=== PATIENT | male | born 1965 | race African-American/Black ===

== ENCOUNTER 2020-03-16 16:32 | Inpatient (IN) | payer MEDICARE, OTHER ==
[~2020-03-16] VITALS: Ht 180.3 cm; Wt 110.7 kg
[2020-03-16] MEDS ORDERED: PIPERACILLIN/TAZO 4.5 GM 100 ML IV STA (16:49)
--- NOTE | 2020-03-16 16:55 | Emergency Department Note ---
History of Present Illnes History of Present Illness Chief Complaint: General Medicine Complaints History of Present Illness This is a 54 year old male Chief Complaint Comment yesterday patient went to [facility] for his gangreen toe, sent back to rehab facility ([facility]) and was to have direct admission to [facility] for amputation of toe. a nurse practioner from [facility] called earlier and stated she was making sure we knew to admit this patient today. pt with right fifth toe black. 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: See EMS Report Additional [facility] Required: No Onset (how long ago): day(s) (1) Location: R 5th toe Quality: Radiation: Reports non-radiation Severity: moderate Onset quality: sudden Duration (how long): day(s) (1) Timing of current episode: constant Progression: worsening Chronicity: new Context: Denies recent illness, Denies recent surgery Relieving factors: none Exacerbating factors: none Treatments prior to arrival: none Past Medical/Family History Physician Review I have reviewed the patient's past medical and family history. Any updates have been documented here. Past Medical History Recent Fever: No Clinical Suspicion of Infectio: Yes New/Unexplained Change in Ment: No Past Medical History: Hypertension, Diabetes, CVA, UTI's, Depression, Chronic Kidney Disease Other Medical History: insomnia aphasia mild sepsis (ecoli) sleep apnea bph gangreen left hemiparesis Review of Systems Review of Systems Constitutional: Reports no symptoms EENTM: Reports no symptoms Cardiovascular: Reports no symptoms Respiratory: Reports no symptoms Gastrointestinal: Reports no symptoms Genitourinary: Reports no symptoms Musculoskeletal: Reports as per HPI Integumentary: Reports no symptoms Neurological: Reports no symptoms Psychological: Reports no symptoms Endocrine: Reports no symptoms Hematological/Lymphatic: Reports no symptoms Physical Exam Related Data Allergies: Coded Allergies: No Known Allergies (Unverified , 03/16/20) Triage Vital Signs Vital Signs Date Time Temp Pulse Resp B/P (MAP) Pulse Ox O2 Delivery O2 Flow Rate FiO2 03/16/20 16:37 Vital signs reviewed: Yes Physical Exam CONSTITUTIONAL Constitutional: Present well-developed, Present well-nourished HENT HENT: Present normocephalic, Present atraumatic, Present oropharynx clear/moist, Present nose normal HENT L/R: Present left ext ear normal, Present right ext ear normal EYES Eyes: Reports PERRL, Reports conjunctivae normal NECK Neck: Present ROM normal PULMONARY Pulmonary: Present effort normal, Present breath sounds normal CARDIOVASCULAR Cardiovascular: Present regular rhythm, Present heart sounds normal, Present capillary refill normal, Present normal rate GASTROINTESTINAL Abdominal: Present soft, Present nontender, Present bowel sounds normal GENITOURINARY Genitourinary: Present exam deferred SKIN Skin: Present warm, Present dry MUSCULOSKELETAL Musculoskeletal: Present ROM normal, Present other (R 5th toe black, no cap refill) NEUROLOGICAL Neurological: Present alert, Present oriented x 3, Present weakness (L arm and leg); Absent no gross motor or sensory deficits PSYCHOLOGICAL Psychological: Present mood/affect normal, Present judgement normal Assessment & Plan Medical Decision Making MDM 54 y.o M presents for gangrene to R small toe. Admit to [facility] and Consult Dr. Moser. Do not suspect sepsis at this time. Vanc/Zosyn started Assessment & Plan Final Impression: (1) Dry gangrene Depart Disposition: ADMITTED Last Vital Signs Date Time Temp Pulse Resp B/P (MAP) Pulse Ox O2 Delivery O2 Flow Rate FiO2 03/16/20 16:37 ANDREA STERLING MD Mar 16, 2020 16:55
[2020-03-16] MEDS ORDERED: ONDANSETRON HCL INJ 2MG/ML 2ML 2 MG/ML VIAL IV PRN (17:00)
[2020-03-16] MEDS ORDERED: MORPHINE SULFATE INJ 4 MG/ML INJ 1ML IV PRN (17:00)
--- OUTSIDE RECORDS SUMMARY | 2020-03-16 17:27 | XMS REPORT | Continuity of Care Document ---
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 Name Role Phone ShieldEffect Information Exchange Unavailable Un available Problems Problem Status Onset Date Classification Date Reported Comments Source Hypoglycemia, unspecified 11/03/2019 11/06/2019 [facility] Chest pain, unspecified 11/03/2019 11/06/2019 [facility] Hypokalemia 11/03/2019 11/06/2019 [facility] CP Active [facility] CHOLECYSTITIS Active 07/25/2019 [facility] Cerebrovascular accident (disorder) Active Problem 09/2019 [facility] Congestive heart failure (disorder) Active Problem 09/2019 [facility] Coronary arteriosclerosis (disorder) Active Problem 09/2019 [facility] GALLSTONE ILEUS Active [facility] CHEST PAIN, UNSPECIFIED Active [facility] HYPOKALEMIA Active [facility] HYPOGLYCEMIA, UNSPECIFIED Acti ve [facility] Medications Medication Details Route Status Patient Instructions Ordering Provider Order Date Source atorvastatin Notes: (Same as: Lipitor) Inactive 11/05/2019 [facility] Baclofen Notes: (Same As: Rocky esal) Inactive 11/05/2019 [facility] Flomax Notes: (Same As: Flomax ) "Do Not Crush" Inactive 11/05/2019 [facility] pantoprazole 40 mg oral enteric coated tablet 40 mg = 1 tab, PO, Before Breakfast, # 30 tab, 0 Refill(s), Pharmacy: [facility], 177.8, cm, 11/03/19 22:36:00 CDT, Height, 127.27, kg, 11/03/19 22:36:00 CDT, Weight Active 11/04/2019 [facility] Amiodarone Notes: (Same as: Co rdarone) Inactive 11/04/2019 [facility] Aspirin 325 MG Oral Tablet Not es: Take with food. Inactive 11/04/2019 [facility] carvedilol Notes: Give with fo od. (Same As: Coreg) Inactive 11/04/2019 [facility] Plavix Notes: (Same As: Plavix) Inactive 11/04/2019 [facility] Docusate Sodium 100 MG Oral Capsule Notes: (Same as: Colace) (Do Not Crush) Inactiv e 11/04/2019 [facility] Cymbalta Notes: (Same as: Cymb tami) (Do Not Crush) Inactive 11/04/2019 [facility] Famotidine Notes: (Same as: Pe pcid) Inactive 11/04/2019 [facility] Lisinopril Notes: (Same as: Pr inivil, Zestril) Inactive 11/04/2019 [facility] Protonix Notes: Tablet should not be chewed or crushed. (Same as: Protonix) Inactive 11/04/2019 [facility] Enoxaparin Notes: (Same as: Lo venox) Inactive 11/04/2019 [facility] Lovenox Notes: (Same as: Loven ox) No Longer Active 11/04/2019 [facility] Tylenol Notes: Do not exceed 4 gm/day. (Same as: Tylenol) No Longer Active 11/04/2019 [facility] Bisacodyl Notes: (Same As: Dul colax, Bisco-Lax) No Longer Active 11/04/2019 [facility] Dextrose 50% Syringe (D50W) 12 .5 gm, 25 mL, Route: IVP, Drug Form: INJ, Dosing Weight 127.273, kg, PRN, PRN Blood Glucose Results, Start date: 11/03/19 21:03:00 CDT, Duration: 30 day, Stop date: 12/03/19 21:02:00 CDT, 0 No Longer Active 11/04/2019 [facility] Glucagon 1 mg, Route: IM, Drug form: PDR/INJ, PRN, Dosing Weight 127.273, kg, PRN Blood Glucose Results, Start date: 11/03/19 21:03:00 CDT, Duration: 30 day, Stop date: 12/03/19 21:02:00 CDT, 0 No Longer Active 11/04/2019 [facility] Morphine Notes: (Same as:MORPh ine Sulfate) Inactive 11/04/2019 [facility] Aspirin Notes: Take with food. Inactive 11/04/2019 [facility] Omnipaque 300 injectable solution 45 mL/min, STAT, Start date: 11/03/19 16:16:00 CDT, Duration: 1 doses or times Inactive 11/03/2019 [facility] potassium chloride 20 mEq oral tablet, e xtended release (KCL) Notes: (Same as: K-Dur 20) "Do Not Crush " Give with food and full glass of water For patients unable to swallow tablet, dissolve in one half glass of water. Allow about 2 minutes for the tablets to disintegrate. Stir before giving to prepare slurry and administer. Please exclude Patients with feeding tube less than 14 Danish (Dobhoff, J-tube etc) and pediatric and patients. Inactive 11/03/2019 [facility] Saline Flush 0.9% Notes: (Same as: BD Posiflush) No Longer Active 11/03/2019 [facility] Allergies, Adverse Reactions, Alerts Substance Category Reaction Severity Reaction type Status Date Reported Comments Source penicillins Assertion Drug allergy Active [facility] Immunizations No Data Provided for This Section Results Order Name Results Value Reference Range Date Interpretation Comments Source CARDIAC ENZYMES Troponin-I <0.02 0.00 - 0.40 11/04/2019 [facility] CHEM PANEL Glucose Lvl 87 70 - 99 11/04/2019 [facility] CHEM PANEL BUN 10 7 - 22 11/04/2019 [facility] CHEM [facility] Creatinine Lvl 0.60 0.50 - 1.40 11/04/2019 [facility] CHEM PANEL Sodium Lvl 141 135 - 145 11/04/2019 [facility] CHEM PANEL Potassium Lvl 3.5 3.5 - 5.1 11/04/2019 [facility] CHEM PANEL Chloride Lvl 107 95 - 109 11/04/2019 [facility] CHEM PANEL CO2 27 24 - 32 11/04/2019 [facility] CHEM PANEL AGAP 10.5 10.0 - 20.0 11/04/2019 [facility] CHEM PANEL Calcium Lvl 8.8 8.5 - 10.5 11/04/2019 [facility] CHEM [facility] eGFR 130 11/04/2019 Result Comment: The eGFR is calculated using the CKD-EPI formula. In most young, healthy individuals the eGFR will be >90 mL/min/1.73m2. The eGFR declines with age. An eGFR of 60-89 may be normal in some populations, particularly the elderly, for whom the CKD-EPI formula has not been extensively validated. Use of the eGFR is not recommended in the following populations:

Individuals with unstable creatinine concentrations, including patients and those with serious co-morbid conditions.

Patients with extremes in muscle mass or diet.

The data above are obtained from the National Kidney Disease Education Program (NKDEP) which additionally recommends that when the eGFR is used in patients with extremes of body mass index for purposes of drug dosing, the eGFR should be multiplied by the estimated BMI. [facility] CHEM PANEL Magnesium Lvl 1.9 1.8 - 2.4 11/04/2019 [facility] CHEM PANEL Phosphorus 2.7 2.5 - 4.5 11/04/2019 [facility] HEMATOLOGY WBC 7.9 3.7 - 10.4 11/04/2019 [facility] RBC 4.38 4.70 - 6.10 11/04/2019 [facility] Hgb 12.2 14.0 - 18.0 11/04/2019 [facility] Hct 37.2 42.0 - 54.0 11/04/2019 [facility] MCV 84.8 80.0 - 94.0 11/04/2019 [facility] MCH 27.9 27.0 - 31.0 11/04/2019 [facility] MCHC 32.8 32.0 - 36.0 11/04/2019 [facility] RDW 15.5 11.5 - 14.5 11/04/2019 [facility] Platelet 347 133 - 450 11/04/2019 [facility] MPV 8.0 7.4 - 10.4 11/04/2019 [facility] Segs 56.2 45.0 - 75.0 11/04/2019 [facility] Lymphocytes 31.2 20.0 - 40.0 11/04/2019 [facility] Monocytes 8.0 2.0 - 12.0 11/04/2019 [facility] HEMATOLOGY Eosinophils 3.4 0.0 - 4.0 11/04/2019 [facility] Basophils 1.2 0.0 - 1.0 11/04/2019 [facility] HEMATOLOGY Neutrophils # 4.4 1.5 - 8.1 11/04/2019 [facility] Lymphocytes # 2.5 1.0 - 5.5 11/04/2019 [facility] Monocytes # 0.6 0.0 - 0.8 11/04/2019 [facility] HEMATOLOGY Eosinophils # 0.3 0.0 - 0.5 11/04/2019 [facility] HEMATOLOGY Basophils # 0.1 0.0 - 0.2 11/04/2019 [facility] PARATHYROID PROFILE Ca Ion WB 1.17 1.05 - 1.25 11/04/2019 [facility] PARATHYROID PROFILE Ca Norm WB 1.17 1.05 - 1.25 11/04/2019 [facility] IMMUNOLOGY Coronavirus (COVID-19) NA A Not Detected (11/03/19 11:04 PM) Not Detected 11/04/2019 [facility] CARDIAC ENZYMES Troponin-I <0.02 0.00 - 0.40 11/03/2019 [facility] WBC 10.8 3.7 - 10.4 11/03/2019 [facility] HEMATOLOGY RBC 4.45 4.70 - 6.10 11/03/2019 [facility] Hgb 12.3 14.0 - 18.0 11/03/2019 [facility] Hct 38.1 42.0 - 54.0 11/03/2019 [facility] MCV 85.5 80.0 - 94.0 11/03/2019 [facility] MCH 27.7 27.0 - 31.0 11/03/2019 [facility] MCHC 32.4 32.0 - 36.0 11/03/2019 [facility] RDW 15.5 11.5 - 14.5 11/03/2019 [facility] Platelet 348 133 - 450 11/03/2019 [facility] MPV 7.9 7.4 - 10.4 11/03/2019 [facility] PT 14.6 12.0 - 14.7 11/03/2019 [facility] INR 1.13 0.85 - 1.17 11/03/2019 [facility] D-Dimer 2.44 11/03/2019 [facility] Segs 77.4 45.0 - 75.0 11/03/2019 [facility] Lymphocytes 13.3 20.0 - 40.0 11/03/2019 [facility] Monocytes 6.5 2.0 - 12.0 11/03/2019 [facility] HEMATOLOGY Eosinophils 1.3 0.0 - 4.0 11/03/2019 [facility] HEMATOLOGY Basophils 1.5 0.0 - 1.0 11/03/2019 [facility] Neutrophils # 8.4 1.5 - 8.1 11/03/2019 [facility] Lymphocytes # 1.4 1.0 - 5.5 11/03/2019 [facility] Monocytes # 0.7 0.0 - 0.8 11/03/2019 [facility] HEMATOLOGY Eosinophils # 0.1 0.0 - 0.5 11/03/2019 [facility] HEMATOLOGY Basophils # 0.2 0.0 - 0.2 11/03/2019 [facility] HEMATOLOGY PTT 32.3 22.9 - 35.8 11/03/2019 [facility] CARDIAC ENZYMES Total CK 31 12 - 191 11/03/2019 [facility] CARDIAC ENZYMES Troponin-I <0.02 0.00 - 0.40 11/03/2019 [facility] CARDIAC ENZYMES BNP 259 <=100 pg/mL 11/03/2019 [facility] CHEM PANEL Glucose Lvl 48 70 - 99 11/03/2019 Result Comment: Critical Result(s) martinez d to Fawn Marieargenis at 11/03/2019 15:14 by [facility]. Read back OK. [facility] CHEM PANEL BUN 13 7 - 22 11/03/2019 [facility] CHEM PANEL Creatinine Lvl 0.61 0.50 - 1.40 11/03/2019 [facility] CHEM PANEL Sodium Lvl 144 135 - 145 11/03/2019 [facility] CHEM PANEL Potassium Lvl 3.1 3.5 - 5.1 11/03/2019 [facility] CHEM PANEL Chloride Lvl 111 95 - 109 11/03/2019 [facility] CHEM PANEL CO2 27 24 - 32 11/03/2019 [facility] CHEM PANEL AGAP 9.1 10.0 - 20.0 11/03/2019 [facility] CHEM PANEL Calcium Lvl 7.6 8.5 - 10.5 11/03/2019 [facility] CHEM PANEL B/C Ratio 21 6 - 25 11/03/2019 [facility] CHEM PANEL Total Protein 6.5 6.4 - 8.4 11/03/2019 [facility] CHEM PANEL Albumin Lvl 2.3 3.5 - 5.0 11/03/2019 [facility] CHEM PANEL Globulin 4.2 2.7 - 4.2 11/03/2019 [facility] CHEM PANEL A/G Ratio 0.5 0.7 - 1.6 11/03/2019 [facility] CHEM PANEL ALT 12 0 - 65 11/03/2019 [facility] CHEM PANEL AST 10 0 - 37 11/03/2019 [facility] CHEM PANEL Alk Phos 60 39 - 136 11/03/2019 [facility] CHEM PANEL Bili Total 0.2 0.2 - 1.3 11/03/2019 [facility] CHEM PANEL eGFR 130 11/03/2019 Result Comment: The eGFR is calculated using the CKD-EPI formula. In most young, healthy individuals the eGFR will be >90 mL/min/1.73m2. The eGFR declines with age. An eGFR of 60-89 may be normal in some populations, particularly the elderly, for whom the CKD-EPI formula has not been extensively validated. Use of the eGFR is not recommended in the following populations:

Individuals with unstable creatinine concentrations, including patients and those with serious co-morbid conditions.

Patients with extremes in muscle mass or diet.

The data above are obtained from the National Kidney Disease Education Program (NKDEP) which additionally recommends that when the eGFR is used in patients with extremes of body mass index for purposes of drug dosing, the eGFR should be multiplied by the estimated BMI. [facility] CHEM PANEL Magnesium Lvl 1.4 1.8 - 2.4 11/03/2019 [facility] CHEM PANEL Phosphorus 2.9 2.5 - 4.5 11/03/2019 [facility] Pathology Reports No Data Provided for This Section Diagnostic Reports Report Value Date Source Chest Pulmonary Embolism CTA Radiation Dose CTDIVOL = 0 (mGy): DLP = 555 (mGy-cm) PROCEDURE INFORMATION: Exam: CT Angiography Chest With Contrast Exam date and time: 11/03/2019 4:38 PM Age: 54 years old Clinical indication: /chest pain; elevated dimer TECHNIQUE: Imaging protocol: Computed tomographic angiography of the chest with intravenous contrast. 3D rendering: MIP and/or 3D reconstructe d images were created by the technologist. Radiation optimization: All CT scans at this facility use at least one of these dose optimization techniques: automated exposure control; mA and/or kV adjustment per patient size (includes targeted exams where dose is matched to clinical indication); or iterative reconstruction. Contrast material: [id number]; Contrast volume: 100 ml; Contrast route: INTRAVENOUS (IV); COMPARISON: CHEST 1VIEW DX 11/03/2019 2:13 PM RADIATION DOSE METRICS: Total DLP (mGy-cm): 555 FINDINGS: Pulmonary arteries: No pulmonary arterial thrombus. Aorta: Minimal calcified plaque is present in the thoracic aorta. Lungs: Diffuse pulmonary minimal mosaic groundglass attenuation. Pleural space: Unremarkable. No pneumothorax. No pleural effusion. Heart: Severe three-vessel coronary atherosclerotic calcific disease present, however, post CABG changes are noted. Mild cardiomegaly. Lymph nodes: Unremarkable. No enlarged lymph nodes. Gallbladder and bile ducts: Gallbladder surgically absent. Adrenals: Adrenal glands are normal. Stomach and bowel: Small hiatal hernia. Bones/joints: Unremarkable. No acute fracture. Soft tissues: Unremarkable. IMPRESSION: 1. Negative for pulmonary arterial embol ism. 2. Negative for thoracic aortic dissecti on or aneurysm. 3. Mild cardiomegaly. 4. Diffuse pulmonary minimal mosaic grou ndglass attenuation. Differential diagnosis includes pulmonary emphysematous changes, early alveolar pulmonary edema, or possible vasculitis. 5. Small hiatal hernia. Meño Lacey MD On 11/03/2019 17:12:51; [id number] 11/03/2019 [facility] 1view DX PROCEDURE INFOR MATION: Exam: XR Chest, 1 View Exam date and time: 11/03/2019 2:13 PM Age: 54 years old Clinical indication: Patient [facility]X: [facility], chest pain started at noon today, PT reports intermittent chest pain for several months since having a stroke, nitro x 3 given by halfway w/ no relief; Additional info: /chest pain TECHNIQUE: Imaging protocol: XR of the chest Views: 1 view. COMPARISON: No relevant prior studies available. FINDINGS: Lungs: Prominent interstitial markings in the lungs, difficult to assess and differentiate chronic process such as fibrosis from acute process such as edema or pneumonia. No area of consolidation. Pleural space: Unremarkable. No pleural effusion. No pneumothorax. Heart/Mediastinum: Heart size is within normal limits. Vasculature is unremarkable. Bones/joints: Patient has had a sternotomy. IMPRESSION: Prominent interstitial markings in each lung Ezekiel Garza MD On 11/03/2019 14:51:33; [id number] 11/03/2019 [facility] 1view DX PROCEDURE INFOR MATION: Exam: XR Chest, 1 View Exam date and time: 07/28/2019 1:46 PM Age: 54 years old Clinical indication: Shortness of breath; Additional info: /sob TECHNIQUE: Imaging protocol: XR of the chest Views: 1 view. COMPARISON: No relevant prior studies available. FINDINGS: There are multiple median sternotomy wires and surgical clips suggesting prior CABG. There is moderate enlargement of the cardiomediastinal silhouette. There is batwing prominence of interstitial lung markings. There is blunting of the costophrenic angles. No pneumothorax. No acute osseous abnormalities. IMPRESSION: Moderate cardiomegaly with pulmonary edema and questionable bilateral pleural effusions. Tyron Britton MD On 07/28/2019 14:29:55; [id number] 07/28/2019 [facility] Gallbladder scan ANGEL arredondo [place] Report was faxed. Receipt of fax was verified by nurse Karen at 07/26/2019 11:17 AM CDT. Victoriano Taylor MD On 07/26/2019 11:17:51; [id number] PROCEDURE INFORMATION: Exam: NM Hepatobiliary Including Gallbladder When Present Exam date and time: 07/26/2019 10:54 AM Age: 54 years old Clinical indication: Ruq pain; Additional info: /r/o cholecystitis. Cholelithiasis TECHNIQUE: Imaging protocol: Hepatobiliary system imaging including the gallbladder when present. Projections: Frontal abdomen. Radiopharmaceutical: 5 mCi technetium 99 M Choletec, right antecubital, IV. 2 mg of morphine was administered after the gallbladder was not initially visualized. Time of imaging post radiopharmaceutical administration: 60 minutes following radiopharmaceutical. COMPARISON: GALLBLADDER US 07/25/2019 6:27:22 PM FINDINGS: Liver: Homogeneous radiotracer uptake. Gallbladder: Not visualized pre and post morphine. Ejection fraction: Not applicable. Bile Ducts: Clearly visualized. Stomach and bowel: Radiotracer activity is seen in the small bowel. IMPRESSION: Nonvisualization of the gallbladder which could be seen with cholecystitis. Victoriano Taylor MD On 07/26/2019 11:06:29; [id number] 07/26/2019 [facility] Gallbladder US PROCEDURE INFOR MATION: Exam: US Abdomen Limited, Right Upper Quadrant Exam date and time: 07/25/2019 6:27 PM Age: 54 years old Clinical indication: Pain; Additional info: /acute rodolfo TECHNIQUE: Imaging protocol: Real-time ultrasound of the abdomen with image documentation. Examination was focused on the right upper quadrant. COMPARISON: No relevant prior studies available. FINDINGS: LIVER: The visualized liver shows normal contour, size, and morphology . Increased echogenicity suggests fatty infiltration. Increased echogenicity of the liver parenchyma limits evaluation for underlying hyperechoic lesions. Common bile duct: The intrahepatic and extrahepatic bile ducts are not dilated with the common bile duct measuring 4.5 mm. The distal common bile duct is not well seen. GALLBLADDER: Echogenic, shadowing gallstones present layering hyperechoic nonshadowing material also seen, likely related to gallbladder sludge. Borderline gallbladder wall thickening at 3.7 mm. Questionable pericholecystic fluid (images [id number]). PANCREAS: The visualized portions of the pancreas appear unremarkable. RIGHT KIDNEY: The right kidney measures 9.9 x 5.4 x 4.9 cm and is unremarkable without hydronephrosis. AORTA: Visualized portions appear nonaneurysmal. INTRAPERITONEAL SPACE: There is no abdominal ascites. IMPRESSION: 1. Cholelithiasis and gallbladder sludge . Possible borderline gallbladder wall thickening. Questionable pericholecystic fluid. Acute cholecystitis not confirmed or excluded. Please evaluate clinically. Can consider nuclear medicine HIDA scan to further characterize. 2. Hepatic steatosis. Esthela Leon MD On 07/25/2019 19:05:23; [id number] 07/25/2019 [facility] Consultation Notes No Data Provided for This Section Discharge Summaries No Data Provided for This Section History and Physicals No Data Provided for This Section Vital Signs Vital Sign Value Date Comments Source Temperature Oral (F) 98.1 F 11/04/2019 [facility] Heart Rate 72 11/04/2019 [facility] Respitory Rate 18 11/04/2019 [facility] Systolic (mm Hg) 136 11/04/2019 [facility] Diastolic (mm Hg) 80 11/04/2019 [facility] Temperature Oral (F) 98.2 F 11/04/2019 [facility] Heart Rate 77 11/04/2019 [facility] Respitory Rate 18 11/04/2019 [facility] Systolic (mm Hg) 154 11/04/2019 [facility] Diastolic (mm Hg) 88 11/04/2019 [facility] Heart Rate 81 11/04/2019 [facility] Respitory Rate 18 11/04/2019 [facility] Systolic (mm Hg) 139 11/04/2019 [facility] Diastolic (mm Hg) 81 11/04/2019 [facility] Temperature Oral (F) 97.9 F 11/04/2019 [facility] Height 177.8 cm 11/04/2019 [facility] Weight 127.27 11/04/2019 [facility] BMI Calculated 40.26 11/04/2019 [facility] BMI Calculated 40.26 11/03/2019 [facility] Height 177.8 cm 11/03/2019 [facility] BMI Calculated 40.26 11/03/2019 [facility] Weight 127.273 11/03/2019 [facility] Encounters Location Location Details Encounter Type Encounter Number Reason For Visit Attending Provider ADM Date DC Date Status Source [facility] Observation [id number] Vasyl Hilton 11/03/2019 11/04/2019 [facility] Procedures Procedure Code Date Perfomer Comments Source CABG - Coronary artery bypass graft [id number] [facility] Assessment and Plan Assessment and Plan Date Source Extracted from:Title: [facility] H&P * Author: Tomer Sanders MD Date: 11/04/19 Impression and Plan 1. CHEST PAIN: Epigastric, likely GERD. NO ACS. Negative CE, no ischemia on ECG. Plan -PPI on discharge -gas aid 2. Cardiomyopathy: Last TTE noted EF -30 -35%. Unknown chronicity. Possible Ischemic prior or post CABG vs Stress induced from CVA Plan: -c/w coreg 6.25mg BID -c/w lisinopril - ASA 81mg -Ischemic work up for cardiomyopathy as out pt 3. CAD: Prior CABG. No angina or ACS Plan: -c/w ASA 81mg -BB -c/w plavix, statins 4. HTN: Control c/w home meds Ok to discharge from cardiology standpoint. D/C home with Protonix. Pt has my business card for follow up in my clinic. [facility] Extracted from:Title: History and Physical Author: Vasyl Hilton MD Date: 11/03/19 54-year-old male with a history of coron anand artery disease, CABG, recent strokeadmitted for ACS rule out. 1.Acute chest pain(R07.9) -Trop-I negative x2. EKG NSR. -Admit to obs and trend trops. -given prior cardiac history, will consu lt cards for evaluation. Ordered: Admit/Condition, 11/03/19 21:03:00 CDT, Status: Out Patient with Observation Services, Acute, Expected LOS: 1 Midnight, Vasyl Hilton MD, Admit MD Review/Approve Yes, Isolation: No Isolation/Standard Precautions, Acute chest pain | Acute hypokalemia | Hypoglycemia 2.Hypoglycemia(E16.2) -Etiology likely dose of insulin is more than required. Will need careful insulin dose instructions on discharge. -Corrected with D50 in ED. Ordered: Admit/Condition, 11/03/19 21:03:00 CDT, Status: Out Patient with Observation Services, Acute, Expected LOS: 1 Midnight, Vasyl Hilton MD, Admit MD Review/Approve Yes, Isolation: No Isolation/Standard Precautions, Acute chest pain | Acute hypokalemia | Hypoglycemia 3.CAD in [place] artery(I25.10) -Continue home meds. 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 Monitor. Ordered: Admit/Condition, 11/03/19 21:03:00 CDT, Status: Out Patient with Observation Services, Acute, Expected LOS: 1 Midnight, Vasyl Hilton MD, Admit MD Review/Approve Yes, Isolation: No Isolation/Standard Precautions, Acute chest pain | Acute hypokalemia | Hypoglycemia Lovenox SubQ Obs 11/04/2019 [facility] Plan of Care No Data Provided for This Section Social History Social History Date Source Social History TypeResponse Alcohol Never Substance Abuse Use: None. Smoking Status Never smoker; Previous treatment: None; Exposure to Tobacco Smoke None; Cigarette Smoking Last 365 Days No; Reg Smoking Cessation Counseling No; Tobacco use per day: 0; Number of years: 0; Total pack years: 0; entered on: 11/03/19 07/25/2019 [facility] Family History No Data Provided for This Section Advance Directives No Data Provided for This Section Functional Status No Data Provided for This Section
--- OUTSIDE RECORDS SUMMARY | 2020-03-16 17:28 | XMS REPORT | Continuity of Care Document ---
Author Author [facility] t Organization [facility] Address [address] [place] [address] Phone Unavailable Care Team Providers Care Dental Assistant Medical Assistant Name Role Phone Evangelist Beltran Attphys Vasyl Hilton Admphys Payers Payer Name Policy Type Policy Number Effective Date Expiration Date S ource Problems Condition Name Condition Details Condition Category Status Onset Date Resolution Date Last Treatment Date Treating Clinician Comments Source CP CP Active 11/03/2019 [facility] Diagnosis Active 2019-11-03 00:00:00 2019-11-11 22:08:00 Kevan emohanane Mahmood CHOLECYSTITIS CHOL ECYSTITIS Active 07/25/2019 [facility] Diagnosis Active 2019-07-25 00:00:00 2019-08-03 22:02:00 Jose Mahmood Cerebrovascular accident (disorder) Cerebrovascular accident (disorder) Active Problem 11/06/2019 [facility] Problem Active 2019-11-06 21:32:56 Jose Mahmood Congestive heart failure (disorder) Congestive heart failure (disorder) Active Problem 11/06/2019 [facility] Problem Active 2019-11-06 21:32:56 Jose Mahmood Coronary arteriosclerosis (disorder) Coronary arteriosclerosis (disorder) Active Problem 11/06/2019 [facility] Problem Active 2019-11-06 21:32:56 Jose Mahmood GALLSTONE ILEUS GALL STONE ILEUS Active [facility] Diagnosis Active 2019-08-03 22:02:00 [facility] CHEST PAIN, UNSPECIFIED CHES T PAIN, UNSPECIFIED Active [facility] Active 2019-11-11 22:08:00 [facility] HYPOKALEMIA HYPO KALEMIA Active [facility] Active 2019-11-11 22:08:00 Jesusor phyllis [address] HYPOGLYCEMIA, UNSPECIFIED HYPO GLYCEMIA, UNSPECIFIED Active [facility] Active 2019-11-11 22:08:00 [facility] Hypoglycemia, unspecified Hypo glycemia, unspecified 11/03/2019 11/06/2019 [facility] Problem 2019-11-03 17:00:00 2019 21:32:56 2019-11-06 21:32:56 [facility] Chest pain, unspecified Ches t pain, unspecified 11/03/2019 11/06/2019 [facility] Problem 2019-11-03 17:00:00 2019 21:32:56 2019-11-06 21:32:56 [facility] Hypokalemia Hypo kalemia 11/03/2019 11/06/2019 [facility] Problem 2019-11-03 17:00:00 2019-11-06 21:32:56 2019-11 21:32:56 [facility] Allergies, Adverse Reactions, Alerts Allergy Name Allergy Type Status Severity Reaction(s) Onset Date Inacti ve Date Treating Clinician Comments Source Penicillins DA Active U 2020-03-15 00:00:[address] [facility] Penicillins DA Active U 2019-08-31 00:00:00 [facility] No Known Allergies DA Active U 2019-08-28 00:00:[address] [facility] No Known Drug Intolerances DA Active U 2009-02-17 00:00:[address] [facility] penicillins penicillins Active [facility] Social History Social Habit Start Date Stop Date Quantity Comments Source Social History 2019-07-25 21:48:27 2019-07-25 21:48:27 [facility] Medications Ordered Medication Name Filled Medication Name Start Date Stop Da te Current Medication? Ordering Clinician Indication Dosage Frequency Signature (SIG) Comments Components Source atorvastatin 2019-11-05 02:00:00 No Notes: (Same as: Lipitor) [facility] Baclofen 2019-11-05 02:00:00 No Notes: (Dc e As: Lioresal) Jose Mahmood Flomax 2019-11-05 02:00:00 No Notes: (Same As: Flomax) "Do Not Crush" Jose Mahmood pantoprazole 40 mg oral enteric coated tablet 2019-11-04 16:34:0 0 Yes 40 mg = 1 tab, PO, Before Breakfast, # 3 0 tab, 0 Refill(s), Pharmacy: [facility], 177.8, cm, 11/03/19 22:36:00 CDT, Height, 127.27, kg, 11/03/19 22:36:00 CDT, Weight Jose Mahmood Amiodarone 2019-11-04 14:00:00 No Notes: (S marquis as: Cordarone) Jose Mahmood Aspirin 325 MG Oral Tablet 2019-11-04 14:00:00 No Notes: Take with food. Jose Mahmood carvedilol 2019-11-04 14:00:00 No Notes: Give with food. (Same As: Coreg) [facility] [place] Plavix 2019-11-04 14:00:00 No Notes: (Same As: Plavix) Jose Mahmood Docusate Sodium 100 MG Oral Capsule 2019-11-04 14:00:00 No Notes: (Same as: Colace) (Do Not Crush) [facility] Cymbalta 2019-11-04 14:00:00 No Notes: (Same as: Cymbalta) (Do Not Crush) [facility] [address] Famotidine 2019-11-04 14:00:00 No Notes: (S marquis as: Pepcid) [facility] Lisinopril 2019-11-04 14:00:00 No Notes: (Same as: Prinivil, Zestril) [facility] Protonix 2019-11-04 13:26:00 No Notes: Tablet should not be chewed or crushed. (Same as: Protonix) [facility] [address] Enoxaparin 2019-11-04 03:00:00 No Notes: (S marquis as: Lovenox) [facility] Lovenox 2019-11-04 03:00:00 No Notes: (Same as: Lovenox) [facility] Tylenol 2019-11-04 02:18:00 No Notes: Do not exceed 4 gm/day. (Same as: Tylenol) [facility] Bisacodyl 2019-11-04 02:18:00 No Notes: (Same As: Dulcolax, Bisco-Lax) [facility] Dextrose 50% Syringe (D50W) 2019-11-04 02:03:00 No 12.5 gm, 25 mL, Route: IVP, Drug Form: INJ, Dosing Weight 127.273, kg, PRN, PRN Blood Glucose Results, Start date: 11/03/19 21:03:00 CDT, Duration: 30 day, Stop date: 12/03/19 21:02:00 CDT, 0 [facility] R[place] n Glucagon 2019-11-04 02:03:00 No 1 mg, Route: IM, Drug form: PDR/INJ, PRN, Dosing Weight 127.273, kg, PRN Blood Glucose Results, Start date: 11/03/19 21:03:00 CDT, Duration: 30 day, Stop date: 12/03/19 21:02:00 CDT, 0 [facility] Morphine 2019-11-04 02:02:00 Yes Not es: (Same as:MORPhine Sulfate) [facility] Aspirin 2019-11-04 01:49:00 No Notes: Take with food. [facility] Omnipaque 300 injectable solution 2019-11-03 21:16:00 No 45 mL/min, STAT, Start date: 11/03/19 16:16:00 CDT, Duration: 1 doses or times [facility] potassium chloride 20 mEq oral tablet, extended release (KCL ) 2019-11-03 20:18:00 No Notes: (Sa me as: K-Dur 20) "Do Not Crush" Give with food and full glass of water For patients unable to swallow tablet, dissolve in one half glass of water. Allow about 2 minutes for the tablets to disintegrate. Stir before giving to prepare slurry and administer. Please exclude Patient s with feeding tube less than 14 Polish (Dobhoff, J-tube etc) and pediatric and patients. [facility] Saline Flush 0.9% 2019-11-03 18:54:00 No Notes: (Same as: BD Posiflush) [facility] Vital Signs Vital Name Observation Time Observation Value Comments Source Temperature Oral (F) 2019-11-04 18:04:00 98.1 F [facility] Heart Rate 2019-11-04 18:04:00 [facility] Respitory Rate 2019-11-04 18:04:00 [facility] Systolic (mm Hg) 2019-11-04 18:04:00 [facility] [place] Diastolic (mm Hg) 2019-11-04 18:04:00 [facility] [place] Temperature Oral (F) 2019-11-04 17:28:00 98.2 F [facility] Heart Rate 2019-11-04 17:28:00 [facility] Respitory Rate 2019-11-04 17:28:00 [facility] [place] Systolic (mm Hg) 2019-11-04 17:28:00 [facility] [place] Diastolic (mm Hg) 2019-11-04 17:28:00 [facility] [place] Heart Rate 2019-11-04 13:32:00 [facility] Respitory Rate 2019-11-04 13:32:00 [facility] [place] Systolic (mm Hg) 2019-11-04 13:32:00 [facility] [place] Diastolic (mm Hg) 2019-11-04 13:32:00 [facility] [place] Temperature Oral (F) 2019-11-04 08:52:00 97.9 F [facility] Height 2019-11-04 03:36:00 177.8 cm [facility] Weight 2019-11-04 03:36:00 [facility] BMI Calculated 2019-11-04 03:36:00 [facility] BMI Calculated 2019-11-03 18:54:00 [facility] [place] Height 2019-11-03 18:37:00 177.8 cm [facility] BMI Calculated 2019-11-03 18:37:00 [facility] [place] Weight 2019-11-03 18:37:00 [facility] Procedures Procedure Date / Time Performed Performing Clinician Sourc e CABG - Coronary artery bypass graft [facility] Encounters Start Date/Time End Date/Time Encounter Type Admission Type Attendi [facility] Care Department Encounter ID Source 2019-07-25 16:28:00 Inpatient U [facility]NE [facility]NE 00 [id number] [facility]NE 2019-11-03 13:19:20 2019-11-04 13:19:00 Outpatient Obih, [place] [id number] 2019-11-03 21:03:00 2019-11-03 21:03:00 Outpatient E [facility] MED 7500 [facility] Results Test Description Test Time Test Comments Results Result Comments Source LACTIC ACID 2020-03-15 23:41:00 Test Item LACTIC ACID (test code = LACT) 1.6 mmol/L 0.4-1.9 N PROTHROMBIN [id number] 23:26:00* Test Item Value Reference Range Interpretation Comments PROTHROMBIN TIME PATIENT (test code = PTP) 13.4 seconds 9.0-14.0 N INTERNATIONAL NORMAL RATIO (test code = INR) 1.2 0.8-1.2 N The therapeutic range for oral anticoagulant therapy formost indications is an international normalized ratio (INR)of between 2.0 and 3.0. The recommended therapeutic INRrange for various clinical situations is listed below: Clinical Situation INR range Pulmonary e mbolism treatment (2.0-3.0)Venous thrombosis treatmentVenous thrombosis prophylaxis (high risk surgery)Prevention of systemic embolism from: Acute myocardial infarction Valvular heart disease Atrial fibrillation Mechanical prosthetic heart valves (2.5-3.5) IS PATIENT ON ANTICOAGULANTS? NTHROMBOPLASTIN TIME [id number] 23:26:00* Test Item Value Reference Range Interpretation Comments THROMBOPLASTIN TIME PARTIAL (test code = PTT) 33.1 seconds 23.0-37. 0 N IS PATIENT ON ANTICOAGULANTS? NBASIC METABOLIC [id number] 23:25:00* Test Item Value Reference Range Interpretation Comments SODIUM (test code = NA) 141 mmol/L 136-145 N POTASSIUM (test code = K) 4.0 mmol/L 3.5-5.1 N CHLORIDE (test code = CL) 104.0 mmol/L 98-107 N CARBON DIOXIDE (test code = CO2) 31.0 mmol/L 21-32 N ANION GAP (test code = GAP) 10.0 10-20 N GLUCOSE (test code = GLU) 161 mg/dL 74-106 H BLOOD UREA NITROGEN (test code = BUN) 11 mg/dL 7-18 N GLOMERULAR FILTRATION RATE (test code = GFR) > 60 mL/min >=60 Estimated GFR by using Modified MDRD formula.Chronic kidney disease is defined as either kidney damageor GFR <60 mL/min/1.73 m2 for >3 months. CREATININE (test code = CREAT) 0.80 mg/dL 0.7-1.3 N BUN/CREATININE RATIO (test code = BUN/CREA) 14.4 10-20 N CALCIUM (test code = CA) 8.7 mg/dL 8.5-10.1 N HEPATIC FUNCTION [id number] 23:25:00* Test Item Value Reference Range Interpretation Comments TOTAL PROTEIN (test code = PROT) 8.2 gram/dL 6.4-8.2 N ALBUMIN (test code = ALB) 2.2 g/dL 3.4-5.0 L GLOBULIN (test code = GLOB) 6.0 gram/dL 2.7-4.2 H ALBUMIN/GLOBULIN RATIO (test code = A/G) 0.4 0.75-1.50 L BILIRUBIN TOTAL (test code = BILT) 0.30 mg/dL 0.0-1.0 N BILIRUBIN DIRECT (test code = BILD) 0.19 mg/dL 0.0-0.20 N SGOT/AST (test code = AST) 13 IUnit/L 15-37 L SGPT/ALT (test code = ALT) 14 IUnit/L 12-78 N ALKALINE PHOSPHATASE TOTAL (test code = ALKP) 79 IUnit/L 45-117 N Note change in reference range due to change in reagent. CBC W/AUTO [id number] 23:21:00* Test Item Value Reference Range Interpretation Comments WHITE BLOOD CELL (test code = WBC) 10.7 K/mm3 4.5-12.5 N RED BLOOD CELL (test code = RBC) 4.07 mill/mm3 4.0-5.8 N HEMOGLOBIN (test code = HGB) 11.4 gram/dL 13.0-17.5 L HEMATOCRIT (test code = HCT) 35.8 % 42.0-52.0 L MEAN CELL VOLUME (test code = MCV) 88.0 fL 80-98 N MEAN CELL HGB (test code = MCH) 28.0 picogram 27.0-33.0 N MEAN CELL HGB CONCETRATION (test code = MCHC) 31.8 gram/dL 33.0-36. 0 L RED CELL DISTRIBUTION WIDTH (test code = RDW) 16.9 % 11.6-16. 2 H RED CELL DISTRIBUTION WIDTH SD (test code = RDW-SD) 53.3 fL 37 .0-51.0 H PLATELET COUNT (test code = PLT) 540 K/mm3 150-450 H MEAN PLATELET VOLUME (test code = MPV) 9.1 fL 6.7-11.0 N NEUTROPHIL % (test code = NT%) 67.4 % 39.0-69.0 N IMMATURE GRANULOCYTE % (test code = IG%) 0.3 % 0.0-5.0 N LYMPHOCYTE % (test code = LY%) 23.6 % 25.0-55.0 L MONOCYTE % (test code = MO%) 6.1 % 0.0-10.0 N EOSINOPHIL % (test code = EO%) 1.4 % 0.0-5.0 N BASOPHIL % (test code = BA%) 1.2 % 0.0-1.0 H NUCLEATED RBC % (test code = NRBC%) 0.0 % 0-0 N NEUTROPHIL # (test code = NT#) 7.19 K/mm3 1.8-7.7 N IMMATURE GRANULOCYTE # (test code = IG#) 0.03 x10 3/uL 0-0.03 N LYMPHOCYTE # (test code = LY#) 2.52 K/mm3 1.0-5.0 N MONOCYTE # (test code = MO#) 0.65 K/mm3 0-0.8 N EOSINOPHIL # (test code = EO#) 0.15 K/mm3 0.0-0.5 N BASOPHIL # (test code = BA#) 0.13 K/mm3 0.0-0.2 N NUCLEATED RBC # (test code = NRBC#) 0.00 K/mm3 0.0-0.1 N BASIC METABOLIC [id number] 23:17:00* Test Item Value Reference Range Interpretation Comments SODIUM (test code = NA) 141 mmol/L 136-145 N POTASSIUM (test code = K) 4.0 mmol/L 3.5-5.1 N CHLORIDE (test code = CL) 104.0 mmol/L 98-107 N CARBON DIOXIDE (test code = CO2) mmol/L 21-32 ANION GAP (test code = GAP) 10-20 GLUCOSE (test code = GLU) mg/dL 74-106 BLOOD UREA NITROGEN (test code = BUN) mg/dL 7-18 GLOMERULAR FILTRATION RATE (test code = GFR) mL/min >=60 CREATININE (test code = CREAT) mg/dL 0.7-1.3 BUN/CREATININE RATIO (test code = BUN/CREA) 10-20 CALCIUM (test code = CA) mg/dL 8.5-10.1 HEPATIC FUNCTION [id number] 23:17:00* Test Item Value Reference Range Interpretation Comments TOTAL PROTEIN (test code = PROT) gram/dL 6.4-8.2 ALBUMIN (test code = ALB) g/dL 3.4-5.0 GLOBULIN (test code = GLOB) gram/dL 2.7-4.2 ALBUMIN/GLOBULIN RATIO (test code = A/G) 0.75-1.50 BILIRUBIN TOTAL (test code = BILT) mg/dL 0.0-1.0 BILIRUBIN DIRECT (test code = BILD) mg/dL 0.0-0.20 SGOT/AST (test code = AST) IUnit/L 15-37 SGPT/ALT (test code = ALT) IUnit/L 12-78 ALKALINE PHOSPHATASE TOTAL (test code = ALKP) IUnit/L 45-117 - XR FOOT 3 + V [id number] 23:07:00 [facility]Name: JERRI COMBS : 1965 Sex: M FAX: Adonay Pena [phone] [place]: St: REG FAX: Luís Cecil Sarabiagege Kevan GONZALEZ [phone] Name: JERRI COMBS [facility] : 1965 Age/S: 54/M [address] [facility] Unit #: [id number] Loc: [place] [address] Phys: Laron Sarabia DO Acct: [id number] Dis Date: Status: REG ER PHONE #: [phone] Exam Date: 03/15/20202229 FAX #: [phone] Reason: 5th toe infection EXAMS: CPT CODE: [id number] XR FOOT 3 + [place] [id number] AFTER HOURS SERVICE ON: 03/15/2020 11:06 PM Right Foot, 3 Views Location Code M12 History: 5th toe infection Findings: There is normal anatomic alignment. No fracture, dislocation or avulsion fragments are seen. Articular surfaces are within normal limits for patient's age. No osseous erosive changes are seen. There is no soft tissue emphysema. There are extensive vascular c alcifications Impression: No osseous erosive c hanges or acute osseous findings. at 2307 Reported and signed by: Rebekah Smith M.D. CC: Adonay Tian; Laron Sarabia DO chnologist: Hallie Rico Trnscrd Date/ Time/By: 03/15/2020 (2306) : By: [email or web address] Orig Print D/T: S: 03/15/20 (3407) PAGE 1 Signed Report [id number] 15:06:00* Test Item Value Reference Range Interpretation Comments GLUBED (test code = GLUBED) 158 mg/dL 74-106 H Performed by certified forklift truck operator at [facility] [id number] 15:06:00* Test Item Value Reference Range Interpretation Comments GLUBED (test code = GLUBED) 149 mg/dL 74-106 H Performed by certified forklift truck operator at [facility] [id number] 05:46:00* Test Item Value Reference Range Interpretation Comments GLUBED (test code = GLUBED) 137 mg/dL 74-106 H Performed by certified forklift truck operator at [facility] [id number] 21:59:00* Test Item Value Reference Range Interpretation Comments GLUBED (test code = GLUBED) 149 mg/dL 74-106 H Performed by certified forklift truck operator at [facility] [id number] 17:00:00* Test Item Value Reference Range Interpretation Comments GLUBED (test code = GLUBED) 198 mg/dL 74-106 H Performed by certified forklift truck operator at [facility] [id number] 11:16:00* Test Item Value Reference Range Interpretation Comments GLUBED (test code = GLUBED) 143 mg/dL 74-106 H Performed by certified forklift truck operator at [facility] [id number] 06:19:00* Test Item Value Reference Range Interpretation Comments GLUBED (test code = GLUBED) 106 mg/dL 74-106 N Performed by certified forklift truck operator at [facility] BASIC METABOLIC [id number] 04:55:00* Test Item Value Reference Range Interpretation Comments SODIUM (test code = NA) 139 mmol/L 136-145 N POTASSIUM (test code = K) 3.5 mmol/L 3.5-5.1 N CHLORIDE (test code = CL) 105.0 mmol/L 98-107 N CARBON DIOXIDE (test code = CO2) 28.0 mmol/L 21-32 N ANION GAP (test code = GAP) 9.5 10-20 L GLUCOSE (test code = GLU) 118 mg/dL 74-106 H BLOOD UREA NITROGEN (test code = BUN) 14 mg/dL 7-18 N GLOMERULAR FILTRATION RATE (test code = GFR) > 60 mL/min >=60 Estimated GFR by using Modified MDRD formula.Chronic kidney disease is defined as either kidney damageor GFR <60 mL/min/1.73 m2 for >3 months. CREATININE (test code = CREAT) 0.60 mg/dL 0.7-1.3 L BUN/CREATININE RATIO (test code = BUN/CREA) 23.3 10-20 H CALCIUM (test code = CA) 8.5 mg/dL 8.5-10.1 N BASIC METABOLIC [id number] 04:49:00* Test Item Value Reference Range Interpretation Comments SODIUM (test code = NA) 139 mmol/L 136-145 N POTASSIUM (test code = K) 3.5 mmol/L 3.5-5.1 N CHLORIDE (test code = CL) 105.0 mmol/L 98-107 N CARBON DIOXIDE (test code = CO2) mmol/L 21-32 ANION GAP (test code = GAP) 10-20 GLUCOSE (test code = GLU) mg/dL 74-106 BLOOD UREA NITROGEN (test code = BUN) mg/dL 7-18 GLOMERULAR FILTRATION RATE (test code = GFR) mL/min >=60 CREATININE (test code = CREAT) mg/dL 0.7-1.3 BUN/CREATININE RATIO (test code = BUN/CREA) 10-20 CALCIUM (test code = CA) mg/dL 8.5-10.1 CBC W/AUTO [id number] 04:43:00* Test Item Value Reference Range Interpretation Comments WHITE BLOOD CELL (test code = WBC) 11.1 K/mm3 4.5-12.5 N RED BLOOD CELL (test code = RBC) 4.37 mill/mm3 4.0-5.8 N HEMOGLOBIN (test code = HGB) 11.7 gram/dL 13.0-17.5 L HEMATOCRIT (test code = HCT) 36.9 % 42.0-52.0 L MEAN CELL VOLUME (test code = MCV) 84.4 fL 80-98 N MEAN CELL HGB (test code = MCH) 26.8 picogram 27.0-33.0 L MEAN CELL HGB CONCETRATION (test code = MCHC) 31.7 gram/dL 33.0-36. 0 L RED CELL DISTRIBUTION WIDTH (test code = RDW) 16.2 % 11.6-16. 2 N RED CELL DISTRIBUTION WIDTH SD (test code = RDW-SD) 50.2 fL 37 .0-51.0 N PLATELET COUNT (test code = PLT) 438 K/mm3 150-450 N MEAN PLATELET VOLUME (test code = MPV) 8.9 fL 6.7-11.0 N NEUTROPHIL % (test code = NT%) 56.6 % 39.0-69.0 N IMMATURE GRANULOCYTE % (test code = IG%) 0.3 % 0.0-5.0 N LYMPHOCYTE % (test code = LY%) 30.8 % 25.0-55.0 N MONOCYTE % (test code = MO%) 7.4 % 0.0-10.0 N EOSINOPHIL % (test code = EO%) 3.7 % 0.0-5.0 N BASOPHIL % (test code = BA%) 1.2 % 0.0-1.0 H NUCLEATED RBC % (test code = NRBC%) 0.0 % 0-0 N NEUTROPHIL # (test code = NT#) 6.26 K/mm3 1.8-7.7 N IMMATURE GRANULOCYTE # (test code = IG#) 0.03 x10 3/uL 0-0.03 N LYMPHOCYTE # (test code = LY#) 3.41 K/mm3 1.0-5.0 N MONOCYTE # (test code = MO#) 0.82 K/mm3 0-0.8 H EOSINOPHIL # (test code = EO#) 0.41 K/mm3 0.0-0.5 N BASOPHIL # (test code = BA#) 0.13 K/mm3 0.0-0.2 N NUCLEATED RBC # (test code = NRBC#) 0.00 K/mm3 0.0-0.1 N MANUAL DIFF REQUIRED (test code = MDIFF) NO [id number] 20:08:00* Test Item Value Reference Range Interpretation Comments GLUBED (test code = GLUBED) 224 mg/dL 74-106 H Performed by certified forklift truck operator at [facility] [id number] 16:29:00* Test Item Value Reference Range Interpretation Comments GLUBED (test code = GLUBED) 176 mg/dL 74-106 H Performed by certified forklift truck operator at [facility] [id number] 12:17:00* Test Item Value Reference Range Interpretation Comments GLUBED (test code = GLUBED) 164 mg/dL 74-106 H Performed by certified forklift truck operator at [facility] [id number] 05:28:00* Test Item Value Reference Range Interpretation Comments GLUBED (test code = GLUBED) 123 mg/dL 74-106 H Performed by certified forklift truck operator at [facility] [id number] 20:45:00* Test Item Value Reference Range Interpretation Comments GLUBED (test code = GLUBED) 189 mg/dL 74-106 H Performed by certified forklift truck operator at [facility] [id number] 17:06:00* Test Item Value Reference Range Interpretation Comments GLUBED (test code = GLUBED) 158 mg/dL 74-106 H Performed by certified forklift truck operator at [facility] - CTA [id number] 16:20:00 Name: JERRI COMBS [facility] : 1965 Age/S: 54 / M [address] Unit #: [id number] Loc: [place] [address] Phys: Sierra Sigala MD Acct: [id number] Dis Date: Status: ADM IN PHONE #: [phone] Exam Date: 02/01/2020 1430 FAX #: [phone] Reason: stroke EXAMS: CPT CODE: [id number] CTA NECK 00816 HISTORY: stroke TECHNIQUE: Cerebral and Cervical CT angiography was acquired in the axial plane after bolus IV administration of iodinated contrast. Multiplanar, maximum intensity projection (MIP), and volume rendered reconstructions were created on the 3-D workstation. Automated exposure control for dose reduction. COMPARISON: None FINDINGS: The imaged aortic arch is normal. The origins of the brachiocephalic, bilateral common carotid, bilateral subclavian, and bilateral vertebral arteries demonstrate no significant stenosis. The bilateral internal and external carotid arteries are patent. There is no significant internal carotid artery stenosis by NASCET-like criteria. The cervical vertebral arteries are patent and codominant. There is no evidence of arterial dissection, significant stenosis, occlusion, extravasation of contrast material, arteriovenous fistula or pseudoaneurysm. Bilateral distal cervical ICAs are patent. Atherosclerotic vascular calcification and luminal irregularity of the bilateral cavernous ICA segments. Bilateral petrous and supraclinoid ICA segments are patent. Normal enhancement of the bilateral ophthalmic arteries. Bilateral A1 are patent. Left distal VAL segments are also patent. Probable short segment occlusion of the pro ximal right A3 segment. (Series 4 image 237) The remaining distal VAL segm ents are diminutive in caliber although patent. Right A3 segment and beyon d are diminutive in caliber but patent. Anterior communicating artery is n ot visualized. Bilateral M1 and distal MCA branches are patent. No aneurys m. Bilateral distal vertebral arteries are patent. Basilar artery is patent. Bilateral PICAs and SCAs are patent. Normal appearance of the basilar tip. Bilateral P1 and distal HEEL EMERY BUFFER segments are patent. Bilate ral posterior communicating arteries are not visualized. No aneurysm. Dural venous sinuses and proximal internal jugular veins are patent. Visualized brain parenchyma is unremarkable. No mass-effect or mid line PAGE 1 Signed Report (CONTINU ED) Name: JERRI COMBS [facility] : 1965 Age/S: 54 / M [address] [facility] Unit #: [id number] Loc: [place] [address] Phys: Sierra Cui MD Acct: [id number] Dis Date: Status: ADM IN PHONE #: [phone] Exam Date: 02/01/2020 1430 FAX #: [phone] Reason: stroke EXAMS: CPT CODE: [id number] CTA NECK 03197 <Continued> shift. No hydrocephalus. Visualized paranasal sinuses and mastoid air cells are clear. Regional osseous structures structures are intact. IMPRESSION: Short segment occlusion of the proximal right A3 segment, the remaining distal VAL segments are diminutive in caliber but patent. Variant anatomy as above. Location: [facility] at 1620 Reported and signed by: Azael Michael M.D. CC: Adonay Tian; Sierra Sigala MD; Wesley Subramanian Technologist:Cristino Alvarez RT(R),(MR),(CT) CTDI: DLP: Trnscb Luke e/Time: 02/01/2020 (1620) [email or web address] Orig Print D/T: S: (1624) PAGE 2 Signed Report - CTA [id number] 16:20:00 Name: JERRI COMBS [facility] : 1965 Age/S: 54 / M [address] Unit #: [id number] Loc: [place] [address] Phys: Sierra Sigala MD Acct: [id number] Dis Date: Status: ADM IN PHONE #: [phone] Exam Date: 02/01/2020 1430 FAX #: [phone] Reason: stroke EXAMS: CPT CODE: [id number] CTA HEAD 28652 HISTORY: stroke TECHNIQUE: Cerebral and Cervical CT angiography was acquired in the axial plane after bolus IV administration of iodinated contrast. Multiplanar, maximum intensity projection (MIP), and volume rendered reconstructions were created on the 3-D workstation. Automated exposure control for dose reduction. COMPARISON: None FINDINGS: The imaged aortic arch is normal. The origins of the brachiocephalic, bilateral common carotid, bilateral subclavian, and bilateral vertebral arteries demonstrate no significant stenosis. The bilateral internal and external carotid arteries are patent. There is no significant internal carotid artery stenosis by NASCET-like criteria. The cervical vertebral arteries are patent and codominant. There is no evidence of ar terial dissection, significant stenosis, occlusion, extravasation of contr ast material, arteriovenous fistula or pseudoaneurysm. Bilat eral distal cervical ICAs are patent. Atherosclerotic vascular calcificati on and luminal irregularity of the bilateral cavernous ICA segments. Bilat eral petrous and supraclinoid ICA segments are patent. Normal enhancement of the bilateral ophthalmic arteries. Bilateral A1 are patent. Left distal VAL segments are also patent. Probable short segment occlusion of the pro ximal right A3 segment. (Series 4 image 237) The remaining distal VAL segm ents are diminutive in caliber although patent. Right A3 segment and beyon d are diminutive in caliber but patent. Anterior communicating artery is n ot visualized. Bilateral M1 and distal MCA branches are patent. No aneurys m. Bilateral distal vertebral arteries are patent. Basilar artery is patent. Bilateral PICAs and SCAs are patent. Normal appearance of the basilar tip. Bilateral P1 and distal HEEL EMERY BUFFER segments are patent. Bilate ral posterior communicating arteries are not visualized. No aneurysm. Dural venous sinuses and proximal internal jugular veins are patent. Visualized brain parenchyma is unremarkable. No mass-effect or mid line PAGE 1 Signed Report (CONTINU ED) Name: JERRI COMBS [facility]: 1965 Age/S: 54 / M [address] [facility] Unit #: [id number] Loc: [place] [address] Phys: Sierra Cui MD Acct: [id number] Dis Date: Status: ADM IN PHONE #: [phone] Exam Date: 02/01/2020 1430 FAX #: Reason: stroke EXAMS: CPT CODE: [id number] CTA HEAD 77607 <Continued> shift. No hydrocephalus. Visualized paranasal sinuses and mastoid air cells are clear. Regional osseous structures structures are intact. IMPRESSION: Short segment occlusion of the proximal right A3 segment, the remaining distal VAL segments are diminutive in caliber but patent. Variant anatomy as above. Location: [facility] at 1620 Reported and signed by: Azael Michael M.D. CC: Adonay Tian; Sierra Sigala MD; Wesley Subramanian Technologist:Cristino Alvarez RT(R),(MR),(CT) CTDI: DLP: Trnscb Luke e/Time: 02/01/2020 (1620) [email or web address] Orig Print D/T: S: (0587) PAGE 2 Signed Report [id number] 11:34:00* Test Item Value Reference Range Interpretation Comments GLUBED (test code = GLUBED) 188 mg/dL 74-106 H Performed by certified forklift truck operator at [facility] BASIC METABOLIC [id number] 07:02:00* Test Item Value Reference Range Interpretation Comments SODIUM (test code = NA) 140 mmol/L 136-145 N POTASSIUM (test code = K) 3.6 mmol/L 3.5-5.1 N CHLORIDE (test code = CL) 106.0 mmol/L 98-107 N CARBON DIOXIDE (test code = CO2) 30.0 mmol/L 21-32 N ANION GAP (test code = GAP) 7.6 10-20 L GLUCOSE (test code = GLU) 128 mg/dL 74-106 H BLOOD UREA NITROGEN (test code = BUN) 14 mg/dL 7-18 N GLOMERULAR FILTRATION RATE (test code = GFR) > 60 mL/min >=60 Estimated GFR by using Modified MDRD formula.Chronic kidney disease is defined as either kidney damageor GFR <60 mL/min/1.73 m2 for >3 months. CREATININE (test code = CREAT) 0.70 mg/dL 0.7-1.3 N BUN/CREATININE RATIO (test code = BUN/CREA) 20.8 10-20 H CALCIUM (test code = CA) 8.7 mg/dL 8.5-10.1 N LIPID PROFILE (CORONARY RISK)2020-02-01 07:02:00* Test Item Value Reference Range Interpretation Comments TRIGLYCERIDES (test code = TRIG) 87 mg/dL 20-150 N CHOLESTEROL (test code = CHOL) 114 mg/dL 0-200 N CHOLESTEROL/HDL RATIO (test code = CHOLHDL) 4.0 RATIO 0-4.9 N RISK ASSOCIATED WITH CHOL/HDL RATIOS: Risk Male Female1/2 AVERAGE 3.43 3.27AVERAGE 4.97 4.442X AVERAGE 9.55 7.053X AVERAGE 23.39 11.04 REFERENCE VALUE IS RELATED TO RISK LEVELS ASRECOMMENDED BY THE CRUZ. HEART, LUNG, AND BLOOD INST. HDL CHOLESTEROL (test code = HDL) 27 mg/dL 40-60 L LIPOPROTEIN LDL (test code = LDL) 73 mg/dL 100-129 L Reference Interval: mg/dL mmol/L Optimal <100 <2.6Near/above optimal 100-129 2.6- 3.3Borderline High 130-159 3.4-4.1High 160-189 4.1-4.9Very High >=190 >=4.9========= This LDL result is a direct measurement.========= BASIC METABOLIC [id number] 06:51:00* Test Item Value Reference Range Interpretation Comments SODIUM (test code = NA) 140 mmol/L 136-145 N POTASSIUM (test code = K) 3.6 mmol/L 3.5-5.1 N CHLORIDE (test code = CL) 106.0 mmol/L 98-107 N CARBON DIOXIDE (test code = CO2) mmol/L 21-32 ANION GAP (test code = GAP) 10-20 GLUCOSE (test code = GLU) mg/dL 74-106 BLOOD UREA NITROGEN (test code = BUN) mg/dL 7-18 GLOMERULAR FILTRATION RATE (test code = GFR) mL/min >=60 CREATININE (test code = CREAT) mg/dL 0.7-1.3 BUN/CREATININE RATIO (test code = BUN/CREA) 10-20 CALCIUM (test code = CA) mg/dL 8.5-10.1 LIPID PROFILE (CORONARY RISK)2020-02-01 06:51:00* Test Item Value Reference Range Interpretation Comments TRIGLYCERIDES (test code = TRIG) mg/dL 20-150 CHOLESTEROL (test code = CHOL) mg/dL 0-200 CHOLESTEROL/HDL RATIO (test code = CHOLHDL) RATIO 0-4.9 HDL CHOLESTEROL (test code = HDL) mg/dL 40-60 LIPOPROTEIN LDL (test code = LDL) mg/dL 100-129 CBC W/AUTO [id number] 06:20:00* Test Item Value Reference Range Interpretation Comments WHITE BLOOD CELL (test code = WBC) 8.8 K/mm3 4.5-12.5 N RED BLOOD CELL (test code = RBC) 4.45 mill/mm3 4.0-5.8 N HEMOGLOBIN (test code = HGB) 12.0 gram/dL 13.0-17.5 L HEMATOCRIT (test code = HCT) 37.2 % 42.0-52.0 L MEAN CELL VOLUME (test code = MCV) 83.6 fL 80-98 RESULT VERIFIED BY REPEAT ANALYSIS MEAN CELL HGB (test code = MCH) 27.0 picogram 27.0-33.0 N MEAN CELL HGB CONCETRATION (test code = MCHC) 32.3 gram/dL 33.0-36. 0 L RED CELL DISTRIBUTION WIDTH (test code = RDW) 16.3 % 11.6-16. 2 H RED CELL DISTRIBUTION WIDTH SD (test code = RDW-SD) 49.4 fL 37 .0-51.0 N PLATELET COUNT (test code = PLT) 499 K/mm3 150-450 H MEAN PLATELET VOLUME (test code = MPV) 9.4 fL 6.7-11.0 N NEUTROPHIL % (test code = NT%) 55.8 % 39.0-69.0 N IMMATURE GRANULOCYTE % (test code = IG%) 0.2 % 0.0-5.0 N LYMPHOCYTE % (test code = LY%) 34.0 % 25.0-55.0 N MONOCYTE % (test code = MO%) 5.9 % 0.0-10.0 N EOSINOPHIL % (test code = EO%) 3.0 % 0.0-5.0 N BASOPHIL % (test code = BA%) 1.1 % 0.0-1.0 H NUCLEATED RBC % (test code = NRBC%) 0.0 % 0-0 N NEUTROPHIL # (test code = NT#) 4.91 K/mm3 1.8-7.7 N IMMATURE GRANULOCYTE # (test code = IG#) 0.02 x10 3/uL 0-0.03 N LYMPHOCYTE # (test code = LY#) 2.99 K/mm3 1.0-5.0 N MONOCYTE # (test code = MO#) 0.52 K/mm3 0-0.8 N EOSINOPHIL # (test code = EO#) 0.26 K/mm3 0.0-0.5 N BASOPHIL # (test code = BA#) 0.10 K/mm3 0.0-0.2 N NUCLEATED RBC # (test code = NRBC#) 0.00 K/mm3 0.0-0.1 N [id number] 06:08:00* Test Item Value Reference Range Interpretation Comments GLYCOSYLATED HEMOGLOBIN (HA1C) (test code = GLYHGB) 7.1 % HbA1 SUGGESTED DIAGNOSIS: HbA1C (%) Diabetic >6.4Prediabetes 5.7 - 6.4Normal <5.7 ESTIMATED AVERAGE GLUCOSE (test code = EAG) 157 MG/DL [id number] 05:48:00* Test Item Value Reference Range Interpretation Comments GLUBED (test code = GLUBED) 127 mg/dL 74-106 H Performed by certified forklift truck operator at [facility] [id number] 20:49:00* Test Item Value Reference Range Interpretation Comments GLUBED (test code = GLUBED) 156 mg/dL 74-106 H Performed by certified forklift truck operator at [facility] BASIC METABOLIC [id number] 20:04:00* Test Item Value Reference Range Interpretation Comments SODIUM (test code = NA) 141 mmol/L 136-145 N POTASSIUM (test code = K) 3.9 mmol/L 3.5-5.1 N CHLORIDE (test code = CL) 106.0 mmol/L 98-107 N CARBON DIOXIDE (test code = CO2) 29.0 mmol/L 21-32 N ANION GAP (test code = GAP) 9.9 10-20 L GLUCOSE (test code = GLU) 193 mg/dL 74-106 H BLOOD UREA NITROGEN (test code = BUN) 13 mg/dL 7-18 N GLOMERULAR FILTRATION RATE (test code = GFR) > 60 mL/min >=60 Estimated GFR by using Modified MDRD formula.Chronic kidney disease is defined as either kidney damageor GFR <60 mL/min/1.73 m2 for >3 months. CREATININE (test code = CREAT) 0.70 mg/dL 0.7-1.3 N BUN/CREATININE RATIO (test code = BUN/CREA) 17.4 10-20 N CALCIUM (test code = CA) 8.6 mg/dL 8.5-10.1 N BASIC METABOLIC [id number] 19:52:00* Test Item Value Reference Range Interpretation Comments SODIUM (test code = NA) 141 mmol/L 136-145 N POTASSIUM (test code = K) 3.9 mmol/L 3.5-5.1 N CHLORIDE (test code = CL) 106.0 mmol/L 98-107 N CARBON DIOXIDE (test code = CO2) mmol/L 21-32 ANION GAP (test code = GAP) 10-20 GLUCOSE (test code = GLU) mg/dL 74-106 BLOOD UREA NITROGEN (test code = BUN) mg/dL 7-18 GLOMERULAR FILTRATION RATE (test code = GFR) mL/min >=60 CREATININE (test code = CREAT) mg/dL 0.7-1.3 BUN/CREATININE RATIO (test code = BUN/CREA) 10-20 CALCIUM (test code = CA) mg/dL 8.5-10.1 [id number] 17:52:00* Test Item Value Reference Range Interpretation Comments GLUBED (test code = GLUBED) 207 mg/dL 74-106 H Performed by certified forklift truck operator at [facility] [id number] 17:19:00* Test Item Value Reference Range Interpretation Comments GLUBED (test code = GLUBED) 303 mg/dL 74-106 H Performed by certified forklift truck operator at [facility] [id number] 13:20:00* Test Item Value Reference Range Interpretation Comments GLUBED (test code = GLUBED) 157 mg/dL 74-106 H Performed by certified forklift truck operator at [facility] - MRI BRAIN W/O [id number] 09:24:00 FAX: Adonay Pena [phone] [place]: St: [facility] FAX: Marcela Zayas MD Name: JERRI COMBS [facility] : 1965 Age/S: 54/M [address] [facility] Unit #: [id number] Loc: .[address] [place] [address] Phys: Marcela Zayas MD Acct: [id number] Dis Date: Status: ADM IN PHONE #: [phone] Exam Date: 01/31/2020923 FAX #: [phone] Reason: headache and weakness EXAMS: CPT CODE: [id number] MRI BRAIN W/O CONTRAST 32877 HISTORY: Headache and possible stroke with weakness. COMPARISON: Head CT from January 30, 2020. Location: [facility]. MRI brain without contrast: Automated exposure control. Acute right parasagittal superior frontal infarct superimposed on previou sly noted large right VAL infarct. No other infarction. No MR evidence for hemorrhage. No extra-axial fluid collections. Extensive chronic white mat ter ischemic disease seen within the cortical and the subcortical deep whi te matter. No herniation, hydrocephalus or midline shift. Fourth ventricle does remain midline. The expected flow-voids noted within the rimma or intracranial vasculature. VII and VIII nerve complex are symmetrical an d normal. Mastoid air cells are clear. Partial opacification of the brushing operator ior left ethmoid air cells. Intraorbital contents are within normal limits. Midbrain, steffany and medulla are without mass effect. No cer ebellar ectopia. Pituitary gland, optic chiasm and corpus callosum are nor mal. Clivus demonstrated normal marrow signal. Symmetrical hippocampi without mesial temporal sclerosis. IMPRESSION: Small acute right parasagittal superior frontal infarct superimposed on a large old VAL infarct. at 0924 Reported and signed by: Sachin pineda M.D. CC: Adonay Tian; Marcela Zayas MD Technologist: MARK MCLEOD,RT - MRI Trnscrd Luke e/Time/By: 01/31/2020 (09) : By: [email or web address] Orig Print D/T: S: 2019 (926) PAGE 1 Signed Report HEPATIC FUNCTION [id number] 20:27:00* Test Item Value Reference Range Interpretation Comments TOTAL PROTEIN (test code = PROT) 8.4 gram/dL 6.4-8.2 H ALBUMIN (test code = ALB) 2.1 g/dL 3.4-5.0 L GLOBULIN (test code = GLOB) 6.3 gram/dL 2.7-4.2 H ALBUMIN/GLOBULIN RATIO (test code = A/G) 0.3 0.75-1.50 L BILIRUBIN TOTAL (test code = BILT) 0.40 mg/dL 0.0-1.0 N BILIRUBIN DIRECT (test code = BILD) 0.07 mg/dL 0.0-0.20 N SGOT/AST (test code = AST) 28 IUnit/L 15-37 N SGPT/ALT (test code = ALT) 29 IUnit/L 12-78 N ALKALINE PHOSPHATASE TOTAL (test code = ALKP) 98 IUnit/L 45-117 N Note change in reference range due to change in reagent. [id number] 20:27:00* Test Item Value Reference Range Interpretation Comments LIPASE (test code = LIP) 86 U/L 73.0-393.0 N BASIC METABOLIC [id number] 20:21:00* Test Item Value Reference Range Interpretation Comments SODIUM (test code = NA) 139 mmol/L 136-145 N POTASSIUM (test code = K) 5.3 mmol/L 3.5-5.1 H CHLORIDE (test code = CL) 108.0 mmol/L 98-107 H CARBON DIOXIDE (test code = CO2) 22.0 mmol/L 21-32 N ANION GAP (test code = GAP) 14.3 10-20 N GLUCOSE (test code = GLU) 114 mg/dL 74-106 H BLOOD UREA NITROGEN (test code = BUN) 12 mg/dL 7-18 N GLOMERULAR FILTRATION RATE (test code = GFR) > 60 mL/min >=60 Estimated GFR by using Modified MDRD formula.Chronic kidney disease is defined as either kidney damageor GFR <60 mL/min/1.73 m2 for >3 months. CREATININE (test code = CREAT) 0.70 mg/dL 0.7-1.3 N BUN/CREATININE RATIO (test code = BUN/CREA) 17.1 10-20 N CALCIUM (test code = CA) 8.9 mg/dL 8.5-10.1 N Specimen 1+ Hemolysed.Some results MAY NOT be accurate due to hemolysis.BASIC METABOLIC [id number] 20:12:00* Test Item Value Reference Range Interpretation Comments SODIUM (test code = NA) 139 mmol/L 136-145 N POTASSIUM (test code = K) 5.3 mmol/L 3.5-5.1 H CHLORIDE (test code = CL) 108.0 mmol/L 98-107 H CARBON DIOXIDE (test code = CO2) mmol/L 21-32 ANION GAP (test code = GAP) 10-20 GLUCOSE (test code = GLU) mg/dL 74-106 BLOOD UREA NITROGEN (test code = BUN) mg/dL 7-18 GLOMERULAR FILTRATION RATE (test code = GFR) mL/min >=60 CREATININE (test code = CREAT) mg/dL 0.7-1.3 BUN/CREATININE RATIO (test code = BUN/CREA) 10-20 CALCIUM (test code = CA) mg/dL 8.5-10.1 Specimen 1+ Hemolysed.Some results MAY NOT be accurate due to hemolysis. URINALYSIS [id number] 20:09:00* Test Item Value Reference Range Interpretation Comments UA COLOR (test code = COLU) Light-Yellow YELLOW UA APPEARANCE (test code = APPU) CLEAR CLEAR UA GLUCOSE DIPSTICK (test code = DGLUU) NEGATIVE mg/dL NEGATIVE UA BILIRUBIN DIPSTICK (test code = BILU) NEGATIVE mg/dL NEGATIVE UA KETONE DIPSTICK (test code = KETU) NEGATIVE mg/dL NEGATIVE UA SPECIFIC GRAVITY (test code = SGU) 1.014 1.001-1.035 UA BLOOD DIPSTICK (test code = DEMETRIUS) Negative mg/dL NEGATIVE UA PH DIPSTICK (test code = SHAGUFTA) 5.5 5.0-8.0 UA PROTEIN DIPSTICK (test code = PROU) NEGATIVE mg/dL NEGATIVE UA UROBILINIOGEN DIPSTICK (test code = URO) Normal mg/dL NEGATIVE UA NITRITE DIPSTICK (test code = WARREN) NEGATIVE NEGATIVE UA LEUKOCYTE ESTERASE W REFLEX (test code = LEUUR) NEGATIVE Daina/uL NEGATIVE UA WBC (test code = WBCU) 0-5 per HPF 0-5 UA RBC (test code = RBCU) 0-2 #/HPF 0-5 UA EPITHELIAL CELLS (test code = EPIU) Few (2-5/hpf) per HPF FEW UA BACTERIA (test code = BACU) FEW #/HPF NONE A UA MUCUS (test code = MUCU) FEW #/LPF FEW Urine Source? Clean CatchURINALYSIS [id number] 20:05:00* Test Item Value Reference Range Interpretation Comments UA COLOR (test code = COLU) Light-Yellow YELLOW UA APPEARANCE (test code = APPU) CLEAR CLEAR UA GLUCOSE DIPSTICK (test code = DGLUU) NEGATIVE mg/dL NEGATIVE UA BILIRUBIN DIPSTICK (test code = BILU) NEGATIVE mg/dL NEGATIVE UA KETONE DIPSTICK (test code = KETU) NEGATIVE mg/dL NEGATIVE UA SPECIFIC GRAVITY (test code = SGU) 1.014 1.001-1.035 UA BLOOD DIPSTICK (test code = DEMETRIUS) Negative mg/dL NEGATIVE UA PH DIPSTICK (test code = SHAGUFTA) 5.5 5.0-8.0 UA PROTEIN DIPSTICK (test code = PROU) NEGATIVE mg/dL NEGATIVE UA UROBILINIOGEN DIPSTICK (test code = URO) Normal mg/dL NEGATIVE UA NITRITE DIPSTICK (test code = WARREN) NEGATIVE NEGATIVE UA LEUKOCYTE ESTERASE W REFLEX (test code = LEUUR) NEGATIVE Daina/uL NEGATIVE UA WBC (test code = WBCU) per HPF 0-5 UA RBC (test code = RBCU) per HPF 0-5 UA EPITHELIAL CELLS (test code = EPIU) per HPF Few UA BACTERIA (test code = BACU) per HPF NONE Urine Source? Clean Catch- CT HEAD/BRAIN W/O [id number] 19:40:00 Name: JERRI COMBS [facility] : 1965 Age/S: 54 / M [address] [facility] Unit #: [id number] [place] [address] Phys: Gerald Zayas MD Acct: [id number] Di s Date: Status: REG ER PHONE #: Exam Date: 01/30/20201910 FAX #: Reason: Headache EXAMS: CPT CODE: [id number] CT HEAD/BRAIN W/O CONT 03165 HISTORY: Headache TECHNIQUE: Noncontrast 2.[address] of the head. Examination ac quired within 24 hours of arrival. Automated exposure control for dose red uction. COMPARISON: None FINDINGS: No lacerations or contusions of the scalp or facial soft tissues. Calvarium and skull base are intact. Chronic lacunar infarct of the right pu tamen. Chronic distal right VAL infarct. No effacement of the sulci or g barbara-white matter interface. No acute hemorrhage. No intracranial mass, mas s effect, or midline shift. Mild cortical atrophy. Mild patchy low densities appearance of the paraventricular region n oted consistent with nonspecific white matter disease. No hydrocep halus.. No extra-axial fluid collection. Visualized paranasal sin uses are clear. Mastoid air cells and middle ear cavities are clear. Orbital contents are unremarkable. IMPRESSION: 1. No acute abnormalities. 2. Mild generalized atrophy. 3. Mild chronic microvascular ischemic changes. 4. Chronic distal right A CA infarct. Chronic lacunar infarct of the right putamen. Location: [facility] Electronically Signed by Azael Michael M.D. on 01/29 at 0 Reported and signed by: Azael Michael M.D. PAGE 1 Signed Report (CONTINUED) Name: JERRI COMBS [facility] : 1965 Age/S: 54 / M [address] [facility] Unit #: [id number] Loc: [place], [place] [address] Phys: Radha Zayas MD Acct: [id number] D is Date: Status: REG ER PHONE #: [phone] Exam Date: 01/30/20201910 FAX #: [phone] Reason: Headache EXAMS: CPT CODE: [id number] CT HEAD/BRAIN W/O CONT 92467 <Continued> CC: Marcela Zayas MD Technologist:ADRIEL CURRY, RT(R) CT CTDI: DLP: Trnscb Date/Time: 01/30/2020 (1939) [email or web address] Orig Print D/T: S: 01/30/2020 (1942) PAGE 2 Signed Report CBC W/AUTO [id number] 19:30:00* Test Item Value Reference Range Interpretation Comments WHITE BLOOD CELL (test code = WBC) 9.9 K/mm3 4.5-12.5 N RED BLOOD CELL (test code = RBC) 4.92 mill/mm3 4.0-5.8 N HEMOGLOBIN (test code = HGB) 13.2 gram/dL 13.0-17.5 N HEMATOCRIT (test code = HCT) 43.5 % 42.0-52.0 N MEAN CELL VOLUME (test code = MCV) 88.4 fL 80-98 N MEAN CELL HGB (test code = MCH) 26.8 picogram 27.0-33.0 L MEAN CELL HGB CONCETRATION (test code = MCHC) 30.3 gram/dL 33.0-36. 0 L RED CELL DISTRIBUTION WIDTH (test code = RDW) 16.2 % 11.6-16. 2 N RED CELL DISTRIBUTION WIDTH SD (test code = RDW-SD) 52.5 fL 37 .0-51.0 H PLATELET COUNT (test code = PLT) 479 K/mm3 150-450 H MEAN PLATELET VOLUME (test code = MPV) 8.9 fL 6.7-11.0 N NEUTROPHIL % (test code = NT%) 54.2 % 39.0-69.0 N IMMATURE GRANULOCYTE % (test code = IG%) 0.3 % 0.0-5.0 N LYMPHOCYTE % (test code = LY%) 31.9 % 25.0-55.0 N MONOCYTE % (test code = MO%) 7.4 % 0.0-10.0 N EOSINOPHIL % (test code = EO%) 5.1 % 0.0-5.0 H BASOPHIL % (test code = BA%) 1.1 % 0.0-1.0 H NUCLEATED RBC % (test code = NRBC%) 0.0 % 0-0 N NEUTROPHIL # (test code = NT#) 5.36 K/mm3 1.8-7.7 N IMMATURE GRANULOCYTE # (test code = IG#) 0.03 x10 3/uL 0-0.03 N LYMPHOCYTE # (test code = LY#) 3.15 K/mm3 1.0-5.0 N MONOCYTE # (test code = MO#) 0.73 K/mm3 0-0.8 N EOSINOPHIL # (test code = EO#) 0.50 K/mm3 0.0-0.5 N BASOPHIL # (test code = BA#) 0.11 K/mm3 0.0-0.2 N NUCLEATED RBC # (test code = NRBC#) 0.00 K/mm3 0.0-0.1 N MANUAL DIFF REQUIRED (test code = MDIFF) NO - DUP AB/PEL/SC [id number] 18:30:00 Name: JERRI COMBS [facility] : 1965 Age/S: 54 / M [address] [facility] Unit #: [id number] Loc: [place] [address] Phys: Marcela Zayas MD Acct: [id number] Dis Date: Status: PRE ER PHONE #: [phone] Exam Date: 01/30/2020 1807 FAX #: [phone] Reason: testicle pain EXAMS: CPT CODE: [id number] DUP AB/PEL/SC COMP [id number] REASON FOR EXAM: testicle pain EXAM ORDER DATE: 01/30/2020 5:11 PM Ordering: Marcela Zayas MD Attending:Marcela Zayas MD Location:[facility] PROCEDURE: - US SCROTUM AND CNTS, - DUP AB/PEL/SC COMP FINDINGS: The right testicle measures 3.7 x 2.2 x 2.3 cm. The left testicle measures 3.9 x 2.2 x 2.9 cm. No evidence of testicular mass. No evidence of abscess. Unremarkable testicular flow is seen. Duplex scans of the testicular arteries were performed. Amaya scale images were supplemented with color-flow Doppler. Doppler flow velocity analysis (duplex Doppler) was performed The right epididymis measures 1.1 x 1 x 0.9 cm. The left epididymis measures 0.7 x 0.8 x 0.8 cm. No evidence of epididymitis. Simple left epididymal cyst measuring up to 0.3 cm. No evidence of varicoceles. No evidence of hydrocele Mild skin thickening and increased echogenicity of the overlying scrotal skin. No fluid collections are visualized. IMPRESSION: Unremarkable ultrasound of the testicles. Mild skin thickening and increased echogenicity of the ove rlying scrotal skin may represent cellulitis. at 1830 Report ed and signed by: Azael Michael M.D. CC: Marcela Zayas MD Technologist: Irvin Hand Trnscb Date/Time: 01/30/2020 (1829) [email or web address] Orig Print D/T: S: 01/30/2020 (1833) Probe: PAGE 1 Signed Report - US SCROTUM AND [id number] 18:30:00 Name: JERRI COMBS [facility] : 1965 Age/S: 54 / M [address] [facility] Unit #: [id number] Loc: [place] [address] Phys: Marcela Zayas MD Acct: [id number] Dis Date: Status: PRE ER PHONE #: [phone] Exam Date: 01/30/2020 1807 FAX #: [phone] Reason: testicle pain EXAMS: CPT CODE: [id number] US SCROTUM AND CNTS [id number] REASON FOR EXAM: testicle pain EXAM ORDER DATE: 01/30/2020 5:11 PM Ordering: Marcela Zayas MD Attending:Marcela Zayas MD Location:[facility] [place] PROCEDURE: - US SCROTUM AND CNTS, - DUP AB/PEL/SC COMP FINDINGS: The right testicle measures 3.7 x 2.2 x 2.3 cm. The left testicle measures 3.9 x 2.2 x 2.9 cm. No evidence of testicular mass. No evidence of abscess. Unremarkable testicular flow is seen. Duplex scans of the testicular arteries were performed. Amaya scale images were supplemented with color-flow Doppler. Doppler flow velocity analysis (duplex Doppler) was performed The right epididymis measures 1.1 x 1 x 0.9 cm. The left epididymis measures 0.7 x 0.8 x 0.8 cm. No evidence of epididymitis. Simple left epididymal cyst measuring up to 0.3 cm. No evidence of varicoceles. No evidence of hydrocele Mild skin thickening and increased echogenicity of the overlying scrotal skin. No fluid collections are visualized. IMPRESSION: Unremarkable ultrasound of the testicles. Mild skin thickening and increased echogenicity of the overlying scrotal skin may represent cellulitis. at 1830 Reported and signed by: Azael Michael M.D. CC: Marcela Zayas MD Technologist: Irvin Hand Trnscb Date/Time: 01/30/2020 (1829) [email or web address] Orig Print D/T: S: 01/30/2020 (1834) Probe: PAGE 1 Signed Report CARDIAC [id number] 09:22:00<0.02 [facility] [id number] 09:22:0087[facility]ann[facility]M PANEL 2019-11-04 09:22:0010[facility]annCHEM LERFQ8983-64-07 09:22:000.60[facility]annCHEM GJEXQ0751-94-23 09:22:17391Uogzpxdx HermannCHEM JWMFB4875-74-89 09:22:003.5[facility]annCHEM HDDFT0961-78-75 09:22:66205Ehdsmlct HermannCHEM DLHYM3271-19-09 09:22:0027[facility]annCHEM ZRAZU2232-84-20 09:22:0010.5 [facility] SIGEV8514-26-42 09:22:008.8[facility]annCHEM PANEL 2019-11-04 09:22:26786Zgbwnidw HermannCHEM YXWLW6325-22-18 09:22:001.9[facility]annCHE[facility] QVDQJ7786-49-24 09:22:002.7[facility] NzlnyssTENLHHWJYG0072-09-11 09:22:007.9[facility] RbsgovyGXEVPRMVBZ7386-68-61 09:22:004.38[facility] [place] DSOWPFLXXU3124-45-97 09:22:0012.2[facility] TyeqludIBMTPRTNPG9343-51-88 09:22:00 37.2[facility] NnaejzbCWUGUNBIJR3995-71-89 09:22:0084.8[facility] HermannHEMATOLOGY 2019-11-04 09:22:00* Test Item Value Reference Range Interpretation Comments MCH (test code = MCH) 27.9 pg 27.0-31.0 [facility] DfqnregARRJEZYZZR8276-20-06 09:22:0032.8[facility] HermannHEMATOLOGY 2019-11-04 09:22:0015.5[facility] BpcfkxmYNCXYJDSXU1778-65-55 09:22:24434Uipezebx ZekkdruNRVGENMIDJ9360-04-50 09:22:008.0[facility] PxztgjnNIOSIAJPPC2480-32-91 09:22:0056.2[facility] RwlydbmJJDTCFSYWR8186-47-59 09:22:0031.2[facility] [place] BJJALLXDGO5252-88-53 09:22:008.0[facility] AjkbqroHPLBINOWHP5956-56-05 09:22:003.4 [facility] OspholkOLEPNVHZTF2117-18-36 09:22:001.2[facility] HermannHEMATOLOGY 2019-11-04 09:22:004.4[facility] SewkaubYHEDUMGUGB5536-87-67 09:22:002.5[facility] LzwcdlyFWLKOSWEKL2576-89-68 09:22:000.6[facility] QkavliiRPORARPQMI3571-74-48 09:22:000.3[facility] FtzniplGRFOLIPIXB2497-88-01 09:22:000.1[facility] [place] PARATHYROID LJVWMBJ9385-82-53 09:22:001.17[facility] HermannPARATHYROID PROFILE 2019-11-04 09:22:001.17[facility] ZhwuspaAHDOKONDUE6848-12-64 04:04:00Not Detected (11/03/19 11:04 PM)[facility] HermannCARDIAC TDZLRWE1308-94-12 21:59:00<0.02[facility] EslafgiEZQLAPGDKK1775-16-72 20:31:0010.8[facility] WuunqntFDLPKMRGNH5624-53-75 20:31:004.45[facility] BppbuhvCDXSYSIOLX2343-86-17 20:31:0012.3[facility] [place] DWJQPKEVBJ8080-46-41 20:31:0038.1[facility] RhmpgxoNXPRMOPDTX4381-90-49 20:31:00 85.5[facility] YbmonxvIWDTAVCHEE2062-80-26 20:31:00* Test Item Value Reference Range Interpretation Comments MCH (test code = MCH) 27.7 pg 27.0-31.0 [facility] XtaffmbBRMGBNTBUR0458-17-62 20:31:0032.4[facility]annHEMATOLOGY 2019-11-03 20:31:0015.5[facility] LxlfplsFASYTOEJHW3612-73-59 20:31:61069Tiakfche PxijqoiIEQSNMMIVA3151-44-99 20:31:007.9[facility] YouybokDBCCIXDOLJ0323-78-31 20:31:00* Test Item Value Reference Range Interpretation Comments PT (test code = PT) 14.6 s 12.0-14.7 [facility] TbfogjnBHQVKVFPKG6375-58-21 20:31:00* Test Item Value Reference Range Interpretation Comments INR (test code = INR) 1.13 1 0.85-1.17 [facility] WvfjwtuTUWJNMZWIS2448-57-59 20:31:002.44[facility]annHEMATOLOGY 2019-11-03 20:31:0077.4[facility] OcyhlpvXTBHDQRVPD9708-24-24 20:31:0013.3[facility] AxumevhZESMBAYAHU9456-22-66 20:31:006.5[facility] HxvhrtbBAKKCQJTEA3079-24-39 20:31:001.3[facility] IrqygkpOBPTRNGGIU7178-55-67 20:31:001.5[facility] [place] QPHRNUGPXB2553-77-59 20:31:008.4[facility] XkbqqgqSFEOHIPUXB2639-64-58 20:31:001.4 [facility] LlglnceWCICWNSCIP5290-04-75 20:31:000.7[facility] HermannHEMATOLOGY 2019-11-03 20:31:000.1[facility] RacaeuzPKRLLKEOVQ8157-47-68 20:31:000.2[facility] AraonakZIHLJSCKDZ8694-78-19 20:31:00* Test Item Value Reference Range Interpretation Comments PTT (test code = PTT) 32.3 s 22.9-35.8 [facility]annCARDIAC EADJZDQ8874-31-24 19:28:0031[facility] HermannCARDIAC RRVTYQN8455-49-93 19:28:00<0.02[facility]annCARDIAC CASBPPH6051-18-97 19:28:97491Styrffyw HermannCHEM FTVRD2625-07-39 19:28:0048[facility]annCHEM MLZZF7919-18-67 19:28:0013[facility]annCHEM MQRAN6888-12-19 19:28:000.61 [facility]annCHE[facility] MFOMJ8412-24-31 19:28:10704Jwweezmu HermannCHEM PANEL 2019-11-03 19:28:003.1[facility]annCHEM SGWWX7126-83-18 19:28:69341Wnrmjhqa HermannCHEM SEMMI3084-20-29 19:28:0027[facility]annCHEM YQTQU5037-97-22 19:28:009.1[facility]annCHE[facility] ITQBB4854-35-52 19:28:007.6[facility]annCHEM GLZLE2571-72-98 19:28:00* Test Item Value Reference Range Interpretation Comments B/C Ratio (test code = B/C Ratio) 21 1 6-25 [facility]annCHE[facility] BTIKS1933-40-97 19:28:006.5[facility]annCHEM PANEL 2019-11-03 19:28:002.3[facility]annCHEM USZDX1325-67-74 19:28:004.2[facility]annCHEM HXYME9808-46-13 19:28:00* Test Item Value Reference Range Interpretation Comments A/G Ratio (test code = A/G Ratio) 0.5 1 0.7-1.6 [facility]CHE[facility] BPNHD6993-72-12 19:28:0012[facility]annCHEM PANEL 2019-11-03 19:28:0010[facility]annCHEM BMVQR4804-30-42 19:28:0060[facility]annCHEM CPEYO6715-92-64 19:28:000.2[facility]annCHEM GKPPD8846-07-24 19:28:73448Uiqkkytj HermannCHEM HESAU8433-36-83 19:28:001.4[facility]annCHEM QKDIB6813-75-10 19:28:002.9[facility] PsoytmfUHPHTJ7821-40-71 20:11:00* Test Item Value Reference Range Interpretation Comments GLUBED (test code = GLUBED) 165 mg/dL 74-106 H Performed by certified forklift truck operator at [facility] ACBPDF9890-27-63 15:58:00* Test Item Value Reference Range Interpretation Comments GLUBED (test code = GLUBED) 179 mg/dL 74-106 H Performed by certified forklift truck operator at [facility] ROKGVL0333-55-12 12:58:00* Test Item Value Reference Range Interpretation Comments GLUBED (test code = GLUBED) 153 mg/dL 74-106 H Performed by certified forklift truck operator at [facility] FCWMOB1681-17-91 07:56:00* Test Item Value Reference Range Interpretation Comments GLUBED (test code = GLUBED) 153 mg/dL 74-106 H Performed by certified forklift truck operator at [facility] BASIC METABOLIC [id number] 05:16:00* Test Item Value Reference Range Interpretation Comments SODIUM (test code = NA) 142 mmol/L 136-145 N POTASSIUM (test code = K) 3.6 mmol/L 3.5-5.1 N CHLORIDE (test code = CL) 107.0 mmol/L 98-107 N CARBON DIOXIDE (test code = CO2) 28.0 mmol/L 21-32 N ANION GAP (test code = GAP) 10.6 10-20 N GLUCOSE (test code = GLU) 165 mg/dL 74-106 H BLOOD UREA NITROGEN (test code = BUN) 10 mg/dL 7-18 N GLOMERULAR FILTRATION RATE (test code = GFR) > 60 mL/min >=60 Estimated GFR by using Modified MDRD formula.Chronic kidney disease is defined as either kidney damageor GFR <60 mL/min/1.73 m2 for >3 months. CREATININE (test code = CREAT) 1.00 mg/dL 0.7-1.3 N BUN/CREATININE RATIO (test code = BUN/CREA) 10.0 10-20 N CALCIUM (test code = CA) 8.2 mg/dL 8.5-10.1 L CBC W/AUTO [id number] 04:45:00* Test Item Value Reference Range Interpretation Comments WHITE BLOOD CELL (test code = WBC) 8.1 K/mm3 4.5-12.5 N RED BLOOD CELL (test code = RBC) 3.72 mill/mm3 4.0-5.8 L HEMOGLOBIN (test code = HGB) 10.3 gram/dL 13.0-17.5 L HEMATOCRIT (test code = HCT) 32.5 % 42.0-52.0 L MEAN CELL VOLUME (test code = MCV) 87.4 fL 80-98 N MEAN CELL HGB (test code = MCH) 27.7 picogram 27.0-33.0 N MEAN CELL HGB CONCETRATION (test code = MCHC) 31.7 gram/dL 33.0-36. 0 L RED CELL DISTRIBUTION WIDTH (test code = RDW) 16.1 % 11.6-16. 2 N RED CELL DISTRIBUTION WIDTH SD (test code = RDW-SD) 51.0 fL 37 .0-51.0 N PLATELET COUNT (test code = PLT) 304 K/mm3 150-450 N MEAN PLATELET VOLUME (test code = MPV) 9.6 fL 6.7-11.0 N NEUTROPHIL % (test code = NT%) 54.6 % 39.0-69.0 N IMMATURE GRANULOCYTE % (test code = IG%) 0.2 % 0.0-5.0 N LYMPHOCYTE % (test code = LY%) 31.2 % 25.0-55.0 N MONOCYTE % (test code = MO%) 8.9 % 0.0-10.0 N EOSINOPHIL % (test code = EO%) 4.4 % 0.0-5.0 N BASOPHIL % (test code = BA%) 0.7 % 0.0-1.0 N NUCLEATED RBC % (test code = NRBC%) 0.0 % 0-0 N NEUTROPHIL # (test code = NT#) 4.41 K/mm3 1.8-7.7 N IMMATURE GRANULOCYTE # (test code = IG#) 0.02 x10 3/uL 0-0.03 N LYMPHOCYTE # (test code = LY#) 2.53 K/mm3 1.0-5.0 N MONOCYTE # (test code = MO#) 0.72 K/mm3 0-0.8 N EOSINOPHIL # (test code = EO#) 0.36 K/mm3 0.0-0.5 N BASOPHIL # (test code = BA#) 0.06 K/mm3 0.0-0.2 N NUCLEATED RBC # (test code = NRBC#) 0.00 K/mm3 0.0-0.1 N URINALYSIS [id number] 23:23:00* Test Item Value Reference Range Interpretation Comments UA COLOR (test code = COLU) COLORLESS YELLOW A UA APPEARANCE (test code = APPU) CLEAR CLEAR UA GLUCOSE DIPSTICK (test code = DGLUU) NEGATIVE mg/dL NEGATIVE UA BILIRUBIN DIPSTICK (test code = BILU) NEGATIVE mg/dL NEGATIVE UA KETONE DIPSTICK (test code = KETU) NEGATIVE mg/dL NEGATIVE UA SPECIFIC GRAVITY (test code = SGU) 1.007 1.001-1.035 UA BLOOD DIPSTICK (test code = DEMETRIUS) Negative mg/dL NEGATIVE UA PH DIPSTICK (test code = SHAGUFTA) 7.5 5.0-8.0 UA PROTEIN DIPSTICK (test code = PROU) NEGATIVE mg/dL NEGATIVE UA UROBILINIOGEN DIPSTICK (test code = URO) Normal mg/dL NEGATIVE UA NITRITE DIPSTICK (test code = WARREN) NEGATIVE NEGATIVE UA LEUKOCYTE ESTERASE W REFLEX (test code = LEUUR) NEGATIVE Daina/uL NEGATIVE UA WBC (test code = WBCU) 0-5 per HPF 0-5 UA RBC (test code = RBCU) 0-2 #/HPF 0-5 UA EPITHELIAL CELLS (test code = EPIU) FEW per HPF FEW UA BACTERIA (test code = BACU) FEW #/HPF NONE A UA MUCUS (test code = MUCU) FEW #/LPF FEW UA YEAST (test code = YEASTU) NONE #/HPF NONE UA OVAL FAT BODY (test code = OFBU) NONE NONE Urine Source? [id number] 21:29:00* Test Item Value Reference Range Interpretation Comments GLUBED (test code = GLUBED) 187 mg/dL 74-106 H Performed by certified forklift truck operator at [facility] [id number] 17:25:00* Test Item Value Reference Range Interpretation Comments GLUBED (test code = GLUBED) 161 mg/dL 74-106 H Performed by certified forklift truck operator at [facility] [id number] 13:33:00* Test Item Value Reference Range Interpretation Comments GLUBED (test code = GLUBED) 149 mg/dL 74-106 H Performed by certified forklift truck operator at [facility] [id number] 11:11:00* Test Item Value Reference Range Interpretation Comments MAGNESIUM (test code = MAG) 1.6 mg/dL 1.8-2.4 L [id number] 08:03:00* Test Item Value Reference Range Interpretation Comments GLUBED (test code = GLUBED) 153 mg/dL 74-106 H Performed by certified forklift truck operator at [facility] COMPREHENSIVE METABOLIC [id number] 06:09:00* Test Item Value Reference Range Interpretation Comments SODIUM (test code = NA) 143 mmol/L 136-145 N POTASSIUM (test code = K) 3.2 mmol/L 3.5-5.1 L CHLORIDE (test code = CL) 105.0 mmol/L 98-107 N CARBON DIOXIDE (test code = CO2) 31.0 mmol/L 21-32 N ANION GAP (test code = GAP) 10.2 10-20 N GLUCOSE (test code = GLU) 150 mg/dL 74-106 H BLOOD UREA NITROGEN (test code = BUN) 11 mg/dL 7-18 N GLOMERULAR FILTRATION RATE (test code = GFR) > 60 mL/min >=60 Estimated GFR by using Modified MDRD formula.Chronic kidney disease is defined as either kidney damageor GFR <60 mL/min/1.73 m2 for >3 months. CREATININE (test code = CREAT) 0.90 mg/dL 0.7-1.3 N BUN/CREATININE RATIO (test code = BUN/CREA) 12.2 10-20 N TOTAL PROTEIN (test code = PROT) 7.2 gram/dL 6.4-8.2 N ALBUMIN (test code = ALB) 2.4 g/dL 3.4-5.0 L GLOBULIN (test code = GLOB) 4.8 gram/dL 2.7-4.2 H ALBUMIN/GLOBULIN RATIO (test code = A/G) 0.5 0.75-1.50 L CALCIUM (test code = CA) 8.2 mg/dL 8.5-10.1 L BILIRUBIN TOTAL (test code = BILT) 0.40 mg/dL 0.0-1.0 N SGOT/AST (test code = AST) 17 IUnit/L 15-37 N SGPT/ALT (test code = ALT) 20 IUnit/L 12-78 N ALKALINE PHOSPHATASE TOTAL (test code = ALKP) 76 IUnit/L 45-117 N Note change in reference range due to change in reagent. COMPREHENSIVE METABOLIC [id number] 06:03:00* Test Item Value Reference Range Interpretation Comments SODIUM (test code = NA) 143 mmol/L 136-145 N POTASSIUM (test code = K) 3.2 mmol/L 3.5-5.1 L CHLORIDE (test code = CL) 105.0 mmol/L 98-107 N CARBON DIOXIDE (test code = CO2) mmol/L 21-32 ANION GAP (test code = GAP) 10-20 GLUCOSE (test code = GLU) mg/dL 74-106 BLOOD UREA NITROGEN (test code = BUN) mg/dL 7-18 GLOMERULAR FILTRATION RATE (test code = GFR) mL/min >=60 CREATININE (test code = CREAT) mg/dL 0.7-1.3 BUN/CREATININE RATIO (test code = BUN/CREA) 10-20 TOTAL PROTEIN (test code = PROT) gram/dL 6.4-8.2 ALBUMIN (test code = ALB) g/dL 3.4-5.0 GLOBULIN (test code = GLOB) gram/dL 2.7-4.2 ALBUMIN/GLOBULIN RATIO (test code = A/G) 0.75-1.50 CALCIUM (test code = CA) mg/dL 8.5-10.1 BILIRUBIN TOTAL (test code = BILT) mg/dL 0.0-1.0 SGOT/AST (test code = AST) IUnit/L 15-37 SGPT/ALT (test code = ALT) IUnit/L 12-78 ALKALINE PHOSPHATASE TOTAL (test code = ALKP) IUnit/L 45-117 [id number] 21:13:00* Test Item Value Reference Range Interpretation Comments GLUBED (test code = GLUBED) 138 mg/dL 74-106 H Performed by certified forklift truck operator at [facility] [id number] 18:04:00* Test Item Value Reference Range Interpretation Comments GLUBED (test code = GLUBED) 169 mg/dL 74-106 H Performed by certified forklift truck operator at [facility] [id number] 18:04:00* Test Item Value Reference Range Interpretation Comments GLUBED (test code = GLUBED) 181 mg/dL 74-106 H Performed by certified forklift truck operator at [facility] FOLIC [id number] 09:09:00* Test Item Value Reference Range Interpretation Comments FOLIC ACID (test code = FOL) 3.1 ng/mL 3.10-17.50 N [id number] 09:09:00* Test Item Value Reference Range Interpretation Comments FERRITIN (test code = LUCHO) 306 ng/mL 8-388 N IMMUNOGLOBULINS A,G [id number] 09:09:00* Test Item Value Reference Range Interpretation Comments IMMUNOGLOBULIN G (test code = IGG) 1571 mg/dL 603-1613 IMMUNOGLOBULIN M (test code = IGM) 29 mg/dL 20-172 Performed At: [facility] [id number] Kyle L MD Ph:[phone] IMMUNOGLOBULIN A (test code = IGA) 648 mg/dL 90-386 H [id number] 07:58:00* Test Item Value Reference Range Interpretation Comments GLUBED (test code = GLUBED) 127 mg/dL 74-106 H Performed by certified forklift truck operator at [facility] [id number] 20:06:00* Test Item Value Reference Range Interpretation Comments GLUBED (test code = GLUBED) 163 mg/dL 74-106 H [facility]klift truck [facility]~ [id number] 16:02:00* Test Item Value Reference Range Interpretation Comments GLUBED (test code = GLUBED) 189 mg/dL 74-106 H [facility] certified [facility]klift truck [facility]~ HEPATITIS B [id number] 13:08:00* Test Item Value Reference Range Interpretation Comments AB HEPATITIS B SURFACE (test code = HBSAB) Non Reactive () Non Reactive: Inconsistent with immunity, less than 10 mIU/mL Reactive: Consistent with immunity, greater than 9.9 mIU/mLPerformed At: [facility] [address] [id number] Turner Rucker MD Ph:[phone] At: [facility] [address] [id number] Sanjai MD P h:[phone] AG HEPAT B SURF (test code = HBSAG) Negative Negative HEPATITIS B CORE ANTIBODY,TOT (test code = HBCAB) Negative Nega tive HEPATITIS B CORE ANTIBODY,IGM (test code = HBCMAB) Negative Neg ative AG HEPATITIS BE (test code = HBEAG) Negative Negative AB HEPATITIS BE (test code = HBEAB) Negative Negative [id number] 12:03:00* Test Item Value Reference Range Interpretation Comments GLUBED (test code = GLUBED) 177 mg/dL 74-106 H [facility] certified [facility]klift truck [facility]~ [id number] 08:09:00* Test Item Value Reference Range Interpretation Comments GLUBED (test code = GLUBED) 182 mg/dL 74-106 H Per[facility] certified [facility]klift truck [facility]~ BASIC METABOLIC [id number] 06:57:00* Test Item Value Reference Range Interpretation Comments SODIUM (test code = NA) 143 mmol/L 136-145 N POTASSIUM (test code = K) 3.3 mmol/L 3.5-5.1 L CHLORIDE (test code = CL) 104.0 mmol/L 98-107 N CARBON DIOXIDE (test code = CO2) 34.0 mmol/L 21-32 H ANION GAP (test code = GAP) 8.3 10-20 L GLUCOSE (test code = GLU) 160 mg/dL 74-106 H BLOOD UREA NITROGEN (test code = BUN) 10 mg/dL 7-18 N GLOMERULAR FILTRATION RATE (test code = GFR) > 60 mL/min >=60 Estimated GFR by using Modified MDRD formula.Chronic kidney disease is defined as either kidney damageor GFR <60 mL/min/1.73 m2 for >3 months. CREATININE (test code = CREAT) 1.00 mg/dL 0.7-1.3 N BUN/CREATININE RATIO (test code = BUN/CREA) 10.0 10-20 N CALCIUM (test code = CA) 8.3 mg/dL 8.5-10.1 L SERUM [id number] 06:57:00* Test Item Value Reference Range Interpretation Comments SERUM IRON (test code = IRON) 51 ug/dL 50-175 N BASIC METABOLIC [id number] 06:50:00* Test Item Value Reference Range Interpretation Comments SODIUM (test code = NA) 143 mmol/L 136-145 N POTASSIUM (test code = K) 3.3 mmol/L 3.5-5.1 L CHLORIDE (test code = CL) 104.0 mmol/L 98-107 N CARBON DIOXIDE (test code = CO2) mmol/L 21-32 ANION GAP (test code = GAP) 10-20 GLUCOSE (test code = GLU) mg/dL 74-106 BLOOD UREA NITROGEN (test code = BUN) mg/dL 7-18 GLOMERULAR FILTRATION RATE (test code = GFR) mL/min >=60 CREATININE (test code = CREAT) mg/dL 0.7-1.3 BUN/CREATININE RATIO (test code = BUN/CREA) 10-20 CALCIUM (test code = CA) mg/dL 8.5-10.1 SERUM [id number] 06:50:00* Test Item Value Reference Range Interpretation Comments SERUM IRON (test code = IRON) ug/dL 50-175 CBC W/AUTO [id number] 06:32:00* Test Item Value Reference Range Interpretation Comments WHITE BLOOD CELL (test code = WBC) 7.3 K/mm3 4.5-12.5 N RED BLOOD CELL (test code = RBC) 3.61 mill/mm3 4.0-5.8 L HEMOGLOBIN (test code = HGB) 9.8 gram/dL 13.0-17.5 L HEMATOCRIT (test code = HCT) 30.6 % 42.0-52.0 L MEAN CELL VOLUME (test code = MCV) 84.8 fL 80-98 N MEAN CELL HGB (test code = MCH) 27.1 picogram 27.0-33.0 N MEAN CELL HGB CONCETRATION (test code = MCHC) 32.0 gram/dL 33.0-36. 0 L RED CELL DISTRIBUTION WIDTH (test code = RDW) 16.2 % 11.6-16. 2 N RED CELL DISTRIBUTION WIDTH SD (test code = RDW-SD) 50.3 fL 37 .0-51.0 N PLATELET COUNT (test code = PLT) 323 K/mm3 150-450 N MEAN PLATELET VOLUME (test code = MPV) 9.5 fL 6.7-11.0 N NEUTROPHIL % (test code = NT%) 52.5 % 39.0-69.0 N IMMATURE GRANULOCYTE % (test code = IG%) 0.1 % 0.0-5.0 N LYMPHOCYTE % (test code = LY%) 31.4 % 25.0-55.0 N MONOCYTE % (test code = MO%) 10.7 % 0.0-10.0 H EOSINOPHIL % (test code = EO%) 4.5 % 0.0-5.0 N BASOPHIL % (test code = BA%) 0.8 % 0.0-1.0 N NUCLEATED RBC % (test code = NRBC%) 0.0 % 0-0 N NEUTROPHIL # (test code = NT#) 3.84 K/mm3 1.8-7.7 N IMMATURE GRANULOCYTE # (test code = IG#) 0.01 x10 3/uL 0-0.03 N LYMPHOCYTE # (test code = LY#) 2.30 K/mm3 1.0-5.0 N MONOCYTE # (test code = MO#) 0.78 K/mm3 0-0.8 N EOSINOPHIL # (test code = EO#) 0.33 K/mm3 0.0-0.5 N BASOPHIL # (test code = BA#) 0.06 K/mm3 0.0-0.2 N NUCLEATED RBC # (test code = NRBC#) 0.00 K/mm3 0.0-0.1 N MANUAL DIFF REQUIRED (test code = MDIFF) NO [id number] 20:21:00* Test Item Value Reference Range Interpretation Comments GLUBED (test code = GLUBED) 176 mg/dL 74-106 H Performed by certified forklift truck operator at [facility] [id number] 15:57:00* Test Item Value Reference Range Interpretation Comments GLUBED (test code = GLUBED) 194 mg/dL 74-106 H [facility] certified [facility]klift truck [facility]~ [id number] 12:01:00* Test Item Value Reference Range Interpretation Comments GLUBED (test code = GLUBED) 194 mg/dL 74-106 H Per[facility] certified [facility]klift truck [facility]~ FOLIC [id number] 11:27:00* Test Item Value Reference Range Interpretation Comments FOLIC ACID (test code = FOL) 3.1 ng/mL 3.10-17.50 N [id number] 11:27:00* Test Item Value Reference Range Interpretation Comments FERRITIN (test code = LUCHO) 306 ng/mL 8-388 N IMMUNOGLOBULINS A,G [id number] 11:27:00* Test Item Value Reference Range Interpretation Comments IMMUNOGLOBULIN G (test code = IGG) mg/dL IMMUNOGLOBULIN M (test code = IGM) mg/dL IMMUNOGLOBULIN A (test code = IGA) mg/dL - XR CHEST 1 [id number] 09:35:00 FAX: Wesley Benjamin MD [place]: B St: [facility] FAX: Dahiana Mensah [phone] Name: JERRI COMBS [facility] : 1965 Age/S: 54/M [address] [facility] Unit #: [id number] Loc: Isabel6 [place] [address] Phys: Dahiana De La Cruz Acct: [id number] Dis Date: Status: ADM IN PHONE #: [phone] Exam Date: 09/04/2019911 FAX #: [phone] Reason: cough EXAMS: CPT CODE: [id number] XR CHEST 1 V 28150 HISTORY: Cough. COMPARISON: August 31, 2019. Location: . No acute infiltrates, effusion or congestion. Dependent changes. Cardiomegaly. IMPRESSION: No acute infiltrates, effusion or congestion. at 0935 Reported and signed by: Sachin Belcher M.D. CC: Wesley Subramanian; Dahiana De La Cruz Technologist: Akiko ACOSTA(R); Analilia Mayer(R) Trnscrd Date/Time/By: 09/04/2019 (934) : By: [email or web address] Orig Print D/T: S: 09/04/2019 (0974) PAGE 1 Signed Report GLUBED 2019-09-04 08:08:00* Test Item Value Reference Range Interpretation Comments GLUBED (test code = GLUBED) 163 mg/dL 74-106 H [facility]~ BASIC METABOLIC [id number] 06:28:00* Test Item Value Reference Range Interpretation Comments SODIUM (test code = NA) 143 mmol/L 136-145 N POTASSIUM (test code = K) 3.1 mmol/L 3.5-5.1 L CHLORIDE (test code = CL) 102.0 mmol/L 98-107 N CARBON DIOXIDE (test code = CO2) 34.0 mmol/L 21-32 H ANION GAP (test code = GAP) 10.1 10-20 N GLUCOSE (test code = GLU) 141 mg/dL 74-106 H BLOOD UREA NITROGEN (test code = BUN) 12 mg/dL 7-18 N GLOMERULAR FILTRATION RATE (test code = GFR) > 60 mL/min >=60 Estimated GFR by using Modified MDRD formula.Chronic kidney disease is defined as either kidney damageor GFR <60 mL/min/1.73 m2 for >3 months. CREATININE (test code = CREAT) 1.10 mg/dL 0.7-1.3 N BUN/CREATININE RATIO (test code = BUN/CREA) 10.9 10-20 N CALCIUM (test code = CA) 8.5 mg/dL 8.5-10.1 N BASIC METABOLIC [id number] 06:21:00* Test Item Value Reference Range Interpretation Comments SODIUM (test code = NA) 143 mmol/L 136-145 N POTASSIUM (test code = K) 3.1 mmol/L 3.5-5.1 L CHLORIDE (test code = CL) 102.0 mmol/L 98-107 N CARBON DIOXIDE (test code = CO2) mmol/L 21-32 ANION GAP (test code = GAP) 10-20 GLUCOSE (test code = GLU) mg/dL 74-106 BLOOD UREA NITROGEN (test code = BUN) mg/dL 7-18 GLOMERULAR FILTRATION RATE (test code = GFR) mL/min >=60 CREATININE (test code = CREAT) mg/dL 0.7-1.3 BUN/CREATININE RATIO (test code = BUN/CREA) 10-20 CALCIUM (test code = CA) mg/dL 8.5-10.1 CBC W/AUTO [id number] 05:41:00* Test Item Value Reference Range Interpretation Comments WHITE BLOOD CELL (test code = WBC) 6.7 K/mm3 4.5-12.5 N RED BLOOD CELL (test code = RBC) 3.66 mill/mm3 4.0-5.8 L HEMOGLOBIN (test code = HGB) 10.1 gram/dL 13.0-17.5 L HEMATOCRIT (test code = HCT) 31.8 % 42.0-52.0 L MEAN CELL VOLUME (test code = MCV) 86.9 fL 80-98 N MEAN CELL HGB (test code = MCH) 27.6 picogram 27.0-33.0 N MEAN CELL HGB CONCETRATION (test code = MCHC) 31.8 gram/dL 33.0-36. 0 L RED CELL DISTRIBUTION WIDTH (test code = RDW) 16.4 % 11.6-16. 2 H RED CELL DISTRIBUTION WIDTH SD (test code = RDW-SD) 51.8 fL 37 .0-51.0 H PLATELET COUNT (test code = PLT) 365 K/mm3 150-450 N MEAN PLATELET VOLUME (test code = MPV) 9.6 fL 6.7-11.0 N NEUTROPHIL % (test code = NT%) 49.2 % 39.0-69.0 N IMMATURE GRANULOCYTE % (test code = IG%) 0.3 % 0.0-5.0 N LYMPHOCYTE % (test code = LY%) 34.1 % 25.0-55.0 N MONOCYTE % (test code = MO%) 10.3 % 0.0-10.0 H EOSINOPHIL % (test code = EO%) 5.1 % 0.0-5.0 H BASOPHIL % (test code = BA%) 1.0 % 0.0-1.0 N NUCLEATED RBC % (test code = NRBC%) 0.0 % 0-0 N NEUTROPHIL # (test code = NT#) 3.30 K/mm3 1.8-7.7 N IMMATURE GRANULOCYTE # (test code = IG#) 0.02 x10 3/uL 0-0.03 N LYMPHOCYTE # (test code = LY#) 2.29 K/mm3 1.0-5.0 N MONOCYTE # (test code = MO#) 0.69 K/mm3 0-0.8 N EOSINOPHIL # (test code = EO#) 0.34 K/mm3 0.0-0.5 N BASOPHIL # (test code = BA#) 0.07 K/mm3 0.0-0.2 N NUCLEATED RBC # (test code = NRBC#) 0.00 K/mm3 0.0-0.1 N MANUAL DIFF REQUIRED (test code = MDIFF) NO [id number] 20:14:00* Test Item Value Reference Range Interpretation Comments GLUBED (test code = GLUBED) 185 mg/dL 74-106 H Performed by certified forklift truck operator at [facility] [id number] 15:59:00* Test Item Value Reference Range Interpretation Comments GLUBED (test code = GLUBED) 175 mg/dL 74-106 H Performed by certified forklift truck operator at [facility] [id number] 11:49:00* Test Item Value Reference Range Interpretation Comments GLUBED (test code = GLUBED) 150 mg/dL 74-106 H Performed by certified forklift truck operator at [facility] [id number] 07:53:00* Test Item Value Reference Range Interpretation Comments GLUBED (test code = GLUBED) 118 mg/dL 74-106 H Performed by certified forklift truck operator at [facility] BASIC METABOLIC [id number] 06:19:00* Test Item Value Reference Range Interpretation Comments SODIUM (test code = NA) 142 mmol/L 136-145 N POTASSIUM (test code = K) 3.3 mmol/L 3.5-5.1 L CHLORIDE (test code = CL) 105.0 mmol/L 98-107 N CARBON DIOXIDE (test code = CO2) 29.0 mmol/L 21-32 N ANION GAP (test code = GAP) 11.3 10-20 N GLUCOSE (test code = GLU) 108 mg/dL 74-106 H BLOOD UREA NITROGEN (test code = BUN) 16 mg/dL 7-18 N GLOMERULAR FILTRATION RATE (test code = GFR) > 60 mL/min >=60 Estimated GFR by using Modified MDRD formula.Chronic kidney disease is defined as either kidney damageor GFR <60 mL/min/1.73 m2 for >3 months. CREATININE (test code = CREAT) 1.10 mg/dL 0.7-1.3 N BUN/CREATININE RATIO (test code = BUN/CREA) 14.5 10-20 N CALCIUM (test code = CA) 8.3 mg/dL 8.5-10.1 L BASIC METABOLIC [id number] 06:13:00* Test Item Value Reference Range Interpretation Comments SODIUM (test code = NA) 142 mmol/L 136-145 N POTASSIUM (test code = K) 3.3 mmol/L 3.5-5.1 L CHLORIDE (test code = CL) 105.0 mmol/L 98-107 N CARBON DIOXIDE (test code = CO2) mmol/L 21-32 ANION GAP (test code = GAP) 10-20 GLUCOSE (test code = GLU) mg/dL 74-106 BLOOD UREA NITROGEN (test code = BUN) mg/dL 7-18 GLOMERULAR FILTRATION RATE (test code = GFR) mL/min >=60 CREATININE (test code = CREAT) mg/dL 0.7-1.3 BUN/CREATININE RATIO (test code = BUN/CREA) 10-20 CALCIUM (test code = CA) mg/dL 8.5-10.1 AB HEPATITIS [id number] 06:08:00* Test Item Value Reference Range Interpretation Comments AB HEPATITIS C (test code = HCVAB) <0.1 0.0-0.9 INFCE Result Units: s/co ratio Negative: < 0.8 Indeterminate: 0.8 - 0.9 Positive: > 0.9 The CDC recommends that a positive HCV antibody result be followed up with a HCV Nucleic Acid Amplification test (332498).Performed At: [facility] [address] [id number] Turner Rucker MD Ph:[phone] CBC W/AUTO [id number] 06:01:00* Test Item Value Reference Range Interpretation Comments WHITE BLOOD CELL (test code = WBC) 6.5 K/mm3 4.5-12.5 N RED BLOOD CELL (test code = RBC) 3.56 mill/mm3 4.0-5.8 L HEMOGLOBIN (test code = HGB) 9.9 gram/dL 13.0-17.5 L HEMATOCRIT (test code = HCT) 30.5 % 42.0-52.0 L MEAN CELL VOLUME (test code = MCV) 85.7 fL 80-98 N MEAN CELL HGB (test code = MCH) 27.8 picogram 27.0-33.0 N MEAN CELL HGB CONCETRATION (test code = MCHC) 32.5 gram/dL 33.0-36. 0 L RED CELL DISTRIBUTION WIDTH (test code = RDW) 16.3 % 11.6-16. 2 H RED CELL DISTRIBUTION WIDTH SD (test code = RDW-SD) 51.6 fL 37 .0-51.0 H PLATELET COUNT (test code = PLT) 326 K/mm3 150-450 N MEAN PLATELET VOLUME (test code = MPV) 9.8 fL 6.7-11.0 N NEUTROPHIL % (test code = NT%) 49.0 % 39.0-69.0 N IMMATURE GRANULOCYTE % (test code = IG%) 0.3 % 0.0-5.0 N LYMPHOCYTE % (test code = LY%) 31.0 % 25.0-55.0 N MONOCYTE % (test code = MO%) 13.3 % 0.0-10.0 H EOSINOPHIL % (test code = EO%) 5.3 % 0.0-5.0 H BASOPHIL % (test code = BA%) 1.1 % 0.0-1.0 H NUCLEATED RBC % (test code = NRBC%) 0.0 % 0-0 N NEUTROPHIL # (test code = NT#) 3.16 K/mm3 1.8-7.7 N IMMATURE GRANULOCYTE # (test code = IG#) 0.02 x10 3/uL 0-0.03 N LYMPHOCYTE # (test code = LY#) 2.00 K/mm3 1.0-5.0 N MONOCYTE # (test code = MO#) 0.86 K/mm3 0-0.8 H EOSINOPHIL # (test code = EO#) 0.34 K/mm3 0.0-0.5 N BASOPHIL # (test code = BA#) 0.07 K/mm3 0.0-0.2 N NUCLEATED RBC # (test code = NRBC#) 0.00 K/mm3 0.0-0.1 N MANUAL DIFF REQUIRED (test code = MDIFF) NO [id number] 21:20:00* Test Item Value Reference Range Interpretation Comments GLUBED (test code = GLUBED) 161 mg/dL 74-106 H Performed by certified forklift truck operator at [facility] [id number] 16:31:00* Test Item Value Reference Range Interpretation Comments GLUBED (test code = GLUBED) 151 mg/dL 74-106 H Performed by certified forklift truck operator at [facility] COMPREHENSIVE METABOLIC [id number] 16:08:00* Test Item Value Reference Range Interpretation Comments SODIUM (test code = NA) 139 mmol/L 136-145 N POTASSIUM (test code = K) 5.6 mmol/L 3.5-5.1 H CHLORIDE (test code = CL) 112.0 mmol/L 98-107 H CARBON DIOXIDE (test code = CO2) 19.0 mmol/L 21-32 L ANION GAP (test code = GAP) 13.6 10-20 N GLUCOSE (test code = GLU) 142 mg/dL 74-106 H BLOOD UREA NITROGEN (test code = BUN) 31 mg/dL 7-18 H GLOMERULAR FILTRATION RATE (test code = GFR) 55 mL/min >=60 Estimated GFR by using Modified MDRD formula.Chronic kidney disease is defined as either kidney damageor GFR <60 mL/min/1.73 m2 for >3 months. CREATININE (test code = CREAT) 1.60 mg/dL 0.7-1.3 H BUN/CREATININE RATIO (test code = BUN/CREA) 19.4 10-20 N TOTAL PROTEIN (test code = PROT) 9.3 gram/dL 6.4-8.2 H ALBUMIN (test code = ALB) 3.0 g/dL 3.4-5.0 L GLOBULIN (test code = GLOB) 6.3 gram/dL 2.7-4.2 H ALBUMIN/GLOBULIN RATIO (test code = A/G) 0.5 0.75-1.50 L CALCIUM (test code = CA) 9.2 mg/dL 8.5-10.1 N BILIRUBIN TOTAL (test code = BILT) 0.30 mg/dL 0.0-1.0 N SGOT/AST (test code = AST) 16 IUnit/L 15-37 N SGPT/ALT (test code = ALT) 20 IUnit/L 12-78 N ALKALINE PHOSPHATASE TOTAL (test code = ALKP) 100 IUnit/L 45-117 N Note change in reference range due to change in reagent. KAPPA LAMBDA [id number] 16:08:00* Test Item Value Reference Range Interpretation Comments KAPPA CHAINS (FLOW) (test code = KAPPA) 106.3 mg/L 3.3-19.4 A LAMBDA CHAINS (FLOW) (test code = LAMBDA) 34.1 mg/L 5.7-26.3 A KAPPA/LAMBDA RATIO (test code = GUSTAVO/GEORGE) 3.12 0.26-1.65 A Performed At: [facility] [id number] [facility] [address] [place], [place] [id number] CN MD Ph:[phone] [id number] 11:56:00* Test Item Value Reference Range Interpretation Comments GLUBED (test code = GLUBED) 157 mg/dL 74-106 H Performed by certified forklift truck operator at [facility] COMPREHENSIVE METABOLIC [id number] 10:04:00* Test Item Value Reference Range Interpretation Comments SODIUM (test code = NA) 141 mmol/L 136-145 N POTASSIUM (test code = K) 4.1 mmol/L 3.5-5.1 N CHLORIDE (test code = CL) 108.0 mmol/L 98-107 H CARBON DIOXIDE (test code = CO2) 25.0 mmol/L 21-32 N ANION GAP (test code = GAP) 12.1 10-20 N GLUCOSE (test code = GLU) 159 mg/dL 74-106 H BLOOD UREA NITROGEN (test code = BUN) 24 mg/dL 7-18 H RESULT VERIFIED BY REPEAT ANALYSIS GLOMERULAR FILTRATION RATE (test code = GFR) > 60 mL/min >=60 Estimated GFR by using Modified MDRD formula.Chronic kidney disease is defined as either kidney damageor GFR <60 mL/min/1.73 m2 for >3 months. CREATININE (test code = CREAT) 1.20 mg/dL 0.7-1.3 N BUN/CREATININE RATIO (test code = BUN/CREA) 20.0 10-20 N TOTAL PROTEIN (test code = PROT) 7.9 gram/dL 6.4-8.2 N ALBUMIN (test code = ALB) 2.7 g/dL 3.4-5.0 L GLOBULIN (test code = GLOB) 5.2 gram/dL 2.7-4.2 H ALBUMIN/GLOBULIN RATIO (test code = A/G) 0.5 0.75-1.50 L CALCIUM (test code = CA) 8.4 mg/dL 8.5-10.1 L BILIRUBIN TOTAL (test code = BILT) 0.40 mg/dL 0.0-1.0 N SGOT/AST (test code = AST) 16 IUnit/L 15-37 N SGPT/ALT (test code = ALT) 18 IUnit/L 12-78 N ALKALINE PHOSPHATASE TOTAL (test code = ALKP) 90 IUnit/L 45-117 N Note change in reference range due to change in reagent. COMPREHENSIVE METABOLIC [id number] 09:57:00* Test Item Value Reference Range Interpretation Comments SODIUM (test code = NA) 141 mmol/L 136-145 N POTASSIUM (test code = K) 4.1 mmol/L 3.5-5.1 N CHLORIDE (test code = CL) 108.0 mmol/L 98-107 H CARBON DIOXIDE (test code = CO2) mmol/L 21-32 ANION GAP (test code = GAP) 10-20 GLUCOSE (test code = GLU) mg/dL 74-106 BLOOD UREA NITROGEN (test code = BUN) mg/dL 7-18 GLOMERULAR FILTRATION RATE (test code = GFR) mL/min >=60 CREATININE (test code = CREAT) mg/dL 0.7-1.3 BUN/CREATININE RATIO (test code = BUN/CREA) 10-20 TOTAL PROTEIN (test code = PROT) gram/dL 6.4-8.2 ALBUMIN (test code = ALB) g/dL 3.4-5.0 GLOBULIN (test code = GLOB) gram/dL 2.7-4.2 ALBUMIN/GLOBULIN RATIO (test code = A/G) 0.75-1.50 CALCIUM (test code = CA) mg/dL 8.5-10.1 BILIRUBIN TOTAL (test code = BILT) mg/dL 0.0-1.0 SGOT/AST (test code = AST) IUnit/L 15-37 SGPT/ALT (test code = ALT) IUnit/L 12-78 ALKALINE PHOSPHATASE TOTAL (test code = ALKP) IUnit/L 45-117 UR PROTEIN/CREATININE [id number] 08:35:00* Test Item Value Reference Range Interpretation Comments UR PROTEIN RANDOM (test code = PROTU) 20.0 mg/dL 0.0-11.9 H Protein levels may be falsely elevated in patients withelevated level of aminoglycoside antibiotics in CSF and inhighly concentrated urine specimens. If false elevation issuspected, contact lab for alternated testing technique. UR CREATININE RANDOM (test code = CREATU) 57.0 mg/dL 30-125 N PROTEIN/CREATININE RATIO (test code = P/CRATIO) 0.35 RATIO 0.0-0. 20 H UR PROTEIN/CREATININE [id number] 08:31:00* Test Item Value Reference Range Interpretation Comments UR PROTEIN RANDOM (test code = PROTU) 20.0 mg/dL 0.0-11.9 H Protein levels may be falsely elevated in patients withelevated level of aminoglycoside antibiotics in CSF and inhighly concentrated urine specimens. If false elevation issuspected, contact lab for alternated testing technique. UR CREATININE RANDOM (test code = CREATU) mg/dL 30-125 PROTEIN/CREATININE RATIO (test code = P/CRATIO) RATIO 0.0-0. 20 [id number] 07:53:00* Test Item Value Reference Range Interpretation Comments GLUBED (test code = GLUBED) 130 mg/dL 74-106 H Performed by certified forklift truck operator at [facility] [id number] 20:23:00* Test Item Value Reference Range Interpretation Comments GLUBED (test code = GLUBED) 169 mg/dL 74-106 H Performed by certified forklift truck operator at [facility] - US RETRO [id number] 18:39:00 Name: JERRI COMBS [facility] : 1965 Age/S: 54 / M [address] [facility] Unit #: [id number] Loc: [place] [address] Phys: Jovanna Sellers MD Acct: [id number] Dis Date: Status: ADM IN PHONE #: [phone] Exam Date: 09/01/20191819 FAX #: [phone] Reason: brennon EXAMS: CPT CODE: [id number] US RETRO LTD [id number] REASON FOR EXAM: brennon EXAM ORDER DATE: 09/01/2019 11:18 AM Ordering: Jovanna Sellers MD Attending:Wesley Subramanian MD Location:[facility] [place] [place] PROCEDURE: - US RETRO LTD FINDINGS: The right kidney measures 10.6 x 5.6 cm. The cross- sectional thickness of the right renal cortex measured 1.4 cm. The left kidney measures 10 x 4.1 cm. The cross-sectional thickness of the left renal cortex measured 1.5 cm. There is no evidence of hydronephrosis. There is no evidence of nephrolithiasis. There is no evidence of renal mass. The urinary bladder is unremarkable IMPRESSION: Unremarkable kidneys. at 1839 Reported and signed by: Jacek Herman M.D. CC: Jovanna Sellers MD; Wesley Subramanian Technologist: Gladys Jenkins Trnscb Date/Time: 09/01/2019 (1838) t.VTL Orig Print D/T: S: 09/01/2019 (1841) Probe: PAGE 1 Signed Report [id number] 17:52:00* Test Item Value Reference Range Interpretation Comments GLUBED (test code = GLUBED) 150 mg/dL 74-106 H Performed by certified forklift truck operator at [facility] COMPREHENSIVE METABOLIC [id number] 13:56:00* Test Item Value Reference Range Interpretation Comments SODIUM (test code = NA) 139 mmol/L 136-145 N POTASSIUM (test code = K) 5.6 mmol/L 3.5-5.1 H CHLORIDE (test code = CL) 112.0 mmol/L 98-107 H CARBON DIOXIDE (test code = CO2) 19.0 mmol/L 21-32 L ANION GAP (test code = GAP) 13.6 10-20 N GLUCOSE (test code = GLU) 142 mg/dL 74-106 H BLOOD UREA NITROGEN (test code = BUN) 31 mg/dL 7-18 H GLOMERULAR FILTRATION RATE (test code = GFR) 55 mL/min >=60 Estimated GFR by using Modified MDRD formula.Chronic kidney disease is defined as either kidney damageor GFR <60 mL/min/1.73 m2 for >3 months. CREATININE (test code = CREAT) 1.60 mg/dL 0.7-1.3 H BUN/CREATININE RATIO (test code = BUN/CREA) 19.4 10-20 N TOTAL PROTEIN (test code = PROT) 9.3 gram/dL 6.4-8.2 H ALBUMIN (test code = ALB) 3.0 g/dL 3.4-5.0 L GLOBULIN (test code = GLOB) 6.3 gram/dL 2.7-4.2 H ALBUMIN/GLOBULIN RATIO (test code = A/G) 0.5 0.75-1.50 L CALCIUM (test code = CA) 9.2 mg/dL 8.5-10.1 N BILIRUBIN TOTAL (test code = BILT) 0.30 mg/dL 0.0-1.0 N SGOT/AST (test code = AST) 16 IUnit/L 15-37 N SGPT/ALT (test code = ALT) 20 IUnit/L 12-78 N ALKALINE PHOSPHATASE TOTAL (test code = ALKP) 100 IUnit/L 45-117 N Note change in reference range due to change in reagent. KAPPA LAMBDA [id number] 13:56:00* Test Item Value Reference Range Interpretation Comments KAPPA CHAINS (FLOW) (test code = KAPPA) LAMBDA CHAINS (FLOW) (test code = LAMBDA) KAPPA/LAMBDA RATIO (test code = GUSTAVO/GEORGE) RATIO [id number] 13:47:00* Test Item Value Reference Range Interpretation Comments GLUBED (test code = GLUBED) 152 mg/dL 74-106 H Performed by certified forklift truck operator at [facility] [id number] 13:19:00* Test Item Value Reference Range Interpretation Comments GLUBED (test code = GLUBED) 107 mg/dL 74-106 H Performed by certified forklift truck operator at [facility] - PULM VENT PERF [id number] 12:25:00 FAX: Azael Marie NP [phone] [place]: St: ADM FAX: Wesley Benjamin MD Name: JERRI COMBS [facility] : 1965 Age/S: 54/M [address] [facility] Unit #: [id number] Loc: V.4036 [place] [address] Phys: Azael Gómez STORES CLERK Acct: [id number] Dis Date: Status: ADM IN PHONE #: [phone] Exam Date: 09/01/2019 1131 FAX #: [phone] Reason: elevated d-dimer/NH r esident/debility EXAMS: CPT CODE: [id number] PULM VENT PERF IMAG 76978 HISTORY: elevated d-dimer/NH resident/debility EXAM: NUCLEAR PULMONARY V/Q SCAN. COMPARISON: CT of the chest the previous afternoon FINDINGS: Ventilation scan: Afte r the patient was given 10 mCi Xenon 133 gas to inhale, posterior images w ere obtained of the lungs in immediate and washout phases. Homogeneous rad iopharmaceutical distribution with symmetric washout bilaterally. Perfusion scan: After intravenous injection of 5.9 mCi TC 99m MAA, static images were obtained over the lungs in multiple projections. Homoge neous distribution of radiopharmaceutical in both lungs without pleural ba sed segmental perfusion defects. Ventilation and perfusion images are matched in the posterior projection. IMPRESSION: Modified PIOPED II category: PE absent (normal perfusion) Location: [facility] Electronically Signed by Rigo Falcon MD on at 1225 Reported and signed by: Rigo Falcon MD CC: Azael Gómez NP; Wesley Subramanian gist: VALERY MONTERO Trnscrd Date/Time/B y: 09/01/2019 (1225) : By: [id number] Orig Print D/T: S: 09/01/2019 (04 30) PAGE 1 Signed Report [id number] 12:09:00* Test Item Value Reference Range Interpretation Comments GLUBED (test code = GLUBED) 157 mg/dL 74-106 H Performed by certified forklift truck operator at [facility] COMPREHENSIVE METABOLIC [id number] 08:38:00* Test Item Value Reference Range Interpretation Comments SODIUM (test code = NA) 142 mmol/L 136-145 N POTASSIUM (test code = K) 6.4 mmol/L 3.5-5.1 [facility] sults called to [place] [address] by [employer].LAB.3 09/01/19 0838Critical results verified and read back by Nurse? YES' CHLORIDE (test code = CL) 113.0 mmol/L 98-107 H CARBON DIOXIDE (test code = CO2) 17.0 mmol/L 21-32 L ANION GAP (test code = GAP) 18.4 10-20 N GLUCOSE (test code = GLU) 110 mg/dL 74-106 H BLOOD UREA NITROGEN (test code = BUN) 34 mg/dL 7-18 H GLOMERULAR FILTRATION RATE (test code = GFR) 55 mL/min >=60 Estimated GFR by using Modified MDRD formula.Chronic kidney disease is defined as either kidney damageor GFR <60 mL/min/1.73 m2 for >3 months. CREATININE (test code = CREAT) 1.60 mg/dL 0.7-1.3 H BUN/CREATININE RATIO (test code = BUN/CREA) 21.3 10-20 H TOTAL PROTEIN (test code = PROT) 8.3 gram/dL 6.4-8.2 H ALBUMIN (test code = ALB) 2.9 g/dL 3.4-5.0 L GLOBULIN (test code = GLOB) 5.4 gram/dL 2.7-4.2 H ALBUMIN/GLOBULIN RATIO (test code = A/G) 0.5 0.75-1.50 L CALCIUM (test code = CA) 8.9 mg/dL 8.5-10.1 N BILIRUBIN TOTAL (test code = BILT) 0.20 mg/dL 0.0-1.0 N SGOT/AST (test code = AST) 20 IUnit/L 15-37 N SGPT/ALT (test code = ALT) 19 IUnit/L 12-78 N ALKALINE PHOSPHATASE TOTAL (test code = ALKP) 100 IUnit/L 45-117 N Note change in reference range due to change in reagent. [id number] 08:38:00* Test Item Value Reference Range Interpretation Comments MAGNESIUM (test code = MAG) 2.1 mg/dL 1.8-2.4 N THYROID STIMULATING [id number] 08:38:00* Test Item Value Reference Range Interpretation Comments THYROID STIMULATING HORMONE (test code = TSH) 2.850 uIU/mL 0.36-3.7 4 N TSH REFERENCE RANGES: EUTHYROID: 0.35 - 4.3 mIU/mL HYPO : > 5.5 mIU/mL HYPER : < 0.35 mIU/mL [id number] 08:38:00* Test Item Value Reference Range Interpretation Comments TROPONIN-I (test code = TROPI) <0.015 ng/mL 0-0.045 N COMPREHENSIVE METABOLIC [id number] 07:56:00* Test Item Value Reference Range Interpretation Comments SODIUM (test code = NA) mmol/L 136-145 POTASSIUM (test code = K) mmol/L 3.5-5.1 CHLORIDE (test code = CL) mmol/L 98-107 CARBON DIOXIDE (test code = CO2) mmol/L 21-32 ANION GAP (test code = GAP) 10-20 GLUCOSE (test code = GLU) mg/dL 74-106 BLOOD UREA NITROGEN (test code = BUN) mg/dL 7-18 GLOMERULAR FILTRATION RATE (test code = GFR) mL/min >=60 CREATININE (test code = CREAT) mg/dL 0.7-1.3 BUN/CREATININE RATIO (test code = BUN/CREA) 10-20 TOTAL PROTEIN (test code = PROT) gram/dL 6.4-8.2 ALBUMIN (test code = ALB) g/dL 3.4-5.0 GLOBULIN (test code = GLOB) gram/dL 2.7-4.2 ALBUMIN/GLOBULIN RATIO (test code = A/G) 0.75-1.50 CALCIUM (test code = CA) mg/dL 8.5-10.1 BILIRUBIN TOTAL (test code = BILT) mg/dL 0.0-1.0 SGOT/AST (test code = AST) IUnit/L 15-37 SGPT/ALT (test code = ALT) IUnit/L 12-78 ALKALINE PHOSPHATASE TOTAL (test code = ALKP) IUnit/L 45-117 [id number] 07:56:00* Test Item Value Reference Range Interpretation Comments MAGNESIUM (test code = MAG) mg/dL 1.8-2.4 THYROID STIMULATING [id number] 07:56:00* Test Item Value Reference Range Interpretation Comments THYROID STIMULATING HORMONE (test code = TSH) uIU/mL 0.36-3.7 4 [id number] 07:56:00* Test Item Value Reference Range Interpretation Comments TROPONIN-I (test code = TROPI) <0.015 ng/mL 0-0.045 N PROTHROMBIN [id number] 07:47:00* Test Item Value Reference Range Interpretation Comments PROTHROMBIN TIME PATIENT (test code = PTP) 12.6 seconds 9.0-14.0 N INTERNATIONAL NORMAL RATIO (test code = INR) 1.1 0.8-1.2 N The therapeutic range for oral anticoagulant therapy formost indications is an international normalized ratio (INR)of between 2.0 and 3.0. The recommended therapeutic INRrange for various clinical situations is listed below: Clinical Situation INR range Pulmonary e mbolism treatment (2.0-3.0)Venous thrombosis treatmentVenous thrombosis prophylaxis (high risk surgery)Prevention of systemic embolism from: Acute myocardial infarction Valvular heart disease Atrial fibrillation Mechanical prosthetic heart valves (2.5-3.5) IS PATIENT ON ANTICOAGULANTS? [id number] 07:47:00* Test Item Value Reference Range Interpretation Comments D-DIMER (test code = DDIMER) 1115.00 ng/mLFEU 0-500 HH Results called to [employer] [id number] V.LAB.OA 09/01/19 0747Critical results verified and read back by Nurse? YClinical Cut-off value for D-Dimer is 500 ng/mL FEU. Comment: The [employer] D-Dimer assay is intended for use asan aid in the diagnosis of venous thromboembolism (VTE)[deep vein thrombosis (DVT) or pulmonary embolism (PE)].The measurement of D-Dimer should not be used as an aid inthe diagnosis of VTE, in patient with: -Therapeutic dose anticoagulant therapy for >24 hours - Fibrinolytic therapy within previous 7 days -Trauma or surgery within previous 4 weeks -Disseminated malignancies -Aortic aneurysm -Sepsis, severe infections, pneumonia, severe skin infections -Liver cirrhosis - IS PATIENT ON ANTICOAGULANTS? NCBC W/AUTO [id number] 07:18:00* Test Item Value Reference Range Interpretation Comments WHITE BLOOD CELL (test code = WBC) 7.6 K/mm3 4.5-12.5 N RED BLOOD CELL (test code = RBC) 4.26 mill/mm3 4.0-5.8 N HEMOGLOBIN (test code = HGB) 11.9 gram/dL 13.0-17.5 L HEMATOCRIT (test code = HCT) 38.2 % 42.0-52.0 L MEAN CELL VOLUME (test code = MCV) 89.7 fL 80-98 N MEAN CELL HGB (test code = MCH) 27.9 picogram 27.0-33.0 N MEAN CELL HGB CONCETRATION (test code = MCHC) 31.2 gram/dL 33.0-36. 0 L RED CELL DISTRIBUTION WIDTH (test code = RDW) 16.8 % 11.6-16. 2 H RED CELL DISTRIBUTION WIDTH SD (test code = RDW-SD) 54.6 fL 37 .0-51.0 H PLATELET COUNT (test code = PLT) 345 K/mm3 150-450 N MEAN PLATELET VOLUME (test code = MPV) 9.3 fL 6.7-11.0 N NEUTROPHIL % (test code = NT%) 58.8 % 39.0-69.0 N IMMATURE GRANULOCYTE % (test code = IG%) 0.3 % 0.0-5.0 N LYMPHOCYTE % (test code = LY%) 26.4 % 25.0-55.0 N MONOCYTE % (test code = MO%) 10.3 % 0.0-10.0 H EOSINOPHIL % (test code = EO%) 2.9 % 0.0-5.0 N BASOPHIL % (test code = BA%) 1.3 % 0.0-1.0 H NUCLEATED RBC % (test code = NRBC%) 0.0 % 0-0 N NEUTROPHIL # (test code = NT#) 4.44 K/mm3 1.8-7.7 N IMMATURE GRANULOCYTE # (test code = IG#) 0.02 x10 3/uL 0-0.03 N LYMPHOCYTE # (test code = LY#) 1.99 K/mm3 1.0-5.0 N MONOCYTE # (test code = MO#) 0.78 K/mm3 0-0.8 N EOSINOPHIL # (test code = EO#) 0.22 K/mm3 0.0-0.5 N BASOPHIL # (test code = BA#) 0.10 K/mm3 0.0-0.2 N NUCLEATED RBC # (test code = NRBC#) 0.00 K/mm3 0.0-0.1 N MANUAL DIFF REQUIRED (test code = MDIFF) NO [id number] 20:42:00* Test Item Value Reference Range Interpretation Comments GLUBED (test code = GLUBED) 133 mg/dL 74-106 H Performed by certified forklift truck operator at [facility] [id number] 17:32:00* Test Item Value Reference Range Interpretation Comments GLUBED (test code = GLUBED) 86 mg/dL 74-106 N Performed by certified forklift truck operator at [facility] - CT CHEST W/O [id number] 14:38:00 Name: JERRI COMBS [facility] : 1965 Age/S: 54 / M [address] [facility]: [id number] Loc: [place] [id number] Phys: Bonifacio Tee MD Acct: [id number] Dis Date: Status: ADM IN PHONE #: [phone] Exam Date: 08/31/2019 1400 FAX #: [phone] Reason: hypoxia EXAMS: CPT CODE: [id number] CT CHEST W/O CONTRAST [id number] REASON FOR EXAM: hypoxia EXAM ORDER DATE: 08/31/2019 1:16 PM Ordering M.DBony: Bonifacio Tee MD PROCEDURE: - CT CHEST W/O CONTRAST Comparison:Chest x-ray earlier today at 12:[address] of the chest May 09, [address] images of the chest were obtained without IV contrast. Reconstructed sagittal and coronal images of the chest were provided for interpretation. Dose reduction techniques were applied. FINDINGS: The absence of IV contrast limits the sensitivity of this exam for detecting soft tissue pathology and differentiating atelectasis from consolidations. Visualized neck: Grossly normal Airways, Lungs and Pleura: Mild subsegmental atelectasis is present in the lower lobes. 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 Moderate atherosclerotic calcifications are present in the co ronary arteries Lymph nodes: No axillary, internal mammary, or med iastinal adenopathy. Hilar lymph nodes are suboptimally evaluated in the a bsence of IV contrast Musculoskeletal/chest wall: Degenerati ve changes are present in the thoracic spine Visualized uppe r abdomen: There appears to been a prior cholecystectomy. There is a surgi preston drain visualized along the undersurface of the liver which extends bey ond the scanned portion of the patient. Atherosclerotic calcifications are seen throughout the visualized splenic artery and in the superior mesente katie artery PAGE 1 Signed Report (CONTINUED) Name: JERRI COMBS [facility] : 1965 Age/S: 54 / M [address] [facility] Unit #: [id number] Loc: [place] [place] [address] Phys: Bonifacio Tee MD Acct: [id number] Dis Date: Status: ADM IN PHONE #: [phone] Exam Date: 08/31/2019 1400 FAX #: [phone] Reason: hypoxia EXAMS: CPT CODE: [id number] CT CHEST W/O CONTRAST 47777 < Continued> IMPRESSION: No acute intrathoracic process. The lungs are clear other than mild subsegmental atelectasis in the lower lobes. Postsurgical changes of CABG and cholecystectomy. Location: [facility] at 1438 Reported and signed by: Rigo Falcon MD CC: Bonifacio Tee MD Technologist:Paige Altman,RT(R),CT CTDI: DLP: Trnscb Date/Time: 08/31/2019 (1438) [email or web address] Orig Print D/T: S: 08/31/2019 (3226) PAGE 2 Signed Report Coronavirus 2019 nCoV Bedside 2019-08-31 13:59:00* Test Item Value Reference Range Interpretation Comments Coronavirus 2019 nCoV Bedside (test code = [id number]) Negative Is patient requiring admission or transfer? YIndication for rapid COVID-19 testi ng: Mod Clinical SuspicionB-TYPE NATRIURETIC [id number] 13:10:00* Test Item Value Reference Range Interpretation Comments B-TYPE NATRIURETIC PEPTIDE (test code = BNP) 36.08 pgram/mL 0-100 N - XR CHEST 1 [id number] 13:00:00 FAX: Bonifacio Easley [phone] [place]: St: REG Name: JERRI HARDWICK [facility] : [birth year] 63 Age/S: 54/M [address] [facility] Unit #: [id number] Loc: [place] [address] Phys: Bonifacio Tee MD Acct: [id number] Dis Date: Status: REG ER PHONE #: [phone] Exam Date: 08/31/2019 1250 FAX #: [phone] Reason: CODE SEPSIS EXAMS: CPT CODE: [id number] XR CHEST 1 V [id number] REASON FOR EXAM: CODE SEPSIS Exam Order Date: 08/31/2019 11:23 AM Ordering M.Reymundo: Bonifacio Tee MD PROCEDURE: - XR CHEST 1 V C OMPARISON: Chest x-ray August 28, 2019 FINDINGS: Lung volum es are diminished however no airspace disease is seen. 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 There are also degenerative changes in the spine and shoulders. Musculoskeletal structures are within normal limits. The visualized upper abdomen is within normal limits. IMPRESSION: Lung volumes are diminished however the lungs are clear. Location: [facility] at 1300 Reported and signed by: Rigo Falcon MD CC: Bonifacio Tee MD Technologist: RT PAMELLA(R) Trnscrd Date/Time/By: 08/31/2019 (1300) : By: [email or web address] Orig Print D /T: S: 08/31/2019 (7293) PAGE 1 S igned Report PROCALCITONIN (PCT)2019-08-31 12:58:00* Test Item Value Reference Range Interpretation Comments PROCALCITONIN (PCT) (test code = PROCAL) 0.22 ng/ml Concentration Interpretation (ng/mL) <0.51 Sepsis is not likely. Local bacterial infection is possible. (LOW RISK for progression to Sepsis) 0.51 - 2.00 Sepsis is possible, but other conditions are known to elevate PCT as well. (MODERATE RISK for progression to Sepsis) > 2.00 Sepsis is likely, unless other causes are known. (HIGH RISK for progression to Severe Sepsis or Septic Shock) 10.00 High likelihood of Severe Sepsis or Septic or higher Shock. *Increased PCT levels may not always be related to systemic bacterial infection.*Low PCT levels do not automatically exclude the presence of bacterial infection.*All results should be interpreted taking into account the patients history. BASIC METABOLIC [id number] 12:52:00* Test Item Value Reference Range Interpretation Comments SODIUM (test code = NA) 140 mmol/L 136-145 N POTASSIUM (test code = K) 5.7 mmol/L 3.5-5.1 H CHLORIDE (test code = CL) 109.0 mmol/L 98-107 H CARBON DIOXIDE (test code = CO2) 23.0 mmol/L 21-32 N ANION GAP (test code = GAP) 13.7 10-20 N GLUCOSE (test code = GLU) 82 mg/dL 74-106 N BLOOD UREA NITROGEN (test code = BUN) 41 mg/dL 7-18 H GLOMERULAR FILTRATION RATE (test code = GFR) 40 mL/min >=60 Estimated GFR by using Modified MDRD formula.Chronic kidney disease is defined as either kidney damageor GFR <60 mL/min/1.73 m2 for >3 months. CREATININE (test code = CREAT) 2.10 mg/dL 0.7-1.3 H BUN/CREATININE RATIO (test code = BUN/CREA) 19.5 10-20 N CALCIUM (test code = CA) 8.5 mg/dL 8.5-10.1 N HEPATIC FUNCTION [id number] 12:52:00* Test Item Value Reference Range Interpretation Comments TOTAL PROTEIN (test code = PROT) 7.7 gram/dL 6.4-8.2 N ALBUMIN (test code = ALB) 2.6 g/dL 3.4-5.0 L GLOBULIN (test code = GLOB) 5.1 gram/dL 2.7-4.2 H ALBUMIN/GLOBULIN RATIO (test code = A/G) 0.5 0.75-1.50 L BILIRUBIN TOTAL (test code = BILT) 0.30 mg/dL 0.0-1.0 N BILIRUBIN DIRECT (test code = BILD) 0.09 mg/dL 0.0-0.20 N SGOT/AST (test code = AST) 22 IUnit/L 15-37 N SGPT/ALT (test code = ALT) 17 IUnit/L 12-78 N ALKALINE PHOSPHATASE TOTAL (test code = ALKP) 86 IUnit/L 45-117 N Note change in reference range due to change in reagent. [id number] 12:52:00* Test Item Value Reference Range Interpretation Comments TROPONIN-I (test code = TROPI) <0.015 ng/mL 0-0.045 N URINALYSIS [id number] 12:48:00* Test Item Value Reference Range Interpretation Comments UA COLOR (test code = COLU) Light-Yellow YELLOW UA APPEARANCE (test code = APPU) CLEAR CLEAR UA GLUCOSE DIPSTICK (test code = DGLUU) NEGATIVE mg/dL NEGATIVE UA BILIRUBIN DIPSTICK (test code = BILU) NEGATIVE mg/dL NEGATIVE UA KETONE DIPSTICK (test code = KETU) NEGATIVE mg/dL NEGATIVE UA SPECIFIC GRAVITY (test code = SGU) 1.009 1.001-1.035 UA BLOOD DIPSTICK (test code = DEMETRIUS) 0.06 mg/dL (1+) mg/dL NEGATIVE A UA PH DIPSTICK (test code = SHAGUFTA) 5.0 5.0-8.0 UA PROTEIN DIPSTICK (test code = PROU) NEGATIVE mg/dL NEGATIVE UA UROBILINIOGEN DIPSTICK (test code = URO) Normal mg/dL NEGATIVE UA NITRITE DIPSTICK (test code = WARREN) NEGATIVE NEGATIVE UA LEUKOCYTE ESTERASE W REFLEX (test code = LEUUR) NEGATIVE Daina/uL NEGATIVE UA WBC (test code = WBCU) 0-5 per HPF 0-5 UA RBC (test code = RBCU) 0-2 #/HPF 0-5 UA EPITHELIAL CELLS (test code = EPIU) FEW per HPF FEW UA BACTERIA (test code = BACU) FEW #/HPF NONE A UA HYALINE CAST (test code = HYALU) >20 #/LPF 0-5 A UA MUCUS (test code = MUCU) FEW #/LPF FEW Urine Source? Clean CatchURINALYSIS [id number] 12:47:00* Test Item Value Reference Range Interpretation Comments UA COLOR (test code = COLU) Light-Yellow YELLOW UA APPEARANCE (test code = APPU) CLEAR CLEAR UA GLUCOSE DIPSTICK (test code = DGLUU) NEGATIVE mg/dL NEGATIVE UA BILIRUBIN DIPSTICK (test code = BILU) NEGATIVE mg/dL NEGATIVE UA KETONE DIPSTICK (test code = KETU) NEGATIVE mg/dL NEGATIVE UA SPECIFIC GRAVITY (test code = SGU) 1.009 1.001-1.035 UA BLOOD DIPSTICK (test code = DEMETRIUS) 0.06 mg/dL (1+) mg/dL NEGATIVE A UA PH DIPSTICK (test code = SHAGUFTA) 5.0 5.0-8.0 UA PROTEIN DIPSTICK (test code = PROU) NEGATIVE mg/dL NEGATIVE UA UROBILINIOGEN DIPSTICK (test code = URO) Normal mg/dL NEGATIVE UA NITRITE DIPSTICK (test code = WARREN) NEGATIVE NEGATIVE UA LEUKOCYTE ESTERASE W REFLEX (test code = LEUUR) NEGATIVE Daina/uL NEGATIVE UA WBC (test code = WBCU) per HPF 0-5 UA RBC (test code = RBCU) per HPF 0-5 UA EPITHELIAL CELLS (test code = EPIU) per HPF Few UA BACTERIA (test code = BACU) per HPF NONE Urine Source? Clean CatchBASIC METABOLIC [id number] 12:40:00* Test Item Value Reference Range Interpretation Comments SODIUM (test code = NA) 140 mmol/L 136-145 N POTASSIUM (test code = K) 5.7 mmol/L 3.5-5.1 H CHLORIDE (test code = CL) 109.0 mmol/L 98-107 H CARBON DIOXIDE (test code = CO2) mmol/L 21-32 ANION GAP (test code = GAP) 10-20 GLUCOSE (test code = GLU) mg/dL 74-106 BLOOD UREA NITROGEN (test code = BUN) mg/dL 7-18 GLOMERULAR FILTRATION RATE (test code = GFR) mL/min >=60 CREATININE (test code = CREAT) mg/dL 0.7-1.3 BUN/CREATININE RATIO (test code = BUN/CREA) 10-20 CALCIUM (test code = CA) mg/dL 8.5-10.1 HEPATIC FUNCTION [id number] 12:40:00* Test Item Value Reference Range Interpretation Comments TOTAL PROTEIN (test code = PROT) gram/dL 6.4-8.2 ALBUMIN (test code = ALB) g/dL 3.4-5.0 GLOBULIN (test code = GLOB) gram/dL 2.7-4.2 ALBUMIN/GLOBULIN RATIO (test code = A/G) 0.75-1.50 BILIRUBIN TOTAL (test code = BILT) mg/dL 0.0-1.0 BILIRUBIN DIRECT (test code = BILD) mg/dL 0.0-0.20 SGOT/AST (test code = AST) IUnit/L 15-37 SGPT/ALT (test code = ALT) IUnit/L 12-78 ALKALINE PHOSPHATASE TOTAL (test code = ALKP) IUnit/L 45-117 [id number] 12:40:00* Test Item Value Reference Range Interpretation Comments TROPONIN-I (test code = TROPI) ng/mL 0-0.045 LACTIC [id number] 12:34:00* Test Item Value Reference Range Interpretation Comments LACTIC ACID (test code = LACT) 1.5 mmol/L 0.4-1.9 N PROTHROMBIN [id number] 12:30:00* Test Item Value Reference Range Interpretation Comments PROTHROMBIN TIME PATIENT (test code = PTP) 12.9 seconds 9.0-14.0 N INTERNATIONAL NORMAL RATIO (test code = INR) 1.1 0.8-1.2 N The therapeutic range for oral anticoagulant therapy formost indications is an international normalized ratio (INR)of between 2.0 and 3.0. The recommended therapeutic INRrange for various clinical situations is listed below: Clinical Situation INR range Pulmonary e mbolism treatment (2.0-3.0)Venous thrombosis treatmentVenous thrombosis prophylaxis (high risk surgery)Prevention of systemic embolism from: Acute myocardial infarction Valvular heart disease Atrial fibrillation Mechanical prosthetic heart valves (2.5-3.5) IS PATIENT ON ANTICOAGULANTS? NTHROMBOPLASTIN TIME [id number] 12:30:00* Test Item Value Reference Range Interpretation Comments THROMBOPLASTIN TIME PARTIAL (test code = PTT) 29.5 seconds 23.0-37. 0 N IS PATIENT ON ANTICOAGULANTS? NCBC W/AUTO [id number] 12:17:00* Test Item Value Reference Range Interpretation Comments WHITE BLOOD CELL (test code = WBC) 7.4 K/mm3 4.5-12.5 N RED BLOOD CELL (test code = RBC) 3.62 mill/mm3 4.0-5.8 L HEMOGLOBIN (test code = HGB) 10.2 gram/dL 13.0-17.5 L HEMATOCRIT (test code = HCT) 31.9 % 42.0-52.0 L MEAN CELL VOLUME (test code = MCV) 88.1 fL 80-98 N MEAN CELL HGB (test code = MCH) 28.2 picogram 27.0-33.0 N MEAN CELL HGB CONCETRATION (test code = MCHC) 32.0 gram/dL 33.0-36. 0 L RED CELL DISTRIBUTION WIDTH (test code = RDW) 16.5 % 11.6-16. 2 H RED CELL DISTRIBUTION WIDTH SD (test code = RDW-SD) 53.3 fL 37 .0-51.0 H PLATELET COUNT (test code = PLT) 327 K/mm3 150-450 N MEAN PLATELET VOLUME (test code = MPV) 9.6 fL 6.7-11.0 N NEUTROPHIL % (test code = NT%) 53.9 % 39.0-69.0 N IMMATURE GRANULOCYTE % (test code = IG%) 0.4 % 0.0-5.0 N LYMPHOCYTE % (test code = LY%) 29.4 % 25.0-55.0 N MONOCYTE % (test code = MO%) 12.0 % 0.0-10.0 H EOSINOPHIL % (test code = EO%) 3.1 % 0.0-5.0 N BASOPHIL % (test code = BA%) 1.2 % 0.0-1.0 H NUCLEATED RBC % (test code = NRBC%) 0.0 % 0-0 N NEUTROPHIL # (test code = NT#) 4.00 K/mm3 1.8-7.7 N IMMATURE GRANULOCYTE # (test code = IG#) 0.03 x10 3/uL 0-0.03 N LYMPHOCYTE # (test code = LY#) 2.18 K/mm3 1.0-5.0 N MONOCYTE # (test code = MO#) 0.89 K/mm3 0-0.8 H EOSINOPHIL # (test code = EO#) 0.23 K/mm3 0.0-0.5 N BASOPHIL # (test code = BA#) 0.09 K/mm3 0.0-0.2 N NUCLEATED RBC # (test code = NRBC#) 0.00 K/mm3 0.0-0.1 N BASIC METABOLIC [id number] 13:59:00* Test Item Value Reference Range Interpretation Comments SODIUM (test code = NA) 134 mmol/L 136-145 L POTASSIUM (test code = K) 4.9 mmol/L 3.5-5.1 N CHLORIDE (test code = CL) 105.0 mmol/L 98-107 N CARBON DIOXIDE (test code = CO2) 21.0 mmol/L 21-32 N ANION GAP (test code = GAP) 12.9 10-20 N GLUCOSE (test code = GLU) 125 mg/dL 74-106 H BLOOD UREA NITROGEN (test code = BUN) 41 mg/dL 7-18 H GLOMERULAR FILTRATION RATE (test code = GFR) 36 mL/min >=60 Estimated GFR by using Modified MDRD formula.Chronic kidney disease is defined as either kidney damageor GFR <60 mL/min/1.73 m2 for >3 months. CREATININE (test code = CREAT) 2.30 mg/dL 0.7-1.3 H BUN/CREATININE RATIO (test code = BUN/CREA) 17.8 10-20 N CALCIUM (test code = CA) 8.9 mg/dL 8.5-10.1 N [id number] 13:59:00* Test Item Value Reference Range Interpretation Comments TROPONIN-I (test code = TROPI) <0.015 ng/mL 0-0.045 N - XR CHEST 1 [id number] 13:53:00 FAX: Jamie Stallings NP [phone] [place]: [address]: REG Name: JERRI HARDWICK [facility] : [birth year] 63 Age/S: 54/M [address] [facility] Unit #: [id number] Loc: [place] [address] Phys: Jamie Stallings NP Acct: [id number] Dis Date: Status: REG ER PHONE #: [phone] Exam Date: 08/28/2019 1332 FAX #: [phone] Reason: CHEST PAIN EXAMS: CPT CODE: [id number] XR CHEST 1 V [id number] REASON FOR EXAM: CHEST PAIN Exam Order Date: 08/28/2019 12:21 PM Ordering M.DBony: Jamie Stallings NP PROCEDURE: - XR CHEST 1 V COMP ARISON: No study within the past 10 years FINDINGS: The raquel ngs are clear. There is no pleural effusion or pneumothorax. Pulmonary va scularity is within normal limits. Cardiomediastinal silhouette is normal in size for technique. 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 T here are degenerative changes in the spine. The visualized upper abdomen i s within normal limits. IMPRESSION: No acu te cardiopulmonary process. Location: [facility] Electron ically Signed by Rigo Falcon MD on 08/28/2019 at 1353 Re ported and signed by: Rigo Falcon MD CC: Jamie Stallings NP Technologist: Akiko Schmidt RT(R); Analilia Mayer(R) Trnscrd Date/Time/By: 08/28/2019 (1285) : By: [email or web address] Orig Print D/T: S: 08/28/2019 (3398) PAGE 1 Signed Report BASIC METABOLIC PANEL 2019-08-28 13:47:00* Test Item Value Reference Range Interpretation Comments SODIUM (test code = NA) 134 mmol/L 136-145 L POTASSIUM (test code = K) 4.9 mmol/L 3.5-5.1 N CHLORIDE (test code = CL) 105.0 mmol/L 98-107 N CARBON DIOXIDE (test code = CO2) mmol/L 21-32 ANION GAP (test code = GAP) 10-20 GLUCOSE (test code = GLU) mg/dL 74-106 BLOOD UREA NITROGEN (test code = BUN) mg/dL 7-18 GLOMERULAR FILTRATION RATE (test code = GFR) mL/min >=60 CREATININE (test code = CREAT) mg/dL 0.7-1.3 BUN/CREATININE RATIO (test code = BUN/CREA) 10-20 CALCIUM (test code = CA) mg/dL 8.5-10.1 [id number] 13:47:00* Test Item Value Reference Range Interpretation Comments TROPONIN-I (test code = TROPI) ng/mL 0-0.045 CBC W/O [id number] 13:38:00* Test Item Value Reference Range Interpretation Comments WHITE BLOOD CELL (test code = WBC) 9.9 K/mm3 4.5-12.5 N RED BLOOD CELL (test code = RBC) 3.97 mill/mm3 4.0-5.8 L HEMOGLOBIN (test code = HGB) 11.1 gram/dL 13.0-17.5 L HEMATOCRIT (test code = HCT) 34.9 % 42.0-52.0 L MEAN CELL VOLUME (test code = MCV) 87.9 fL 80-98 N MEAN CELL HGB (test code = MCH) 28.0 picogram 27.0-33.0 N MEAN CELL HGB CONCETRATION (test code = MCHC) 31.8 gram/dL 33.0-36. 0 L RED CELL DISTRIBUTION WIDTH (test code = RDW) 16.5 % 11.6-16. 2 H PLATELET COUNT (test code = PLT) 330 K/mm3 150-450 N MEAN PLATELET VOLUME (test code = MPV) 9.8 fL 6.7-11.0 N
[2020-03-16] MEDS ORDERED: HUMULIN R100 UNIT/2 (17:30)
[2020-03-16] MEDS ORDERED: SERTRALINE HCL50 MG (17:30)
[2020-03-16] MEDS ORDERED: ATORVASTATIN CA80 MG (17:30)
[2020-03-16] MEDS ORDERED: AMIODARONE HCL200 MG (17:30)
[2020-03-16] MEDS ORDERED: TAMSULOSIN (17:30)
[2020-03-16] MEDS ORDERED: DULOXETINE HCL30 MG (17:30)
[2020-03-16] MEDS ORDERED: CLOPIDOGREL75 MG (17:30)
[2020-03-16] MEDS ORDERED: BACLOFEN10 MG (17:30)
[2020-03-16] MEDS ORDERED: CARVEDILOL12.5 MG (17:30)
[2020-03-16] MEDS ORDERED: FAMOTIDINE20 MG (17:30)
[2020-03-16] MEDS ORDERED: SANTYL (17:30)
--- OUTSIDE RECORDS SUMMARY | 2020-03-16 17:35 | XMS REPORT | Continuity of Care Document ---
Author Author [facility] t Organization [facility] Address [address] [place] [address] Phone Unavailable Care Team Providers Care Tool Engineer Name Role Phone Evangelist Beltran Attphys Vasyl Hilton Admphys Payers Payer Name Policy Type Policy Number Effective Date Expiration Date S ource Problems Condition Name Condition Details Condition Category Status Onset Date Resolution Date Last Treatment Date Treating Clinician Comments Source CP CP Active 11/03/2019 [facility] Diagnosis Active 2019-11-03 00:00:00 2019-11-11 22:08:00 Kevan emohanane Mahmood CHOLECYSTITIS CHOL ECYSTITIS Active 07/25/2019 [facility] Diagnosis Active 2019-07-25 00:00:00 2019-08-03 22:02:00 Jose Mahmood Cerebrovascular accident (disorder) Cerebrovascular accident (disorder) Active Problem 11/06/2019 [facility] Active 2019-11-06 21:32:56 Jose Mahmood Congestive heart failure (disorder) Congestive heart failure (disorder) Active Problem 11/06/2019 [facility] Problem Active 2019-11-06 21:32:56 Jose Mahmood Coronary arteriosclerosis (disorder) Coronary arteriosclerosis (disorder) Active Problem 11/06/2019 [facility] Problem Active 2019-11-06 21:32:56 Jose Mahmood GALLSTONE ILEUS GALL STONE ILEUS Active [facility] Active 2019-08-03 22:02:00 [facility] CHEST PAIN, UNSPECIFIED CHES T PAIN, UNSPECIFIED Active [facility] Active 2019-11-11 22:08:00 [facility] HYPOKALEMIA HYPO KALEMIA Active [facility] Active 2019-11-11 22:08:00 Jesusor phyllis [place] HYPOGLYCEMIA, UNSPECIFIED HYPO GLYCEMIA, UNSPECIFIED Active [facility] Active 2019-11-11 22:08:00 [facility] Hypoglycemia, unspecified Hypo glycemia, unspecified 11/03/2019 11/06/2019 [facility] Problem 2019-11-03 17:00:00 2019 21:32:56 2019-11-06 21:32:56 [facility] Chest pain, unspecified Ches t pain, unspecified 11/03/2019 11/06/2019 [facility] Problem 2019-11-03 17:00:00 2019 21:32:56 2019-11-06 21:32:56 [facility] Hypokalemia Hypo kalemia 11/03/2019 11/06/2019 [facility] Problem 2019-11-03 17:00:00 2019-11-06 21:32:56 2019-11 21:32:56 [facility] Allergies, Adverse Reactions, Alerts Allergy Name Allergy Type Status Severity Reaction(s) Onset Date Inacti ve Date Treating Clinician Comments Source Penicillins DA Active U 2020-03-15 00:00:[address] [facility] Penicillins DA Active U 2019-08-31 00:00:00 [facility] No Known Allergies DA Active U 2019-08-28 00:00:[address] [facility] No Known Drug Intolerances DA Active U 2009-02-17 00:00:[address] [facility] penicillins penicillins Active [facility] Social History Social Habit Start Date Stop Date Quantity Comments Source Social History 2019-07-25 21:48:27 2019-07-25 21:48:27 [facility] Medications Ordered Medication Name Filled Medication Name Start Date Stop Da te Current Medication? Ordering Clinician Indication Dosage Frequency Signature (SIG) Comments Components Source atorvastatin 2019-11-05 02:00:00 No Notes: (Same as: Lipitor) [facility] Baclofen 2019-11-05 02:00:00 No Notes: (Dc e As: Lioresal) Jose Mahmood Flomax 2019-11-05 02:00:00 No Notes: (Same As: Flomax) "Do Not Crush" Jose Mahmood pantoprazole 40 mg oral enteric coated tablet 2019-11-04 16:34:0 0 Yes 40 mg = 1 tab, PO, Before Breakfast, # 3 0 tab, 0 Refill(s), Pharmacy: [facility], 177.8, cm, 11/03/19 22:36:00 CDT, Height, 127.27, kg, 11/03/19 22:36:00 CDT, Weight Jose Mahmood Amiodarone 2019-11-04 14:00:00 No Notes: (S marquis as: Cordarone) Jose Mahmood Aspirin 325 MG Oral Tablet 2019-11-04 14:00:00 No Notes: Take with food. Jose Mahmood carvedilol 2019-11-04 14:00:00 No Notes: Give with food. (Same As: Coreg) [facility] Plavix 2019-11-04 14:00:00 No Notes: (Same As: Plavix) Jose Mahmood Docusate Sodium 100 MG Oral Capsule 2019-11-04 14:00:00 No Notes: (Same as: Colace) (Do Not Crush) [facility] Cymbalta 2019-11-04 14:00:00 No Notes: (Same as: Cymbalta) (Do Not Crush) [facility] [place] Famotidine 2019-11-04 14:00:00 No Notes: (S marquis as: Pepcid) [facility] Lisinopril 2019-11-04 14:00:00 No Notes: (Same as: Prinivil, Zestril) [facility] Protonix 2019-11-04 13:26:00 No Notes: Tablet should not be chewed or crushed. (Same as: Protonix) [facility] [place] Enoxaparin 2019-11-04 03:00:00 No Notes: (S marquis as: Lovenox) [facility] Lovenox 2019-11-04 03:00:00 No Notes: (Same as: Lovenox) [facility] Tylenol 2019-11-04 02:18:00 No Notes: Do not exceed 4 gm/day. (Same as: Tylenol) [facility] Bisacodyl 2019-11-04 02:18:00 No Notes: (Same As: Dulcolax, Bisco-Lax) [facility] Dextrose 50% Syringe (D50W) 2019-11-04 02:03:00 No 12.5 gm, 25 mL, Route: IVP, Drug Form: INJ, Dosing Weight 127.273, kg, PRN, PRN Blood Glucose Results, Start date: 11/03/19 21:03:00 CDT, Duration: 30 day, Stop date: 12/03/19 21:02:00 CDT, 0 [facility] Rangel n Glucagon 2019-11-04 02:03:00 No 1 mg, Route: IM, Drug form: PDR/INJ, PRN, Dosing Weight 127.273, kg, PRN Blood Glucose Results, Start date: 11/03/19 21:03:00 CDT, Duration: 30 day, Stop date: 12/03/19 21:02:00 CDT, 0 [facility] Morphine 2019-11-04 02:02:00 Yes Not es: (Same as:MORPhine Sulfate) [facility] Aspirin 2019-11-04 01:49:00 No Notes: Take with food. [facility] Omnipaque 300 injectable solution 2019-11-03 21:16:00 No 45 mL/min, STAT, Start date: 11/03/19 16:16:00 CDT, Duration: 1 doses or times [facility] potassium chloride 20 mEq oral tablet, extended [...] s with feeding tube less than 14 Kiswahili (Dobhoff, J-tube etc) and pediatric and patients. [facility] Saline Flush 0.9% 2019-11-03 18:54:00 No Notes: (Same as: BD Posiflush) [facility] Vital Signs Vital Name Observation Time Observation Value Comments Source Temperature Oral (F) 2019-11-04 18:04:00 98.1 F [facility] Heart Rate 2019-11-04 18:04:00 [facility] Respitory Rate 2019-11-04 18:04:00 [facility] [place] Systolic (mm Hg) 2019-11-04 18:04:00 [facility] [place] Diastolic (mm Hg) 2019-11-04 18:04:00 [facility] [place] Temperature Oral (F) 2019-11-04 17:28:00 98.2 F [facility] Heart Rate 2019-11-04 17:28:00 [facility] [place] Respitory Rate 2019-11-04 17:28:00 [facility] [place] Systolic (mm Hg) 2019-11-04 17:28:00 [facility] [place] Diastolic (mm Hg) 2019-11-04 17:28:00 [facility] [place] Heart Rate 2019-11-04 13:32:00 [facility] [place] Respitory Rate 2019-11-04 13:32:00 [facility] [place] Systolic (mm Hg) 2019-11-04 13:32:00 [facility] [place] Diastolic (mm Hg) 2019-11-04 13:32:00 [facility] [place] Temperature Oral (F) 2019-11-04 08:52:00 97.9 F [facility] Height 2019-11-04 03:36:00 177.8 cm [facility] Weight 2019-11-04 03:36:00 [facility] BMI Calculated 2019-11-04 03:36:00 [facility] [place] BMI Calculated 2019-11-03 18:54:00 [facility] [place] Height 2019-11-03 18:37:00 177.8 cm [facility] BMI Calculated 2019-11-03 18:37:00 [facility] [place] Weight 2019-11-03 18:37:00 [facility] Procedures Procedure Date / Time Performed Performing Clinician Sourc e CABG - Coronary artery bypass graft [facility] Encounters Start Date/Time End Date/Time Encounter Type Admission Type Attendi [facility] Care Department Encounter ID Source 2019-07-25 16:28:00 Inpatient U MHNE MHNE 00 [id number] MHNE 2019-11-03 13:19:20 2019-11-04 13:19:00 Outpatient Obih, Ugochi [facility] [id number] 2019-11-03 21:03:00 2019-11-03 21:03:00 Outpatient E MHNE MED 7500 MHNE Results Test Description Test Time Test Comments Results Result Comments Source LACTIC ACID 2020-03-15 23:41:00 Test Item LACTIC ACID (test code = LACT) 1.6 mmol/L 0.4-1.9 N PROTHROMBIN [id number] 23:26:00* Test Item Value Reference Range Interpretation [...] (2.5-3.5) IS PATIENT ON ANTICOAGULANTS? NTHROMBOPLASTIN TIME [id number] 23:26:00* Test Item Value Reference Range Interpretation Comments THROMBOPLASTIN TIME PARTIAL (test code = PTT) 33.1 seconds 23.0-37. 0 N IS PATIENT ON ANTICOAGULANTS? NBASIC METABOLIC [id number] 23:25:00* Test Item Value Reference Range Interpretation [...] CA) 8.7 mg/dL 8.5-10.1 N HEPATIC FUNCTION [id number] 23:25:00* Test Item Value Reference Range Interpretation [...] due to change in reagent. CBC W/AUTO [id number] 23:21:00* Test Item Value Reference Range Interpretation [...] NRBC#) 0.00 K/mm3 0.0-0.1 N BASIC METABOLIC [id number] 23:17:00* Test Item Value Reference Range Interpretation [...] code = CA) mg/dL 8.5-10.1 HEPATIC FUNCTION [id number] 23:17:00* Test Item Value Reference Range Interpretation [...] 45-117 - XR FOOT 3 + V [id number] 23:07:00 [facility]Name: JERRI COMBS : 1965 Sex: M FAX: Adonay Pena [phone] [place]: St: REG FAX: Luís Cecil Sarabiagege Kevan GONZALEZ [phone] Name: JERRI COMBS [facility] : 1965 Age/S: 54/M [address] [facility] Unit #: [id number] Loc: [place] [address] Phys: Laron Sarabia DO Acct: [id number] Dis Date: Status: REG ER PHONE #: [phone] Exam Date: 03/15/20202229 FAX #: [phone] Reason: 5th toe infection EXAMS: CPT CODE: [id number] XR FOOT 3 + [place] RT 27924 AFTER HOURS SERVICE ON: 03/15/2020 11:06 PM [...] By: [email or web address] Orig Print D/T: S: 03/15/20 (4444) PAGE 1 Signed Report [id number] 15:06:00* Test Item Value Reference Range Interpretation Comments GLUBED (test code = GLUBED) 158 mg/dL 74-106 H Performed by certified ruling machine set up operator at [facility] [id number] 15:06:00* Test Item Value Reference Range Interpretation Comments GLUBED (test code = GLUBED) 149 mg/dL 74-106 H Performed by certified ruling machine set up operator at [facility] [id number] 05:46:00* Test Item Value Reference Range Interpretation Comments GLUBED (test code = GLUBED) 137 mg/dL 74-106 H Performed by certified ruling machine set up operator at [facility] [id number] 21:59:00* Test Item Value Reference Range Interpretation Comments GLUBED (test code = GLUBED) 149 mg/dL 74-106 H Performed by certified ruling machine set up operator at [facility] [id number] 17:00:00* Test Item Value Reference Range Interpretation Comments GLUBED (test code = GLUBED) 198 mg/dL 74-106 H Performed by certified ruling machine set up operator at [facility] [id number] 11:16:00* Test Item Value Reference Range Interpretation Comments GLUBED (test code = GLUBED) 143 mg/dL 74-106 H Performed by certified ruling machine set up operator at [facility] [id number] 06:19:00* Test Item Value Reference Range Interpretation Comments GLUBED (test code = GLUBED) 106 mg/dL 74-106 N Performed by certified ruling machine set up operator at [facility] BASIC METABOLIC [id number] 04:55:00* Test Item Value Reference Range Interpretation [...] CA) 8.5 mg/dL 8.5-10.1 N BASIC METABOLIC [id number] 04:49:00* Test Item Value Reference Range Interpretation [...] code = CA) mg/dL 8.5-10.1 CBC W/AUTO [id number] 04:43:00* Test Item Value Reference Range Interpretation [...] DIFF REQUIRED (test code = MDIFF) NO [id number] 20:08:00* Test Item Value Reference Range Interpretation Comments GLUBED (test code = GLUBED) 224 mg/dL 74-106 H Performed by certified ruling machine set up operator at [facility] [id number] 16:29:00* Test Item Value Reference Range Interpretation Comments GLUBED (test code = GLUBED) 176 mg/dL 74-106 H Performed by certified ruling machine set up operator at [facility] [id number] 12:17:00* Test Item Value Reference Range Interpretation Comments GLUBED (test code = GLUBED) 164 mg/dL 74-106 H Performed by certified ruling machine set up operator at [facility] [id number] 05:28:00* Test Item Value Reference Range Interpretation Comments GLUBED (test code = GLUBED) 123 mg/dL 74-106 H Performed by certified ruling machine set up operator at [facility] [id number] 20:45:00* Test Item Value Reference Range Interpretation Comments GLUBED (test code = GLUBED) 189 mg/dL 74-106 H Performed by certified ruling machine set up operator at [facility] [id number] 17:06:00* Test Item Value Reference Range Interpretation Comments GLUBED (test code = GLUBED) 158 mg/dL 74-106 H Performed by certified ruling machine set up operator at [facility] - CTA [id number] 16:20:00 Name: JERRI COMBS [facility] : 1965 Age/S: 54 / M [address] Unit #: [id number] Loc: [place] [address] Phys: Sierra Sigala MD Acct: [id number] Dis Date: Status: ADM IN PHONE #: [phone] Exam Date: 02/01/2020 1430 FAX #: [phone] Reason: stroke EXAMS: CPT CODE: [id number] CTA NECK 84732 HISTORY: stroke TECHNIQUE: Cerebral and Cervical CT [...] the basilar tip. Bilateral P1 and distal FIXTURE REPAIRER FABRICATOR segments are patent. Bilate ral posterior communicating arteries are not visualized. No aneurysm. Dural venous sinuses and proximal internal jugular veins are patent. Visualized brain parenchyma is unremarkable. No mass-effect or mid line PAGE 1 Signed Report (CONTINU ED) Name: JERRI COMBS [facility] : 1965 Age/S: 54 / M [address] [facility] Unit #: [id number] Loc: [place] [address] Phys: Sierra Cui MD Acct: [id number] Dis Date: Status: ADM IN PHONE #: [phone] Exam Date: 02/01/2020 1430 FAX #: Reason: stroke EXAMS: CPT CODE: [id number] CTA NECK 06167 <Continued> shift. No hydrocephalus. Visualized paranasal sinuses and mastoid air cells are clear. Regional osseous structures structures are intact. IMPRESSION: Short segment occlusion of the proximal right A3 segment, the remaining distal VAL segments are diminutive in caliber but patent. Variant anatomy as above. Location: [facility] at 1620 Reported and signed by: Azael Michael M.D. CC: Adonay Tian; Sierra Sigala MD; Wesley Subramanian Technologist:Cristino Alvarez RT(R),(MR),(CT) CTDI: DLP: Trnscb Luke e/Time: 02/01/2020 (1620) [id number] Orig Print D/T: S: (1624) PAGE 2 Signed Report - CTA [id number] 16:20:00 Name: JERRI COMBS [facility] : 1965 Age/S: 54 / M [address] Unit #: [id number] Loc: [place] [address] Phys: Sierra Sigala MD Acct: [id number] Dis Date: Status: ADM IN PHONE #: [phone] Exam Date: 02/01/2020 1430 FAX #: [phone] Reason: stroke EXAMS: CPT CODE: [id number] CTA HEAD 56204 HISTORY: stroke TECHNIQUE: Cerebral and Cervical CT [...] the basilar tip. Bilateral P1 and distal FIXTURE REPAIRER FABRICATOR segments are patent. Bilate ral posterior communicating arteries are not visualized. No aneurysm. Dural venous sinuses and proximal internal jugular veins are patent. Visualized brain parenchyma is unremarkable. No mass-effect or mid line PAGE 1 Signed Report (CONTINU ED) Name: JERRI COMBS [facility]: 1965 Age/S: 54 / M [address] [facility] Unit #: [id number] Loc: [place] [address] Phys: Sierra Cui MD Acct: [id number] Dis Date: Status: ADM IN PHONE #: [phone] Exam Date: 02/01/2020 1430 FAX #: Reason: stroke EXAMS: CPT CODE: [id number] CTA HEAD 15157 <Continued> shift. No hydrocephalus. Visualized paranasal sinuses and mastoid air cells are clear. Regional osseous structures structures are intact. IMPRESSION: Short segment occlusion of the proximal right A3 segment, the remaining distal VAL segments are diminutive in caliber but patent. Variant anatomy as above. Location: [facility] at 1620 Reported and signed by: Azael Michael M.D. CC: Adonay Tian; Sierra Sigala MD; Wesley Subramanian Technologist:Cristino Alvarez RT(R),(MR),(CT) CTDI: DLP: Trnscb Luke e/Time: 02/01/2020 (1620) [email or web address] Orig Print D/T: S: (9911) PAGE 2 Signed Report [id number] 11:34:00* Test Item Value Reference Range Interpretation Comments GLUBED (test code = GLUBED) 188 mg/dL 74-106 H Performed by certified ruling machine set up operator at [facility] BASIC METABOLIC [id number] 07:02:00* Test Item Value Reference Range Interpretation [...] result is a direct measurement.========= BASIC METABOLIC [id number] 06:51:00* Test Item Value Reference Range Interpretation [...] code = LDL) mg/dL 100-129 CBC W/AUTO [id number] 06:20:00* Test Item Value Reference Range Interpretation [...] code = NRBC#) 0.00 K/mm3 0.0-0.1 N [id number] 06:08:00* Test Item Value Reference Range Interpretation Comments GLYCOSYLATED HEMOGLOBIN (HA1C) (test code = GLYHGB) 7.1 % HbA1 SUGGESTED DIAGNOSIS: HbA1C (%) Diabetic >6.4Prediabetes 5.7 - 6.4Normal <5.7 ESTIMATED AVERAGE GLUCOSE (test code = EAG) 157 MG/DL [id number] 05:48:00* Test Item Value Reference Range Interpretation Comments GLUBED (test code = GLUBED) 127 mg/dL 74-106 H Performed by certified ruling machine set up operator at [facility] [id number] 20:49:00* Test Item Value Reference Range Interpretation Comments GLUBED (test code = GLUBED) 156 mg/dL 74-106 H Performed by certified ruling machine set up operator at [facility] BASIC METABOLIC [id number] 20:04:00* Test Item Value Reference Range Interpretation [...] CA) 8.6 mg/dL 8.5-10.1 N BASIC METABOLIC [id number] 19:52:00* Test Item Value Reference Range Interpretation [...] CALCIUM (test code = CA) mg/dL 8.5-10.1 [id number] 17:52:00* Test Item Value Reference Range Interpretation Comments GLUBED (test code = GLUBED) 207 mg/dL 74-106 H Performed by certified ruling machine set up operator at [facility] [id number] 17:19:00* Test Item Value Reference Range Interpretation Comments GLUBED (test code = GLUBED) 303 mg/dL 74-106 H Performed by certified ruling machine set up operator at [facility] [id number] 13:20:00* Test Item Value Reference Range Interpretation Comments GLUBED (test code = GLUBED) 157 mg/dL 74-106 H Performed by certified ruling machine set up operator at [facility] - MRI BRAIN W/O [id number] 09:24:00 FAX: Adonay Pena [phone] [place]: St: [facility] FAX: Marcela Zayas MD Name: JERRI COMBS [facility] : 1965 Age/S: 54/M [address] [facility] Unit #: [id number] Loc: .[address] [place] [address] Phys: Marcela Zayas MD Acct: [id number] Dis Date: Status: ADM IN PHONE #: [phone] Exam Date: 01/31/2020923 FAX #: [phone] Reason: headache and weakness EXAMS: CPT CODE: [id number] MRI BRAIN W/O CONTRAST 30590 HISTORY: Headache and possible stroke with weakness. COMPARISON: Head CT from January 30, 2020. Location: [facility]. MRI brain without contrast: Automated exposure control. [...] cells are clear. Partial opacification of the linoleum floor installer ior left ethmoid air cells. Intraorbital contents [...] (926) PAGE 1 Signed Report HEPATIC FUNCTION [id number] 20:27:00* Test Item Value Reference Range Interpretation [...] reference range due to change in reagent. [id number] 20:27:00* Test Item Value Reference Range Interpretation Comments LIPASE (test code = LIP) 86 U/L 73.0-393.0 N BASIC METABOLIC [id number] 20:21:00* Test Item Value Reference Range Interpretation [...] NOT be accurate due to hemolysis.BASIC METABOLIC [id number] 20:12:00* Test Item Value Reference Range Interpretation [...] NOT be accurate due to hemolysis. URINALYSIS [id number] 20:09:00* Test Item Value Reference Range Interpretation [...] FEW #/LPF FEW Urine Source? Clean CatchURINALYSIS [id number] 20:05:00* Test Item Value Reference Range Interpretation [...] Urine Source? Clean Catch- CT HEAD/BRAIN W/O [id number] 19:40:00 Name: JERRI COMBS [facility] : 1965 Age/S: 54 / M [address] [facility] Unit #: [id number] Loc: [place] [address] Phys: Gerald Zayas MD Acct: [id number] Di s Date: Status: REG ER PHONE #: [phone] Exam Date: 01/30/20201910 FAX #: Reason: Headache EXAMS: CPT CODE: [id number] CT HEAD/BRAIN W/O CONT 18135 HISTORY: Headache TECHNIQUE: Noncontrast 2.5 mm axial [...] 1 Signed Report (CONTINUED) Name: JERRI COMBS [facility] : 1965 Age/S: 54 / M [address] [facility] Unit #: [id number] Loc: [place], [place] [address] Phys: Radha Zayas MD Acct: [id number] D is Date: Status: REG ER PHONE #: [phone] Exam Date: 01/30/20201910 FAX #: Reason: Headache EXAMS: CPT CODE: [id number] CT HEAD/BRAIN W/O CONT 92002 <Continued> CC: Marcela Zayas MD Technologist:ADRIEL CURRY, RT(R) CT CTDI: DLP: Trnscb Date/Time: 01/30/2020 (1939) [email or web address].[email or web address] Orig Print D/T: S: 01/30/2020 (1942) PAGE 2 Signed Report CBC W/AUTO [id number] 19:30:00* Test Item Value Reference Range Interpretation [...] code = MDIFF) NO - DUP AB/PEL/SC [id number] 18:30:00 Name: JERRI COMBS [facility] : 1965 Age/S: 54 / M [address] [facility] Unit #: [id number] Loc: [place] [address] Phys: Marcela Zayas MD Acct: [id number] Dis Date: Status: PRE ER PHONE #: [phone] Exam Date: 01/30/2020 1807 FAX #: [phone] Reason: testicle pain EXAMS: CPT CODE: [id number] DUP AB/PEL/SC COMP 02437 REASON FOR EXAM: testicle pain EXAM ORDER DATE: 01/30/2020 5:11 PM Ordering: Marcela Zayas MD Attending:Marcela Zayas MD Location:[facility] PROCEDURE: - US SCROTUM AND CNTS, - [...] 1 Signed Report - US SCROTUM AND [id number] 18:30:00 Name: JERRI COMBS [facility] : 1965 Age/S: 54 / M [address] [facility] Unit #: [id number] Loc: [place] [address] Phys: Marcela Zayas MD Acct: [id number] Dis Date: Status: PRE ER PHONE #: [phone] Exam Date: 01/30/2020 1807 FAX #: [phone] Reason: testicle pain EXAMS: CPT CODE: [id number] US SCROTUM AND CNTS 88839 REASON FOR EXAM: testicle pain EXAM ORDER DATE: 01/30/2020 5:11 PM Ordering: Marcela Zayas MD Attending:Marcela Zayas MD Location:[facility] PROCEDURE: - US SCROTUM AND CNTS, - [...] (1834) Probe: PAGE 1 Signed Report CARDIAC [id number] 09:22:00<0.02 [facility] [id number] 09:22:0087[facility] PANEL 2019-11-04 09:22:0010[facility] [id number] 09:22:000.60[facility] [id number] 09:22:07520Akwgwhqm HermannCHEM [id number] 09:22:003.5[facility]ann[facility] [id number] 09:22:82573Micfjuwe HermannCHEM [id number] 09:22:0027[facility] [id number] 09:22:0010.5 [facility] [id number] 09:22:008.8[facility]ann[facility] PANEL 2019-11-04 09:22:60400Mkcuohcg HermannCHEM [id number] 09:22:001.9[facility] [id number] 09:22:002.7[facility] UzsjtdtTQPNWHKEDS7989-90-50 09:22:007.9[facility] [id number] 09:22:004.38[facility] [place] [id number] 09:22:0012.2Memorial [id number] 09:22:00 37.2Memorial JrkfrgqCZPYAMMFGD6921-40-06 09:22:0084.8[facility]ann[facility]MATOLOGY 2019-11-04 09:22:00* Test Item Value Reference Range Interpretation Comments MCH (test code = MCH) 27.9 pg 27.0-31.0 Memorial SiqoknpVQPQXVFOWZ6890-14-08 09:22:0032.8[facility]annHEMATOLOGY 2019-11-04 09:22:0015.5[facility] GqmgpdqFOTGHGJCXA8543-07-46 09:22:67100Dfmcjovp RzprkjkOLUBWVDBCC2152-95-58 09:22:008.0[facility] MrponycYWNCKRXKYR2417-75-93 09:22:0056.2[facility] DunttclFTWKHVARTZ8405-90-85 09:22:0031.2[facility] [place] LTRNUWXGMY0419-69-21 09:22:008.0[facility] YakrizgORNPPNRLCR9060-78-04 09:22:003.4 [facility] JjzdhmiIUMHPDWLVA8677-65-79 09:22:001.2[facility] HermannHEMATOLOGY 2019-11-04 09:22:004.4[facility] LbatkvsSBSLCNPFLY4465-33-46 09:22:002.5[facility] UggahzvABIOJHNMKJ3244-82-08 09:22:000.6[facility] YlpswcdZNBIQXMCGF2246-51-51 09:22:000.3[facility] DctfhimFTTAKJAOJD8326-25-20 09:22:000.1[facility] [place] PARATHYROID EGRYFGV2864-44-12 09:22:001.17[facility] HermannPARATHYROID PROFILE 2019-11-04 09:22:001.17[facility] BbxmjatLAJZAHSZHP9152-87-69 04:04:00Not Detected (11/03/19 11:04 PM)[facility] HermannCARDIAC FLTPKHB6982-86-09 21:59:00<0.02[facility] XzbcldoAXENUYVABB8849-64-14 20:31:0010.8[facility] GdpwpfsACVABRDVIE4275-97-22 20:31:004.45[facility] FffdpdkZMUCPYYHQI9181-78-35 20:31:0012.3[facility] [place] UEYEHKBGXH3474-97-45 20:31:0038.1[facility] XkhmcxmUDAFUUGBVF3712-80-89 20:31:00 85.5[facility] AryqxopBXLGZURXNM5642-87-90 20:31:00* Test Item Value Reference Range Interpretation Comments MCH (test code = MCH) 27.7 pg 27.0-31.0 [facility] AughixcWEJTYTDMRH1203-97-77 20:31:0032.4[facility] HermannHEMATOLOGY 2019-11-03 20:31:0015.5[facility] JswnhtsYJHYWBWVRT8808-73-23 20:31:79445Xawuariw NjzkcmhYPNIFBQAXE6351-59-29 20:31:007.9[facility] AxpwehoMAUAOYCVZW0638-18-50 20:31:00* Test Item Value Reference Range Interpretation Comments PT (test code = PT) 14.6 s 12.0-14.7 [facility] NkvetozSZIXXXFVMB2164-24-95 20:31:00* Test Item Value Reference Range Interpretation Comments INR (test code = INR) 1.13 1 0.85-1.17 [facility] JpajcibPFFTFWFMBI9544-67-60 20:31:002.44[facility] HermannHEMATOLOGY 2019-11-03 20:31:0077.4[facility] LiakbltMMONMLIVPN6327-45-64 20:31:0013.3[facility] ZsjggbwZRUUOZRZBD8869-74-12 20:31:006.5[facility] PmrufmnDQJPLLRUAX4910-39-76 20:31:001.3[facility] QzcbmxbQPXTIIXGPH1742-55-27 20:31:001.5[facility] [place] MKVEDXCHZC0027-71-92 20:31:008.4[facility] TwrntsqQNYPFNURMT4142-70-13 20:31:001.4 [facility] YrqcdwwCUKPIWBOGS7991-19-42 20:31:000.7[facility] HermannHEMATOLOGY 2019-11-03 20:31:000.1[facility] BrkdrwwTVGHEAGTZT6205-90-97 20:31:000.2[facility] KpwawnuTAXAQYOYVY9859-03-83 20:31:00* Test Item Value Reference Range Interpretation Comments PTT (test code = PTT) 32.3 s 22.9-35.8 [facility]annCARDIAC IAFPUPK3779-17-85 19:28:0031[facility] HermannCARDIAC JHGJRRE4739-97-90 19:28:00<0.02[facility] HermannCARDIAC ROSCQTE9757-39-32 19:28:40409Qbvojjvi HermannCHEM VOMXE3065-39-78 19:28:0048[facility] HermannCHEM JQWNK4083-41-87 19:28:0013[facility] HermannCHEM XNLWE4469-18-23 19:28:000.61 [facility] HermannCHEM BEBKG6817-55-48 19:28:71097Rkhjbizu HermannCHEM PANEL 2019-11-03 19:28:003.1[facility] HermannCHEM ZGJFG7077-96-38 19:28:67660Xabmquhj HermannCHEM XBSTR7315-10-56 19:28:0027[facility] HermannCHEM OULDO3105-64-83 19:28:009.1[facility] HermannCHEM KGTEP7458-08-37 19:28:007.6[facility] HermannCHEM YGNVL1434-25-13 19:28:00* Test Item Value Reference Range Interpretation Comments B/C Ratio (test code = B/C Ratio) 21 1 6-25 [facility] HermannCHEM KYLFB8791-29-19 19:28:006.5[facility] HermannCHEM PANEL 2019-11-03 19:28:002.3[facility] HermannCHEM SDCGX4918-79-66 19:28:004.2[facility] HermannCHEM FCCEZ6676-55-59 19:28:00* Test Item Value Reference Range Interpretation Comments A/G Ratio (test code = A/G Ratio) 0.5 1 0.7-1.6 [facility] HermannCHEM ITKPY5035-01-38 19:28:0012[facility] HermannCHEM PANEL 2019-11-03 19:28:0010[facility] HermannCHEM JENZO8194-13-81 19:28:0060[facility] HermannCHEM EVCYV3693-00-06 19:28:000.2[facility] HermannCHEM RZRVP4811-64-90 19:28:67808Ujmvsrhk HermannCHEM PNJLW8806-29-11 19:28:001.4[facility] HermannCHEM LJILK4975-11-79 19:28:002.9[facility] CmgaofsWITOTP5795-59-56 20:11:00* Test Item Value Reference Range Interpretation Comments GLUBED (test code = GLUBED) 165 mg/dL 74-106 H Performed by certified ruling machine set up operator at [facility] LXLWMX9496-65-52 15:58:00* Test Item Value Reference Range Interpretation Comments GLUBED (test code = GLUBED) 179 mg/dL 74-106 H Performed by certified ruling machine set up operator at [facility] KDVNGO9282-12-27 12:58:00* Test Item Value Reference Range Interpretation Comments GLUBED (test code = GLUBED) 153 mg/dL 74-106 H Performed by certified ruling machine set up operator at [facility] AQMMFV2719-19-50 07:56:00* Test Item Value Reference Range Interpretation Comments GLUBED (test code = GLUBED) 153 mg/dL 74-106 H Performed by certified ruling machine set up operator at [facility] BASIC METABOLIC QFYZY2225-34-71 05:16:00* Test Item Value Reference Range Interpretation [...] CA) 8.2 mg/dL 8.5-10.1 L CBC W/AUTO RAMR3388-97-02 04:45:00* Test Item Value Reference Range Interpretation [...] = NRBC#) 0.00 K/mm3 0.0-0.1 N URINALYSIS QXIFWQWR9363-28-37 23:23:00* Test Item Value Reference Range Interpretation [...] code = OFBU) NONE NONE Urine Source? ZclucofuZBTSJY8028-77-27 21:29:00* Test Item Value Reference Range Interpretation Comments GLUBED (test code = GLUBED) 187 mg/dL 74-106 H Performed by certified ruling machine set up operator at [facility] JXKSJX7283-41-38 17:25:00* Test Item Value Reference Range Interpretation Comments GLUBED (test code = GLUBED) 161 mg/dL 74-106 H Performed by certified ruling machine set up operator at [facility] PWGFWR2203-06-26 13:33:00* Test Item Value Reference Range Interpretation Comments GLUBED (test code = GLUBED) 149 mg/dL 74-106 H Performed by certified ruling machine set up operator at [facility] HHXXEGGQL8793-72-25 11:11:00* Test Item Value Reference Range Interpretation Comments MAGNESIUM (test code = MAG) 1.6 mg/dL 1.8-2.4 L ZOQUUH6500-63-26 08:03:00* Test Item Value Reference Range Interpretation Comments GLUBED (test code = GLUBED) 153 mg/dL 74-106 H Performed by certified ruling machine set up operator at [facility] COMPREHENSIVE METABOLIC [id number] 06:09:00* Test Item Value Reference Range Interpretation [...] due to change in reagent. COMPREHENSIVE METABOLIC [id number] 06:03:00* Test Item Value Reference Range Interpretation [...] TOTAL (test code = ALKP) IUnit/L 45-117 [id number] 21:13:00* Test Item Value Reference Range Interpretation Comments GLUBED (test code = GLUBED) 138 mg/dL 74-106 H Performed by certified ruling machine set up operator at [facility] FEBTDR2343-11-72 18:04:00* Test Item Value Reference Range Interpretation Comments GLUBED (test code = GLUBED) 169 mg/dL 74-106 H Performed by certified ruling machine set up operator at [facility] JMIVJS1050-50-04 18:04:00* Test Item Value Reference Range Interpretation Comments GLUBED (test code = GLUBED) 181 mg/dL 74-106 H Performed by certified ruling machine set up operator at [facility] FOLIC SCYN1825-95-05 09:09:00* Test Item Value Reference Range Interpretation Comments FOLIC ACID (test code = FOL) 3.1 ng/mL 3.10-17.50 N [id number] 09:09:00* Test Item Value Reference Range Interpretation Comments FERRITIN (test code = LUCHO) 306 ng/mL 8-388 N IMMUNOGLOBULINS A,G [id number] 09:09:00* Test Item Value Reference Range Interpretation Comments IMMUNOGLOBULIN G (test code = IGG) 1571 mg/dL 603-1613 IMMUNOGLOBULIN M (test code = IGM) 29 mg/dL 20-172 Performed At: [facility] [id number] Kyle L MD Ph:[phone] IMMUNOGLOBULIN A (test code = IGA) 648 mg/dL 90-386 H AAEYIY9422-04-34 07:58:00* Test Item Value Reference Range Interpretation Comments GLUBED (test code = GLUBED) 127 mg/dL 74-106 H Performed by certified ruling machine set up operator at [facility] YGRIEB1501-40-68 20:06:00* Test Item Value Reference Range Interpretation Comments GLUBED (test code = GLUBED) 163 mg/dL 74-106 H Performed by certified ruling machine set up operator [facility]~ OFIUJH2202-35-97 16:02:00* Test Item Value Reference Range Interpretation Comments GLUBED (test code = GLUBED) 189 mg/dL 74-106 H Performed by certified ruling machine set [facility]~ HEPATITIS B RJTVOCH5484-84-10 13:08:00* Test Item Value Reference Range Interpretation Comments AB HEPATITIS B SURFACE (test code = HBSAB) Non Reactive () Non Reactive: Inconsistent with immunity, less than 10 mIU/mL Reactive: Consistent with immunity, greater than 9.9 mIU/mLPerformed At: [facility] [address] [id number] Turner Rucker MD Ph:[phone] At: [facility] [address] [id number] Sanjai MD P [phone] AG HEPAT B SURF (test code = HBSAG) Negative Negative HEPATITIS B CORE ANTIBODY,TOT (test code = HBCAB) Negative Nega tive HEPATITIS B CORE ANTIBODY,IGM (test code = HBCMAB) Negative Neg ative AG HEPATITIS BE (test code = HBEAG) Negative Negative AB HEPATITIS BE (test code = HBEAB) Negative Negative [id number] 12:03:00* Test Item Value Reference Range Interpretation Comments GLUBED (test code = GLUBED) 177 mg/dL 74-106 H Performed by certified ruling machine set [facility] [id number] 08:09:00* Test Item Value Reference Range Interpretation Comments GLUBED (test code = GLUBED) 182 mg/dL 74-106 H Performed by certified ruling machine set up operator [facility] BASIC METABOLIC [id number] 06:57:00* Test Item Value Reference Range Interpretation [...] = CA) 8.3 mg/dL 8.5-10.1 L SERUM [id number] 06:57:00* Test Item Value Reference Range Interpretation Comments SERUM IRON (test code = IRON) 51 ug/dL 50-175 N BASIC METABOLIC [id number] 06:50:00* Test Item Value Reference Range Interpretation [...] (test code = CA) mg/dL 8.5-10.1 SERUM [id number] 06:50:00* Test Item Value Reference Range Interpretation Comments SERUM IRON (test code = IRON) ug/dL 50-175 CBC W/AUTO [id number] 06:32:00* Test Item Value Reference Range Interpretation [...] DIFF REQUIRED (test code = MDIFF) NO [id number] 20:21:00* Test Item Value Reference Range Interpretation Comments GLUBED (test code = GLUBED) 176 mg/dL 74-106 H Performed by certified ruling machine set up operator at [facility] CJEUWZ8872-18-21 15:57:00* Test Item Value Reference Range Interpretation Comments GLUBED (test code = GLUBED) 194 mg/dL 74-106 H Performed by certified ruling machine set up [facility]~ SDUNSB9055-54-96 12:01:00* Test Item Value Reference Range Interpretation Comments GLUBED (test code = GLUBED) 194 mg/dL 74-106 H Performed by certified ruling machine set [facility] FOLIC [id number] 11:27:00* Test Item Value Reference Range Interpretation Comments FOLIC ACID (test code = FOL) 3.1 ng/mL 3.10-17.50 N [id number] 11:27:00* Test Item Value Reference Range Interpretation Comments FERRITIN (test code = LUCHO) 306 ng/mL 8-388 N IMMUNOGLOBULINS A,G [id number] 11:27:00* Test Item Value Reference Range Interpretation Comments IMMUNOGLOBULIN G (test code = IGG) mg/dL IMMUNOGLOBULIN M (test code = IGM) mg/dL IMMUNOGLOBULIN A (test code = IGA) mg/dL - XR CHEST 1 [id number] 09:35:00 FAX: Wesley Benjamin MD [place]: B St: [facility] FAX: Dahiana Mensah [phone] Name: JERRI COMBS [facility] : 1965 Age/S: 54/M [address] [facility] Unit #: [id number] Loc: Isabel6 [place] [address] Phys: Dahiana De La Cruz Acct: [id number] Dis Date: Status: ADM IN PHONE #: [phone] Exam Date: 09/04/2019911 FAX #: [phone] Reason: cough EXAMS: CPT CODE: [id number] XR CHEST 1 V 85913 HISTORY: Cough. COMPARISON: August 31, 2019. Location: . No acute infiltrates, effusion or congestion. Dependent changes. Cardiomegaly. IMPRESSION: No acute infiltrates, effusion or congestion. at 0935 Reported and signed by: Sachin Belcher M.D. CC: Wesley Subramanian; Dahiana De La Cruz Technologist: Akiko ACOSTA(R); Analilia Mayer(R) Trnscrd Date/Time/By: 09/04/2019 (934) : By: [email or web address] Orig Print D/T: S: 09/04/2019 (0948) PAGE 1 Signed Report GLUBED 2019-09-04 08:08:00* Test Item Value Reference Range Interpretation Comments GLUBED (test code = GLUBED) 163 mg/dL 74-106 H Performed by certified ruling machine set [facility] BASIC METABOLIC [id number] 06:28:00* Test Item Value Reference Range Interpretation [...] CA) 8.5 mg/dL 8.5-10.1 N BASIC METABOLIC [id number] 06:21:00* Test Item Value Reference Range Interpretation [...] code = CA) mg/dL 8.5-10.1 CBC W/AUTO [id number] 05:41:00* Test Item Value Reference Range Interpretation [...] DIFF REQUIRED (test code = MDIFF) NO [id number] 20:14:00* Test Item Value Reference Range Interpretation Comments GLUBED (test code = GLUBED) 185 mg/dL 74-106 H Performed by certified ruling machine set up operator at [facility] [id number] 15:59:00* Test Item Value Reference Range Interpretation Comments GLUBED (test code = GLUBED) 175 mg/dL 74-106 H Performed by certified ruling machine set up operator at [facility] [id number] 11:49:00* Test Item Value Reference Range Interpretation Comments GLUBED (test code = GLUBED) 150 mg/dL 74-106 H Performed by certified ruling machine set up operator at [facility] [id number] 07:53:00* Test Item Value Reference Range Interpretation Comments GLUBED (test code = GLUBED) 118 mg/dL 74-106 H Performed by certified ruling machine set up operator at [facility] BASIC METABOLIC [id number] 06:19:00* Test Item Value Reference Range Interpretation [...] CA) 8.3 mg/dL 8.5-10.1 L BASIC METABOLIC [id number] 06:13:00* Test Item Value Reference Range Interpretation [...] code = CA) mg/dL 8.5-10.1 AB HEPATITIS [id number] 06:08:00* Test Item Value Reference Range Interpretation Comments AB HEPATITIS C (test code = HCVAB) <0.1 0.0-0.9 INFCE Result Units: s/co ratio Negative: < 0.8 Indeterminate: 0.8 - 0.9 Positive: > 0.9 The CDC recommends that a positive HCV antibody result be followed up with a HCV Nucleic Acid Amplification test (745995).Performed At: [facility] [address] [id number] Turner Rucker MD Ph:[phone] CBC W/AUTO [id number] 06:01:00* Test Item Value Reference Range Interpretation [...] DIFF REQUIRED (test code = MDIFF) NO [id number] 21:20:00* Test Item Value Reference Range Interpretation Comments GLUBED (test code = GLUBED) 161 mg/dL 74-106 H Performed by certified ruling machine set up operator at [facility] [id number] 16:31:00* Test Item Value Reference Range Interpretation Comments GLUBED (test code = GLUBED) 151 mg/dL 74-106 H Performed by certified ruling machine set up operator at [facility] COMPREHENSIVE METABOLIC [id number] 16:08:00* Test Item Value Reference Range Interpretation [...] due to change in reagent. KAPPA LAMBDA [id number] 16:08:00* Test Item Value Reference Range Interpretation Comments KAPPA CHAINS (FLOW) (test code = KAPPA) 106.3 mg/L 3.3-19.4 A LAMBDA CHAINS (FLOW) (test code = LAMBDA) 34.1 mg/L 5.7-26.3 A KAPPA/LAMBDA RATIO (test code = GUSTAVO/GEORGE) 3.12 0.26-1.65 A Performed At: DA [facility] [address] [facility] [address] [place], [place] [id number] CN MD Ph:[phone] [id number] 11:56:00* Test Item Value Reference Range Interpretation Comments GLUBED (test code = GLUBED) 157 mg/dL 74-106 H Performed by certified ruling machine set up operator at [facility] COMPREHENSIVE METABOLIC [id number] 10:04:00* Test Item Value Reference Range Interpretation [...] due to change in reagent. COMPREHENSIVE METABOLIC [id number] 09:57:00* Test Item Value Reference Range Interpretation [...] code = ALKP) IUnit/L 45-117 UR PROTEIN/CREATININE [id number] 08:35:00* Test Item Value Reference Range Interpretation [...] 0.35 RATIO 0.0-0. 20 H UR PROTEIN/CREATININE [id number] 08:31:00* Test Item Value Reference Range Interpretation [...] (test code = P/CRATIO) RATIO 0.0-0. 20 [id number] 07:53:00* Test Item Value Reference Range Interpretation Comments GLUBED (test code = GLUBED) 130 mg/dL 74-106 H Performed by certified ruling machine set up operator at [facility] [id number] 20:23:00* Test Item Value Reference Range Interpretation Comments GLUBED (test code = GLUBED) 169 mg/dL 74-106 H Performed by certified ruling machine set up operator at [facility] - US RETRO [id number] 18:39:00 Name: JERRI COMBS [facility] : 1965 Age/S: 54 / M [address] [facility] Unit #: [id number] Loc: [place] [address] Phys: Jovanna Sellers MD Acct: [id number] Dis Date: Status: ADM IN PHONE #: [phone] Exam Date: 09/01/20191819 FAX #: [phone] Reason: brennon EXAMS: CPT CODE: [id number] US RETRO LTD [address] REASON FOR EXAM: brennon EXAM ORDER DATE: 09/01/2019 11:18 AM Ordering: Jovanna Sellers MD Attending:Wesley Subramanian MD Location:[facility] PROCEDURE: - US RETRO LTD FINDINGS: The [...] 09/01/2019 (1841) Probe: PAGE 1 Signed Report [id number] 17:52:00* Test Item Value Reference Range Interpretation Comments GLUBED (test code = GLUBED) 150 mg/dL 74-106 H Performed by certified ruling machine set up operator at [facility] COMPREHENSIVE METABOLIC [id number] 13:56:00* Test Item Value Reference Range Interpretation [...] due to change in reagent. KAPPA LAMBDA [id number] 13:56:00* Test Item Value Reference Range Interpretation Comments KAPPA CHAINS (FLOW) (test code = KAPPA) LAMBDA CHAINS (FLOW) (test code = LAMBDA) KAPPA/LAMBDA RATIO (test code = GUSTAVO/GEORGE) RATIO [id number] 13:47:00* Test Item Value Reference Range Interpretation Comments GLUBED (test code = GLUBED) 152 mg/dL 74-106 H Performed by certified ruling machine set up operator at [facility] [id number] 13:19:00* Test Item Value Reference Range Interpretation Comments GLUBED (test code = GLUBED) 107 mg/dL 74-106 H Performed by certified ruling machine set up operator at 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 COMPREHENSIVE METABOLIC [id number] 08:38:00* Test Item Value Reference Range Interpretation Comments SODIUM (test code = NA) 142 mmol/L 136-145 N POTASSIUM (test code = K) 6.4 mmol/L 3.5-5.1 [facility] sults called to [place] [address] by [email or web address] 09/01/19 0838Critical results verified and read back [...] reference range due to change in reagent. [id number] 08:38:00* Test Item Value Reference Range Interpretation Comments MAGNESIUM (test code = MAG) 2.1 mg/dL 1.8-2.4 N THYROID STIMULATING [id number] 08:38:00* Test Item Value Reference Range Interpretation Comments THYROID STIMULATING HORMONE (test code = TSH) 2.850 uIU/mL 0.36-3.7 4 N TSH REFERENCE RANGES: EUTHYROID: 0.35 - 4.3 mIU/mL HYPO : > 5.5 mIU/mL HYPER : < 0.35 mIU/mL [id number] 08:38:00* Test Item Value Reference Range Interpretation Comments TROPONIN-I (test code = TROPI) <0.015 ng/mL 0-0.045 N COMPREHENSIVE METABOLIC [id number] 07:56:00* Test Item Value Reference Range Interpretation [...] TOTAL (test code = ALKP) IUnit/L 45-117 [id number] 07:56:00* Test Item Value Reference Range Interpretation Comments MAGNESIUM (test code = MAG) mg/dL 1.8-2.4 THYROID STIMULATING [id number] 07:56:00* Test Item Value Reference Range Interpretation Comments THYROID STIMULATING HORMONE (test code = TSH) uIU/mL 0.36-3.7 4 [id number] 07:56:00* Test Item Value Reference Range Interpretation Comments TROPONIN-I (test code = TROPI) <0.015 ng/mL 0-0.045 N PROTHROMBIN [id number] 07:47:00* Test Item Value Reference Range Interpretation [...] heart valves (2.5-3.5) IS PATIENT ON ANTICOAGULANTS? [id number] 07:47:00* Test Item Value Reference Range Interpretation Comments D-DIMER (test code = DDIMER) 1115.00 ng/mLFEU 0-500 HH Results called to [facility] DPP5848ko V.LAB.OA 09/01/19 0747Critical results verified and read [...] - IS PATIENT ON ANTICOAGULANTS? NCBC W/AUTO [id number] 07:18:00* Test Item Value Reference Range Interpretation [...] DIFF REQUIRED (test code = MDIFF) NO [id number] 20:42:00* Test Item Value Reference Range Interpretation Comments GLUBED (test code = GLUBED) 133 mg/dL 74-106 H Performed by certified ruling machine set up operator at [facility] [id number] 17:32:00* Test Item Value Reference Range Interpretation Comments GLUBED (test code = GLUBED) 86 mg/dL 74-106 N Performed by certified ruling machine set up operator at [facility] - CT CHEST W/O [id number] 14:38:00 Name: JERRI COMBS [facility] : 1965 Age/S: 54 / [facility] [address] [facility] [id number] Loc: [place] [address] Phys: Bonifacio Tee MD Acct: [id number] Dis Date: Status: ADM IN PHONE #: [phone] Exam Date: 08/31/2019 1400 FAX #: [phone] Reason: hypoxia EXAMS: CPT CODE: [id number] CT CHEST W/O CONTRAST 09248 REASON FOR EXAM: hypoxia EXAM ORDER DATE: [...] 1 Signed Report (CONTINUED) Name: JERRI COMBS [facility] : 1965 Age/S: 54 / M [address] [facility] Unit #: [id number] Loc: [place] [address] Phys: Bonifacio Tee MD Acct: [id number] Dis Date: Status: ADM IN PHONE #: [phone] Exam Date: 08/31/2019 1400 FAX #: [phone] Reason: hypoxia EXAMS: CPT CODE: [id number] CT CHEST W/O CONTRAST 83893 < Continued> IMPRESSION: No acute intrathoracic process. The lungs are clear other than mild subsegmental atelectasis in the lower lobes. Postsurgical changes of CABG and cholecystectomy. Location: [facility] at 1438 Reported and signed by: Rigo Falcon MD CC: Bonifacio Tee MD Technologist:Paige Altman,RT(R),CT CTDI: DLP: Trnscb Date/Time: 08/31/2019 (1438) t.SDR.RR31 Orig Print D/T: S: 08/31/2019 (9724) PAGE 2 Signed Report Coronavirus 2019 nCoV Bedside 2019-08-31 13:59:00* Test Item Value Reference Range Interpretation Comments Coronavirus 2019 nCoV Bedside (test code = [id number]) Negative Is patient requiring admission or transfer? YIndication for rapid COVID-19 testi ng: Mod Clinical SuspicionB-TYPE NATRIURETIC [id number] 13:10:00* Test Item Value Reference Range Interpretation Comments B-TYPE NATRIURETIC PEPTIDE (test code = BNP) 36.08 pgram/mL 0-100 N - XR CHEST 1 [id number] 13:00:00 FAX: Bonifacio Easley [phone] [place]: St: REG Name: JERRI HARDWICK [facility] : [birth year] Age/S: 54/M [address] [facility] Unit #: [id number] Loc: [place] [address] Phys: Bonifacio Tee MD Acct: [id number] Dis Date: Status: REG ER PHONE #: [phone] Exam Date: 08/31/2019 1250 FAX #: [phone] Reason: CODE SEPSIS EXAMS: CPT CODE: [id number] XR CHEST 1 V [id number] REASON FOR EXAM: CODE SEPSIS Exam Order [...] diminished however the lungs are clear. Location: [facility] at 1300 Reported and signed by: Rigo Falcon MD CC: Bonifacio Tee MD Technologist: RT PAMELLA(R) Trnscrd Date/Time/By: 08/31/2019 (1300) : By: [email or web address] Orig Print D /T: S: 08/31/2019 (2373) PAGE 1 S igned Report PROCALCITONIN (PCT)2019-08-31 [...] into account the patients history. BASIC METABOLIC [id number] 12:52:00* Test Item Value Reference Range Interpretation [...] CA) 8.5 mg/dL 8.5-10.1 N HEPATIC FUNCTION [id number] 12:52:00* Test Item Value Reference Range Interpretation [...] reference range due to change in reagent. [id number] 12:52:00* Test Item Value Reference Range Interpretation Comments TROPONIN-I (test code = TROPI) <0.015 ng/mL 0-0.045 N URINALYSIS [id number] 12:48:00* Test Item Value Reference Range Interpretation [...] FEW #/LPF FEW Urine Source? Clean CatchURINALYSIS [id number] 12:47:00* Test Item Value Reference Range Interpretation [...] HPF NONE Urine Source? Clean CatchBASIC METABOLIC [id number] 12:40:00* Test Item Value Reference Range Interpretation [...] code = CA) mg/dL 8.5-10.1 HEPATIC FUNCTION [id number] 12:40:00* Test Item Value Reference Range Interpretation [...] TOTAL (test code = ALKP) IUnit/L 45-117 [id number] 12:40:00* Test Item Value Reference Range Interpretation Comments TROPONIN-I (test code = TROPI) ng/mL 0-0.045 LACTIC [id number] 12:34:00* Test Item Value Reference Range Interpretation Comments LACTIC ACID (test code = LACT) 1.5 mmol/L 0.4-1.9 N PROTHROMBIN [id number] 12:30:00* Test Item Value Reference Range Interpretation [...] (2.5-3.5) IS PATIENT ON ANTICOAGULANTS? NTHROMBOPLASTIN TIME [id number] 12:30:00* Test Item Value Reference Range Interpretation Comments THROMBOPLASTIN TIME PARTIAL (test code = PTT) 29.5 seconds 23.0-37. 0 N IS PATIENT ON ANTICOAGULANTS? NCBC W/AUTO [id number] 12:17:00* Test Item Value Reference Range Interpretation [...] NRBC#) 0.00 K/mm3 0.0-0.1 N BASIC METABOLIC [id number] 13:59:00* Test Item Value Reference Range Interpretation [...] code = CA) 8.9 mg/dL 8.5-10.1 N [id number] 13:59:00* Test Item Value Reference Range Interpretation Comments TROPONIN-I (test code = TROPI) <0.015 ng/mL 0-0.045 N - XR CHEST 1 [id number] 13:53:00 FAX: Jamie Stallings NP [phone] [place]: [address]: REG Name: JERRI HARDWICK [facility] : [birth year] 63 Age/S: 54/M [address] [facility] Unit #: [id number] Loc: [place] [address] Phys: Jamie Stallings NP Acct: [id number] Dis Date: Status: REG ER PHONE #: [phone] Exam Date: 08/28/2019 1332 FAX #: [phone] Reason: CHEST PAIN EXAMS: CPT CODE: [id number] XR CHEST 1 V 60351 REASON FOR EXAM: CHEST PAIN Exam Order [...] IMPRESSION: No acu te cardiopulmonary process. Location: [facility] Electron ically Signed by Rigo Falcon MD on 08/28/2019 at 1353 Re ported and signed by: Rigo Falcon MD CC: Jamie Stallings NP Technologist: Akiko Schmidt RT(R); Analilia Mayer(R) Trnscrd Date/Time/By: 08/28/2019 (2555) : By: [email or web address] Orig Print D/T: S: 08/28/2019 (5097) PAGE 1 Signed Report BASIC METABOLIC PANEL [...] CALCIUM (test code = CA) mg/dL 8.5-10.1 [id number] 13:47:00* Test Item Value Reference Range Interpretation Comments TROPONIN-I (test code = TROPI) ng/mL 0-0.045 CBC W/O [id number] 13:38:00* Test Item Value Reference Range Interpretation [...]
--- OUTSIDE RECORDS SUMMARY | 2020-03-16 17:35 | XMS REPORT | Continuity of Care Document ---
Author Author Jose Mahmood [employer] JERRI Reilly TRiQ Address Unknown Phone Unavailable Care Team Providers Care Tin Pourer Name Role Phone [employer] Unavailable Un available Problems Problem Status Onset Date Classification Date Reported Comments Source Hypoglycemia, unspecified 11/03/2019 11/06/2019 [facility] Chest pain, unspecified 11/03/2019 11/06/2019 [facility] Hypokalemia 11/03/2019 11/06/2019 [facility] CP Active [facility] CHOLECYSTITIS Active 07/25/2019 [facility] Cerebrovascular accident (disorder) Active Problem 09/2019 [facility] Congestive heart failure (disorder) Active Problem 09/2019 [facility] Coronary arteriosclerosis (disorder) Active Problem 09/2019 [facility] GALLSTONE ILEUS Active [facility] CHEST PAIN, UNSPECIFIED Active [facility] HYPOKALEMIA Active [facility] HYPOGLYCEMIA, UNSPECIFIED Acti ve [facility] Medications Medication Details Route Status Patient Instructions Ordering Provider Order Date Source atorvastatin Notes: (Same as: Lipitor) Inactive 11/05/2019 [facility] Baclofen Notes: (Same As: Rocky esal) Inactive 11/05/2019 [facility] Flomax Notes: (Same As: Flomax ) "Do Not Crush" Inactive 11/05/2019 [facility] pantoprazole 40 mg oral enteric coated tablet 40 mg = 1 tab, PO, Before Breakfast, # 30 tab, 0 Refill(s), Pharmacy: [facility], 177.8, cm, 11/03/19 22:36:00 CDT, Height, 127.27, kg, 11/03/19 22:36:00 CDT, Weight Active 11/04/2019 [facility] Amiodarone Notes: (Same as: Co rdarone) Inactive 11/04/2019 [facility] Aspirin 325 MG Oral Tablet Not es: Take with food. Inactive 11/04/2019 [facility] carvedilol Notes: Give with fo od. (Same As: Coreg) Inactive 11/04/2019 [facility] Plavix Notes: (Same As: Plavix) Inactive 11/04/2019 [facility] Docusate Sodium 100 MG Oral Capsule Notes: (Same as: Colace) (Do Not Crush) Inactiv e 11/04/2019 [facility] Cymbalta Notes: (Same as: Cymb tami) (Do Not Crush) Inactive 11/04/2019 [facility] Famotidine Notes: (Same as: Pe pcid) Inactive 11/04/2019 [facility] Lisinopril Notes: (Same as: Pr inivil, Zestril) Inactive 11/04/2019 [facility] Protonix Notes: Tablet should not be chewed or crushed. (Same as: Protonix) Inactive 11/04/2019 [facility] Enoxaparin Notes: (Same as: Lo venox) Inactive 11/04/2019 [facility] Lovenox Notes: (Same as: Loven ox) No Longer Active 11/04/2019 [facility] Tylenol Notes: Do not exceed 4 gm/day. (Same as: Tylenol) No Longer Active 11/04/2019 [facility] Bisacodyl Notes: (Same As: Dul colax, Bisco-Lax) No Longer Active 11/04/2019 [facility] Dextrose 50% Syringe (D50W) 12 .5 gm, 25 mL, Route: IVP, Drug Form: INJ, Dosing Weight 127.273, kg, PRN, PRN Blood Glucose Results, Start date: 11/03/19 21:03:00 CDT, Duration: 30 day, Stop date: 12/03/19 21:02:00 CDT, 0 No Longer Active 11/04/2019 [facility] Glucagon 1 mg, Route: IM, Drug form: PDR/INJ, PRN, Dosing Weight 127.273, kg, PRN Blood Glucose Results, Start date: 11/03/19 21:03:00 CDT, Duration: 30 day, Stop date: 12/03/19 21:02:00 CDT, 0 No Longer Active 11/04/2019 [facility] Morphine Notes: (Same as:MORPh ine Sulfate) Inactive 11/04/2019 [facility] Aspirin Notes: Take with food. Inactive 11/04/2019 [facility] Omnipaque 300 injectable solution 45 mL/min, STAT, Start date: 11/03/19 16:16:00 CDT, Duration: 1 doses or times Inactive 11/03/2019 [facility] potassium chloride 20 mEq oral tablet, [...] Patients with feeding tube less than 14 Frisian (Dobhoff, J-tube etc) and pediatric and patients. Inactive 11/03/2019 [facility] Saline Flush 0.9% Notes: (Same as: BD Posiflush) No Longer Active 11/03/2019 [facility] Allergies, Adverse Reactions, Alerts Substance Category Reaction Severity Reaction type Status Date Reported Comments Source penicillins Assertion Drug allergy Active [facility] Immunizations No Data Provided for This Section Results Order Name Results Value Reference Range Date Interpretation Comments Source CARDIAC ENZYMES Troponin-I <0.02 0.00 - 0.40 11/04/2019 [facility] CHEM PANEL Glucose Lvl 87 70 - 99 11/04/2019 [facility] CHEM PANEL BUN 10 7 - 22 11/04/2019 [facility] CHEM [facility] Creatinine Lvl 0.60 0.50 - 1.40 11/04/2019 [facility] CHEM PANEL Sodium Lvl 141 135 - 145 11/04/2019 [facility] CHEM PANEL Potassium Lvl 3.5 3.5 - 5.1 11/04/2019 [facility] CHEM PANEL Chloride Lvl 107 95 - 109 11/04/2019 [facility] CHEM PANEL CO2 27 24 - 32 11/04/2019 [facility] CHEM PANEL AGAP 10.5 10.0 - 20.0 11/04/2019 [facility] CHEM PANEL Calcium Lvl 8.8 8.5 - 10.5 11/04/2019 [facility] CHEM [facility] eGFR 130 11/04/2019 Result Comment: The eGFR [...] should be multiplied by the estimated BMI. [facility] CHEM PANEL Magnesium Lvl 1.9 1.8 - 2.4 11/04/2019 [facility] CHEM PANEL Phosphorus 2.7 2.5 - 4.5 11/04/2019 [facility] HEMATOLOGY WBC 7.9 3.7 - 10.4 11/04/2019 [facility] RBC 4.38 4.70 - 6.10 11/04/2019 [facility] Hgb 12.2 14.0 - 18.0 11/04/2019 [facility] Hct 37.2 42.0 - 54.0 11/04/2019 [facility] MCV 84.8 80.0 - 94.0 11/04/2019 [facility] MCH 27.9 27.0 - 31.0 11/04/2019 [facility] MCHC 32.8 32.0 - 36.0 11/04/2019 [facility] RDW 15.5 11.5 - 14.5 11/04/2019 [facility] Platelet 347 133 - 450 11/04/2019 [facility] MPV 8.0 7.4 - 10.4 11/04/2019 [facility] Segs 56.2 45.0 - 75.0 11/04/2019 [facility] Lymphocytes 31.2 20.0 - 40.0 11/04/2019 [facility] Monocytes 8.0 2.0 - 12.0 11/04/2019 [facility] HEMATOLOGY Eosinophils 3.4 0.0 - 4.0 11/04/2019 [facility] Basophils 1.2 0.0 - 1.0 11/04/2019 [facility] HEMATOLOGY Neutrophils # 4.4 1.5 - 8.1 11/04/2019 [facility] Lymphocytes # 2.5 1.0 - 5.5 11/04/2019 [facility] Monocytes # 0.6 0.0 - 0.8 11/04/2019 [facility] HEMATOLOGY Eosinophils # 0.3 0.0 - 0.5 11/04/2019 [facility] HEMATOLOGY Basophils # 0.1 0.0 - 0.2 11/04/2019 [facility] PARATHYROID PROFILE Ca Ion WB 1.17 1.05 - 1.25 11/04/2019 [facility] PARATHYROID PROFILE Ca Norm WB 1.17 1.05 - 1.25 11/04/2019 [facility] IMMUNOLOGY Coronavirus (COVID-19) NA A Not Detected (11/03/19 11:04 PM) Not Detected 11/04/2019 [facility] CARDIAC ENZYMES Troponin-I <0.02 0.00 - 0.40 11/03/2019 [facility] WBC 10.8 3.7 - 10.4 11/03/2019 [facility] HEMATOLOGY RBC 4.45 4.70 - 6.10 11/03/2019 [facility] Hgb 12.3 14.0 - 18.0 11/03/2019 [facility] Hct 38.1 42.0 - 54.0 11/03/2019 [facility] MCV 85.5 80.0 - 94.0 11/03/2019 [facility] MCH 27.7 27.0 - 31.0 11/03/2019 [facility] MCHC 32.4 32.0 - 36.0 11/03/2019 [facility] RDW 15.5 11.5 - 14.5 11/03/2019 [facility] Platelet 348 133 - 450 11/03/2019 [facility] MPV 7.9 7.4 - 10.4 11/03/2019 [facility] PT 14.6 12.0 - 14.7 11/03/2019 [facility] INR 1.13 0.85 - 1.17 11/03/2019 [facility] D-Dimer 2.44 11/03/2019 [facility] Segs 77.4 45.0 - 75.0 11/03/2019 [facility] Lymphocytes 13.3 20.0 - 40.0 11/03/2019 [facility] Monocytes 6.5 2.0 - 12.0 11/03/2019 [facility] HEMATOLOGY Eosinophils 1.3 0.0 - 4.0 11/03/2019 [facility] HEMATOLOGY Basophils 1.5 0.0 - 1.0 11/03/2019 [facility] Neutrophils # 8.4 1.5 - 8.1 11/03/2019 [facility] Lymphocytes # 1.4 1.0 - 5.5 11/03/2019 [facility] Monocytes # 0.7 0.0 - 0.8 11/03/2019 [facility] HEMATOLOGY Eosinophils # 0.1 0.0 - 0.5 11/03/2019 [facility] HEMATOLOGY Basophils # 0.2 0.0 - 0.2 11/03/2019 [facility] HEMATOLOGY PTT 32.3 22.9 - 35.8 11/03/2019 [facility] CARDIAC ENZYMES Total CK 31 12 - 191 11/03/2019 [facility] CARDIAC ENZYMES Troponin-I <0.02 0.00 - 0.40 11/03/2019 [facility] CARDIAC ENZYMES BNP 259 <=100 pg/mL 11/03/2019 [facility] CHEM PANEL Glucose Lvl 48 70 - 99 11/03/2019 Result Comment: Critical Result(s) martinez d to Fawn Marieargenis at 11/03/2019 15:14 by [facility]. Read back OK. [facility] CHEM PANEL BUN 13 7 - 22 11/03/2019 [facility] CHEM PANEL Creatinine Lvl 0.61 0.50 - 1.40 11/03/2019 [facility] CHEM PANEL Sodium Lvl 144 135 - 145 11/03/2019 [facility] CHEM PANEL Potassium Lvl 3.1 3.5 - 5.1 11/03/2019 [facility] CHEM PANEL Chloride Lvl 111 95 - 109 11/03/2019 [facility] CHEM PANEL CO2 27 24 - 32 11/03/2019 [facility] CHEM PANEL AGAP 9.1 10.0 - 20.0 11/03/2019 [facility] CHEM PANEL Calcium Lvl 7.6 8.5 - 10.5 11/03/2019 [facility] CHEM PANEL B/C Ratio 21 6 - 25 11/03/2019 [facility] CHEM PANEL Total Protein 6.5 6.4 - 8.4 11/03/2019 [facility] CHEM PANEL Albumin Lvl 2.3 3.5 - 5.0 11/03/2019 [facility] CHEM PANEL Globulin 4.2 2.7 - 4.2 11/03/2019 [facility] CHEM PANEL A/G Ratio 0.5 0.7 - 1.6 11/03/2019 [facility] CHEM PANEL ALT 12 0 - 65 11/03/2019 [facility] CHEM PANEL AST 10 0 - 37 11/03/2019 [facility] CHEM PANEL Alk Phos 60 39 - 136 11/03/2019 [facility] CHEM PANEL Bili Total 0.2 0.2 - 1.3 11/03/2019 [facility] CHEM PANEL eGFR 130 11/03/2019 Result [...] should be multiplied by the estimated BMI. [facility] CHEM PANEL Magnesium Lvl 1.4 1.8 - 2.4 11/03/2019 [facility] CHEM PANEL Phosphorus 2.9 2.5 - 4.5 11/03/2019 [facility] Pathology Reports No Data Provided for [...] clinical indication); or iterative reconstruction. Contrast material: [id number]; Contrast volume: 100 ml; Contrast route: INTRAVENOUS [...] hernia. Meño Lacey MD On 11/03/2019 17:12:51; [id number] 11/03/2019 [facility] 1view DX PROCEDURE INFOR MATION: Exam: XR Chest, 1 View Exam date and time: 11/03/2019 2:13 PM Age: 54 years old Clinical indication: [facility] chest pain started at noon today, PT reports intermittent chest pain for several months since having a stroke, nitro x 3 given by [facility] w/ no relief; Additional info: /chest pain [...] Garza MD On 11/03/2019 14:51:33; [id number] 11/03/2019 [facility] 1view DX PROCEDURE INFOR MATION: Exam: [...] Britton MD On 07/28/2019 14:29:55; [id number] 07/28/2019 [facility] Gallbladder scan ANGEL arredondo [place] Report was faxed. Receipt of fax was verified by nurse Karen at 07/26/2019 11:17 AM CDT. Victoriano Taylor MD On 07/26/2019 11:17:51; [id number] PROCEDURE INFORMATION: Exam: NM Hepatobiliary Including Gallbladder [...] cholecystitis. Victoriano Taylor MD On 07/26/2019 11:06:29; [id number] 07/26/2019 [facility] Gallbladder US PROCEDURE INFOR MATION: Exam: [...] Leon MD On 07/25/2019 19:05:23; [id number] 07/25/2019 [facility] Consultation Notes No Data Provided for This Section Discharge Summaries No Data Provided for This Section History and Physicals No Data Provided for This Section Vital Signs Vital Sign Value Date Comments Source Temperature Oral (F) 98.1 F 11/04/2019 [facility] Heart Rate 72 11/04/2019 [facility] Respitory Rate 18 11/04/2019 [facility] Systolic (mm Hg) 136 11/04/2019 [facility] Diastolic (mm Hg) 80 11/04/2019 [facility] Temperature Oral (F) 98.2 F 11/04/2019 [facility] Heart Rate 77 11/04/2019 [facility] Respitory Rate 18 11/04/2019 [facility] Systolic (mm Hg) 154 11/04/2019 [facility] Diastolic (mm Hg) 88 11/04/2019 [facility] Heart Rate 81 11/04/2019 [facility] Respitory Rate 18 11/04/2019 [facility] Systolic (mm Hg) 139 11/04/2019 [facility] Diastolic (mm Hg) 81 11/04/2019 [facility] Temperature Oral (F) 97.9 F 11/04/2019 [facility] Height 177.8 cm 11/04/2019 [facility] Weight 127.27 11/04/2019 [facility] BMI Calculated 40.26 11/04/2019 [facility] BMI Calculated 40.26 11/03/2019 [facility] Height 177.8 cm 11/03/2019 [facility] BMI Calculated 40.26 11/03/2019 [facility] Weight 127.273 11/03/2019 [facility] Encounters Location Location Details Encounter Type Encounter Number Reason For Visit Attending Provider ADM Date DC Date Status Source [facility] Observation [id number] Vasyl Hilton 11/03/2019 11/04/2019 [facility] Procedures Procedure Code Date Perfomer Comments Source CABG - Coronary artery bypass graft [id number] [facility] Assessment and Plan Assessment and Plan [...] | Acute hypokalemia | Hypoglycemia 3.CAD in [place] artery(I25.10) -Continue home meds. 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 Monitor. Ordered: Admit/Condition, 11/03/19 21:03:00 CDT, Status: Out Patient with Observation Services, Acute, Expected LOS: 1 Midnight, Vasyl Hilton MD, Admit MD Review/Approve Yes, Isolation: No Isolation/Standard Precautions, Acute chest pain | Acute hypokalemia | Hypoglycemia Lovenox SubQ Obs 11/04/2019 [facility] Plan of Care No Data Provided [...] pack years: 0; entered on: 11/03/19 07/25/2019 [facility] Family History No Data Provided for This Section Advance Directives No Data Provided for This Section Functional Status No Data Provided for This Section
--- OUTSIDE RECORDS SUMMARY | 2020-03-16 17:38 | XMS REPORT | Continuity of Care Document ---
Author Author [facility] t Organization [facility] Address [address] [place] [address] Phone Unavailable Care Team Providers Care Glove Sewer Name Role Phone Evangelist Beltran Attphys Vasyl Hilton Admphys Payers Payer Name Policy Type Policy Number Effective Date Expiration Date S ource Problems Condition Name Condition Details Condition Category Status Onset Date Resolution Date Last Treatment Date Treating Clinician Comments Source CP CP Active 11/03/2019 [facility] Diagnosis Active 2019-11-03 00:00:00 2019-11-11 22:08:00 Kevan emohanane Mahmood CHOLECYSTITIS CHOL ECYSTITIS Active 07/25/2019 [facility] Diagnosis Active 2019-07-25 00:00:00 2019-08-03 22:02:00 Jose Mahmood Cerebrovascular accident (disorder) Cerebrovascular accident (disorder) Active Problem 11/06/2019 [facility] Problem Active 2019-11-06 21:32:56 Jose Mahmood Congestive heart failure (disorder) Congestive heart failure (disorder) Active Problem 11/06/2019 [facility] Problem Active 2019-11-06 21:32:56 Jose Mahmood Coronary arteriosclerosis (disorder) Coronary arteriosclerosis (disorder) Active Problem 11/06/2019 [facility] Problem Active 2019-11-06 21:32:56 Jose Mahmood GALLSTONE ILEUS GALL STONE ILEUS Active [facility] Diagnosis Active 2019-08-03 22:02:00 [facility] CHEST PAIN, UNSPECIFIED CHES T PAIN, UNSPECIFIED Active [facility] Active 2019-11-11 22:08:00 [facility] HYPOKALEMIA HYPO KALEMIA Active [facility] Active 2019-11-11 22:08:00 Jesusor phyllis [facility] HYPOGLYCEMIA, UNSPECIFIED HYPO GLYCEMIA, UNSPECIFIED Active [facility] Active 2019-11-11 22:08:00 [facility] Hypoglycemia, unspecified Hypo glycemia, unspecified 11/03/2019 11/06/2019 [facility] Problem 2019-11-03 17:00:00 2019 21:32:56 2019-11-06 21:32:56 [facility] Chest pain, unspecified Ches t pain, unspecified 11/03/2019 11/06/2019 [facility] Problem 2019-11-03 17:00:00 2019 21:32:56 2019-11-06 21:32:56 [facility] Hypokalemia Hypo kalemia 11/03/2019 11/06/2019 [facility] Problem 2019-11-03 17:00:00 2019-11-06 21:32:56 2019-11 21:32:56 [facility] Allergies, Adverse Reactions, Alerts Allergy Name Allergy Type Status Severity Reaction(s) Onset Date Inacti ve Date Treating Clinician Comments Source Penicillins DA Active U 2020-03-15 00:00:00 [facility] Penicillins DA Active U 2019-08-31 00:00:00 [facility] No Known Allergies DA Active U 2019-08-28 00:00:00 [facility] No Known Drug Intolerances DA Active U 2009-02-17 00:00:0 0 [facility] penicillins penicillins Active [facility] Social History Social Habit Start Date Stop Date Quantity Comments Source Social History 2019-07-25 21:48:27 2019-07-25 21:48:27 [facility] Medications Ordered Medication Name Filled Medication Name Start Date Stop Da te Current Medication? Ordering Clinician Indication Dosage Frequency Signature (SIG) Comments Components Source atorvastatin 2019-11-05 02:00:00 No Notes: (Same as: Lipitor) [facility] Baclofen 2019-11-05 02:00:00 No Notes: (Dc e As: Lioresal) Jose Mahmood Flomax 2019-11-05 02:00:00 No Notes: (Same As: Flomax) "Do Not Crush" Jose Mahmood pantoprazole 40 mg oral enteric coated tablet 2019-11-04 16:34:0 0 Yes 40 mg = 1 tab, PO, Before Breakfast, # 3 0 tab, 0 Refill(s), Pharmacy: [facility], 177.8, cm, 11/03/19 22:36:00 CDT, Height, 127.27, kg, 11/03/19 22:36:00 CDT, Weight Jose Mahmood Amiodarone 2019-11-04 14:00:00 No Notes: (S marquis as: Cordarone) Jose Mahmood Aspirin 325 MG Oral Tablet 2019-11-04 14:00:00 No Notes: Take with food. Jose Mahmood carvedilol 2019-11-04 14:00:00 No Notes: Give with food. (Same As: Coreg) [facility] Plavix 2019-11-04 14:00:00 No Notes: (Same As: Plavix) Jose Mahmood Docusate Sodium 100 MG Oral Capsule 2019-11-04 14:00:00 No Notes: (Same as: Colace) (Do Not Crush) [facility] Cymbalta 2019-11-04 14:00:00 No Notes: (Same as: Cymbalta) (Do Not Crush) [facility] Famotidine 2019-11-04 14:00:00 No Notes: (S marquis as: Pepcid) [facility] Lisinopril 2019-11-04 14:00:00 No Notes: (Same as: Prinivil, Zestril) [facility] Protonix 2019-11-04 13:26:00 No Notes: Tablet should not be chewed or crushed. (Same as: Protonix) [facility] [address] Enoxaparin 2019-11-04 03:00:00 No Notes: (S marquis as: Lovenox) [facility] Lovenox 2019-11-04 03:00:00 No Notes: (Same as: Lovenox) [facility] Tylenol 2019-11-04 02:18:00 No Notes: Do not exceed 4 gm/day. (Same as: Tylenol) [facility] Bisacodyl 2019-11-04 02:18:00 No Notes: (Same As: Dulcolax, Bisco-Lax) [facility] Dextrose 50% Syringe (D50W) 2019-11-04 02:03:00 No 12.5 gm, 25 mL, Route: IVP, Drug Form: INJ, Dosing Weight 127.273, kg, PRN, PRN Blood Glucose Results, Start date: 11/03/19 21:03:00 CDT, Duration: 30 day, Stop date: 12/03/19 21:02:00 CDT, 0 [facility] Rangel n Glucagon 2019-11-04 02:03:00 No 1 mg, Route: IM, Drug form: PDR/INJ, PRN, Dosing Weight 127.273, kg, PRN Blood Glucose Results, Start date: 11/03/19 21:03:00 CDT, Duration: 30 day, Stop date: 12/03/19 21:02:00 CDT, 0 [facility] Morphine 2019-11-04 02:02:00 Yes Not es: (Same as:MORPhine Sulfate) [facility] Aspirin 2019-11-04 01:49:00 No Notes: Take with food. [facility] Omnipaque 300 injectable solution 2019-11-03 21:16:00 No 45 mL/min, STAT, Start date: 11/03/19 16:16:00 CDT, Duration: 1 doses or times [facility] potassium chloride 20 mEq [...] s with feeding tube less than 14 Malay (Dobhoff, J-tube etc) and pediatric and patients. [facility] Saline Flush 0.9% 2019-11-03 18:54:00 No Notes: (Same as: BD Posiflush) [facility] Vital Signs Vital Name Observation Time Observation Value Comments Source Temperature Oral (F) 2019-11-04 18:04:00 98.1 F [facility] Heart Rate 2019-11-04 18:04:00 [facility] Respitory Rate 2019-11-04 18:04:00 [facility] Systolic (mm Hg) 2019-11-04 18:04:00 [facility] [place] Diastolic (mm Hg) 2019-11-04 18:04:00 [facility] [place] Temperature Oral (F) 2019-11-04 17:28:00 98.2 F [facility] Heart Rate 2019-11-04 17:28:00 [facility] Respitory Rate 2019-11-04 17:28:00 [facility] Systolic (mm Hg) 2019-11-04 17:28:00 [facility] [place] Diastolic (mm Hg) 2019-11-04 17:28:00 [facility] [place] Heart Rate 2019-11-04 13:32:00 [facility] Respitory Rate 2019-11-04 13:32:00 [facility] Systolic (mm Hg) 2019-11-04 13:32:00 [facility] [place] Diastolic (mm Hg) 2019-11-04 13:32:00 [facility] Temperature Oral (F) 2019-11-04 08:52:00 97.9 F [facility] Height 2019-11-04 03:36:00 177.8 cm [facility] Weight 2019-11-04 03:36:00 [facility] BMI Calculated 2019-11-04 03:36:00 [facility] BMI Calculated 2019-11-03 18:54:00 [facility] Height 2019-11-03 18:37:00 177.8 cm [facility] BMI Calculated 2019-11-03 18:37:00 [facility] Weight 2019-11-03 18:37:00 [facility] Procedures Procedure Date / Time Performed Performing Clinician Sourc e CABG - Coronary artery bypass graft [facility] Encounters Start Date/Time End Date/Time Encounter Type Admission Type Attendi [facility] Care Department Encounter ID Source 2019-07-25 16:28:00 Inpatient U MHNE MHNE 00 [id number] [facility]NE 2019-11-03 13:19:20 2019-11-04 13:19:00 Outpatient Obih, Ugochi [facility] [id number] 2019-11-03 21:03:00 2019-11-03 21:03:00 Outpatient E [facility]NE MED 7500 [facility]NE Results Test Description Test Time Test Comments Results Result Comments Source LACTIC ACID 2020-03-15 23:41:00 Test Item LACTIC ACID (test code = LACT) 1.6 mmol/L 0.4-1.9 N PROTHROMBIN [id number] 23:26:00* Test Item Value Reference Range Interpretation [...] (2.5-3.5) IS PATIENT ON ANTICOAGULANTS? NTHROMBOPLASTIN TIME [id number] 23:26:00* Test Item Value Reference Range Interpretation Comments THROMBOPLASTIN TIME PARTIAL (test code = PTT) 33.1 seconds 23.0-37. 0 N IS PATIENT ON ANTICOAGULANTS? NBASIC METABOLIC [id number] 23:25:00* Test Item Value Reference Range Interpretation [...] CA) 8.7 mg/dL 8.5-10.1 N HEPATIC FUNCTION [id number] 23:25:00* Test Item Value Reference Range Interpretation [...] due to change in reagent. CBC W/AUTO [id number] 23:21:00* Test Item Value Reference Range Interpretation [...] NRBC#) 0.00 K/mm3 0.0-0.1 N BASIC METABOLIC [id number] 23:17:00* Test Item Value Reference Range Interpretation [...] code = CA) mg/dL 8.5-10.1 HEPATIC FUNCTION [id number] 23:17:00* Test Item Value Reference Range Interpretation [...] 45-117 - XR FOOT 3 + V [id number] 23:07:00 [facility]Name: JERRI COMBS : 1965 Sex: M FAX: Adonay Pena [phone] [place]: St: REG FAX: Luís Cecil Sarabiagege Kevan GONZALEZ [phone] Name: JERRI COMBS [facility] : 1965 Age/S: 54/M [address] Unit #: [id number] Loc: [place] [address] Phys: Laron Sarabia DO Acct: [id number] Dis Date: Status: REG ER PHONE #: [phone] Exam Date: 03/15/20202229 FAX #: [phone] Reason: 5th toe infection EXAMS: CPT CODE: [id number] XR FOOT 3 + V RT 21877 AFTER HOURS SERVICE ON: 03/15/2020 11:06 PM [...] By: [email or web address] Orig Print D/T: S: 03/15/20 (7078) PAGE 1 Signed Report [id number] 15:06:00* Test Item Value Reference Range Interpretation Comments GLUBED (test code = GLUBED) 158 mg/dL 74-106 H Performed by certified photocomposing keyboard operator at [facility] [id number] 15:06:00* Test Item Value Reference Range Interpretation Comments GLUBED (test code = GLUBED) 149 mg/dL 74-106 H Performed by certified photocomposing keyboard operator at [facility] [id number] 05:46:00* Test Item Value Reference Range Interpretation Comments GLUBED (test code = GLUBED) 137 mg/dL 74-106 H Performed by certified photocomposing keyboard operator at [facility] [id number] 21:59:00* Test Item Value Reference Range Interpretation Comments GLUBED (test code = GLUBED) 149 mg/dL 74-106 H Performed by certified photocomposing keyboard operator at [facility] [id number] 17:00:00* Test Item Value Reference Range Interpretation Comments GLUBED (test code = GLUBED) 198 mg/dL 74-106 H Performed by certified photocomposing keyboard operator at [facility] [id number] 11:16:00* Test Item Value Reference Range Interpretation Comments GLUBED (test code = GLUBED) 143 mg/dL 74-106 H Performed by certified photocomposing keyboard operator at [facility] [id number] 06:19:00* Test Item Value Reference Range Interpretation Comments GLUBED (test code = GLUBED) 106 mg/dL 74-106 N Performed by certified photocomposing keyboard operator at [facility] BASIC METABOLIC [id number] 04:55:00* Test Item Value Reference Range Interpretation [...] CA) 8.5 mg/dL 8.5-10.1 N BASIC METABOLIC [id number] 04:49:00* Test Item Value Reference Range Interpretation [...] code = CA) mg/dL 8.5-10.1 CBC W/AUTO [id number] 04:43:00* Test Item Value Reference Range Interpretation [...] DIFF REQUIRED (test code = MDIFF) NO [id number] 20:08:00* Test Item Value Reference Range Interpretation Comments GLUBED (test code = GLUBED) 224 mg/dL 74-106 H Performed by certified photocomposing keyboard operator at [facility] [id number] 16:29:00* Test Item Value Reference Range Interpretation Comments GLUBED (test code = GLUBED) 176 mg/dL 74-106 H Performed by certified photocomposing keyboard operator at [facility] [id number] 12:17:00* Test Item Value Reference Range Interpretation Comments GLUBED (test code = GLUBED) 164 mg/dL 74-106 H Performed by certified photocomposing keyboard operator at [facility] [id number] 05:28:00* Test Item Value Reference Range Interpretation Comments GLUBED (test code = GLUBED) 123 mg/dL 74-106 H Performed by certified photocomposing keyboard operator at [facility] [id number] 20:45:00* Test Item Value Reference Range Interpretation Comments GLUBED (test code = GLUBED) 189 mg/dL 74-106 H Performed by certified photocomposing keyboard operator at [facility] [id number] 17:06:00* Test Item Value Reference Range Interpretation Comments GLUBED (test code = GLUBED) 158 mg/dL 74-106 H Performed by certified photocomposing keyboard operator at [facility] - CTA [id number] 16:20:00 Name: JERRI COMBS [facility] : 1965 Age/S: 54 / M [address] Unit #: [id number] Loc: [place] [address] Phys: Sierra Sigala MD Acct: [id number] Dis Date: Status: ADM IN PHONE #: [phone] Exam Date: 02/01/2020 1430 FAX #: [phone] Reason: stroke EXAMS: CPT CODE: [id number] CTA NECK 32549 HISTORY: stroke TECHNIQUE: Cerebral and Cervical CT [...] the basilar tip. Bilateral P1 and distal SENIOR ADULTS DIRECTOR segments are patent. Bilate ral posterior communicating arteries are not visualized. No aneurysm. Dural venous sinuses and proximal internal jugular veins are patent. Visualized brain parenchyma is unremarkable. No mass-effect or mid line PAGE 1 Signed Report (CONTINU ED) Name: JERRI COMBS [facility] : 1965 Age/S: 54 / M [address] Unit #: [id number] Loc: [place] [address] Phys: Sierra Cui MD Acct: [id number] Dis Date: Status: ADM IN PHONE #: [phone] Exam Date: 02/01/2020 1430 FAX #: [phone] Reason: stroke EXAMS: CPT CODE: [id number] CTA NECK 91671 <Continued> shift. No hydrocephalus. Visualized paranasal sinuses and mastoid air cells are clear. Regional osseous structures structures are intact. IMPRESSION: Short segment occlusion of the proximal right A3 segment, the remaining distal VAL segments are diminutive in caliber but patent. Variant anatomy as above. Location: [facility] at 1620 Reported and signed by: Azael Michael M.D. CC: Adonay Tian; Sierra Sigala MD; Wesley Subramanian Technologist:Cristino Alvarez RT(R),(MR),(CT) CTDI: DLP: Trnscb Luke e/Time: 02/01/2020 (1620) [email or web address] Orig Print D/T: S: (1624) PAGE 2 Signed Report - CTA [id number] 16:20:00 Name: JERRI COMBS [facility] : 1965 Age/S: 54 / M [address] Unit #: [id number] Loc: [place] [address] Phys: Sierra Sigala MD Acct: [id number] Dis Date: Status: ADM IN PHONE #: [phone] Exam Date: 02/01/2020 1430 FAX #: [phone] Reason: stroke EXAMS: CPT CODE: [id number] CTA HEAD 81233 HISTORY: stroke TECHNIQUE: Cerebral and Cervical CT [...] the basilar tip. Bilateral P1 and distal SENIOR ADULTS DIRECTOR segments are patent. Bilate ral posterior communicating arteries are not visualized. No aneurysm. Dural venous sinuses and proximal internal jugular veins are patent. Visualized brain parenchyma is unremarkable. No mass-effect or mid line PAGE 1 Signed Report (CONTINU ED) Name: JERRI COMBS [facility]: 1965 Age/S: 54 / M [address] [facility] Unit #: [id number] Loc: [place] [address] Phys: Sierra Cui MD Acct: [id number] Dis Date: Status: ADM IN PHONE #: [phone] Exam Date: 02/01/2020 1430 FAX #: Reason: stroke EXAMS: CPT CODE: [id number] CTA HEAD 30037 <Continued> shift. No hydrocephalus. Visualized paranasal sinuses and mastoid air cells are clear. Regional osseous structures structures are intact. IMPRESSION: Short segment occlusion of the proximal right A3 segment, the remaining distal VAL segments are diminutive in caliber but patent. Variant anatomy as above. Location: [facility] at 1620 Reported and signed by: Azael Michael M.D. CC: Adonay Tian; Sierra Sigala MD; Wesley Subramanian Technologist:Cristino Alvarez RT(R),(MR),(CT) CTDI: DLP: Trnscb Luke e/Time: 02/01/2020 (1620) [email or web address] Orig Print D/T: S: (7402) PAGE 2 Signed Report [id number] 11:34:00* Test Item Value Reference Range Interpretation Comments GLUBED (test code = GLUBED) 188 mg/dL 74-106 H Performed by certified photocomposing keyboard operator at [facility] BASIC METABOLIC [id number] 07:02:00* Test Item Value Reference Range Interpretation [...] result is a direct measurement.========= BASIC METABOLIC [id number] 06:51:00* Test Item Value Reference Range Interpretation [...] code = LDL) mg/dL 100-129 CBC W/AUTO [id number] 06:20:00* Test Item Value Reference Range Interpretation [...] code = NRBC#) 0.00 K/mm3 0.0-0.1 N [id number] 06:08:00* Test Item Value Reference Range Interpretation Comments GLYCOSYLATED HEMOGLOBIN (HA1C) (test code = GLYHGB) 7.1 % HbA1 SUGGESTED DIAGNOSIS: HbA1C (%) Diabetic >6.4Prediabetes 5.7 - 6.4Normal <5.7 ESTIMATED AVERAGE GLUCOSE (test code = EAG) 157 MG/DL [id number] 05:48:00* Test Item Value Reference Range Interpretation Comments GLUBED (test code = GLUBED) 127 mg/dL 74-106 H Performed by certified photocomposing keyboard operator at [facility] [id number] 20:49:00* Test Item Value Reference Range Interpretation Comments GLUBED (test code = GLUBED) 156 mg/dL 74-106 H Performed by certified photocomposing keyboard operator at [facility] BASIC METABOLIC [id number] 20:04:00* Test Item Value Reference Range Interpretation [...] CA) 8.6 mg/dL 8.5-10.1 N BASIC METABOLIC [id number] 19:52:00* Test Item Value Reference Range Interpretation [...] CALCIUM (test code = CA) mg/dL 8.5-10.1 [id number] 17:52:00* Test Item Value Reference Range Interpretation Comments GLUBED (test code = GLUBED) 207 mg/dL 74-106 H Performed by certified photocomposing keyboard operator at [facility] [id number] 17:19:00* Test Item Value Reference Range Interpretation Comments GLUBED (test code = GLUBED) 303 mg/dL 74-106 H Performed by certified photocomposing keyboard operator at [facility] [id number] 13:20:00* Test Item Value Reference Range Interpretation Comments GLUBED (test code = GLUBED) 157 mg/dL 74-106 H Performed by certified photocomposing keyboard operator at [facility] - MRI BRAIN W/O [id number] 09:24:00 FAX: Adonay Pena [phone] [place]: St: [facility] FAX: Marcela Zayas MD Name: JERRI COMBS [facility] : 1965 Age/S: 54/M [address] [facility] [address] [facility] Unit #: [id number] Loc: .[address] [place] [address] Phys: Marcela Zayas MD Acct: [id number] Dis Date: Status: ADM IN PHONE #: [phone] Exam Date: 01/31/2020923 FAX #: [phone] Reason: headache and weakness EXAMS: CPT CODE: [id number] MRI BRAIN W/O CONTRAST 90313 HISTORY: Headache and possible stroke with weakness. COMPARISON: Head CT from January 30, 2020. Location: [facility]. MRI brain without contrast: Automated exposure control. [...] cells are clear. Partial opacification of the manager heart ior left ethmoid air cells. Intraorbital contents [...] (926) PAGE 1 Signed Report HEPATIC FUNCTION [id number] 20:27:00* Test Item Value Reference Range Interpretation [...] reference range due to change in reagent. [id number] 20:27:00* Test Item Value Reference Range Interpretation Comments LIPASE (test code = LIP) 86 U/L 73.0-393.0 N BASIC METABOLIC [id number] 20:21:00* Test Item Value Reference Range Interpretation [...] NOT be accurate due to hemolysis.BASIC METABOLIC [id number] 20:12:00* Test Item Value Reference Range Interpretation [...] NOT be accurate due to hemolysis. URINALYSIS [id number] 20:09:00* Test Item Value Reference Range Interpretation [...] FEW #/LPF FEW Urine Source? Clean CatchURINALYSIS [id number] 20:05:00* Test Item Value Reference Range Interpretation [...] Urine Source? Clean Catch- CT HEAD/BRAIN W/O [id number] 19:40:00 Name: JERRI COMBS [facility] : 1965 Age/S: 54 / M [address] [facility] [address] [facility] Unit #: [id number] [place]: [place] [address] Phys: Gerald Zayas MD Acct: [id number] Di s Date: Status: REG ER PHONE #: Exam Date: 01/30/20201910 FAX #: [phone] Reason: Headache EXAMS: CPT CODE: [id number] CT HEAD/BRAIN W/O CONT 15554 HISTORY: Headache TECHNIQUE: Noncontrast 2.5 mm axial [...] 1 Signed Report (CONTINUED) Name: JERRI COMBS [facility] : 1965 Age/S: 54 / M [address] [facility] Unit #: [id number] Loc: [place], [place] [address] Phys: Radha Zayas MD Acct: [id number] D is Date: Status: REG ER PHONE #: [phone] Exam Date: 01/30/20201910 FAX #: [phone] Reason: Headache EXAMS: CPT CODE: [id number] CT HEAD/BRAIN W/O CONT 29941 <Continued> CC: Marcela Zayas MD Technologist:ADRIEL CURRY, RT(R) CT CTDI: DLP: Trnscb Date/Time: 01/30/2020 (1939) [email or web address] Orig Print D/T: S: 01/30/2020 (1942) PAGE 2 Signed Report CBC W/AUTO [id number] 19:30:00* Test Item Value Reference Range Interpretation [...] code = MDIFF) NO - DUP AB/PEL/SC [id number] 18:30:00 Name: JERRI COMBS [facility] : 1965 Age/S: 54 / M [address] [facility] Unit #: [id number] Loc: [place] [address] Phys: Marcela Zayas MD Acct: [id number] Dis Date: Status: PRE ER PHONE #: [phone] Exam Date: 01/30/2020 1807 FAX #: [phone] Reason: testicle pain EXAMS: CPT CODE: [id number] DUP AB/PEL/SC COMP 02748 REASON FOR EXAM: testicle pain EXAM ORDER DATE: 01/30/2020 5:11 PM Ordering: Marcela Zayas MD Attending:Marcela Zayas MD Location:[facility] PROCEDURE: - US SCROTUM AND CNTS, - [...] 1 Signed Report - US SCROTUM AND [id number] 18:30:00 Name: JERRI COMBS [facility] : 1965 Age/S: 54 / M [address] [facility] Unit #: [id number] Loc: [place] [address] Phys: Marcela Zayas MD Acct: [id number] Dis Date: Status: PRE ER PHONE #: [phone] Exam Date: 01/30/2020 1807 FAX #: [phone] Reason: testicle pain EXAMS: CPT CODE: [id number] US SCROTUM AND CNTS 89118 REASON FOR EXAM: testicle pain EXAM ORDER DATE: 01/30/2020 5:11 PM Ordering: Marcela Zayas MD Attending:Marcela Zayas MD Location:[facility] PROCEDURE: - US SCROTUM AND CNTS, - [...] (1834) Probe: PAGE 1 Signed Report CARDIAC [id number] 09:22:00<0.02 [facility] [id number] 09:22:0087[facility] PANEL 2019-11-04 09:22:0010[facility]ann[facility] [id number] 09:22:000.60[facility] [id number] 09:22:87216Jbpbigrt HermannCHEM [id number] 09:22:003.5[facility]ann[facility] [id number] 09:22:30844Ixilcotg HermannCHEM [id number] 09:22:0027[facility]ann[facility] [id number] 09:22:0010.5 [facility] [id number] 09:22:008.8[facility]ann[facility] PANEL 2019-11-04 09:22:87529Pzghvzkf HermannCHEM [id number] 09:22:001.9[facility]annCHE[facility] [id number] 09:22:002.7[facility] VuqafwbXWLQSARYGR4910-01-60 09:22:007.9[facility] IluimboBZCLTIIHVO9366-86-50 09:22:004.38[facility] [id number] 09:22:0012.2[facility] [id number] 09:22:00 37.2[facility] FlfupjiXUGNGRELVW1206-34-84 09:22:0084.8[facility]annHEMATOLOGY 2019-11-04 09:22:00* Test Item Value Reference Range Interpretation Comments MCH (test code = MCH) 27.9 pg 27.0-31.0 [facility] [id number] 09:22:0032.8[facility]ann[facility]MATOLOGY 2019-11-04 09:22:0015.5[facility] FujfyxoZYCNHSYVJC1765-49-69 09:22:77887Rvojzztz RvgpdadDPOYJOWVFP6538-97-12 09:22:008.0[facility] UhemlkeVRWUUFBKQP5218-46-58 09:22:0056.2[facility] TnkpdxqZHUEITSOGD5107-99-28 09:22:0031.2[facility] [id number] 09:22:008.0[facility] NxexjbmNKLFGQEDFS8556-81-99 09:22:003.4 [facility] ImbhfkrBRGUZIXCRG0310-57-98 09:22:001.2[facility]annHEMATOLOGY 2019-11-04 09:22:004.4[facility] QgvepshXTGHCKINJT1277-52-91 09:22:002.5[facility] RpqzzwsOBNGZZBPTG0314-93-77 09:22:000.6[facility] GlhilkgUKDRGAFMOJ2046-14-66 09:22:000.3[facility] RgeckcdXSOALZPJYU1986-73-37 09:22:000.1[facility] PARATHYROID NLZZKLU2822-91-34 09:22:001.17[facility] HermannPARATHYROID PROFILE 2019-11-04 09:22:001.17[facility] QjyvpreNVIQPQJPNP5842-98-90 04:04:00Not Detected (11/03/19 11:04 PM)[facility] HermannCARDIAC BNDWPMG7078-35-34 21:59:00<0.02[facility] TjseijeOSPSDYHBDP0703-61-44 20:31:0010.8[facility] SvrwmbxIMKIDSEMPC0257-59-56 20:31:004.45[facility] VovilyqKDQPOBYJXV7783-86-06 20:31:0012.3[facility] [place] LMXUYUSFHP4863-82-35 20:31:0038.1[facility] WlwksddHYFCUHBEBV0534-78-19 20:31:00 85.5[facility] OdjsjndRQKYQGHUZE4273-65-43 20:31:00* Test Item Value Reference Range Interpretation Comments MCH (test code = MCH) 27.7 pg 27.0-31.0 [facility] WbnrbcbHCFQDYJLCX7865-36-52 20:31:0032.4[facility] HermannHEMATOLOGY 2019-11-03 20:31:0015.5[facility] HacdzmgWZHSAZMKDJ0647-94-19 20:31:32219Nrujzyjq FxmkuziHATGHHXMIV4582-92-67 20:31:007.9[facility] HxsozoiYIHOINXMYA3746-13-31 20:31:00* Test Item Value Reference Range Interpretation Comments PT (test code = PT) 14.6 s 12.0-14.7 [facility] RisvscbJBBLFCQVFU7766-24-73 20:31:00* Test Item Value Reference Range Interpretation Comments INR (test code = INR) 1.13 1 0.85-1.17 [facility] GfgqnuzOWXBIEGEFV1628-52-53 20:31:002.44[facility] HermannHEMATOLOGY 2019-11-03 20:31:0077.4[facility] DfongwqRSUMENYOAD4464-44-92 20:31:0013.3[facility] TiwrsbtAYKIQRIPEU4121-15-21 20:31:006.5[facility] BdgmbkuVSOCLYXMIP0389-34-10 20:31:001.3[facility] NrxziveQZPKVJNAJX2466-60-46 20:31:001.5[facility] HCQJXDONWI3400-72-36 20:31:008.4[facility] DgdmufuVJXMIDBJDL8685-91-97 20:31:001.4 [facility] FecfbqeXPGJXXXYNO3228-28-33 20:31:000.7[facility] HermannHEMATOLOGY 2019-11-03 20:31:000.1[facility] VkismxaWGOURHWBDS7211-51-03 20:31:000.2[facility] EmpwfhfQFBZJVVNMA7254-40-53 20:31:00* Test Item Value Reference Range Interpretation Comments PTT (test code = PTT) 32.3 s 22.9-35.8 [facility]annCARDIAC BYORSFT2397-34-52 19:28:0031[facility] HermannCARDIAC RJCWCYM8296-26-25 19:28:00<0.02[facility] HermannCARDIAC UAZWUSW2339-78-43 19:28:25792Klcbdpup HermannCHEM VJJAG7600-03-80 19:28:0048[facility] HermannCHEM KORQH2526-69-01 19:28:0013[facility] HermannCHEM CJLCS2106-75-52 19:28:000.61 [facility] HermannCHEM WMQPM8452-48-17 19:28:53689Yrwjzwtr HermannCHEM PANEL 2019-11-03 19:28:003.1[facility] HermannCHEM WMQOP0517-21-15 19:28:32064Tlwoglfi HermannCHEM EOXXZ3621-86-10 19:28:0027[facility] HermannCHEM SWVSW9884-39-18 19:28:009.1[facility] HermannCHEM VUYIU6081-56-43 19:28:007.6[facility] HermannCHEM BRQXX4395-35-13 19:28:00* Test Item Value Reference Range Interpretation Comments B/C Ratio (test code = B/C Ratio) 21 1 6-25 [facility] HermannCHEM RCKPR3612-33-24 19:28:006.5[facility] HermannCHEM PANEL 2019-11-03 19:28:002.3[facility] HermannCHEM BPBNM1494-51-46 19:28:004.2[facility] HermannCHEM RRWQX6304-24-16 19:28:00* Test Item Value Reference Range Interpretation Comments A/G Ratio (test code = A/G Ratio) 0.5 1 0.7-1.6 [facility] HermannCHEM XYVOM0460-44-20 19:28:0012[facility] HermannCHEM PANEL 2019-11-03 19:28:0010[facility] HermannCHEM ILLRD7617-95-49 19:28:0060[facility] HermannCHEM CCXNG9529-07-36 19:28:000.2[facility] HermannCHEM AFZVK8732-39-35 19:28:38800Fxpfjwcu HermannCHEM VLJCL3285-76-95 19:28:001.4[facility] HermannCHEM RWDYV8933-35-48 19:28:002.9[facility] OzryvfbDSVISB8393-33-30 20:11:00* Test Item Value Reference Range Interpretation Comments GLUBED (test code = GLUBED) 165 mg/dL 74-106 H Performed by certified photocomposing keyboard operator at [facility] UAUNHR3619-41-29 15:58:00* Test Item Value Reference Range Interpretation Comments GLUBED (test code = GLUBED) 179 mg/dL 74-106 H Performed by certified photocomposing keyboard operator at [facility] CXGLTV7576-64-79 12:58:00* Test Item Value Reference Range Interpretation Comments GLUBED (test code = GLUBED) 153 mg/dL 74-106 H Performed by certified photocomposing keyboard operator at [facility] XZPLSW3904-23-04 07:56:00* Test Item Value Reference Range Interpretation Comments GLUBED (test code = GLUBED) 153 mg/dL 74-106 H Performed by certified photocomposing keyboard operator at [facility] BASIC METABOLIC QFMGE6192-10-70 05:16:00* Test Item Value Reference Range Interpretation [...] CA) 8.2 mg/dL 8.5-10.1 L CBC W/AUTO MGAK3530-59-79 04:45:00* Test Item Value Reference Range Interpretation [...] = NRBC#) 0.00 K/mm3 0.0-0.1 N URINALYSIS ATILGWPM3245-90-79 23:23:00* Test Item Value Reference Range Interpretation [...] code = OFBU) NONE NONE Urine Source? YvyvyrhgIWNHZV8619-83-59 21:29:00* Test Item Value Reference Range Interpretation Comments GLUBED (test code = GLUBED) 187 mg/dL 74-106 H Performed by certified photocomposing keyboard operator at [facility] DLGQJT1920-00-48 17:25:00* Test Item Value Reference Range Interpretation Comments GLUBED (test code = GLUBED) 161 mg/dL 74-106 H Performed by certified photocomposing keyboard operator at [facility] [id number] 13:33:00* Test Item Value Reference Range Interpretation Comments GLUBED (test code = GLUBED) 149 mg/dL 74-106 H Performed by certified photocomposing keyboard operator at [facility] PGMREURFA1605-13-49 11:11:00* Test Item Value Reference Range Interpretation Comments MAGNESIUM (test code = MAG) 1.6 mg/dL 1.8-2.4 L MTAGKG1956-89-28 08:03:00* Test Item Value Reference Range Interpretation Comments GLUBED (test code = GLUBED) 153 mg/dL 74-106 H Performed by certified photocomposing keyboard operator at [facility] COMPREHENSIVE METABOLIC OPIUB4591-86-31 06:09:00* Test Item Value Reference Range Interpretation [...] due to change in reagent. COMPREHENSIVE METABOLIC GXCLG1735-13-57 06:03:00* Test Item Value Reference Range Interpretation [...] TOTAL (test code = ALKP) IUnit/L 45-117 DTIFQG5946-94-57 21:13:00* Test Item Value Reference Range Interpretation Comments GLUBED (test code = GLUBED) 138 mg/dL 74-106 H Performed by certified photocomposing keyboard operator at [facility] SBCQXK7497-36-67 18:04:00* Test Item Value Reference Range Interpretation Comments GLUBED (test code = GLUBED) 169 mg/dL 74-106 H Performed by certified photocomposing keyboard operator at [facility] GATJMD5394-92-82 18:04:00* Test Item Value Reference Range Interpretation Comments GLUBED (test code = GLUBED) 181 mg/dL 74-106 H Performed by certified photocomposing keyboard operator at [facility] FOLIC WYYO2210-09-40 09:09:00* Test Item Value Reference Range Interpretation Comments FOLIC ACID (test code = FOL) 3.1 ng/mL 3.10-17.50 N MUSKRKMM5514-68-75 09:09:00* Test Item Value Reference Range Interpretation Comments FERRITIN (test code = LUCHO) 306 ng/mL 8-388 N IMMUNOGLOBULINS A,G [id number] 09:09:00* Test Item Value Reference Range Interpretation Comments IMMUNOGLOBULIN G (test code = IGG) 1571 mg/dL 603-1613 IMMUNOGLOBULIN M (test code = IGM) 29 mg/dL 20-172 Performed At: [facility] [id number] Kyle L MD Ph:[phone] IMMUNOGLOBULIN A (test code = IGA) 648 mg/dL 90-386 H [id number] 07:58:00* Test Item Value Reference Range Interpretation Comments GLUBED (test code = GLUBED) 127 mg/dL 74-106 H Performed by certified photocomposing keyboard operator at [facility] OIKVSW5135-08-89 20:06:00* Test Item Value Reference Range Interpretation Comments GLUBED (test code = GLUBED) 163 mg/dL 74-106 H [facility] photocomposing [facility] ZESCUU3346-95-87 16:02:00* Test Item Value Reference Range Interpretation Comments GLUBED (test code = GLUBED) 189 mg/dL 74-106 H Per[facility] certified photocomposing [facility] HEPATITIS B CMXYCOH5050-93-75 13:08:00* Test Item Value Reference Range Interpretation Comments AB HEPATITIS B SURFACE (test code = HBSAB) Non Reactive () Non Reactive: Inconsistent with immunity, less than 10 mIU/mL Reactive: Consistent with immunity, greater than 9.9 mIU/mLPerformed At: [facility] [address] [id number] Turner Rucker MD Ph:[phone] At: [facility] [address] [id number] Sanjai MD P [phone] AG HEPAT B SURF (test code = HBSAG) Negative Negative HEPATITIS B CORE ANTIBODY,TOT (test code = HBCAB) Negative Nega tive HEPATITIS B CORE ANTIBODY,IGM (test code = HBCMAB) Negative Neg ative AG HEPATITIS BE (test code = HBEAG) Negative Negative AB HEPATITIS BE (test code = HBEAB) Negative Negative [id number] 12:03:00* Test Item Value Reference Range Interpretation Comments GLUBED (test code = GLUBED) 177 mg/dL 74-106 H Per[facility] certified photocomposing [facility] SNIIHK4365-80-02 08:09:00* Test Item Value Reference Range Interpretation Comments GLUBED (test code = GLUBED) 182 mg/dL 74-106 H Performed by certified photocomposing keyboard [facility] BASIC METABOLIC MEESR7683-97-93 06:57:00* Test Item Value Reference Range Interpretation [...] = CA) 8.3 mg/dL 8.5-10.1 L SERUM [id number] 06:57:00* Test Item Value Reference Range Interpretation Comments SERUM IRON (test code = IRON) 51 ug/dL 50-175 N BASIC METABOLIC [id number] 06:50:00* Test Item Value Reference Range Interpretation [...] (test code = CA) mg/dL 8.5-10.1 SERUM WFYZ5755-44-68 06:50:00* Test Item Value Reference Range Interpretation Comments SERUM IRON (test code = IRON) ug/dL 50-175 CBC W/AUTO [id number] 06:32:00* Test Item Value Reference Range Interpretation [...] DIFF REQUIRED (test code = MDIFF) NO [id number] 20:21:00* Test Item Value Reference Range Interpretation Comments GLUBED (test code = GLUBED) 176 mg/dL 74-106 H Performed by certified photocomposing keyboard operator at [facility] OJKYLC0539-91-97 15:57:00* Test Item Value Reference Range Interpretation Comments GLUBED (test code = GLUBED) 194 mg/dL 74-106 H Per[facility] certified photocomposing [facility] WLZUNQ6611-50-47 12:01:00* Test Item Value Reference Range Interpretation Comments GLUBED (test code = GLUBED) 194 mg/dL 74-106 H Performed by certified photocomposing keyboard [facility] FOLIC [id number] 11:27:00* Test Item Value Reference Range Interpretation Comments FOLIC ACID (test code = FOL) 3.1 ng/mL 3.10-17.50 N [id number] 11:27:00* Test Item Value Reference Range Interpretation Comments FERRITIN (test code = LUCHO) 306 ng/mL 8-388 N IMMUNOGLOBULINS A,G [id number] 11:27:00* Test Item Value Reference Range Interpretation Comments IMMUNOGLOBULIN G (test code = IGG) mg/dL IMMUNOGLOBULIN M (test code = IGM) mg/dL IMMUNOGLOBULIN A (test code = IGA) mg/dL - XR CHEST 1 [id number] 09:35:00 FAX: Wesley Benjamin MD [place]: B St: [facility] FAX: Dahiana Mensah [phone] Name: JERRI COMBS [facility] : 1965 Age/S: 54/M [address] [facility] Unit #: [id number] Loc: Isabel6 [place] [address] Phys: Dahiana De La Cruz Acct: [id number] Dis Date: Status: ADM IN PHONE #: [phone] Exam Date: 09/04/2019911 FAX #: [phone] Reason: cough EXAMS: CPT CODE: [id number] XR CHEST 1 V 73815 HISTORY: Cough. COMPARISON: August 31, 2019. Location: . No acute infiltrates, effusion or congestion. Dependent changes. Cardiomegaly. IMPRESSION: No acute infiltrates, effusion or congestion. at 0935 Reported and signed by: Sachin Belcher M.D. CC: Wesley Subramanian; Dahiana De La Cruz Technologist: Akiko ACOSTA(R); Analilia Mayer(R) Trnscrd Date/Time/By: 09/04/2019 (934) : By: [email or web address] Orig Print D/T: S: 09/04/2019 (0918) PAGE 1 Signed Report GLUBED 2019-09-04 08:08:00* Test Item Value Reference Range Interpretation Comments GLUBED (test code = GLUBED) 163 mg/dL 74-106 H Per[facility] photocomposing [facility] BASIC METABOLIC [id number] 06:28:00* Test Item Value Reference Range Interpretation [...] CA) 8.5 mg/dL 8.5-10.1 N BASIC METABOLIC [id number] 06:21:00* Test Item Value Reference Range Interpretation [...] code = CA) mg/dL 8.5-10.1 CBC W/AUTO [id number] 05:41:00* Test Item Value Reference Range Interpretation [...] DIFF REQUIRED (test code = MDIFF) NO [id number] 20:14:00* Test Item Value Reference Range Interpretation Comments GLUBED (test code = GLUBED) 185 mg/dL 74-106 H Performed by certified photocomposing keyboard operator at [facility] DKIYXA2579-00-13 15:59:00* Test Item Value Reference Range Interpretation Comments GLUBED (test code = GLUBED) 175 mg/dL 74-106 H Performed by certified photocomposing keyboard operator at [facility] [id number] 11:49:00* Test Item Value Reference Range Interpretation Comments GLUBED (test code = GLUBED) 150 mg/dL 74-106 H Performed by certified photocomposing keyboard operator at [facility] [id number] 07:53:00* Test Item Value Reference Range Interpretation Comments GLUBED (test code = GLUBED) 118 mg/dL 74-106 H Performed by certified photocomposing keyboard operator at [facility] BASIC METABOLIC [id number] 06:19:00* Test Item Value Reference Range Interpretation [...] CA) 8.3 mg/dL 8.5-10.1 L BASIC METABOLIC [id number] 06:13:00* Test Item Value Reference Range Interpretation [...] code = CA) mg/dL 8.5-10.1 AB HEPATITIS [id number] 06:08:00* Test Item Value Reference Range Interpretation Comments AB HEPATITIS C (test code = HCVAB) <0.1 0.0-0.9 INFCE Result Units: s/co ratio Negative: < 0.8 Indeterminate: 0.8 - 0.9 Positive: > 0.9 The CDC recommends that a positive HCV antibody result be followed up with a HCV Nucleic Acid Amplification test (802209).Performed At: [facility] [address] [id number] Turner Rucker MD Ph:[phone] CBC W/AUTO [id number] 06:01:00* Test Item Value Reference Range Interpretation [...] DIFF REQUIRED (test code = MDIFF) NO [id number] 21:20:00* Test Item Value Reference Range Interpretation Comments GLUBED (test code = GLUBED) 161 mg/dL 74-106 H Performed by certified photocomposing keyboard operator at [facility] [id number] 16:31:00* Test Item Value Reference Range Interpretation Comments GLUBED (test code = GLUBED) 151 mg/dL 74-106 H Performed by certified photocomposing keyboard operator at [facility] COMPREHENSIVE METABOLIC [id number] 16:08:00* Test Item Value Reference Range Interpretation [...] due to change in reagent. KAPPA LAMBDA [id number] 16:08:00* Test Item Value Reference Range Interpretation Comments KAPPA CHAINS (FLOW) (test code = KAPPA) 106.3 mg/L 3.3-19.4 A LAMBDA CHAINS (FLOW) (test code = LAMBDA) 34.1 mg/L 5.7-26.3 A KAPPA/LAMBDA RATIO (test code = GUSTAVO/GEORGE) 3.12 0.26-1.65 A Performed At: DA [facility] [address] [facility] [address] [place], [place] [id number] CN MD Ph:[phone] [id number] 11:56:00* Test Item Value Reference Range Interpretation Comments GLUBED (test code = GLUBED) 157 mg/dL 74-106 H Performed by certified photocomposing keyboard operator at [facility] COMPREHENSIVE METABOLIC [id number] 10:04:00* Test Item Value Reference Range Interpretation [...] due to change in reagent. COMPREHENSIVE METABOLIC [id number] 09:57:00* Test Item Value Reference Range Interpretation [...] code = ALKP) IUnit/L 45-117 UR PROTEIN/CREATININE [id number] 08:35:00* Test Item Value Reference Range Interpretation [...] 0.35 RATIO 0.0-0. 20 H UR PROTEIN/CREATININE GRHDW4038-08-03 08:31:00* Test Item Value Reference Range Interpretation [...] (test code = P/CRATIO) RATIO 0.0-0. 20 [id number] 07:53:00* Test Item Value Reference Range Interpretation Comments GLUBED (test code = GLUBED) 130 mg/dL 74-106 H Performed by certified photocomposing keyboard operator at [facility] [id number] 20:23:00* Test Item Value Reference Range Interpretation Comments GLUBED (test code = GLUBED) 169 mg/dL 74-106 H Performed by certified photocomposing keyboard operator at [facility] - US RETRO [id number] 18:39:00 Name: JERRI COMBS [facility] : 1965 Age/S: 54 / M [address] [facility] Unit #: [id number] Loc: [place] [address] Phys: Jovanna Sellers MD Acct: [id number] Dis Date: Status: ADM IN PHONE #: [phone] Exam Date: 09/01/20191819 FAX #: [phone] Reason: brennon EXAMS: CPT CODE: [id number] US RETRO LTD 18400 REASON FOR EXAM: brennon EXAM ORDER DATE: 09/01/2019 11:18 AM Ordering: Jovanna Sellers MD Attending:Wesley Subramanian MD Location:[facility] PROCEDURE: - US RETRO LTD FINDINGS: The [...] 09/01/2019 (1841) Probe: PAGE 1 Signed Report [id number] 17:52:00* Test Item Value Reference Range Interpretation Comments GLUBED (test code = GLUBED) 150 mg/dL 74-106 H Performed by certified photocomposing keyboard operator at [facility] COMPREHENSIVE METABOLIC [id number] 13:56:00* Test Item Value Reference Range Interpretation [...] due to change in reagent. KAPPA LAMBDA [id number] 13:56:00* Test Item Value Reference Range Interpretation Comments KAPPA CHAINS (FLOW) (test code = KAPPA) LAMBDA CHAINS (FLOW) (test code = LAMBDA) KAPPA/LAMBDA RATIO (test code = GUSTAVO/GEORGE) RATIO [id number] 13:47:00* Test Item Value Reference Range Interpretation Comments GLUBED (test code = GLUBED) 152 mg/dL 74-106 H Performed by certified photocomposing keyboard operator at [facility] [id number] 13:19:00* Test Item Value Reference Range Interpretation Comments GLUBED (test code = GLUBED) 107 mg/dL 74-106 H Performed by certified photocomposing keyboard operator at [facility] - PULM VENT PERF [id number] 12:25:00 FAX: Azael Marie NP [phone] [place]: St: ADM FAX: Wesley Benjamin MD Name: JERRI COMBS [facility] : 1965 Age/S: 54/M [address] [facility] Unit #: [id number] Loc: V.40[address] [place] [address] Phys: Azael Gómez RN FIRST ASSISTANT Acct: [id number] Dis Date: Status: ADM IN PHONE #: [phone] Exam Date: 09/01/2019 1131 FAX #: [phone] Reason: elevated d-dimer/NH r esident/debility EXAMS: CPT CODE: [id number] PULM VENT PERF IMAG 94947 HISTORY: elevated d-dimer/NH resident/debility EXAM: NUCLEAR PULMONARY [...] 09/01/2019 (04 30) PAGE 1 Signed Report [id number] 12:09:00* Test Item Value Reference Range Interpretation Comments GLUBED (test code = GLUBED) 157 mg/dL 74-106 H Performed by certified photocomposing keyboard operator at [facility] COMPREHENSIVE METABOLIC [id number] 08:38:00* Test Item Value Reference Range Interpretation Comments SODIUM (test code = NA) 142 mmol/L 136-145 N POTASSIUM (test code = K) 6.4 mmol/L 3.5-5.1 [facility] sults called to [place] [address] by [email or web address] 09/01/19 0838Critical results verified and read back [...] reference range due to change in reagent. [id number] 08:38:00* Test Item Value Reference Range Interpretation Comments MAGNESIUM (test code = MAG) 2.1 mg/dL 1.8-2.4 N THYROID STIMULATING [id number] 08:38:00* Test Item Value Reference Range Interpretation Comments THYROID STIMULATING HORMONE (test code = TSH) 2.850 uIU/mL 0.36-3.7 4 N TSH REFERENCE RANGES: EUTHYROID: 0.35 - 4.3 mIU/mL HYPO : > 5.5 mIU/mL HYPER : < 0.35 mIU/mL [id number] 08:38:00* Test Item Value Reference Range Interpretation Comments TROPONIN-I (test code = TROPI) <0.015 ng/mL 0-0.045 N COMPREHENSIVE METABOLIC [id number] 07:56:00* Test Item Value Reference Range Interpretation [...] TOTAL (test code = ALKP) IUnit/L 45-117 MMPWQMTOG8729-21-58 07:56:00* Test Item Value Reference Range Interpretation Comments MAGNESIUM (test code = MAG) mg/dL 1.8-2.4 THYROID STIMULATING [id number] 07:56:00* Test Item Value Reference Range Interpretation Comments THYROID STIMULATING HORMONE (test code = TSH) uIU/mL 0.36-3.7 4 [id number] 07:56:00* Test Item Value Reference Range Interpretation Comments TROPONIN-I (test code = TROPI) <0.015 ng/mL 0-0.045 N PROTHROMBIN [id number] 07:47:00* Test Item Value Reference Range Interpretation [...] heart valves (2.5-3.5) IS PATIENT ON ANTICOAGULANTS? [id number] 07:47:00* Test Item Value Reference Range Interpretation Comments D-DIMER (test code = DDIMER) 1115.00 ng/mLFEU 0-500 HH Results called to [employer] BYX9883ew V.LAB.OA 09/01/19 0747Critical results verified and read [...] - IS PATIENT ON ANTICOAGULANTS? NCBC W/AUTO [id number] 07:18:00* Test Item Value Reference Range Interpretation [...] DIFF REQUIRED (test code = MDIFF) NO [id number] 20:42:00* Test Item Value Reference Range Interpretation Comments GLUBED (test code = GLUBED) 133 mg/dL 74-106 H Performed by certified photocomposing keyboard operator at [facility] [id number] 17:32:00* Test Item Value Reference Range Interpretation Comments GLUBED (test code = GLUBED) 86 mg/dL 74-106 N Performed by certified photocomposing keyboard operator at [facility] - CT CHEST W/O [id number] 14:38:00 Name: JERRI COMBS [facility] : 1965 Age/S: 54 / M [address] [facility]: [id number] Loc: [place] [address] Phys: Bonifacio Tee MD Acct: [id number] Dis Date: Status: ADM IN PHONE #: [phone] Exam Date: 08/31/2019 1400 FAX #: [phone] Reason: hypoxia EXAMS: CPT CODE: [id number] CT CHEST W/O CONTRAST 12175 REASON FOR EXAM: hypoxia EXAM ORDER DATE: [...] 1 Signed Report (CONTINUED) Name: JERRI COMBS [facility] : 1965 Age/S: 54 / M [address] [facility] Unit #: [id number] [place] [address] Phys: Bonifacio Tee MD Acct: [id number] Dis Date: Status: ADM IN PHONE #: [phone] Exam Date: 08/31/2019 1400 FAX #: [phone] Reason: hypoxia EXAMS: CPT CODE: [id number] CT CHEST W/O CONTRAST 40061 < Continued> IMPRESSION: No acute intrathoracic process. The lungs are clear other than mild subsegmental atelectasis in the lower lobes. Postsurgical changes of CABG and cholecystectomy. Location: [facility] at 1438 Reported and signed by: Rigo Falcon MD CC: Bonifacio Tee MD Technologist:Paige Altman,RT(R),CT CTDI: DLP: Trnscb Date/Time: 08/31/2019 (1438) [email or web address] Orig Print D/T: S: 08/31/2019 (6844) PAGE 2 Signed Report Coronavirus 2019 nCoV Bedside 2019-08-31 13:59:00* Test Item Value Reference Range Interpretation Comments Coronavirus 2019 nCoV Bedside (test code = [id number]) Negative Is patient requiring admission or transfer? YIndication for rapid COVID-19 testi ng: Mod Clinical SuspicionB-TYPE NATRIURETIC [id number] 13:10:00* Test Item Value Reference Range Interpretation Comments B-TYPE NATRIURETIC PEPTIDE (test code = BNP) 36.08 pgram/mL 0-100 N - XR CHEST 1 [id number] 13:00:00 FAX: Bonifacio Easley [phone] [place]: St: REG Name: JERRI HARDWICK [facility] : [birth year] Age/S: 54/M [address] [facility] Unit #: [id number] Loc: [place] [address] Phys: Bonifacio Tee MD Acct: [id number] Dis Date: Status: REG ER PHONE #: [phone] Exam Date: 08/31/2019 1250 FAX #: [phone] Reason: CODE SEPSIS EXAMS: CPT CODE: [id number] XR CHEST 1 V 07979 REASON FOR EXAM: CODE SEPSIS Exam Order [...] diminished however the lungs are clear. Location: [facility] at 1300 Reported and signed by: Rigo Falcon MD CC: Bonifacio Tee MD Technologist: RT PAMELLA(R) Trnscrd Date/Time/By: 08/31/2019 (1300) : By: [email or web address] Orig Print D /T: S: 08/31/2019 (0212) PAGE 1 S igned Report PROCALCITONIN (PCT)2019-08-31 [...] into account the patients history. BASIC METABOLIC [id number] 12:52:00* Test Item Value Reference Range Interpretation [...] CA) 8.5 mg/dL 8.5-10.1 N HEPATIC FUNCTION [id number] 12:52:00* Test Item Value Reference Range Interpretation [...] reference range due to change in reagent. [id number] 12:52:00* Test Item Value Reference Range Interpretation Comments TROPONIN-I (test code = TROPI) <0.015 ng/mL 0-0.045 N URINALYSIS [id number] 12:48:00* Test Item Value Reference Range Interpretation [...] FEW #/LPF FEW Urine Source? Clean CatchURINALYSIS [id number] 12:47:00* Test Item Value Reference Range Interpretation [...] HPF NONE Urine Source? Clean CatchBASIC METABOLIC [id number] 12:40:00* Test Item Value Reference Range Interpretation [...] code = CA) mg/dL 8.5-10.1 HEPATIC FUNCTION [id number] 12:40:00* Test Item Value Reference Range Interpretation [...] TOTAL (test code = ALKP) IUnit/L 45-117 [id number] 12:40:00* Test Item Value Reference Range Interpretation Comments TROPONIN-I (test code = TROPI) ng/mL 0-0.045 LACTIC [id number] 12:34:00* Test Item Value Reference Range Interpretation Comments LACTIC ACID (test code = LACT) 1.5 mmol/L 0.4-1.9 N PROTHROMBIN [id number] 12:30:00* Test Item Value Reference Range Interpretation [...] (2.5-3.5) IS PATIENT ON ANTICOAGULANTS? NTHROMBOPLASTIN TIME [id number] 12:30:00* Test Item Value Reference Range Interpretation Comments THROMBOPLASTIN TIME PARTIAL (test code = PTT) 29.5 seconds 23.0-37. 0 N IS PATIENT ON ANTICOAGULANTS? NCBC W/AUTO [id number] 12:17:00* Test Item Value Reference Range Interpretation [...] NRBC#) 0.00 K/mm3 0.0-0.1 N BASIC METABOLIC [id number] 13:59:00* Test Item Value Reference Range Interpretation [...] code = CA) 8.9 mg/dL 8.5-10.1 N [id number] 13:59:00* Test Item Value Reference Range Interpretation Comments TROPONIN-I (test code = TROPI) <0.015 ng/mL 0-0.045 N - XR CHEST 1 [id number] 13:53:00 FAX: Jamie Stallings NP [phone] [place]: [address]: REG Name: JERRI HARDWICK [facility] : [birth year] Age/S: 54/M [address] [facility] Unit #: [id number] Loc: [place] [address] Phys: Jamie Stallings NP Acct: [id number] Dis Date: Status: REG ER PHONE #: [phone] Exam Date: 08/28/2019 1332 FAX #: [phone] Reason: CHEST PAIN EXAMS: CPT CODE: [id number] XR CHEST 1 V [id number] REASON FOR EXAM: CHEST PAIN Exam Order [...] IMPRESSION: No acu te cardiopulmonary process. Location: [facility] Electron ically Signed by Rigo Falcon MD on 08/28/2019 at 1353 Re ported and signed by: Rigo Falcon MD CC: Jamie Stallings NP Technologist: Akiko Schmidt RT(R); Analilia Mayer(R) Trnscrd Date/Time/By: 08/28/2019 (6760) : By: [email or web address] Orig Print D/T: S: 08/28/2019 (0837) PAGE 1 Signed Report BASIC METABOLIC PANEL [...] CALCIUM (test code = CA) mg/dL 8.5-10.1 [id number] 13:47:00* Test Item Value Reference Range Interpretation Comments TROPONIN-I (test code = TROPI) ng/mL 0-0.045 CBC W/O [id number] 13:38:00* Test Item Value Reference Range Interpretation [...]
--- OUTSIDE RECORDS SUMMARY | 2020-03-16 17:38 | XMS REPORT | Continuity of Care Document ---
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 Role Phone [employer] Unavailable Un available Problems Problem Status Onset Date Classification Date Reported Comments Source Hypoglycemia, unspecified 11/03/2019 11/06/2019 [facility] Chest pain, unspecified 11/03/2019 11/06/2019 [facility] Hypokalemia 11/03/2019 11/06/2019 [facility] CP Active [facility] CHOLECYSTITIS Active 07/25/2019 [facility] Cerebrovascular accident (disorder) Active Problem 09/2019 [facility] Congestive heart failure (disorder) Active Problem 09/2019 [facility] Coronary arteriosclerosis (disorder) Active Problem 09/2019 [facility] GALLSTONE ILEUS Active [facility] CHEST PAIN, UNSPECIFIED Active [facility] HYPOKALEMIA Active [facility] HYPOGLYCEMIA, UNSPECIFIED Acti ve [facility] Medications Medication Details Route Status Patient Instructions Ordering Provider Order Date Source atorvastatin Notes: (Same as: Lipitor) Inactive 11/05/2019 [facility] Baclofen Notes: (Same As: Rocky esal) Inactive 11/05/2019 [facility] Flomax Notes: (Same As: Flomax ) "Do Not Crush" Inactive 11/05/2019 [facility] pantoprazole 40 mg oral enteric coated tablet 40 mg = 1 tab, PO, Before Breakfast, # 30 tab, 0 Refill(s), Pharmacy: [facility], 177.8, cm, 11/03/19 22:36:00 CDT, Height, 127.27, kg, 11/03/19 22:36:00 CDT, Weight Active 11/04/2019 [facility] Amiodarone Notes: (Same as: Co rdarone) Inactive 11/04/2019 [facility] Aspirin 325 MG Oral Tablet Not es: Take with food. Inactive 11/04/2019 [facility] carvedilol Notes: Give with fo od. (Same As: Coreg) Inactive 11/04/2019 [facility] Plavix Notes: (Same As: Plavix) Inactive 11/04/2019 [facility] Docusate Sodium 100 MG Oral Capsule Notes: (Same as: Colace) (Do Not Crush) Inactiv e 11/04/2019 [facility] Cymbalta Notes: (Same as: Cymb tami) (Do Not Crush) Inactive 11/04/2019 [facility] Famotidine Notes: (Same as: Pe pcid) Inactive 11/04/2019 [facility] Lisinopril Notes: (Same as: Pr inivil, Zestril) Inactive 11/04/2019 [facility] Protonix Notes: Tablet should not be chewed or crushed. (Same as: Protonix) Inactive 11/04/2019 [facility] Enoxaparin Notes: (Same as: Lo venox) Inactive 11/04/2019 [facility] Lovenox Notes: (Same as: Loven ox) No Longer Active 11/04/2019 [facility] Tylenol Notes: Do not exceed 4 gm/day. (Same as: Tylenol) No Longer Active 11/04/2019 [facility] Bisacodyl Notes: (Same As: Dul colax, Bisco-Lax) No Longer Active 11/04/2019 [facility] Dextrose 50% Syringe (D50W) 12 .5 gm, 25 mL, Route: IVP, Drug Form: INJ, Dosing Weight 127.273, kg, PRN, PRN Blood Glucose Results, Start date: 11/03/19 21:03:00 CDT, Duration: 30 day, Stop date: 12/03/19 21:02:00 CDT, 0 No Longer Active 11/04/2019 [facility] Glucagon 1 mg, Route: IM, Drug form: PDR/INJ, PRN, Dosing Weight 127.273, kg, PRN Blood Glucose Results, Start date: 11/03/19 21:03:00 CDT, Duration: 30 day, Stop date: 12/03/19 21:02:00 CDT, 0 No Longer Active 11/04/2019 [facility] Morphine Notes: (Same as:MORPh ine Sulfate) Inactive 11/04/2019 [facility] Aspirin Notes: Take with food. Inactive 11/04/2019 [facility] Omnipaque 300 injectable solution 45 mL/min, STAT, Start date: 11/03/19 16:16:00 CDT, Duration: 1 doses or times Inactive 11/03/2019 [facility] potassium chloride 20 mEq oral tablet, [...] Patients with feeding tube less than 14 Arabic (Dobhoff, J-tube etc) and pediatric and patients. Inactive 11/03/2019 [facility] Saline Flush 0.9% Notes: (Same as: BD Posiflush) No Longer Active 11/03/2019 [facility] Allergies, Adverse Reactions, Alerts Substance Category Reaction Severity Reaction type Status Date Reported Comments Source penicillins Assertion Drug allergy Active [facility] Immunizations No Data Provided for This Section Results Order Name Results Value Reference Range Date Interpretation Comments Source CARDIAC ENZYMES Troponin-I <0.02 0.00 - 0.40 11/04/2019 [facility] CHEM PANEL Glucose Lvl 87 70 - 99 11/04/2019 [facility] CHEM PANEL BUN 10 7 - 22 11/04/2019 [facility] Creatinine Lvl 0.60 0.50 - 1.40 11/04/2019 [facility] CHEM PANEL Sodium Lvl 141 135 - 145 11/04/2019 [facility] CHEM PANEL Potassium Lvl 3.5 3.5 - 5.1 11/04/2019 [facility] CHEM PANEL Chloride Lvl 107 95 - 109 11/04/2019 [facility] CHEM PANEL CO2 27 24 - 32 11/04/2019 [facility] CHEM PANEL AGAP 10.5 10.0 - 20.0 11/04/2019 [facility] CHEM PANEL Calcium Lvl 8.8 8.5 - 10.5 11/04/2019 [facility] eGFR 130 11/04/2019 Result Comment: The eGFR [...] should be multiplied by the estimated BMI. [facility] CHEM PANEL Magnesium Lvl 1.9 1.8 - 2.4 11/04/2019 [facility] CHEM PANEL Phosphorus 2.7 2.5 - 4.5 11/04/2019 [facility] HEMATOLOGY WBC 7.9 3.7 - 10.4 11/04/2019 [facility] RBC 4.38 4.70 - 6.10 11/04/2019 [facility] Hgb 12.2 14.0 - 18.0 11/04/2019 [facility] Hct 37.2 42.0 - 54.0 11/04/2019 [facility] MCV 84.8 80.0 - 94.0 11/04/2019 [facility] MCH 27.9 27.0 - 31.0 11/04/2019 [facility] MCHC 32.8 32.0 - 36.0 11/04/2019 [facility] RDW 15.5 11.5 - 14.5 11/04/2019 [facility] Platelet 347 133 - 450 11/04/2019 [facility] MPV 8.0 7.4 - 10.4 11/04/2019 [facility] Segs 56.2 45.0 - 75.0 11/04/2019 [facility] Lymphocytes 31.2 20.0 - 40.0 11/04/2019 [facility] Monocytes 8.0 2.0 - 12.0 11/04/2019 [facility] HEMATOLOGY Eosinophils 3.4 0.0 - 4.0 11/04/2019 [facility] Basophils 1.2 0.0 - 1.0 11/04/2019 [facility] HEMATOLOGY Neutrophils # 4.4 1.5 - 8.1 11/04/2019 [facility] Lymphocytes # 2.5 1.0 - 5.5 11/04/2019 [facility] Monocytes # 0.6 0.0 - 0.8 11/04/2019 [facility] HEMATOLOGY Eosinophils # 0.3 0.0 - 0.5 11/04/2019 [facility] HEMATOLOGY Basophils # 0.1 0.0 - 0.2 11/04/2019 [facility] PARATHYROID PROFILE Ca Ion WB 1.17 1.05 - 1.25 11/04/2019 [facility] PARATHYROID PROFILE Ca Norm WB 1.17 1.05 - 1.25 11/04/2019 [facility] IMMUNOLOGY Coronavirus (COVID-19) NA A Not Detected (11/03/19 11:04 PM) Not Detected 11/04/2019 [facility] CARDIAC ENZYMES Troponin-I <0.02 0.00 - 0.40 11/03/2019 [facility] WBC 10.8 3.7 - 10.4 11/03/2019 [facility] HEMATOLOGY RBC 4.45 4.70 - 6.10 11/03/2019 [facility] Hgb 12.3 14.0 - 18.0 11/03/2019 [facility] Hct 38.1 42.0 - 54.0 11/03/2019 [facility] MCV 85.5 80.0 - 94.0 11/03/2019 [facility] MCH 27.7 27.0 - 31.0 11/03/2019 [facility] MCHC 32.4 32.0 - 36.0 11/03/2019 [facility] RDW 15.5 11.5 - 14.5 11/03/2019 [facility] Platelet 348 133 - 450 11/03/2019 [facility] MPV 7.9 7.4 - 10.4 11/03/2019 [facility] PT 14.6 12.0 - 14.7 11/03/2019 [facility] INR 1.13 0.85 - 1.17 11/03/2019 [facility] D-Dimer 2.44 11/03/2019 [facility] Segs 77.4 45.0 - 75.0 11/03/2019 [facility] Lymphocytes 13.3 20.0 - 40.0 11/03/2019 [facility] Monocytes 6.5 2.0 - 12.0 11/03/2019 [facility] HEMATOLOGY Eosinophils 1.3 0.0 - 4.0 11/03/2019 [facility] HEMATOLOGY Basophils 1.5 0.0 - 1.0 11/03/2019 [facility] Neutrophils # 8.4 1.5 - 8.1 11/03/2019 [facility] Lymphocytes # 1.4 1.0 - 5.5 11/03/2019 [facility] Monocytes # 0.7 0.0 - 0.8 11/03/2019 [facility] HEMATOLOGY Eosinophils # 0.1 0.0 - 0.5 11/03/2019 [facility] HEMATOLOGY Basophils # 0.2 0.0 - 0.2 11/03/2019 [facility] HEMATOLOGY PTT 32.3 22.9 - 35.8 11/03/2019 [facility] CARDIAC ENZYMES Total CK 31 12 - 191 11/03/2019 [facility] CARDIAC ENZYMES Troponin-I <0.02 0.00 - 0.40 11/03/2019 [facility] CARDIAC ENZYMES BNP 259 <=100 pg/mL 11/03/2019 [facility] CHEM PANEL Glucose Lvl 48 70 - 99 11/03/2019 Result Comment: Critical Result(s) martinez d to Fawn Marieargenis at 11/03/2019 15:14 by [facility]. Read back OK. [facility] CHEM PANEL BUN 13 7 - 22 11/03/2019 [facility] CHEM PANEL Creatinine Lvl 0.61 0.50 - 1.40 11/03/2019 [facility] CHEM PANEL Sodium Lvl 144 135 - 145 11/03/2019 [facility] CHEM PANEL Potassium Lvl 3.1 3.5 - 5.1 11/03/2019 [facility] CHEM PANEL Chloride Lvl 111 95 - 109 11/03/2019 [facility] CHEM PANEL CO2 27 24 - 32 11/03/2019 [facility] CHEM PANEL AGAP 9.1 10.0 - 20.0 11/03/2019 [facility] CHEM PANEL Calcium Lvl 7.6 8.5 - 10.5 11/03/2019 [facility] CHEM PANEL B/C Ratio 21 6 - 25 11/03/2019 [facility] CHEM PANEL Total Protein 6.5 6.4 - 8.4 11/03/2019 [facility] CHEM PANEL Albumin Lvl 2.3 3.5 - 5.0 11/03/2019 [facility] CHEM PANEL Globulin 4.2 2.7 - 4.2 11/03/2019 [facility] CHEM PANEL A/G Ratio 0.5 0.7 - 1.6 11/03/2019 [facility] CHEM PANEL ALT 12 0 - 65 11/03/2019 [facility] CHEM PANEL AST 10 0 - 37 11/03/2019 [facility] CHEM PANEL Alk Phos 60 39 - 136 11/03/2019 [facility] CHEM PANEL Bili Total 0.2 0.2 - 1.3 11/03/2019 [facility] CHEM PANEL eGFR 130 11/03/2019 Result [...] should be multiplied by the estimated BMI. [facility] CHEM PANEL Magnesium Lvl 1.4 1.8 - 2.4 11/03/2019 [facility] CHEM PANEL Phosphorus 2.9 2.5 - 4.5 11/03/2019 [facility] Pathology Reports No Data Provided for [...] clinical indication); or iterative reconstruction. Contrast material: [id number]; Contrast volume: 100 ml; Contrast route: INTRAVENOUS [...] hernia. Meño Lacey MD On 11/03/2019 17:12:51; [id number] 11/03/2019 [facility] 1view DX PROCEDURE INFOR MATION: Exam: XR Chest, 1 View Exam date and time: 11/03/2019 2:13 PM Age: 54 years old Clinical indication: [facility]: [facility], chest pain started at noon today, PT reports intermittent chest pain for several months since having a stroke, nitro x 3 given by care home w/ no relief; Additional info: /chest pain [...] Garza MD On 11/03/2019 14:51:33; [id number] 11/03/2019 [facility] 1view DX PROCEDURE INFOR MATION: Exam: XR [...] Britton MD On 07/28/2019 14:29:55; [id number] 07/28/2019 [facility] Gallbladder scan ANGEL arredondo NM Report was faxed. Receipt of fax was verified by nurse Karen at 07/26/2019 11:17 AM CDT. Victoriano Taylor MD On 07/26/2019 11:17:51; [id number] PROCEDURE INFORMATION: Exam: NM Hepatobiliary Including Gallbladder [...] cholecystitis. Victoriano Taylor MD On 07/26/2019 11:06:29; [id number] 07/26/2019 [facility] Gallbladder US PROCEDURE INFOR MATION: Exam: [...] Leon MD On 07/25/2019 19:05:23; [id number] 07/25/2019 [facility] Consultation Notes No Data Provided for This Section Discharge Summaries No Data Provided for This Section History and Physicals No Data Provided for This Section Vital Signs Vital Sign Value Date Comments Source Temperature Oral (F) 98.1 F 11/04/2019 [facility] Heart Rate 72 11/04/2019 [facility] Respitory Rate 18 11/04/2019 [facility] Systolic (mm Hg) 136 11/04/2019 [facility] Diastolic (mm Hg) 80 11/04/2019 [facility] Temperature Oral (F) 98.2 F 11/04/2019 [facility] Heart Rate 77 11/04/2019 [facility] Respitory Rate 18 11/04/2019 [facility] Systolic (mm Hg) 154 11/04/2019 [facility] Diastolic (mm Hg) 88 11/04/2019 [facility] Heart Rate 81 11/04/2019 [facility] Respitory Rate 18 11/04/2019 [facility] Systolic (mm Hg) 139 11/04/2019 [facility] Diastolic (mm Hg) 81 11/04/2019 [facility] Temperature Oral (F) 97.9 F 11/04/2019 [facility] Height 177.8 cm 11/04/2019 [facility] Weight 127.27 11/04/2019 [facility] BMI Calculated 40.26 11/04/2019 [facility] BMI Calculated 40.26 11/03/2019 [facility] Height 177.8 cm 11/03/2019 [facility] BMI Calculated 40.26 11/03/2019 [facility] Weight 127.273 11/03/2019 [facility] Encounters Location Location Details Encounter Type Encounter Number Reason For Visit Attending Provider ADM Date DC Date Status Source [facility] Observation [id number] Vasyl Hilton 11/03/2019 11/04/2019 [facility] Procedures Procedure Code Date Perfomer Comments Source CABG - Coronary artery bypass graft [id number] [facility] Assessment and Plan Assessment and Plan [...] | Acute hypokalemia | Hypoglycemia 3.CAD in [place] artery(I25.10) -Continue home meds. 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 Monitor. Ordered: Admit/Condition, 11/03/19 21:03:00 CDT, Status: Out Patient with Observation Services, Acute, Expected LOS: 1 Midnight, Vasyl Hilton MD, Admit MD Review/Approve Yes, Isolation: No Isolation/Standard Precautions, Acute chest pain | Acute hypokalemia | Hypoglycemia Lovenox SubQ Obs 11/04/2019 [facility] Plan of Care No Data Provided [...] pack years: 0; entered on: 11/03/19 07/25/2019 [facility] Family History No Data Provided for This Section Advance Directives No Data Provided for This Section Functional Status No Data Provided for This Section
--- OUTSIDE RECORDS SUMMARY | 2020-03-16 17:39 | XMS REPORT | Continuity of Care Document ---
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 Role Phone [employer] Unavailable Un available Problems Problem Status Onset Date Classification Date Reported Comments Source Hypoglycemia, unspecified 11/03/2019 11/06/2019 [facility] Chest pain, unspecified 11/03/2019 11/06/2019 [facility] Hypokalemia 11/03/2019 11/06/2019 [facility] CP Active [facility] CHOLECYSTITIS Active 07/25/2019 [facility] Cerebrovascular accident (disorder) Active Problem 09/2019 [facility] Congestive heart failure (disorder) Active Problem 09/2019 [facility] Coronary arteriosclerosis (disorder) Active Problem 09/2019 [facility] GALLSTONE ILEUS Active [facility] CHEST PAIN, UNSPECIFIED Active [facility] HYPOKALEMIA Active [facility] HYPOGLYCEMIA, UNSPECIFIED Acti ve [facility] Medications Medication Details Route Status Patient Instructions Ordering Provider Order Date Source atorvastatin Notes: (Same as: Lipitor) Inactive 11/05/2019 [facility] Baclofen Notes: (Same As: Rocky esal) Inactive 11/05/2019 [facility] Flomax Notes: (Same As: Flomax ) "Do Not Crush" Inactive 11/05/2019 [facility] pantoprazole 40 mg oral enteric coated tablet 40 mg = 1 tab, PO, Before Breakfast, # 30 tab, 0 Refill(s), Pharmacy: [facility], 177.8, cm, 11/03/19 22:36:00 CDT, Height, 127.27, kg, 11/03/19 22:36:00 CDT, Weight Active 11/04/2019 [facility] Amiodarone Notes: (Same as: Co rdarone) Inactive 11/04/2019 [facility] Aspirin 325 MG Oral Tablet Not es: Take with food. Inactive 11/04/2019 [facility] carvedilol Notes: Give with fo od. (Same As: Coreg) Inactive 11/04/2019 [facility] Plavix Notes: (Same As: Plavix) Inactive 11/04/2019 [facility] Docusate Sodium 100 MG Oral Capsule Notes: (Same as: Colace) (Do Not Crush) Inactiv e 11/04/2019 [facility] Cymbalta Notes: (Same as: Cymb tami) (Do Not Crush) Inactive 11/04/2019 [facility] Famotidine Notes: (Same as: Pe pcid) Inactive 11/04/2019 [facility] Lisinopril Notes: (Same as: Pr inivil, Zestril) Inactive 11/04/2019 [facility] Protonix Notes: Tablet should not be chewed or crushed. (Same as: Protonix) Inactive 11/04/2019 [facility] Enoxaparin Notes: (Same as: Lo venox) Inactive 11/04/2019 [facility] Lovenox Notes: (Same as: Loven ox) No Longer Active 11/04/2019 [facility] Tylenol Notes: Do not exceed 4 gm/day. (Same as: Tylenol) No Longer Active 11/04/2019 [facility] Bisacodyl Notes: (Same As: Dul colax, Bisco-Lax) No Longer Active 11/04/2019 [facility] Dextrose 50% Syringe (D50W) 12 .5 gm, 25 mL, Route: IVP, Drug Form: INJ, Dosing Weight 127.273, kg, PRN, PRN Blood Glucose Results, Start date: 11/03/19 21:03:00 CDT, Duration: 30 day, Stop date: 12/03/19 21:02:00 CDT, 0 No Longer Active 11/04/2019 [facility] Glucagon 1 mg, Route: IM, Drug form: PDR/INJ, PRN, Dosing Weight 127.273, kg, PRN Blood Glucose Results, Start date: 11/03/19 21:03:00 CDT, Duration: 30 day, Stop date: 12/03/19 21:02:00 CDT, 0 No Longer Active 11/04/2019 [facility] Morphine Notes: (Same as:MORPh ine Sulfate) Inactive 11/04/2019 [facility] Aspirin Notes: Take with food. Inactive 11/04/2019 [facility] Omnipaque 300 injectable solution 45 mL/min, STAT, Start date: 11/03/19 16:16:00 CDT, Duration: 1 doses or times Inactive 11/03/2019 [facility] potassium chloride 20 mEq oral tablet, e [...] Patients with feeding tube less than 14 Armenian (Dobhoff, J-tube etc) and pediatric and patients. Inactive 11/03/2019 [facility] Saline Flush 0.9% Notes: (Same as: BD Posiflush) No Longer Active 11/03/2019 [facility] Allergies, Adverse Reactions, Alerts Substance Category Reaction Severity Reaction type Status Date Reported Comments Source penicillins Assertion Drug allergy Active [facility] Immunizations No Data Provided for This Section Results Order Name Results Value Reference Range Date Interpretation Comments Source CARDIAC ENZYMES Troponin-I <0.02 0.00 - 0.40 11/04/2019 [facility] CHEM PANEL Glucose Lvl 87 70 - 99 11/04/2019 [facility] CHEM PANEL BUN 10 7 - 22 11/04/2019 [facility] CHEM [facility] Creatinine Lvl 0.60 0.50 - 1.40 11/04/2019 [facility] CHEM PANEL Sodium Lvl 141 135 - 145 11/04/2019 [facility] CHEM PANEL Potassium Lvl 3.5 3.5 - 5.1 11/04/2019 [facility] CHEM PANEL Chloride Lvl 107 95 - 109 11/04/2019 [facility] CHEM PANEL CO2 27 24 - 32 11/04/2019 [facility] CHEM PANEL AGAP 10.5 10.0 - 20.0 11/04/2019 [facility] CHEM PANEL Calcium Lvl 8.8 8.5 - 10.5 11/04/2019 [facility] CHEM [facility] eGFR 130 11/04/2019 Result Comment: [...] should be multiplied by the estimated BMI. [facility] CHEM PANEL Magnesium Lvl 1.9 1.8 - 2.4 11/04/2019 [facility] CHEM PANEL Phosphorus 2.7 2.5 - 4.5 11/04/2019 [facility] HEMATOLOGY WBC 7.9 3.7 - 10.4 11/04/2019 [facility] RBC 4.38 4.70 - 6.10 11/04/2019 [facility] Hgb 12.2 14.0 - 18.0 11/04/2019 [facility] Hct 37.2 42.0 - 54.0 11/04/2019 [facility] MCV 84.8 80.0 - 94.0 11/04/2019 [facility] MCH 27.9 27.0 - 31.0 11/04/2019 [facility] MCHC 32.8 32.0 - 36.0 11/04/2019 [facility] RDW 15.5 11.5 - 14.5 11/04/2019 [facility] Platelet 347 133 - 450 11/04/2019 [facility] MPV 8.0 7.4 - 10.4 11/04/2019 [facility] Segs 56.2 45.0 - 75.0 11/04/2019 [facility] Lymphocytes 31.2 20.0 - 40.0 11/04/2019 [facility] Monocytes 8.0 2.0 - 12.0 11/04/2019 [facility] HEMATOLOGY Eosinophils 3.4 0.0 - 4.0 11/04/2019 [facility] Basophils 1.2 0.0 - 1.0 11/04/2019 [facility] HEMATOLOGY Neutrophils # 4.4 1.5 - 8.1 11/04/2019 [facility] Lymphocytes # 2.5 1.0 - 5.5 11/04/2019 [facility] Monocytes # 0.6 0.0 - 0.8 11/04/2019 [facility] HEMATOLOGY Eosinophils # 0.3 0.0 - 0.5 11/04/2019 [facility] HEMATOLOGY Basophils # 0.1 0.0 - 0.2 11/04/2019 [facility] PARATHYROID PROFILE Ca Ion WB 1.17 1.05 - 1.25 11/04/2019 [facility] PARATHYROID PROFILE Ca Norm WB 1.17 1.05 - 1.25 11/04/2019 [facility] IMMUNOLOGY Coronavirus (COVID-19) NA A Not Detected (11/03/19 11:04 PM) Not Detected 11/04/2019 [facility] CARDIAC ENZYMES Troponin-I <0.02 0.00 - 0.40 11/03/2019 [facility] WBC 10.8 3.7 - 10.4 11/03/2019 [facility] HEMATOLOGY RBC 4.45 4.70 - 6.10 11/03/2019 [facility] Hgb 12.3 14.0 - 18.0 11/03/2019 [facility] Hct 38.1 42.0 - 54.0 11/03/2019 [facility] MCV 85.5 80.0 - 94.0 11/03/2019 [facility] MCH 27.7 27.0 - 31.0 11/03/2019 [facility] MCHC 32.4 32.0 - 36.0 11/03/2019 [facility] RDW 15.5 11.5 - 14.5 11/03/2019 [facility] Platelet 348 133 - 450 11/03/2019 [facility] MPV 7.9 7.4 - 10.4 11/03/2019 [facility] PT 14.6 12.0 - 14.7 11/03/2019 [facility] INR 1.13 0.85 - 1.17 11/03/2019 [facility] D-Dimer 2.44 11/03/2019 [facility] Segs 77.4 45.0 - 75.0 11/03/2019 [facility] Lymphocytes 13.3 20.0 - 40.0 11/03/2019 [facility] Monocytes 6.5 2.0 - 12.0 11/03/2019 [facility] HEMATOLOGY Eosinophils 1.3 0.0 - 4.0 11/03/2019 [facility] HEMATOLOGY Basophils 1.5 0.0 - 1.0 11/03/2019 [facility] Neutrophils # 8.4 1.5 - 8.1 11/03/2019 [facility] Lymphocytes # 1.4 1.0 - 5.5 11/03/2019 [facility] Monocytes # 0.7 0.0 - 0.8 11/03/2019 [facility] HEMATOLOGY Eosinophils # 0.1 0.0 - 0.5 11/03/2019 [facility] HEMATOLOGY Basophils # 0.2 0.0 - 0.2 11/03/2019 [facility] HEMATOLOGY PTT 32.3 22.9 - 35.8 11/03/2019 [facility] CARDIAC ENZYMES Total CK 31 12 - 191 11/03/2019 [facility] CARDIAC ENZYMES Troponin-I <0.02 0.00 - 0.40 11/03/2019 [facility] CARDIAC ENZYMES BNP 259 <=100 pg/mL 11/03/2019 [facility] CHEM PANEL Glucose Lvl 48 70 - 99 11/03/2019 Result Comment: Critical Result(s) martinez d to Fawn Marieargenis at 11/03/2019 15:14 by [facility]. Read back OK. [facility] CHEM PANEL BUN 13 7 - 22 11/03/2019 [facility] CHEM PANEL Creatinine Lvl 0.61 0.50 - 1.40 11/03/2019 [facility] CHEM PANEL Sodium Lvl 144 135 - 145 11/03/2019 [facility] CHEM PANEL Potassium Lvl 3.1 3.5 - 5.1 11/03/2019 [facility] CHEM PANEL Chloride Lvl 111 95 - 109 11/03/2019 [facility] CHEM PANEL CO2 27 24 - 32 11/03/2019 [facility] CHEM PANEL AGAP 9.1 10.0 - 20.0 11/03/2019 [facility] CHEM PANEL Calcium Lvl 7.6 8.5 - 10.5 11/03/2019 [facility] CHEM PANEL B/C Ratio 21 6 - 25 11/03/2019 [facility] CHEM PANEL Total Protein 6.5 6.4 - 8.4 11/03/2019 [facility] CHEM PANEL Albumin Lvl 2.3 3.5 - 5.0 11/03/2019 [facility] CHEM PANEL Globulin 4.2 2.7 - 4.2 11/03/2019 [facility] CHEM PANEL A/G Ratio 0.5 0.7 - 1.6 11/03/2019 [facility] CHEM PANEL ALT 12 0 - 65 11/03/2019 [facility] CHEM PANEL AST 10 0 - 37 11/03/2019 [facility] CHEM PANEL Alk Phos 60 39 - 136 11/03/2019 [facility] CHEM PANEL Bili Total 0.2 0.2 - 1.3 11/03/2019 [facility] CHEM PANEL eGFR 130 11/03/2019 Result Comment: [...] should be multiplied by the estimated BMI. [facility] CHEM PANEL Magnesium Lvl 1.4 1.8 - 2.4 11/03/2019 [facility] CHEM PANEL Phosphorus 2.9 2.5 - 4.5 11/03/2019 [facility] Pathology Reports No Data Provided for This [...] clinical indication); or iterative reconstruction. Contrast material: [id number]; Contrast volume: 100 ml; Contrast route: INTRAVENOUS [...] hernia. Meño Lacey MD On 11/03/2019 17:12:51; [id number] 11/03/2019 [facility] 1view DX PROCEDURE INFOR MATION: Exam: XR Chest, 1 View Exam date and time: 11/03/2019 2:13 PM Age: 54 years old Clinical indication: [facility] chest pain started at [...] Garza MD On 11/03/2019 14:51:33; [id number] 11/03/2019 [facility] 1view DX PROCEDURE INFOR MATION: Exam: [...] Britton MD On 07/28/2019 14:29:55; [id number] 07/28/2019 [facility] Gallbladder scan ANGEL arredondo [place] Report was faxed. Receipt of fax was verified by nurse Karen at 07/26/2019 11:17 AM CDT. Victoriano Taylor MD On 07/26/2019 11:17:51; [id number] PROCEDURE INFORMATION: Exam: NM Hepatobiliary Including Gallbladder [...] cholecystitis. Victoriano Taylor MD On 07/26/2019 11:06:29; [id number] 07/26/2019 [facility] Gallbladder US PROCEDURE INFOR MATION: Exam: US [...] Leon MD On 07/25/2019 19:05:23; [id number] 07/25/2019 [facility] Consultation Notes No Data Provided for This Section Discharge Summaries No Data Provided for This Section History and Physicals No Data Provided for This Section Vital Signs Vital Sign Value Date Comments Source Temperature Oral (F) 98.1 F 11/04/2019 [facility] Heart Rate 72 11/04/2019 [facility] Respitory Rate 18 11/04/2019 [facility] Systolic (mm Hg) 136 11/04/2019 [facility] Diastolic (mm Hg) 80 11/04/2019 [facility] Temperature Oral (F) 98.2 F 11/04/2019 [facility] Heart Rate 77 11/04/2019 [facility] Respitory Rate 18 11/04/2019 [facility] Systolic (mm Hg) 154 11/04/2019 [facility] Diastolic (mm Hg) 88 11/04/2019 [facility] Heart Rate 81 11/04/2019 [facility] Respitory Rate 18 11/04/2019 [facility] Systolic (mm Hg) 139 11/04/2019 [facility] Diastolic (mm Hg) 81 11/04/2019 [facility] Temperature Oral (F) 97.9 F 11/04/2019 [facility] Height 177.8 cm 11/04/2019 [facility] Weight 127.27 11/04/2019 [facility] BMI Calculated 40.26 11/04/2019 [facility] BMI Calculated 40.26 11/03/2019 [facility] Height 177.8 cm 11/03/2019 [facility] BMI Calculated 40.26 11/03/2019 [facility] Weight 127.273 11/03/2019 [facility] Encounters Location Location Details Encounter Type Encounter Number Reason For Visit Attending Provider ADM Date DC Date Status Source [facility] Observation [id number] Vasyl Hilton 11/03/2019 11/04/2019 [facility] Procedures Procedure Code Date Perfomer Comments Source CABG - Coronary artery bypass graft [id number] [facility] Assessment and Plan Assessment and Plan Date [...] | Acute hypokalemia | Hypoglycemia 3.CAD in [place] artery(I25.10) -Continue home meds. 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 Monitor. Ordered: Admit/Condition, 11/03/19 21:03:00 CDT, Status: Out Patient with Observation Services, Acute, Expected LOS: 1 Midnight, Vasyl Hilton MD, Admit MD Review/Approve Yes, Isolation: No Isolation/Standard Precautions, Acute chest pain | Acute hypokalemia | Hypoglycemia Lovenox SubQ Obs 11/04/2019 [facility] Plan of Care No Data Provided for [...] pack years: 0; entered on: 11/03/19 07/25/2019 [facility] Family History No Data Provided for This Section Advance Directives No Data Provided for This Section Functional Status No Data Provided for This Section
--- OUTSIDE RECORDS SUMMARY | 2020-03-16 17:40 | XMS REPORT | Continuity of Care Document ---
Author Author [facility] t Organization [facility] Address [address] [place] [address] Phone Unavailable Care Team Providers Care Trimming Caser Name Role Phone Evangelist Beltran Attphys Vasyl Hilton Admphys Payers Payer Name Policy Type Policy Number Effective Date Expiration Date S ource Problems Condition Name Condition Details Condition Category Status Onset Date Resolution Date Last Treatment Date Treating Clinician Comments Source CP CP Active 11/03/2019 [facility] Diagnosis Active 2019-11-03 00:00:00 2019-11-11 22:08:00 Kevan emohanane Mahmood CHOLECYSTITIS CHOL ECYSTITIS Active 07/25/2019 [facility] Diagnosis Active 2019-07-25 00:00:00 2019-08-03 22:02:00 Jose Mahmood Cerebrovascular accident (disorder) Cerebrovascular accident (disorder) Active Problem 11/06/2019 [facility] Problem Active 2019-11-06 21:32:56 Jose Mahmood Congestive heart failure (disorder) Congestive heart failure (disorder) Active Problem 11/06/2019 [facility] Problem Active 2019-11-06 21:32:56 Jose Mahmood Coronary arteriosclerosis (disorder) Coronary arteriosclerosis (disorder) Active Problem 11/06/2019 [facility] Problem Active 2019-11-06 21:32:56 Jose Mahmood GALLSTONE ILEUS GALL STONE ILEUS Active [facility] Diagnosis Active 2019-08-03 22:02:00 [facility] CHEST PAIN, UNSPECIFIED CHES T PAIN, UNSPECIFIED Active [facility] Active 2019-11-11 22:08:00 [facility] HYPOKALEMIA HYPO KALEMIA Active [facility] Active 2019-11-11 22:08:00 Jesusor phyllis [address] HYPOGLYCEMIA, UNSPECIFIED HYPO GLYCEMIA, UNSPECIFIED Active [facility] Active 2019-11-11 22:08:00 [facility] Hypoglycemia, unspecified Hypo glycemia, unspecified 11/03/2019 11/06/2019 [facility] Problem 2019-11-03 17:00:00 2019 21:32:56 2019-11-06 21:32:56 [facility] Chest pain, unspecified Ches t pain, unspecified 11/03/2019 11/06/2019 [facility] Problem 2019-11-03 17:00:00 2019 21:32:56 2019-11-06 21:32:56 [facility] Hypokalemia Hypo kalemia 11/03/2019 11/06/2019 [facility] Problem 2019-11-03 17:00:00 2019-11-06 21:32:56 2019-11 21:32:56 [facility] Allergies, Adverse Reactions, Alerts Allergy Name Allergy Type Status Severity Reaction(s) Onset Date Inacti ve Date Treating Clinician Comments Source Penicillins DA Active U 2020-03-15 00:00:00 [facility] Penicillins DA Active U 2019-08-31 00:00:00 [facility] No Known Allergies DA Active U 2019-08-28 00:00:00 [facility] No Known Drug Intolerances DA Active U 2009-02-17 00:00:0 0 [facility] penicillins penicillins Active [facility] Social History Social Habit Start Date Stop Date Quantity Comments Source Social History 2019-07-25 21:48:27 2019-07-25 21:48:27 [facility] Medications Ordered Medication Name Filled Medication Name Start Date Stop Da te Current Medication? Ordering Clinician Indication Dosage Frequency Signature (SIG) Comments Components Source atorvastatin 2019-11-05 02:00:00 No Notes: (Same as: Lipitor) [facility] Baclofen 2019-11-05 02:00:00 No Notes: (Dc e As: Lioresal) Jose Mahmood Flomax 2019-11-05 02:00:00 No Notes: (Same As: Flomax) "Do Not Crush" Jose Mahmood pantoprazole 40 mg oral enteric coated tablet 2019-11-04 16:34:0 0 Yes 40 mg = 1 tab, PO, Before Breakfast, # 3 0 tab, 0 Refill(s), Pharmacy: [facility], 177.8, cm, 11/03/19 22:36:00 CDT, Height, 127.27, kg, 11/03/19 22:36:00 CDT, Weight Jose Mahmood Amiodarone 2019-11-04 14:00:00 No Notes: (S marquis as: Cordarone) Jose Mahmood Aspirin 325 MG Oral Tablet 2019-11-04 14:00:00 No Notes: Take with food. Jose Mahmood carvedilol 2019-11-04 14:00:00 No Notes: Give with food. (Same As: Coreg) [facility] Plavix 2019-11-04 14:00:00 No Notes: (Same As: Plavix) Jose Mahmood Docusate Sodium 100 MG Oral Capsule 2019-11-04 14:00:00 No Notes: (Same as: Colace) (Do Not Crush) [facility] Cymbalta 2019-11-04 14:00:00 No Notes: (Same as: Cymbalta) (Do Not Crush) [facility] Famotidine 2019-11-04 14:00:00 No Notes: (S marquis as: Pepcid) [facility] Lisinopril 2019-11-04 14:00:00 No Notes: (Same as: Prinivil, Zestril) [facility] Protonix 2019-11-04 13:26:00 No Notes: Tablet should not be chewed or crushed. (Same as: Protonix) [facility] Enoxaparin 2019-11-04 03:00:00 No Notes: (S marquis as: Lovenox) [facility] Lovenox 2019-11-04 03:00:00 No Notes: (Same as: Lovenox) [facility] Tylenol 2019-11-04 02:18:00 No Notes: Do not exceed 4 gm/day. (Same as: Tylenol) [facility] Bisacodyl 2019-11-04 02:18:00 No Notes: (Same As: Dulcolax, Bisco-Lax) [facility] Dextrose 50% Syringe (D50W) 2019-11-04 02:03:00 No 12.5 gm, 25 mL, Route: IVP, Drug Form: INJ, Dosing Weight 127.273, kg, PRN, PRN Blood Glucose Results, Start date: 11/03/19 21:03:00 CDT, Duration: 30 day, Stop date: 12/03/19 21:02:00 CDT, 0 [facility] n Glucagon 2019-11-04 02:03:00 No 1 mg, Route: IM, Drug form: PDR/INJ, PRN, Dosing Weight 127.273, kg, PRN Blood Glucose Results, Start date: 11/03/19 21:03:00 CDT, Duration: 30 day, Stop date: 12/03/19 21:02:00 CDT, 0 [facility] Morphine 2019-11-04 02:02:00 Yes Not es: (Same as:MORPhine Sulfate) [facility] Aspirin 2019-11-04 01:49:00 No Notes: Take with food. [facility] Omnipaque 300 injectable solution 2019-11-03 21:16:00 No 45 mL/min, STAT, Start date: 11/03/19 16:16:00 CDT, Duration: 1 doses or times [facility] potassium chloride 20 mEq oral [...] s with feeding tube less than 14 Persian (Dobhoff, J-tube etc) and pediatric and patients. [facility] Saline Flush 0.9% 2019-11-03 18:54:00 No Notes: (Same as: BD Posiflush) [facility] Vital Signs Vital Name Observation Time Observation Value Comments Source Temperature Oral (F) 2019-11-04 18:04:00 98.1 F [facility] Heart Rate 2019-11-04 18:04:00 [facility] Respitory Rate 2019-11-04 18:04:00 [facility] Systolic (mm Hg) 2019-11-04 18:04:00 [facility] [place] Diastolic (mm Hg) 2019-11-04 18:04:00 [facility] Temperature Oral (F) 2019-11-04 17:28:00 98.2 F [facility] Heart Rate 2019-11-04 17:28:00 [facility] Respitory Rate 2019-11-04 17:28:00 [facility] Systolic (mm Hg) 2019-11-04 17:28:00 [facility] [place] Diastolic (mm Hg) 2019-11-04 17:28:00 [facility] Heart Rate 2019-11-04 13:32:00 [facility] Respitory Rate 2019-11-04 13:32:00 [facility] Systolic (mm Hg) 2019-11-04 13:32:00 [facility] [place] Diastolic (mm Hg) 2019-11-04 13:32:00 [facility] Temperature Oral (F) 2019-11-04 08:52:00 97.9 F [facility] Height 2019-11-04 03:36:00 177.8 cm [facility] Weight 2019-11-04 03:36:00 [facility] BMI Calculated 2019-11-04 03:36:00 [facility] BMI Calculated 2019-11-03 18:54:00 [facility] Height 2019-11-03 18:37:00 177.8 cm [facility] BMI Calculated 2019-11-03 18:37:00 [facility] Weight 2019-11-03 18:37:00 [facility] Procedures Procedure Date / Time Performed Performing Clinician Sourc e CABG - Coronary artery bypass graft [facility] Encounters Start Date/Time End Date/Time Encounter Type Admission Type [facility] Care Department Encounter ID Source 2019-07-25 16:28:00 Inpatient U MHNE MHNE 00 [id number] MHNE 2019-11-03 13:19:20 2019-11-04 13:19:00 Outpatient Obih, Ugochi [facility] [id number] 2019-11-03 21:03:00 2019-11-03 21:03:00 Outpatient E MHNE MED 7500 [facility]NE Results Test Description Test Time Test Comments Results Result Comments Source LACTIC ACID 2020-03-15 23:41:00 Test Item LACTIC ACID (test code = LACT) 1.6 mmol/L 0.4-1.9 N PROTHROMBIN [id number] 23:26:00* Test Item Value Reference Range Interpretation [...] (2.5-3.5) IS PATIENT ON ANTICOAGULANTS? NTHROMBOPLASTIN TIME [id number] 23:26:00* Test Item Value Reference Range Interpretation Comments THROMBOPLASTIN TIME PARTIAL (test code = PTT) 33.1 seconds 23.0-37. 0 N IS PATIENT ON ANTICOAGULANTS? NBASIC METABOLIC [id number] 23:25:00* Test Item Value Reference Range Interpretation [...] CA) 8.7 mg/dL 8.5-10.1 N HEPATIC FUNCTION [id number] 23:25:00* Test Item Value Reference Range Interpretation [...] due to change in reagent. CBC W/AUTO [id number] 23:21:00* Test Item Value Reference Range Interpretation [...] NRBC#) 0.00 K/mm3 0.0-0.1 N BASIC METABOLIC [id number] 23:17:00* Test Item Value Reference Range Interpretation [...] code = CA) mg/dL 8.5-10.1 HEPATIC FUNCTION [id number] 23:17:00* Test Item Value Reference Range Interpretation [...] 45-117 - XR FOOT 3 + V [id number] 23:07:00 [facility] ([facility])Name: JERRI COMBS : 1965 Sex: M FAX: Adonay Pena [phone] [place]: St: REG FAX: Luís Cecil Sarabiagege Kevan GONZALEZ [phone] Name: JERRI COMBS [facility] : 1965 Age/S: 54/M [address] [facility] Unit #: [id number] Loc: [place] [address] Phys: Laron Sarabia DO Acct: [id number] Dis Date: Status: REG ER PHONE #: [phone] Exam Date: 03/15/20202229 FAX #: [phone] Reason: 5th toe infection EXAMS: CPT CODE: [id number] XR FOOT 3 + [place] RT [address]37 AFTER HOURS SERVICE ON: 03/15/2020 11:06 PM [...] By: [email or web address] Orig Print D/T: S: 03/15/20 (8461) PAGE 1 Signed Report [id number] 15:06:00* Test Item Value Reference Range Interpretation Comments GLUBED (test code = GLUBED) 158 mg/dL 74-106 H Performed by certified drum dyeing machine operator at [facility] [id number] 15:06:00* Test Item Value Reference Range Interpretation Comments GLUBED (test code = GLUBED) 149 mg/dL 74-106 H Performed by certified drum dyeing machine operator at [facility] [id number] 05:46:00* Test Item Value Reference Range Interpretation Comments GLUBED (test code = GLUBED) 137 mg/dL 74-106 H Performed by certified drum dyeing machine operator at [facility] [id number] 21:59:00* Test Item Value Reference Range Interpretation Comments GLUBED (test code = GLUBED) 149 mg/dL 74-106 H Performed by certified drum dyeing machine operator at [facility] [id number] 17:00:00* Test Item Value Reference Range Interpretation Comments GLUBED (test code = GLUBED) 198 mg/dL 74-106 H Performed by certified drum dyeing machine operator at [facility] [id number] 11:16:00* Test Item Value Reference Range Interpretation Comments GLUBED (test code = GLUBED) 143 mg/dL 74-106 H Performed by certified drum dyeing machine operator at [facility] [id number] 06:19:00* Test Item Value Reference Range Interpretation Comments GLUBED (test code = GLUBED) 106 mg/dL 74-106 N Performed by certified drum dyeing machine operator at [facility] BASIC METABOLIC [id number] 04:55:00* Test Item Value Reference Range Interpretation [...] CA) 8.5 mg/dL 8.5-10.1 N BASIC METABOLIC [id number] 04:49:00* Test Item Value Reference Range Interpretation [...] code = CA) mg/dL 8.5-10.1 CBC W/AUTO [id number] 04:43:00* Test Item Value Reference Range Interpretation [...] DIFF REQUIRED (test code = MDIFF) NO [id number] 20:08:00* Test Item Value Reference Range Interpretation Comments GLUBED (test code = GLUBED) 224 mg/dL 74-106 H Performed by certified drum dyeing machine operator at [facility] [id number] 16:29:00* Test Item Value Reference Range Interpretation Comments GLUBED (test code = GLUBED) 176 mg/dL 74-106 H Performed by certified drum dyeing machine operator at [facility] [id number] 12:17:00* Test Item Value Reference Range Interpretation Comments GLUBED (test code = GLUBED) 164 mg/dL 74-106 H Performed by certified drum dyeing machine operator at [facility] [id number] 05:28:00* Test Item Value Reference Range Interpretation Comments GLUBED (test code = GLUBED) 123 mg/dL 74-106 H Performed by certified drum dyeing machine operator at [facility] [id number] 20:45:00* Test Item Value Reference Range Interpretation Comments GLUBED (test code = GLUBED) 189 mg/dL 74-106 H Performed by certified drum dyeing machine operator at [facility] [id number] 17:06:00* Test Item Value Reference Range Interpretation Comments GLUBED (test code = GLUBED) 158 mg/dL 74-106 H Performed by certified drum dyeing machine operator at [facility] - CTA [id number] 16:20:00 Name: JERRI COMBS [facility] : 1965 Age/S: 54 / M [address] Unit #: [id number] Loc: [place] [address] Phys: Sierra Sigala MD Acct: [id number] Dis Date: Status: ADM IN PHONE #: [phone] Exam Date: 02/01/2020 1430 FAX #: [phone] Reason: stroke EXAMS: CPT CODE: [id number] CTA NECK 59183 HISTORY: stroke TECHNIQUE: Cerebral and Cervical CT [...] the basilar tip. Bilateral P1 and distal REGULATORY AFFAIRS SPEC segments are patent. Bilate ral posterior communicating arteries are not visualized. No aneurysm. Dural venous sinuses and proximal internal jugular veins are patent. Visualized brain parenchyma is unremarkable. No mass-effect or mid line PAGE 1 Signed Report (CONTINU ED) Name: JERRI COMBS [facility] : 1965 Age/S: 54 / M [address] [facility] Unit #: [id number] Loc: [place] [address] Phys: Sierra Cui MD Acct: [id number] Dis Date: Status: ADM IN PHONE #: [phone] Exam Date: 02/01/2020 1430 FAX #: Reason: stroke EXAMS: CPT CODE: [id number] CTA NECK 73461 <Continued> shift. No hydrocephalus. Visualized paranasal sinuses and mastoid air cells are clear. Regional osseous structures structures are intact. IMPRESSION: Short segment occlusion of the proximal right A3 segment, the remaining distal VAL segments are diminutive in caliber but patent. Variant anatomy as above. Location: [facility] at 1620 Reported and signed by: Azael Michael M.D. CC: Adonay Tian; Sierra Sigala MD; Wesley Subramanian Technologist:Cristino Alvarez RT(R),(MR),(CT) CTDI: DLP: Trnscb Luke e/Time: 02/01/2020 (1620) [email or web address] Orig Print D/T: S: (1624) PAGE 2 Signed Report - CTA [id number] 16:20:00 Name: JERRI COMBS [facility] : 1965 Age/S: 54 / M [address] Unit #: [id number] Loc: [place] [address] Phys: Sierra Sigala MD Acct: [id number] Dis Date: Status: ADM IN PHONE #: [phone] Exam Date: 02/01/2020 1430 FAX #: [phone] Reason: stroke EXAMS: CPT CODE: [id number] CTA HEAD 18319 HISTORY: stroke TECHNIQUE: Cerebral and Cervical CT [...] the basilar tip. Bilateral P1 and distal REGULATORY AFFAIRS SPEC segments are patent. Bilate ral posterior communicating arteries are not visualized. No aneurysm. Dural venous sinuses and proximal internal jugular veins are patent. Visualized brain parenchyma is unremarkable. No mass-effect or mid line PAGE 1 Signed Report (CONTINU ED) Name: JERRI COMBS [facility]: 1965 Age/S: 54 / M [address] [facility] Unit #: [id number] Loc: [place] [address] Phys: Sierra Cui MD Acct: [id number] Dis Date: Status: ADM IN PHONE #: [phone] Exam Date: 02/01/2020 1430 FAX #: [phone] Reason: stroke EXAMS: CPT CODE: [id number] CTA HEAD 17219 <Continued> shift. No hydrocephalus. Visualized paranasal sinuses and mastoid air cells are clear. Regional osseous structures structures are intact. IMPRESSION: Short segment occlusion of the proximal right A3 segment, the remaining distal VAL segments are diminutive in caliber but patent. Variant anatomy as above. Location: [facility] at 1620 Reported and signed by: Azael Michael M.D. CC: Adonay Tian; Sierra Sigala MD; Wesley Subramanian Technologist:Cristino Alvarez RT(R),(MR),(CT) CTDI: DLP: Trnscb Luke e/Time: 02/01/2020 (1620) [email or web address] Orig Print D/T: S: (0962) PAGE 2 Signed Report [id number] 11:34:00* Test Item Value Reference Range Interpretation Comments GLUBED (test code = GLUBED) 188 mg/dL 74-106 H Performed by certified drum dyeing machine operator at [facility] BASIC METABOLIC [id number] 07:02:00* Test Item Value Reference Range Interpretation [...] result is a direct measurement.========= BASIC METABOLIC [id number] 06:51:00* Test Item Value Reference Range Interpretation [...] code = LDL) mg/dL 100-129 CBC W/AUTO [id number] 06:20:00* Test Item Value Reference Range Interpretation [...] code = NRBC#) 0.00 K/mm3 0.0-0.1 N [id number] 06:08:00* Test Item Value Reference Range Interpretation Comments GLYCOSYLATED HEMOGLOBIN (HA1C) (test code = GLYHGB) 7.1 % HbA1 SUGGESTED DIAGNOSIS: HbA1C (%) Diabetic >6.4Prediabetes 5.7 - 6.4Normal <5.7 ESTIMATED AVERAGE GLUCOSE (test code = EAG) 157 MG/DL [id number] 05:48:00* Test Item Value Reference Range Interpretation Comments GLUBED (test code = GLUBED) 127 mg/dL 74-106 H Performed by certified drum dyeing machine operator at [facility] [id number] 20:49:00* Test Item Value Reference Range Interpretation Comments GLUBED (test code = GLUBED) 156 mg/dL 74-106 H Performed by certified drum dyeing machine operator at [facility] BASIC METABOLIC [id number] 20:04:00* Test Item Value Reference Range Interpretation [...] CA) 8.6 mg/dL 8.5-10.1 N BASIC METABOLIC [id number] 19:52:00* Test Item Value Reference Range Interpretation [...] CALCIUM (test code = CA) mg/dL 8.5-10.1 [id number] 17:52:00* Test Item Value Reference Range Interpretation Comments GLUBED (test code = GLUBED) 207 mg/dL 74-106 H Performed by certified drum dyeing machine operator at [facility] [id number] 17:19:00* Test Item Value Reference Range Interpretation Comments GLUBED (test code = GLUBED) 303 mg/dL 74-106 H Performed by certified drum dyeing machine operator at [facility] [id number] 13:20:00* Test Item Value Reference Range Interpretation Comments GLUBED (test code = GLUBED) 157 mg/dL 74-106 H Performed by certified drum dyeing machine operator at [facility] - MRI BRAIN W/O [id number] 09:24:00 FAX: Adonay Pena [phone] [place]: St: [facility] FAX: Marcela Zayas MD Name: JERRI COMBS [facility] : 1965 Age/S: 54/M [address] [facility] Unit #: [id number] Loc: [address] [place] [address] Phys: Marcela Zayas MD Acct: [id number] Dis Date: Status: ADM IN PHONE #: [phone] Exam Date: 01/31/2020923 FAX #: [phone] Reason: headache and weakness EXAMS: CPT CODE: [id number] MRI BRAIN W/O CONTRAST 36973 HISTORY: Headache and possible stroke with weakness. COMPARISON: Head CT from January 30, 2020. Location: [facility]. MRI brain without contrast: Automated exposure control. [...] cells are clear. Partial opacification of the crop farm workers ior left ethmoid air cells. Intraorbital contents [...] (926) PAGE 1 Signed Report HEPATIC FUNCTION [id number] 20:27:00* Test Item Value Reference Range Interpretation [...] reference range due to change in reagent. [id number] 20:27:00* Test Item Value Reference Range Interpretation Comments LIPASE (test code = LIP) 86 U/L 73.0-393.0 N BASIC METABOLIC [id number] 20:21:00* Test Item Value Reference Range Interpretation [...] NOT be accurate due to hemolysis.BASIC METABOLIC [id number] 20:12:00* Test Item Value Reference Range Interpretation [...] NOT be accurate due to hemolysis. URINALYSIS [id number] 20:09:00* Test Item Value Reference Range Interpretation [...] FEW #/LPF FEW Urine Source? Clean CatchURINALYSIS [id number] 20:05:00* Test Item Value Reference Range Interpretation [...] Urine Source? Clean Catch- CT HEAD/BRAIN W/O [id number] 19:40:00 Name: JERRI COMBS [facility] : 1965 Age/S: 54 / M [address] [facility] Unit #: [id number] Loc: [place] [address] Phys: Gerald Zayas MD Acct: [id number] Di s Date: Status: REG ER PHONE #: Exam Date: 01/30/20201910 FAX #: [phone] Reason: Headache EXAMS: CPT CODE: [id number] CT HEAD/BRAIN W/O CONT 52257 HISTORY: Headache TECHNIQUE: Noncontrast 2.5 mm axial [...] 1 Signed Report (CONTINUED) Name: JERRI COMBS [facility] : 1965 Age/S: 54 / M [address] [facility] Unit #: [id number] Loc: [place], [place] [address] Phys: Radha Zayas MD Acct: [id number] D is Date: Status: REG ER PHONE #: [phone] Exam Date: 01/30/20201910 FAX #: [phone] Reason: Headache EXAMS: CPT CODE: [id number] CT HEAD/BRAIN W/O CONT 03960 <Continued> CC: Marcela Zayas MD Technologist:ADRIEL CURRY, RT(R) CT CTDI: DLP: Trnscb Date/Time: 01/30/2020 (1939) [email or web address].[email or web address].[email or web address] Orig Print D/T: S: 01/30/2020 (1942) PAGE 2 Signed Report CBC W/AUTO [id number] 19:30:00* Test Item Value Reference Range Interpretation [...] code = MDIFF) NO - DUP AB/PEL/SC [id number] 18:30:00 Name: JERRI COMBS [facility] : 1965 Age/S: 54 / M [address] [facility] Unit #: [id number] Loc: [place] [address] Phys: Marcela Zayas MD Acct: [id number] Dis Date: Status: PRE ER PHONE #: [phone] Exam Date: 01/30/2020 1807 FAX #: [phone] Reason: testicle pain EXAMS: CPT CODE: [id number] DUP AB/PEL/SC COMP 10998 REASON FOR EXAM: testicle pain EXAM ORDER DATE: 01/30/2020 5:11 PM Ordering: Marcela Zayas MD Attending:Marcela Zayas MD Location:[facility] PROCEDURE: - US SCROTUM AND CNTS, - [...] 1 Signed Report - US SCROTUM AND [id number] 18:30:00 Name: JERRI COMBS [facility] : 1965 Age/S: 54 / M [address] [facility] Unit #: [id number] Loc: [place] [address] Phys: Marcela Zayas MD Acct: [id number] Dis Date: Status: PRE ER PHONE #: [phone] Exam Date: 01/30/2020 1807 FAX #: [phone] Reason: testicle pain EXAMS: CPT CODE: [id number] US SCROTUM AND CNTS 96710 REASON FOR EXAM: testicle pain EXAM ORDER DATE: 01/30/2020 5:11 PM Ordering: Marcela Zayas MD Attending:Marcela Zayas MD Location:[facility] PROCEDURE: - US SCROTUM AND CNTS, - [...] (1834) Probe: PAGE 1 Signed Report CARDIAC [id number] 09:22:00<0.02 [facility] [id number] 09:22:0087[facility] PANEL 2019-11-04 09:22:0010[facility]ann[facility] [id number] 09:22:000.60[facility] [id number] 09:22:14418Hzdiemzy HermannCHEM [id number] 09:22:003.5[facility]annCHEM [id number] 09:22:57001Imgdzukr HermannCHEM [id number] 09:22:0027[facility]ann[facility] [id number] 09:22:0010.5 [facility] [id number] 09:22:008.8[facility]ann[facility] PANEL 2019-11-04 09:22:23366Exkovero HermannCHEM [id number] 09:22:001.9[facility]annCHEM [id number] 09:22:002.7[facility] [id number] 09:22:007.9[facility] [id number] 09:22:004.38[facility] [id number] 09:22:0012.2[facility] [id number] 09:22:00 37.2[facility] [id number] 09:22:0084.8[facility]annHEMATOLOGY 2019-11-04 09:22:00* Test Item Value Reference Range Interpretation Comments MCH (test code = MCH) 27.9 pg 27.0-31.0 [facility] [id number] 09:22:0032.8[facility]annHEMATOLOGY 2019-11-04 09:22:0015.5[facility] [id number] 09:22:80960Elovaasa [id number] 09:22:008.0[facility] [id number] 09:22:0056.2[facility] YiqvtauDWNMFESLDW1533-79-73 09:22:0031.2[facility] ZHUFETCHZJ8781-56-34 09:22:008.0[facility] UenrqfbGHZWKHXMKW2945-66-87 09:22:003.4 [facility] VhnjodgUHQVYXKEXQ8665-17-26 09:22:001.2[facility] HermannHEMATOLOGY 2019-11-04 09:22:004.4[facility] RikkbgqWQXLKBZPDR2164-38-85 09:22:002.5[facility] RyjzqmvFDJLEDBRFV8318-61-00 09:22:000.6[facility] GrjfootSUJNFZFCGU9623-13-66 09:22:000.3[facility] BnrpxlrFCAQDSOHOY5129-10-37 09:22:000.1[facility] PARATHYROID FIKRYUK5553-35-22 09:22:001.17[facility] HermannPARATHYROID PROFILE 2019-11-04 09:22:001.17[facility] WkdptqsTZDEUDJPLI7630-55-08 04:04:00Not Detected (11/03/19 11:04 PM)[facility] HermannCARDIAC TNPCSGM3633-85-81 21:59:00<0.02[facility] JenzkwrNPKKBJJOZG4791-78-85 20:31:0010.8[facility] SbhuoolRBLUVCRDDI2048-07-31 20:31:004.45[facility] GxnlbpxYNWMQWSPUS3403-71-78 20:31:0012.3[facility] RIPLADZOLM0929-96-13 20:31:0038.1[facility] QuzfvtnVFWINZXLYI9861-75-95 20:31:00 85.5[facility] FvctzlzXOHSKPPSII2009-06-12 20:31:00* Test Item Value Reference Range Interpretation Comments MCH (test code = MCH) 27.7 pg 27.0-31.0 [facility] RmshvoyMRLDIZDNBR2392-46-30 20:31:0032.4[facility] HermannHEMATOLOGY 2019-11-03 20:31:0015.5[facility] FtqjlsbKFWECOOHQW9874-95-15 20:31:35911Kiqjggrd TojvbtcNELGAMNQFL6228-82-26 20:31:007.9[facility] ShsztwiKBSOKSUJPI9728-42-61 20:31:00* Test Item Value Reference Range Interpretation Comments PT (test code = PT) 14.6 s 12.0-14.7 [facility] JnehurxRBMAEOWHUZ5708-54-72 20:31:00* Test Item Value Reference Range Interpretation Comments INR (test code = INR) 1.13 1 0.85-1.17 [facility] BdxgqkqSNUUOPMMML2228-86-18 20:31:002.44[facility]annHEMATOLOGY 2019-11-03 20:31:0077.4[facility] TuqlsqlIGDRXTBBEK7427-65-80 20:31:0013.3[facility] CewtexjJSORVNSEGT2086-57-97 20:31:006.5[facility] AxwluwwWJLDCYRZEF1841-01-72 20:31:001.3[facility] LxuddhtDDGKLGSHJI9110-20-41 20:31:001.5[facility] FYTGAFGBJR4883-86-86 20:31:008.4[facility] XjcatniBTRXYSPPSO2881-60-63 20:31:001.4 [facility] ZngotufJYPPWBTYHH9977-60-98 20:31:000.7[facility]annHEMATOLOGY 2019-11-03 20:31:000.1[facility] MtzuqyyFKIEVWJAWF1104-60-19 20:31:000.2[facility] GiedtijERGZISUCYD3680-19-51 20:31:00* Test Item Value Reference Range Interpretation Comments PTT (test code = PTT) 32.3 s 22.9-35.8 [facility]annCARDIAC SDEJJHL4707-88-51 19:28:0031[facility]annCARDIAC JBUKYZM3072-92-03 19:28:00<0.02[facility] HermannCARDIAC CUNGVPQ2489-57-30 19:28:62192Srgtagvx HermannCHEM XTZOV7999-77-70 19:28:0048[facility] HermannCHEM LLYEI3314-38-64 19:28:0013[facility] HermannCHEM RXUNO4813-38-37 19:28:000.61 [facility]annCHEM WZOVQ9424-63-73 19:28:59832Lpkimcgk HermannCHEM PANEL 2019-11-03 19:28:003.1[facility] HermannCHEM CRPKO3802-51-63 19:28:46031Ayjcasrz HermannCHEM KBCNM7346-05-64 19:28:0027[facility] HermannCHEM LCEKJ6407-53-09 19:28:009.1[facility] HermannCHEM ODGUB8176-86-93 19:28:007.6[facility] HermannCHEM LWAHQ6271-08-36 19:28:00* Test Item Value Reference Range Interpretation Comments B/C Ratio (test code = B/C Ratio) 21 1 6-25 [facility] HermannCHEM LMNNC3800-82-16 19:28:006.5[facility] HermannCHEM PANEL 2019-11-03 19:28:002.3[facility] HermannCHEM GRGZT8868-46-19 19:28:004.2[facility] HermannCHEM KHDBS2237-45-00 19:28:00* Test Item Value Reference Range Interpretation Comments A/G Ratio (test code = A/G Ratio) 0.5 1 0.7-1.6 [facility]annCHEM PEBYH1133-65-27 19:28:0012[facility] HermannCHEM PANEL 2019-11-03 19:28:0010[facility] HermannCHEM ICCWG6784-46-11 19:28:0060[facility] HermannCHEM GLHHK4496-98-70 19:28:000.2[facility] HermannCHEM CTWZF4802-39-77 19:28:40653Wphtxmln HermannCHEM BQDQF4549-24-76 19:28:001.4[facility] HermannCHEM PVHNU9099-67-65 19:28:002.9[facility] WvmifftNYFDEO5659-36-03 20:11:00* Test Item Value Reference Range Interpretation Comments GLUBED (test code = GLUBED) 165 mg/dL 74-106 H Performed by certified drum dyeing machine operator at [facility] PHNKZR3500-40-98 15:58:00* Test Item Value Reference Range Interpretation Comments GLUBED (test code = GLUBED) 179 mg/dL 74-106 H Performed by certified drum dyeing machine operator at [facility] SNCWDI4428-25-06 12:58:00* Test Item Value Reference Range Interpretation Comments GLUBED (test code = GLUBED) 153 mg/dL 74-106 H Performed by certified drum dyeing machine operator at [facility] EWBCOS5474-72-72 07:56:00* Test Item Value Reference Range Interpretation Comments GLUBED (test code = GLUBED) 153 mg/dL 74-106 H Performed by certified drum dyeing machine operator at [facility] BASIC METABOLIC [id number] 05:16:00* Test Item Value Reference Range Interpretation [...] CA) 8.2 mg/dL 8.5-10.1 L CBC W/AUTO [id number] 04:45:00* Test Item Value Reference Range Interpretation [...] = NRBC#) 0.00 K/mm3 0.0-0.1 N URINALYSIS JIBILABG1309-17-18 23:23:00* Test Item Value Reference Range Interpretation [...] code = OFBU) NONE NONE Urine Source? PjcdqcnoMQKSJZ7579-35-95 21:29:00* Test Item Value Reference Range Interpretation Comments GLUBED (test code = GLUBED) 187 mg/dL 74-106 H Performed by certified drum dyeing machine operator at [facility] EVTRNR1821-47-25 17:25:00* Test Item Value Reference Range Interpretation Comments GLUBED (test code = GLUBED) 161 mg/dL 74-106 H Performed by certified drum dyeing machine operator at [facility] BNFWXS5372-95-15 13:33:00* Test Item Value Reference Range Interpretation Comments GLUBED (test code = GLUBED) 149 mg/dL 74-106 H Performed by certified drum dyeing machine operator at [facility] KDZWMSZYK9419-89-48 11:11:00* Test Item Value Reference Range Interpretation Comments MAGNESIUM (test code = MAG) 1.6 mg/dL 1.8-2.4 L THHQMW9240-07-89 08:03:00* Test Item Value Reference Range Interpretation Comments GLUBED (test code = GLUBED) 153 mg/dL 74-106 H Performed by certified drum dyeing machine operator at [facility] COMPREHENSIVE METABOLIC JVJIV2619-13-64 06:09:00* Test Item Value Reference Range Interpretation [...] due to change in reagent. COMPREHENSIVE METABOLIC COPOT1395-15-95 06:03:00* Test Item Value Reference Range Interpretation [...] TOTAL (test code = ALKP) IUnit/L 45-117 KOWWCO5327-75-56 21:13:00* Test Item Value Reference Range Interpretation Comments GLUBED (test code = GLUBED) 138 mg/dL 74-106 H Performed by certified drum dyeing machine operator at [facility] GANPJJ9148-02-41 18:04:00* Test Item Value Reference Range Interpretation Comments GLUBED (test code = GLUBED) 169 mg/dL 74-106 H Performed by certified drum dyeing machine operator at [facility] KUNHRX0316-80-16 18:04:00* Test Item Value Reference Range Interpretation Comments GLUBED (test code = GLUBED) 181 mg/dL 74-106 H Performed by certified drum dyeing machine operator at [facility] FOLIC AVRW6745-01-51 09:09:00* Test Item Value Reference Range Interpretation Comments FOLIC ACID (test code = FOL) 3.1 ng/mL 3.10-17.50 N [id number] 09:09:00* Test Item Value Reference Range Interpretation Comments FERRITIN (test code = LUCHO) 306 ng/mL 8-388 N IMMUNOGLOBULINS A,G [id number] 09:09:00* Test Item Value Reference Range Interpretation Comments IMMUNOGLOBULIN G (test code = IGG) 1571 mg/dL 603-1613 IMMUNOGLOBULIN M (test code = IGM) 29 mg/dL 20-172 Performed At: [facility] [id number] Kyle L MD Ph:[phone] IMMUNOGLOBULIN A (test code = IGA) 648 mg/dL 90-386 H [id number] 07:58:00* Test Item Value Reference Range Interpretation Comments GLUBED (test code = GLUBED) 127 mg/dL 74-106 H Performed by certified drum dyeing machine operator at [facility] YMPQDA1274-89-18 20:06:00* Test Item Value Reference Range Interpretation Comments GLUBED (test code = GLUBED) 163 mg/dL 74-106 H Performed by certified drum dyeing machine [facility]~ CKHOZQ3875-52-93 16:02:00* Test Item Value Reference Range Interpretation Comments GLUBED (test code = GLUBED) 189 mg/dL 74-106 H Performed by certified drum dyeing machine operator [facility]~ HEPATITIS B HWNRFUJ7463-25-16 13:08:00* Test Item Value Reference Range Interpretation Comments AB HEPATITIS B SURFACE (test code = HBSAB) Non Reactive () Non Reactive: Inconsistent with immunity, less than 10 mIU/mL Reactive: Consistent with immunity, greater than 9.9 mIU/mLPerformed At: [facility] [address] [id number] Turner Rucker MD Ph:[phone] At: [facility] [address] [id number] Sanjai MD P [phone] AG HEPAT B SURF (test code = HBSAG) Negative Negative HEPATITIS B CORE ANTIBODY,TOT (test code = HBCAB) Negative Nega tive HEPATITIS B CORE ANTIBODY,IGM (test code = HBCMAB) Negative Neg ative AG HEPATITIS BE (test code = HBEAG) Negative Negative AB HEPATITIS BE (test code = HBEAB) Negative Negative [id number] 12:03:00* Test Item Value Reference Range Interpretation Comments GLUBED (test code = GLUBED) 177 mg/dL 74-106 H Performed by certified drum dyeing machine operator [facility]~ [id number] 08:09:00* Test Item Value Reference Range Interpretation Comments GLUBED (test code = GLUBED) 182 mg/dL 74-106 H Performed by certified drum dyeing machine operator [facility]~ BASIC METABOLIC [id number] 06:57:00* Test Item Value Reference Range Interpretation [...] = CA) 8.3 mg/dL 8.5-10.1 L SERUM [id number] 06:57:00* Test Item Value Reference Range Interpretation Comments SERUM IRON (test code = IRON) 51 ug/dL 50-175 N BASIC METABOLIC [id number] 06:50:00* Test Item Value Reference Range Interpretation [...] (test code = CA) mg/dL 8.5-10.1 SERUM [id number] 06:50:00* Test Item Value Reference Range Interpretation Comments SERUM IRON (test code = IRON) ug/dL 50-175 CBC W/AUTO [id number] 06:32:00* Test Item Value Reference Range Interpretation [...] DIFF REQUIRED (test code = MDIFF) NO [id number] 20:21:00* Test Item Value Reference Range Interpretation Comments GLUBED (test code = GLUBED) 176 mg/dL 74-106 H Performed by certified drum dyeing machine operator at [facility] DGTUKY5159-96-61 15:57:00* Test Item Value Reference Range Interpretation Comments GLUBED (test code = GLUBED) 194 mg/dL 74-106 H Performed by certified drum dyeing machine operator [facility]~ [id number] 12:01:00* Test Item Value Reference Range Interpretation Comments GLUBED (test code = GLUBED) 194 mg/dL 74-106 H Performed by certified drum dyeing machine operator [facility]~ FOLIC [id number] 11:27:00* Test Item Value Reference Range Interpretation Comments FOLIC ACID (test code = FOL) 3.1 ng/mL 3.10-17.50 N [id number] 11:27:00* Test Item Value Reference Range Interpretation Comments FERRITIN (test code = LUCHO) 306 ng/mL 8-388 N IMMUNOGLOBULINS A,G [id number] 11:27:00* Test Item Value Reference Range Interpretation Comments IMMUNOGLOBULIN G (test code = IGG) mg/dL IMMUNOGLOBULIN M (test code = IGM) mg/dL IMMUNOGLOBULIN A (test code = IGA) mg/dL - XR CHEST 1 [id number] 09:35:00 FAX: Wesley Benjamin MD [place]: B St: [facility] FAX: Dahiana Mensah [phone] Name: JERRI COMBS [facility] : 1965 Age/S: 54/M [address] [facility] Unit #: [id number] Loc: Isabel6 [place] [address] Phys: Dahiana De La Cruz Acct: [id number] Dis Date: Status: ADM IN PHONE #: [phone] Exam Date: 09/04/2019911 FAX #: [phone] Reason: cough EXAMS: CPT CODE: [id number] XR CHEST 1 V 13575 HISTORY: Cough. COMPARISON: August 31, 2019. Location: . No acute infiltrates, effusion or congestion. Dependent changes. Cardiomegaly. IMPRESSION: No acute infiltrates, effusion or congestion. at 0935 Reported and signed by: Sachin Belcher M.D. CC: Wesley Subramanian; Dahiana De La Cruz Technologist: Akiko ACOSTA(R); Analilia Mayer(R) Trnscrd Date/Time/By: 09/04/2019 (934) : By: [email or web address] Orig Print D/T: S: 09/04/2019 (0957) PAGE 1 Signed Report GLUBED 2019-09-04 08:08:00* Test Item Value Reference Range Interpretation Comments GLUBED (test code = GLUBED) 163 mg/dL 74-106 H Performed by certified drum dyeing machine operator [facility]~ BASIC METABOLIC [id number] 06:28:00* Test Item Value Reference Range Interpretation [...] CA) 8.5 mg/dL 8.5-10.1 N BASIC METABOLIC [id number] 06:21:00* Test Item Value Reference Range Interpretation [...] code = CA) mg/dL 8.5-10.1 CBC W/AUTO [id number] 05:41:00* Test Item Value Reference Range Interpretation [...] DIFF REQUIRED (test code = MDIFF) NO [id number] 20:14:00* Test Item Value Reference Range Interpretation Comments GLUBED (test code = GLUBED) 185 mg/dL 74-106 H Performed by certified drum dyeing machine operator at [facility] [id number] 15:59:00* Test Item Value Reference Range Interpretation Comments GLUBED (test code = GLUBED) 175 mg/dL 74-106 H Performed by certified drum dyeing machine operator at [facility] [id number] 11:49:00* Test Item Value Reference Range Interpretation Comments GLUBED (test code = GLUBED) 150 mg/dL 74-106 H Performed by certified drum dyeing machine operator at [facility] [id number] 07:53:00* Test Item Value Reference Range Interpretation Comments GLUBED (test code = GLUBED) 118 mg/dL 74-106 H Performed by certified drum dyeing machine operator at [facility] BASIC METABOLIC [id number] 06:19:00* Test Item Value Reference Range Interpretation [...] CA) 8.3 mg/dL 8.5-10.1 L BASIC METABOLIC [id number] 06:13:00* Test Item Value Reference Range Interpretation [...] code = CA) mg/dL 8.5-10.1 AB HEPATITIS [id number] 06:08:00* Test Item Value Reference Range Interpretation Comments AB HEPATITIS C (test code = HCVAB) <0.1 0.0-0.9 INFCE Result Units: s/co ratio Negative: < 0.8 Indeterminate: 0.8 - 0.9 Positive: > 0.9 The CDC recommends that a positive HCV antibody result be followed up with a HCV Nucleic Acid Amplification test (955570).Performed At: [facility] [address] [id number] Turner Rucker MD Ph:[phone] CBC W/AUTO [id number] 06:01:00* Test Item Value Reference Range Interpretation [...] DIFF REQUIRED (test code = MDIFF) NO [id number] 21:20:00* Test Item Value Reference Range Interpretation Comments GLUBED (test code = GLUBED) 161 mg/dL 74-106 H Performed by certified drum dyeing machine operator at [facility] [id number] 16:31:00* Test Item Value Reference Range Interpretation Comments GLUBED (test code = GLUBED) 151 mg/dL 74-106 H Performed by certified drum dyeing machine operator at [facility] COMPREHENSIVE METABOLIC [id number] 16:08:00* Test Item Value Reference Range Interpretation [...] due to change in reagent. KAPPA LAMBDA [id number] 16:08:00* Test Item Value Reference Range Interpretation Comments KAPPA CHAINS (FLOW) (test code = KAPPA) 106.3 mg/L 3.3-19.4 A LAMBDA CHAINS (FLOW) (test code = LAMBDA) 34.1 mg/L 5.7-26.3 A KAPPA/LAMBDA RATIO (test code = GUSTAVO/GEORGE) 3.12 0.26-1.65 A Performed At: DA [facility] [address] [facility] [address] [place], [place] [id number] CN MD Ph:[phone] [id number] 11:56:00* Test Item Value Reference Range Interpretation Comments GLUBED (test code = GLUBED) 157 mg/dL 74-106 H Performed by certified drum dyeing machine operator at [facility] COMPREHENSIVE METABOLIC [id number] 10:04:00* Test Item Value Reference Range Interpretation [...] due to change in reagent. COMPREHENSIVE METABOLIC [id number] 09:57:00* Test Item Value Reference Range Interpretation [...] code = ALKP) IUnit/L 45-117 UR PROTEIN/CREATININE [id number] 08:35:00* Test Item Value Reference Range Interpretation [...] 0.35 RATIO 0.0-0. 20 H UR PROTEIN/CREATININE [id number] 08:31:00* Test Item Value Reference Range Interpretation [...] (test code = P/CRATIO) RATIO 0.0-0. 20 [id number] 07:53:00* Test Item Value Reference Range Interpretation Comments GLUBED (test code = GLUBED) 130 mg/dL 74-106 H Performed by certified drum dyeing machine operator at [facility] [id number] 20:23:00* Test Item Value Reference Range Interpretation Comments GLUBED (test code = GLUBED) 169 mg/dL 74-106 H Performed by certified drum dyeing machine operator at [facility] - US RETRO [id number] 18:39:00 Name: JERRI COMBS [facility] : 1965 Age/S: 54 / M [address] [facility] Unit #: [id number] Loc: [place] [address] Phys: Jovanna Sellers MD Acct: [id number] Dis Date: Status: ADM IN PHONE #: [phone] Exam Date: 09/01/20191819 FAX #: [phone] Reason: brennon EXAMS: CPT CODE: [id number] US RETRO LTD [address]13 REASON FOR EXAM: brennon EXAM ORDER DATE: 09/01/2019 11:18 AM Ordering: Jovanna Sellers MD Attending:Wesley Subramanian MD Location:[facility] PROCEDURE: - US RETRO LTD FINDINGS: The [...] 09/01/2019 (1841) Probe: PAGE 1 Signed Report [id number] 17:52:00* Test Item Value Reference Range Interpretation Comments GLUBED (test code = GLUBED) 150 mg/dL 74-106 H Performed by certified drum dyeing machine operator at [facility] COMPREHENSIVE METABOLIC [id number] 13:56:00* Test Item Value Reference Range Interpretation [...] due to change in reagent. KAPPA LAMBDA [id number] 13:56:00* Test Item Value Reference Range Interpretation Comments KAPPA CHAINS (FLOW) (test code = KAPPA) LAMBDA CHAINS (FLOW) (test code = LAMBDA) KAPPA/LAMBDA RATIO (test code = GUSTAVO/GEORGE) RATIO [id number] 13:47:00* Test Item Value Reference Range Interpretation Comments GLUBED (test code = GLUBED) 152 mg/dL 74-106 H Performed by certified drum dyeing machine operator at [facility] [id number] 13:19:00* Test Item Value Reference Range Interpretation Comments GLUBED (test code = GLUBED) 107 mg/dL 74-106 H Performed by certified drum dyeing machine operator at [facility] - PULM VENT PERF [id number] 12:25:00 FAX: Azael Marie NP [phone] [place]: St: ADM FAX: Wesley Benjamin MD Name: JERRI COMBS [facility] : 1965 Age/S: 54/M [address] [facility] Unit #: [id number] Loc: V.4036 [place] [address] Phys: Azael Gómez DIRECTOR INSTRUCTIONAL MATERIAL Acct: [id number] Dis Date: Status: ADM IN PHONE #: [phone] Exam Date: 09/01/2019 1131 FAX #: [phone] Reason: elevated d-dimer/NH r esident/debility EXAMS: CPT CODE: [id number] PULM VENT PERF IMAG 07219 HISTORY: elevated d-dimer/NH resident/debility EXAM: NUCLEAR PULMONARY [...] 09/01/2019 (04 30) PAGE 1 Signed Report [id number] 12:09:00* Test Item Value Reference Range Interpretation Comments GLUBED (test code = GLUBED) 157 mg/dL 74-106 H Performed by certified drum dyeing machine operator at [facility] COMPREHENSIVE METABOLIC [id number] 08:38:00* Test Item Value Reference Range Interpretation Comments SODIUM (test code = NA) 142 mmol/L 136-145 N POTASSIUM (test code = K) 6.4 mmol/L 3.5-5.1 [facility] sults called to [place] [address] by Float: [place].LAB.3 09/01/19 0838Critical results verified and read back [...] reference range due to change in reagent. [id number] 08:38:00* Test Item Value Reference Range Interpretation Comments MAGNESIUM (test code = MAG) 2.1 mg/dL 1.8-2.4 N THYROID STIMULATING [id number] 08:38:00* Test Item Value Reference Range Interpretation Comments THYROID STIMULATING HORMONE (test code = TSH) 2.850 uIU/mL 0.36-3.7 4 N TSH REFERENCE RANGES: EUTHYROID: 0.35 - 4.3 mIU/mL HYPO : > 5.5 mIU/mL HYPER : < 0.35 mIU/mL [id number] 08:38:00* Test Item Value Reference Range Interpretation Comments TROPONIN-I (test code = TROPI) <0.015 ng/mL 0-0.045 N COMPREHENSIVE METABOLIC [id number] 07:56:00* Test Item Value Reference Range Interpretation [...] TOTAL (test code = ALKP) IUnit/L 45-117 [id number] 07:56:00* Test Item Value Reference Range Interpretation Comments MAGNESIUM (test code = MAG) mg/dL 1.8-2.4 THYROID STIMULATING [id number] 07:56:00* Test Item Value Reference Range Interpretation Comments THYROID STIMULATING HORMONE (test code = TSH) uIU/mL 0.36-3.7 4 [id number] 07:56:00* Test Item Value Reference Range Interpretation Comments TROPONIN-I (test code = TROPI) <0.015 ng/mL 0-0.045 N PROTHROMBIN [id number] 07:47:00* Test Item Value Reference Range Interpretation [...] heart valves (2.5-3.5) IS PATIENT ON ANTICOAGULANTS? [id number] 07:47:00* Test Item Value Reference Range Interpretation Comments D-DIMER (test code = DDIMER) 1115.00 ng/mLFEU 0-500 HH Results called to [employer] AUL1855gg V.LAB.OA 09/01/19 0747Critical results verified and read [...] - IS PATIENT ON ANTICOAGULANTS? NCBC W/AUTO [id number] 07:18:00* Test Item Value Reference Range Interpretation [...] DIFF REQUIRED (test code = MDIFF) NO [id number] 20:42:00* Test Item Value Reference Range Interpretation Comments GLUBED (test code = GLUBED) 133 mg/dL 74-106 H Performed by certified drum dyeing machine operator at [facility] [id number] 17:32:00* Test Item Value Reference Range Interpretation Comments GLUBED (test code = GLUBED) 86 mg/dL 74-106 N Performed by certified drum dyeing machine operator at [facility] - CT CHEST W/O [id number] 14:38:00 Name: JERRI COMBS [facility] : 1965 Age/S: 54 / M [address] [facility] [id number] Loc: [place] [address] Phys: Bonifacio Tee MD Acct: [id number] Dis Date: Status: ADM IN PHONE #: [phone] Exam Date: 08/31/2019 1400 FAX #: [phone] Reason: hypoxia EXAMS: CPT CODE: [id number] CT CHEST W/O CONTRAST 55715 REASON FOR EXAM: hypoxia EXAM ORDER DATE: [...] 1 Signed Report (CONTINUED) Name: JERRI COMBS [facility] : 1965 Age/S: 54 / M [address] [facility] Unit #: [id number] [place]: [place] [address] Phys: Bonifacio Tee MD Acct: [id number] Dis Date: Status: ADM IN PHONE #: [phone] Exam Date: 08/31/2019 1400 FAX #: [phone] Reason: hypoxia EXAMS: CPT CODE: [id number] CT CHEST W/O CONTRAST 54392 < Continued> IMPRESSION: No acute intrathoracic process. The lungs are clear other than mild subsegmental atelectasis in the lower lobes. Postsurgical changes of CABG and cholecystectomy. Location: [facility] at 1438 Reported and signed by: Rigo Falcon MD CC: Bonifacio Tee MD Technologist:Paige Altman,RT(R),CT CTDI: DLP: Trnscb Date/Time: 08/31/2019 (1438) t.SDR.RR31 Orig Print D/T: S: 08/31/2019 (3139) PAGE 2 Signed Report Coronavirus 2019 nCoV Bedside 2019-08-31 13:59:00* Test Item Value Reference Range Interpretation Comments Coronavirus 2019 nCoV Bedside (test code = [id number]) Negative Is patient requiring admission or transfer? YIndication for rapid COVID-19 testi ng: Mod Clinical SuspicionB-TYPE NATRIURETIC [id number] 13:10:00* Test Item Value Reference Range Interpretation Comments B-TYPE NATRIURETIC PEPTIDE (test code = BNP) 36.08 pgram/mL 0-100 N - XR CHEST 1 [id number] 13:00:00 FAX: Bonifacio Easley [phone] [place]: St: REG Name: JERRI HARDWICK [facility] : [birth year] Age/S: 54/M [address] [facility] Unit #: [id number] Loc: [place] [address] Phys: Bonifacio Tee MD Acct: [id number] Dis Date: Status: REG ER PHONE #: [phone] Exam Date: 08/31/2019 1250 FAX #: [phone] Reason: CODE SEPSIS EXAMS: CPT CODE: [id number] XR CHEST 1 V 93901 REASON FOR EXAM: CODE SEPSIS Exam Order [...] however the lungs are clear. Location: [facility] at 1300 Reported and signed by: Rigo Falcon MD CC: Bonifacio Tee MD Technologist: RT PAMELLA(R) Trnscrd Date/Time/By: 08/31/2019 (1300) : By: [email or web address] Orig Print D /T: S: 08/31/2019 (2433) PAGE 1 S igned Report PROCALCITONIN (PCT)2019-08-31 [...] into account the patients history. BASIC METABOLIC [id number] 12:52:00* Test Item Value Reference Range Interpretation [...] CA) 8.5 mg/dL 8.5-10.1 N HEPATIC FUNCTION [id number] 12:52:00* Test Item Value Reference Range Interpretation [...] reference range due to change in reagent. [id number] 12:52:00* Test Item Value Reference Range Interpretation Comments TROPONIN-I (test code = TROPI) <0.015 ng/mL 0-0.045 N URINALYSIS [id number] 12:48:00* Test Item Value Reference Range Interpretation [...] FEW #/LPF FEW Urine Source? Clean CatchURINALYSIS [id number] 12:47:00* Test Item Value Reference Range Interpretation [...] HPF NONE Urine Source? Clean CatchBASIC METABOLIC [id number] 12:40:00* Test Item Value Reference Range Interpretation [...] code = CA) mg/dL 8.5-10.1 HEPATIC FUNCTION [id number] 12:40:00* Test Item Value Reference Range Interpretation [...] TOTAL (test code = ALKP) IUnit/L 45-117 [id number] 12:40:00* Test Item Value Reference Range Interpretation Comments TROPONIN-I (test code = TROPI) ng/mL 0-0.045 LACTIC [id number] 12:34:00* Test Item Value Reference Range Interpretation Comments LACTIC ACID (test code = LACT) 1.5 mmol/L 0.4-1.9 N PROTHROMBIN [id number] 12:30:00* Test Item Value Reference Range Interpretation [...] (2.5-3.5) IS PATIENT ON ANTICOAGULANTS? NTHROMBOPLASTIN TIME [id number] 12:30:00* Test Item Value Reference Range Interpretation Comments THROMBOPLASTIN TIME PARTIAL (test code = PTT) 29.5 seconds 23.0-37. 0 N IS PATIENT ON ANTICOAGULANTS? NCBC W/AUTO [id number] 12:17:00* Test Item Value Reference Range Interpretation [...] NRBC#) 0.00 K/mm3 0.0-0.1 N BASIC METABOLIC [id number] 13:59:00* Test Item Value Reference Range Interpretation [...] code = CA) 8.9 mg/dL 8.5-10.1 N [id number] 13:59:00* Test Item Value Reference Range Interpretation Comments TROPONIN-I (test code = TROPI) <0.015 ng/mL 0-0.045 N - XR CHEST 1 [id number] 13:53:00 FAX: Jamie Stallings NP [phone] Everson: [address]: REG Name: JERRI HARDWICK [facility] : [birth year] 63 Age/S: 54/M [address] [facility] Unit #: [id number] Loc: [place] [address] Phys: Jamie Stallings NP Acct: [id number] Dis Date: Status: REG ER PHONE #: [phone] Exam Date: 08/28/2019 1332 FAX #: [phone] Reason: CHEST PAIN EXAMS: CPT CODE: [id number] XR CHEST 1 V 42400 REASON FOR EXAM: CHEST PAIN Exam Order [...] No acu te cardiopulmonary process. Location: [facility] Electron ically Signed by Rigo Falcon MD on 08/28/2019 at 1353 Re ported and signed by: Rigo Falcon MD CC: Jamie Stallings NP Technologist: Akiko Schmidt RT(R); Analilia Mayer(R) Trnscrd Date/Time/By: 08/28/2019 (4339) : By: [email or web address] Orig Print D/T: S: 08/28/2019 (3805) PAGE 1 Signed Report BASIC METABOLIC PANEL [...] CALCIUM (test code = CA) mg/dL 8.5-10.1 [id number] 13:47:00* Test Item Value Reference Range Interpretation Comments TROPONIN-I (test code = TROPI) ng/mL 0-0.045 CBC W/O [id number] 13:38:00* Test Item Value Reference Range Interpretation [...]
[2020-03-16] MEDS ORDERED: ONDANSETRON HCL INJ 2MG/ML 2ML 2 MG/ML VIAL ONE (17:56)
[2020-03-16] MEDS ORDERED: PIPER-TAZ 3.375 GM 50 ML ONE (17:56)
[2020-03-16] MEDS ORDERED: MORPHINE SULFATE INJ 4 MG/ML INJ 1ML ONE (17:56)
[2020-03-16] MEDS: VANCOMYCIN 750MG/NS 150ML IVPB 150 ML IV SCH (18:00)
[2020-03-16] MEDS ORDERED: ACETAMINOPHEN 325 MG TAB PO PRN (18:30)
[2020-03-16] MEDS ORDERED: METOPROLOL TARTRATE INJ 1 MG/ML VIAL IV PRN (18:30)
[2020-03-16] MEDS ORDERED: HYDRALAZINE HCL 20 MG/ML VIAL IV PRN (18:30)
[2020-03-16] MEDS ORDERED: POLYETHYLENE GLYCOL 3350 17 GM PACK PO PRN (18:30)
[2020-03-16 18:38] LABS: BASOPHILS # (AUTO) 0.1 (0.0-0.1); BASOPHILS % 0.8 % (0.0-1.0); EOSINOPHILS # (AUTO) 0.2 (0.0-0.4); HEMATOCRIT 36.8 % (38.2-49.6); HEMOGLOBIN 11.4 g/dL (14.0-18.0); LYMPHOCYTES # (AUTO) 2.6 (1.0-3.2); LYMPHOCYTES % 23.6 % (18.0-39.1); MEAN CORPUSCULAR HEMOGLOBIN 27.3 pg (28-32); MONOCYTES # (AUTO) 0.7 (0.2-0.8); MONOCYTES % 6.5 % (4.4-11.3); NEUTROPHILS # (AUTO) 7.3 (2.1-6.9); NEUTROPHILS % 66.7 % (38.7-80.0); PLATELET COUNT 513 x10e3/uL (140-360); RED BLOOD COUNT 4.18 x10e6/uL (4.3-5.7); RED CELL DISTRIBUTION WIDTH 16.8 % (11.7-14.4)
[2020-03-16 18:48] LABS: ALANINE AMINOTRANSFERASE 9 IU/L (0-55); ALBUMIN 2.4 g/dL (3.5-5.0); ALBUMIN/GLOBULIN RATIO 0.4 (0.8-2.0); ALKALINE PHOSPHATASE 74 IU/L (40-150); BLOOD UREA NITROGEN 12 mg/dL (7-26); BUN/CREATININE RATIO 16 (6-25); CALCIUM 8.3 mg/dL (8.4-10.2); CARBON DIOXIDE 29 mmol/L (22-29); CHLORIDE 101 mmol/L (98-107); CREATINE KINASE 28 IU/L (30-200); CREATININE, SERUM 0.77 mg/dL (0.72-1.25); EST GLOMERULAR FILTRATION RATE > 60 ML/MIN (60-); GLUCOSE 153 mg/dL (74-118); SODIUM 140 mmol/L (136-145)
[2020-03-16] MEDS ORDERED: PIPERACILLIN/TAZO 4.5 GM 100 ML IV ONE (18:57)
[2020-03-16 20:00] VITALS: BP 141/75
[2020-03-16 21:09] VITALS: BP 141/75
[2020-03-16] MEDS ORDERED: DEXTROSE 50% SYRINGE 50 ML IV PRN ×2 (22:30)
[2020-03-17] VITALS (8 sets, daily range): BP systolic 96–151; BP diastolic 48–86
--- NOTE | 2020-03-17 02:20 | History and Physical ---
PRIMARY CARE PHYSICIAN: Adonay Tian MD CONSULTING PHYSICIAN: Dr. Fritz Moser with Podiatry. CHIEF COMPLAINT: Gangrene, right 5th toe. HISTORY OF PRESENT ILLNESS: The patient is a 54-year-old male from [facility], who went to [facility] yesterday for his gangrenous toe, was sent back to the [facility] facility inadvertently and now directly admitted to the [facility] for elective amputation of the right 5th toe. The patient states that it was 1st noted that his toe was black on 03/15 and he states that a physician cut into it. No signs of sepsis at this point. The patient is seen in room #200 in no acute distress and without visitors. PAST MEDICAL HISTORY: Hypertension, diabetes mellitus in June 2019. He had a CVA and due to that, has left hemiparesis as well as mild aphasia, UTIs, staged chronic kidney disease, however, estimated GFR greater than 60. Depression, BPH, E. coli sepsis, insomnia, obstructive sleep apnea without use of BiPAP at home, PTSD (but no PTSD signs and symptoms since his CVA), CHF, obesity. PAST SURGICAL HISTORY: Coronary artery bypass graft 7 years ago at the [place]. FAMILY HISTORY: Mother had diabetes mellitus and lung cancer and so to his father. SOCIAL HISTORY: The patient currently lives at [facility]. However, is getting a divorce and plans to live at assisted living facility when able. He is a [place] . He denies any previous use of tobacco, alcohol, or illicit drugs. ALLERGIES: THE PATIENT STATES PENICILLIN CAUSES KELOIDS ON HIS BACK. REVIEW OF SYSTEMS: CONSTITUTIONAL: Denies fever or chills. He had intentional weight loss, in which he went from weighing 377 pounds to weighing 244 pounds. HEENT: The patient has no complaints regarding eyes, ears, nose, throat, genitourinary, psychiatric, cardiovascular, musculoskeletal, gastrointestinal, hematology/lymphatic systems. RESPIRATORY: Has a dry cough. INTEGUMENTARY: Right 5th toe is black, dry skin on his arms. GASTROINTESTINAL: Last bowel movement on 03/15. NEUROLOGIC: Left-sided weakness due to CVA. ENDOCRINE: Nondiabetic. PHYSICAL EXAMINATION: VITAL SIGNS: Temperature 98.0, pulse 70, blood pressure 141/75, respirations 20, oxygen saturation 100% on room air. Height 5 feet 11 inches, weight 244 pounds, BMI 34.02. GENERAL: Supine in bed. No acute distress. LUNGS: Clear to auscultation. Respiratory pattern even and unlabored. HEENT: EOMI. Oropharynx clear. NECK: Supple. No lymphadenopathy, thyromegaly, or JVD. CARDIOVASCULAR: Regular rate and rhythm. No murmur. ABDOMEN: Bowel sounds positive. Soft, nontender. EXTREMITIES: With no pitting edema. No clubbing, cyanosis, or signs of DVT. He does have scattered scabs on the lower extremities and dry skin at both the arms and the legs, right 5th toe is necrotic appearing. NEUROLOGIC: He is able to lift his left arm, has gross motor movement, but no fine motor movement. He is unable to move his left leg. Considerable left-sided weakness. GCS 15 and alert and oriented x4. LABORATORY DATA: WBC 10.94, hemoglobin 11.4, hematocrit 36.8, platelets 513, neutrophils 66.7%. Sodium 140, potassium 4, chloride 101, CO2 of 29, BUN 12, creatinine 0.77, estimated GFR greater than 60, glucose 153, lactic acid 1.6, calcium 8.3, total bilirubin 0.3. AST 14, ALT 9, alkaline phosphatase 74. Creatine kinase 28, CK-MB 1.1, troponin I 0.011. Total protein 7.8, albumin 2.4, globulin 5.4. Coronavirus PCR collected on 03/16 is pending. IMAGING/OTHER: No 12-lead EKG or chest x-ray is noted. ASSESSMENT AND PLAN: 1. Dry gangrene of the right 5th toe. Dr. Moser with Podiatry has been consulted. We will go ahead and order bilateral lower extremity arterial Doppler ultrasound, 12-lead EKG, echocardiogram especially considering he has a stated history of congestive heart failure. Chest x-ray, await coronavirus result. WBCs 10.94. Vital signs are stable. No signs of sepsis at this point. Lactic acid 1.6. 2. Controlled hypertension. Blood pressure 141/75. The patient's nurse has called [facility] for list of medications from there. We will await that list and resume his usual antihypertensives. 3. Controlled type 2 diabetes mellitus. Serum glucose 153. We will go ahead and start getting fingerstick blood glucose levels before meals and at bedtime and put him on a low-dose insulin sliding scale. Resume medications once list available. 4. Chronic congestive heart failure, systolic versus diastolic versus mixed. Follow up on echocardiogram results as well as chest x-ray results. 5. History of cerebrovascular accident with left hemiparesis and mild aphasia. Supportive care/stroke was in June 2019. Physical therapy eval and treat. 6. Coronary artery disease with history of coronary artery bypass graft. 7. Obstructive sleep apnea. The patient does not use BiPAP or CPAP at home. 8. Obesity with BMI 34.02. Dietary restrictions. We will put the patient on an 1800-calorie ADA diet. 9. Ambulatory dysfunction. 10. Prophylaxis. Pepcid. Inpatient, billing code [id number], time spent greater than 60 minutes. Dictated by Wolf Nobles NP Wesley Subramanian MD HWP/MODL /[id number]
[2020-03-17] MEDS ORDERED: SODIUM CHLORIDE 0.9% 250ML 250 ML ONE (05:18)
--- NOTE | 2020-03-17 05:50 | NUR ---
Pt has not voided all shift. c/o bladder fullness. bladder scan showed 450ml urine. Spoke to Tia POLANCO/ Dr. Subramanian new order to straight cath, send urine sample to lab. If patient continues to have retention will consider millard catheter insertion.
[2020-03-17 06:01] LABS: BASOPHILS # (AUTO) 0.1 (0.0-0.1); EOSINOPHILS # (AUTO) 0.2 (0.0-0.4); EOSINOPHILS % 1.9 % (0.0-6.0); HEMATOCRIT 34.2 % (38.2-49.6); HEMOGLOBIN 10.7 g/dL (14.0-18.0); LYMPHOCYTES # (AUTO) 3.1 (1.0-3.2); LYMPHOCYTES % 30.2 % (18.0-39.1); MEAN CORPUSCULAR HEMOGLOBIN 27.7 pg (28-32); MEAN CORPUSCULAR HGB CONC 31.3 g/dL (31-35); MEAN CORPUSCULAR VOLUME 88.6 fL (81-99); MONOCYTES # (AUTO) 0.8 (0.2-0.8); MONOCYTES % 7.3 % (4.4-11.3); NEUTROPHILS # (AUTO) 6.2 (2.1-6.9); NEUTROPHILS % 59.4 % (38.7-80.0); PLATELET COUNT 479 x10e3/uL (140-360); RED BLOOD COUNT 3.86 x10e6/uL (4.3-5.7); RED CELL DISTRIBUTION WIDTH 16.5 % (11.7-14.4)
[2020-03-17] MEDS: VANCOMYCIN 750MG/NS 150ML IVPB 150 ML IV SCH ×2 (06:13→17:05)
[2020-03-17 06:21] LABS: ALANINE AMINOTRANSFERASE 8 IU/L (0-55); ALBUMIN 2.3 g/dL (3.5-5.0); ALBUMIN/GLOBULIN RATIO 0.4 (0.8-2.0); ALKALINE PHOSPHATASE 69 IU/L (40-150); ANION GAP 11.5 mmol/L (8-16); BLOOD UREA NITROGEN 10 mg/dL (7-26); BUN/CREATININE RATIO 14 (6-25); CALCIUM 8.2 mg/dL (8.4-10.2); CARBON DIOXIDE 28 mmol/L (22-29); CHLORIDE 102 mmol/L (98-107); CHOL/HDL RATIO 4.7 (3.9-4.7); CHOLESTEROL 117 MD/DL (0-199); CREATININE, SERUM 0.73 mg/dL (0.72-1.25); EST GLOMERULAR FILTRATION RATE > 60 ML/MIN (60-); GLUCOSE 116 mg/dL (74-118); HDL CHOLESTEROL 25 MG/DL (40-60); LDL CHOLESTEROL 77 MG/DL (60-130); MAGNESIUM 1.9 MG/DL (1.3-2.1); PHOSPHORUS 3.1 MG/DL (2.3-4.7); POTASSIUM 3.5 mmol/L (3.5-5.1); SODIUM 138 mmol/L (136-145); TRIGLYCERIDES 77 MG/DL (0-149)
[2020-03-17 06:25] LABS: BILIRUBIN,URINE NEGATIVE (NEGATIVE); CLARITY,URINE HAZY (CLEAR); COLOR,URINE YELLOW (YELLOW); KETONES,URINE NEGATIVE (NEGATIVE); LEUKOCYTE ESTERASE ,URINE NEGATIVE (NEGATIVE); NITRITE,URINE NEGATIVE (NEGATIVE); PROTEIN,URINE DIPSTICK NEGATIVE (NEGATIVE); URINE UROBILINOGEN 0.2 mg/dL (0.2 - 1)
[2020-03-17 06:44] LABS: THYROID STIMULATING HORMONE 2.596 uIU/mL (0.350-4.940)
[2020-03-17 06:50] LABS: BACTERIA,URINE FEW /HPF; EPITHELIAL CELLS,URINE FEW /LPF; MUCUS,URINE FEW (RARE); RBC,URINE 0-5 /HPF (0-5); WBC,URINE (MAN) 0-5 /HPF (0-5)
--- NOTE | 2020-03-17 07:00 | NUR ---
RECEIVED BEDSIDE SHIFT REPORT FROM OFF GOING NIGHT NURSE. PATIENT ABLE TO VOICE NEEDS. RESPIRATIONS EVEN AND NONLABORED PATIENT IN STABLE CONDITION, NO S/S OF DISTRESS NOTED. IV SITE ASYMPTOMATIC AND PATENT, TRANSPARENT DRESSING C/D/I. BED ALARM APPLIED. BED IN LOWEST POSITION AND LOCKED, SIDE RAILS X 2, NONSKID SOCKS APPLIED. CALL LIGHT WITHIN REACH.
--- NOTE | 2020-03-17 07:13 | Diagnostic Imaging Report ---
EXAMINATION: CHEST SINGLE (PORTABLE) INDICATION: ^Facility baseline; first visit to [facility], +PMH CHF, CVA, JENNIFER ^[id number] ^[id number] ^Y COMPARISON: None FINDINGS: TUBES and LINES: None. LUNGS: Normal lung volumes. Lungs are clear. Prominent central pulmonary vasculature. PLEURA: No pleural effusion or pneumothorax. HEART AND MEDIASTINUM: Cardiac size is mildly enlarged. Surgical clips along the mediastinum. BONES AND SOFT TISSUES: No acute osseous lesion. Soft tissues are unremarkable. Sternotomy wires. UPPER ABDOMEN: No free air under the diaphragm. IMPRESSION: Mild cardiomegaly and pulmonary vascular congestion. Signed by: Ren Rodriguez DO on 03/17/2020 7:10 AM
[2020-03-17] MEDS ORDERED: INSULIN REGULAR, HUMAN 100 UNIT/1 ML 3ML VIAL SQ SCH (07:30)
[2020-03-17] MEDS: INSULIN REGULAR, HUMAN 100 UNIT/1 ML 3ML VIAL SQ SCH ×4 (07:30→20:49)
[2020-03-17] MEDS: DOCUSATE SODIUM 100 MG CAP PO SCH ×2 (09:00→17:05)
[2020-03-17] MEDS: FAMOTIDINE 20 MG/2 ML VIAL IV SCH ×2 (09:33→16:31)
[2020-03-17] MEDS: MAGNESIUM OXIDE 400 MG TAB PO SCH ×2 (09:34→17:05)
[2020-03-17] MEDS: MULTIVITAMINS/MINERALS TAB PO SCH (09:34)
[2020-03-17] MEDS: OYST-CAL-D 500MG TABLET PO SCH ×2 (09:34→17:05)
[2020-03-17] MEDS: ZINC SULFATE 220 MG CAP PO SCH ×2 (09:35→17:05)
[2020-03-17] MEDS: ASCORBIC ACID 500 MG TAB PO SCH ×2 (09:35→17:05)
[2020-03-17] MEDS ORDERED: TAMSULOSIN HCL 0.4 MG CAP PO NR (11:30)
--- NOTE | 2020-03-17 11:36 | Progress Note ---
DATE: CONSULTING PHYSICIANS: 1. Dr. Fritz Moser. 2. Dr. Cuate Sotelo with Urology. SUBJECTIVE: The patient has no new complaints except difficulty to void. He had urinary retention last night with 450 mL obtained during straight cath. After the straight catheterization, the patient is still having difficulty voiding. PHYSICAL EXAMINATION: VITAL SIGNS: Temperature 98.1, pulse 70, blood pressure 137/53, respirations 20, oxygen saturation 97%. GENERAL: The patient is sitting on the edge of the bed with support from physical therapy. He is in the process of working with physical therapy now. No acute distress. LUNGS: Clear to auscultation. Respiratory pattern even and unlabored. HEENT: EOMI. NECK: Supple. CARDIOVASCULAR: Regular rate and rhythm. No murmur. ABDOMEN: Bowel sounds positive. Soft, nontender. EXTREMITIES: No pitting edema. No clubbing, cyanosis, or signs of DVT. Scattered scabs noted on bilateral lower extremities and dry skin in both arms and the legs. Right 5th toe is necrotic appearing. NEUROLOGIC: GCS 15. Awake, alert, oriented x4. He has gross motor movement of the left upper extremity, but no fine motor movement. LABORATORY DATA: WBC 10.34, hemoglobin 10.7, hematocrit 34.2, platelets 479, neutrophils 59.4. Sodium 138, potassium 3.5, chloride 102, CO2 28, BUN 10, creatinine 0.73, estimated GFR greater than 60, glucose 116. Hemoglobin A1c 6.4%, calcium 8.2, phosphorus 3.1, magnesium 1.9, total bilirubin 0.4, AST 10, ALT 8, alkaline phosphatase 69, total protein 7.8, albumin 2.3, globulin 5.5, triglyceride 77, cholesterol 117, LDL 77, HDL 25, TSH 2.596. Urinalysis obtained this morning via straight catheterization showed hazy clarity, pH 6, urine specific gravity greater than or equal to 1.03. Negative nitrite, negative leukocyte esterase, few epithelial cells, few bacteria, few mucus. Coronavirus PCR collected on 03/16 remains pending. IMAGING/OTHER: Chest x-ray today showed mild cardiomegaly and pulmonary vascular congestion. A 12-lead EKG and echocardiogram have been ordered, not yet done. ASSESSMENT AND PLAN: 1. Dry gangrene of the right 5th toe. Podiatry to follow. We will await results of bilateral lower extremity arterial Doppler ultrasound, 12-lead EKG and echocardiogram. WBCs 10.3 (10.94), lactic acid was 1.6. No signs of sepsis at this point. Blood pressure stable at 137/53. Denies chills. Afebrile. 2. We will enter an order for PICC line to be placed as patient will likely require IV antibiotics for some time after probable amputation. 3. New onset urinary retention 450 mL noted on bladder scan. Per RN, 450 mL of urine obtained during straight catheterization. Orders entered for Urology consult. The patient may need an indwelling Murillo catheter. The patient was on tamsulosin at [facility], we will renew this. 4. Controlled hypertension 137/53. 5. Controlled type 2 diabetes mellitus. Serum glucose 116. Hemoglobin A1c 6.4%. Monitor fingerstick blood glucose levels. Continue regular insulin sliding scale at low dose. 6. Chronic congestive heart failure, systolic versus diastolic versus mixed. We will await results of echocardiogram. Resume home dose of carvedilol 12.5 mg. mild cardiomegaly and pulmonary vascular congestion noted on chest x-ray. 7. History of cerebrovascular accident with left hemiparesis and mild aphasia. The patient's stroke was in June 2019. Physical Therapy evaluation and treat. 8. Coronary artery disease with history of coronary artery bypass graft. We will resume home dose of Plavix. 9. Hyperlipidemia. Resume home dose of atorvastatin 80 mg daily. 10. Obstructive sleep apnea. The patient does not use CPAP or BiPAP at home. 11. Obesity with BMI of 34.02. Dietary restrictions. Continue 1800 calorie ADA diet. 12. Ambulatory dysfunction. 13. Prophylaxis. Pepcid. Inpatient, billing code [id number], time spent greater than 35 minutes. Dictated by Wolf Nobles NP Wesley Subramanian MD HWP/MODL /[id number]
[2020-03-17] MEDS: CARVEDILOL 12.5 MG TAB PO SCH (12:01)
[2020-03-17] MEDS: AMIODARONE HCL 200 MG TAB PO SCH (12:01)
[2020-03-17] MEDS: SERTRALINE HCL 50 MG TAB PO SCH (12:02)
[2020-03-17] MEDS: DULOXETINE HCL 30 MG DELAYED RELEASE PO SCH (12:02)
[2020-03-17] MEDS: FAMOTIDINE 20 MG TAB PO SCH (12:02)
[2020-03-17] MEDS: BACLOFEN 10 MG TAB PO SCH (12:02)
[2020-03-17] MEDS: CLOPIDOGREL BISULFATE 75 MG TAB PO SCH (12:02)
--- NOTE | 2020-03-17 13:17 | NUR ---
PATIENT VOIDED INTO URINAL 400 CC JARETH COLORED URINE, BLADDER SCANNED 22 CC LEFT IN BLADDER.
[2020-03-17] MEDS: MINERAL OIL/PETROLAT/GLYCERI 8OZ LOTN TOP SCH (17:00)
--- NOTE | 2020-03-17 18:01 | NUR ---
PATIENT VOIDED INTO [id number] CC JARETH COLORED URINE, BLADDER SCANNED 34 CC LEFT IN BLADDER.
--- NOTE | 2020-03-17 19:10 | NUR ---
COMPLETED BEDSIDE SHIFT REPORT AND ROUNDING WITH ON COMING NIGHT NURSE. PATIENT ABLE TO VOICE NEEDS. RESPIRATIONS EVEN AND NONLABORED PATIENT IN STABLE CONDITION, NO S/S OF DISTRESS NOTED. IV SITE ASYMPTOMATIC AND PATENT, TRANSPARENT DRESSING C/D/I. BED ALARM APPLIED. BED IN LOWEST POSITION AND LOCKED, SIDE RAILS X 2, NONSKID SOCKS APPLIED. CALL LIGHT WITHIN REACH.
--- NOTE | 2020-03-17 19:10 | NUR ---
patient received awake, alert, lying quietly in bed. no c/o pain noted. dressing to right foot c,d,i. pm assessment complete. call segura placed within reach. patient instructed to call for assistance when needed.
[2020-03-17] MEDS: ATORVASTATIN 20 MG TAB PO SCH (21:00)
[2020-03-17] MEDS: TAMSULOSIN HCL 0.4 MG CAP PO SCH (21:00)
[2020-03-17] MEDS: TEMAZEPAM 15 MG CAP PO PRN (21:24)
[2020-03-18] VITALS (7 sets, daily range): BP systolic 112–169; BP diastolic 70–86
[2020-03-18] MEDS: VANCOMYCIN 750MG/NS 150ML IVPB 150 ML IV SCH ×2 (05:25→17:54)
[2020-03-18 05:54] LABS: BASOPHILS # (AUTO) 0.1 (0.0-0.1); BASOPHILS % 1.1 % (0.0-1.0); EOSINOPHILS # (AUTO) 0.2 (0.0-0.4); EOSINOPHILS % 2.6 % (0.0-6.0); HEMATOCRIT 33.9 % (38.2-49.6); HEMOGLOBIN 10.8 g/dL (14.0-18.0); LYMPHOCYTES % 31.4 % (18.0-39.1); MEAN CORPUSCULAR HEMOGLOBIN 28.1 pg (28-32); MEAN CORPUSCULAR HGB CONC 31.9 g/dL (31-35); MEAN CORPUSCULAR VOLUME 88.1 fL (81-99); MONOCYTES # (AUTO) 0.6 (0.2-0.8); MONOCYTES % 6.7 % (4.4-11.3); NEUTROPHILS # (AUTO) 5.4 (2.1-6.9); NEUTROPHILS % 57.9 % (38.7-80.0); PLATELET COUNT 460 x10e3/uL (140-360); RED BLOOD COUNT 3.85 x10e6/uL (4.3-5.7); RED CELL DISTRIBUTION WIDTH 16.5 % (11.7-14.4)
[2020-03-18 06:18] LABS: ANION GAP 11.8 mmol/L (8-16); BLOOD UREA NITROGEN 10 mg/dL (7-26); BUN/CREATININE RATIO 15 (6-25); CALCIUM 8.4 mg/dL (8.4-10.2); CARBON DIOXIDE 29 mmol/L (22-29); CHLORIDE 103 mmol/L (98-107); CREATININE, SERUM 0.67 mg/dL (0.72-1.25); EST GLOMERULAR FILTRATION RATE > 60 ML/MIN (60-); GLUCOSE 145 mg/dL (74-118); POTASSIUM 3.8 mmol/L (3.5-5.1); SODIUM 140 mmol/L (136-145)
[2020-03-18] MEDS: INSULIN REGULAR, HUMAN 100 UNIT/1 ML 3ML VIAL SQ SCH ×4 (07:30→21:00)
[2020-03-18] MEDS: DOCUSATE SODIUM 100 MG CAP PO SCH ×2 (08:39→17:00)
[2020-03-18] MEDS: FAMOTIDINE 20 MG/2 ML VIAL IV SCH (08:39)
[2020-03-18] MEDS: AMIODARONE HCL 200 MG TAB PO SCH (08:40)
[2020-03-18] MEDS: CARVEDILOL 12.5 MG TAB PO SCH (08:40)
[2020-03-18] MEDS: DULOXETINE HCL 30 MG DELAYED RELEASE PO SCH (08:40)
[2020-03-18] MEDS: MULTIVITAMINS/MINERALS TAB PO SCH (08:41)
[2020-03-18] MEDS: SERTRALINE HCL 50 MG TAB PO SCH (08:41)
[2020-03-18] MEDS: OYST-CAL-D 500MG TABLET PO SCH ×2 (08:41→17:00)
[2020-03-18] MEDS: MAGNESIUM OXIDE 400 MG TAB PO SCH ×2 (08:41→17:00)
[2020-03-18] MEDS: CLOPIDOGREL BISULFATE 75 MG TAB PO SCH (08:41)
[2020-03-18] MEDS: BACLOFEN 10 MG TAB PO SCH (08:41)
[2020-03-18] MEDS: ZINC SULFATE 220 MG CAP PO SCH ×2 (08:41→17:00)
[2020-03-18] MEDS: ASCORBIC ACID 500 MG TAB PO SCH ×2 (08:41→17:00)
[2020-03-18] MEDS: FAMOTIDINE 20 MG TAB PO SCH (08:42)
[2020-03-18] MEDS: MINERAL OIL/PETROLAT/GLYCERI 8OZ LOTN TOP SCH ×2 (12:26→17:00)
--- NOTE | 2020-03-18 18:57 | Progress Note ---
DATE: 03/18/2020 CONSULTING PHYSICIANS: 1. Cuate Sotelo MD with Urology. 2. Fritz Moser DPM with Podiatry. 3. Garfield Song MD with Cardiology. SUBJECTIVE: The patient has no new complaints. He still has difficulty voiding and a blackened right 5th toe. OBJECTIVE: VITAL SIGNS: Temperature 98.3, pulse 72, blood pressure 169/86, respirations 20, oxygen saturation 100%. Intake and output 840 mL in, 1075 mL out. GENERAL: Supine in bed. No acute distress. LUNGS: Clear to auscultation. Respirations even and nonlabored. No supplemental oxygen. HEENT: EOMI. NECK: Supple. CARDIOVASCULAR: Regular rate and rhythm without murmur. The patient has a right upper extremity mid line. ABDOMEN: Bowel sounds positive. Soft, nontender, obese. EXTREMITIES: Without pitting edema. No clubbing, cyanosis, or signs of DVT. Scattered scabs noted on bilateral lower extremities and dry skin to both arms and legs. Right 5th toe is necrotic appearing. NEUROLOGIC: GCS 15. Oriented x4. Gross motor movement of the left upper extremity, but no fine motor movement. LABORATORY DATA: WBC 9.39, hemoglobin 10.8, hematocrit 33.9, platelets 460. Sodium 140, potassium 3.8, chloride 103, CO2 29, BUN 10, creatinine 0.67, estimated GFR greater than 60, glucose 145, calcium 8.4. Fingerstick blood glucose levels 136, 132, 177, 179. IMAGING/OTHER: 03/17 chest x-ray showed mild cardiomegaly and pulmonary vascular congestion. Preliminary echocardiogram showed ejection fraction 32%. We will await final results. Bilateral arterial Doppler ultrasound showed possible evidence of significant arterial stenosis, left SUPERVISOR RESIDENTIAL. 12-lead EKG done on 03/17 showed normal sinus rhythm with a heart rate of 75. ASSESSMENT AND PLAN: 1. Dry gangrene to the right 5th toe. Podiatry to follow. Await final results of bilateral lower extremity arterial Doppler ultrasound. 2. WBCs 9.39 (10.34). Afebrile. Denies chills. Mid line has been placed. Continue IV vancomycin and vancomycin trough with every third dose. Cardiology consulted for possible peripheral arterial disease intervention, for uncontrolled hypertension and to eval congestive heart failure. 3. New onset urinary retention. Urology consult pending. Flomax from [facility] resumed. 4. Uncontrolled hypertension. Blood pressure 169/86. Continue p.r.n. metoprolol tartrate 2.5 mg IV q.6 hours p.r.n. Continue Coreg. 5. Controlled type 2 diabetes mellitus. Hemoglobin A1c 6.4%. Continue regular insulin sliding scale low dose. 6. Chronic congestive heart failure, systolic versus diastolic versus mixed. Preliminary ejection fraction 32%. We will await final results. Cardiology consulted. Pulmonary vascular congestion noted on chest x-ray. Continue to monitor chest x-ray results and continue Coreg. 7. History of cerebrovascular accident with left hemiparesis and mild aphasia. PT eval and treatment. RN to call Dr. Moser with Podiatry to clarify weightbearing status. At this point, unsure if it is best that he be strict partial weightbearing with postoperative shoe or weightbearing as tolerated with postoperative shoe. 8. Coronary artery disease with history of coronary artery bypass graft. Plavix resumed. Possible significant arterial stenosis, left SUPERVISOR RESIDENTIAL. 9. Hyperlipidemia. Home dose of the atorvastatin 80 mg daily. 10. Obstructive sleep apnea. No use of CPAP or BiPAP at home. 11. Obesity with BMI of 34.02. Dietary restrictions, continue 1800 calorie ADA diet. 12. Ambulatory dysfunction. 13. Prophylaxis. Pepcid. Inpatient, billing code [id number], time spent greater than 35 minutes. Dictated by Wolf Nobles NP Wesley Subramanian MD HWP/MODL /[id number]
--- NOTE | 2020-03-18 20:30 | NUR ---
Dr. Moser here to see patient. new orders noted.
--- NOTE | 2020-03-18 20:39 | NUR ---
3 view x ray right foot complete per orders.
[2020-03-18] MEDS: TAMSULOSIN HCL 0.4 MG CAP PO SCH (21:00)
[2020-03-18] MEDS: ATORVASTATIN 20 MG TAB PO SCH (21:00)
--- NOTE | 2020-03-18 21:15 | NUR ---
patient received awake, alert, lying quietly ion bed. vss. no c/o pain noted. pm assessment complete. call segura placed within reach. patient instructed to call for assistance when needed. Addendum: 03/18/20 at 2151 by April Walker RN wrong time....1914 not 2151
[2020-03-18] MEDS: TEMAZEPAM 15 MG CAP PO PRN (21:20)
--- NOTE | 2020-03-18 23:06 | Diagnostic Imaging Report ---
X-ray right foot 3 views HISTORY: Pain. COMPARISON: None available. FINDINGS: Bones: No acute displaced fracture. Osseous alignment is within normal limits. Joints: No dislocations. Degenerative changes in the foot and ankle. Soft tissues: Minimal soft tissue over the fifth toe. Vascular calcifications. Surgical clips in the ankle. IMPRESSION: Minimal soft tissue over the fifth toe, consistent with reported history of dry gangrene. No definitive radiographic evidence of osteomyelitis. Degenerative changes in the foot and ankle. Signed by: Ren Rodriguez DO on 03/18/2020 11:03 PM
[2020-03-19] VITALS (7 sets, daily range): BP systolic 134–151; BP diastolic 62–86
--- NOTE | 2020-03-19 02:04 | Consultation ---
DATE OF CONSULTATION: 03/18/2020 REASON FOR CONSULTATION: Gangrene with the patient being diabetic with cellulitis of the right foot. OPERATIONS MANAGER STATION: Dr. Subramanian. HISTORY OF PRESENT ILLNESS: This is a pleasant 54-year-old [place] male was seen at bedside, in no distress, relates he has had gangrenous changes for at least more than one week to the right foot. The patient is currently denying any history of fever, chills, nausea, or vomiting. PAST MEDICAL HISTORY: Remarkable for diabetes, hypertension, had a CVA, which affected his left side back in June. He is not able to move his left foot and left lower side, both including arms and feet. Has a history of insulin-dependent diabetes x18 years, hypercholesteremia, congestive heart failure. PAST SURGICAL HISTORY: Remarkable for CABG 7 years ago. ALLERGIES: TO PENICILLIN. FAMILY HISTORY: Remarkable for diabetes. SOCIAL HISTORY: Denies any smoking, drinking, or recreational drug use. Has three kids, . FAMILY HISTORY: As described. CURRENT MEDICATIONS: Note listed in chart, including IV vancomycin. REVIEW OF SYSTEMS: CARDIAC: He is denying any palpitations or arrhythmias. RESPIRATORY: Denies any shortness of breath, productive cough. GASTROINTESTINAL: Denies any diarrhea or constipation. GENITOURINARY: Denies hematuria or problems voiding. LABORATORY DATA: Labs show white blood cell count of 9.39, hemoglobin 10.8 with a platelet count of 460. PHYSICAL EXAMINATION: VITAL SIGNS: Afebrile, pulse rate 73, respirations 20, blood pressure 130/72, and O2 saturation 100%. VASCULATURE: Pedal pulses of both the DP and PT are greatly diminished to both lower extremities. NEUROLOGIC: Reveals loss of protective sensation. Muscle mass is symmetrical and wasted. Muscle strength 4/5 to all muscle groups right foot. No range of motion to the left lower extremity. DERMATOLOGICAL: Reveals gangrenous changes to the 5th toe right foot. Some cellulitis and foul smell present with cellulitis up to the mid foot. ASSESSMENT: Cellulitis, gangrene, possible osteo with peripheral arterial disease. PLAN: Dr. Lalo Sanders will be consulted. X-rays 3 views will be ordered. Dilute wet-to-dry Betadine will be done b.i.d. The patient aware of possible amputation. Level to be determined once vascular evaluation is done. TIKI Allison/CARMEN /[id number]
--- NOTE | 2020-03-19 02:30 | NUR ---
diluted betadine wet to dry dressing applied to right foot per orders.
[2020-03-19 05:14] LABS: BASOPHILS # (AUTO) 0.2 (0.0-0.1); BASOPHILS % 1.4 % (0.0-1.0); EOSINOPHILS # (AUTO) 0.3 (0.0-0.4); EOSINOPHILS % 2.9 % (0.0-6.0); HEMATOCRIT 36.1 % (38.2-49.6); HEMOGLOBIN 11.1 g/dL (14.0-18.0); LYMPHOCYTES # (AUTO) 3.2 (1.0-3.2); LYMPHOCYTES % 30.3 % (18.0-39.1); MEAN CORPUSCULAR HEMOGLOBIN 26.9 pg (28-32); MEAN CORPUSCULAR HGB CONC 30.7 g/dL (31-35); MEAN CORPUSCULAR VOLUME 87.6 fL (81-99); MONOCYTES # (AUTO) 0.9 (0.2-0.8); NEUTROPHILS % 57.1 % (38.7-80.0); PLATELET COUNT 456 x10e3/uL (140-360); RED BLOOD COUNT 4.12 x10e6/uL (4.3-5.7); RED CELL DISTRIBUTION WIDTH 16.4 % (11.7-14.4)
[2020-03-19] MEDS: VANCOMYCIN 750MG/NS 150ML IVPB 150 ML IV SCH ×2 (05:29→18:35)
[2020-03-19] MEDS: INSULIN REGULAR, HUMAN 100 UNIT/1 ML 3ML VIAL SQ SCH ×4 (08:00→22:44)
[2020-03-19] MEDS ORDERED: ONDANSETRON HCL 4 MG ORAL DISINTEGRATING TAB PO PRN (08:45)
[2020-03-19] MEDS: CARVEDILOL 12.5 MG TAB PO SCH (09:00)
[2020-03-19] MEDS: OYST-CAL-D 500MG TABLET PO SCH ×2 (09:00→17:56)
[2020-03-19] MEDS: ASCORBIC ACID 500 MG TAB PO SCH ×2 (09:00→17:56)
[2020-03-19] MEDS: DULOXETINE HCL 30 MG DELAYED RELEASE PO SCH (09:00)
[2020-03-19] MEDS: SERTRALINE HCL 50 MG TAB PO SCH (09:00)
[2020-03-19] MEDS: DOCUSATE SODIUM 100 MG CAP PO SCH ×2 (09:00→17:56)
[2020-03-19] MEDS: MINERAL OIL/PETROLAT/GLYCERI 8OZ LOTN TOP SCH ×2 (09:00→17:56)
[2020-03-19] MEDS: MAGNESIUM OXIDE 400 MG TAB PO SCH ×2 (09:00→17:56)
[2020-03-19] MEDS: CLOPIDOGREL BISULFATE 75 MG TAB PO SCH (09:00)
[2020-03-19] MEDS: AMIODARONE HCL 200 MG TAB PO SCH (09:00)
[2020-03-19] MEDS: ZINC SULFATE 220 MG CAP PO SCH ×2 (09:00→17:56)
--- NOTE | 2020-03-19 10:56 | Consultation ---
DATE OF CONSULTATION: 03/19/2020 Cardiology Consultation REQUESTING PHYSICIAN: Dr. Subramanian. REASON FOR CONSULTATION: Peripheral arterial disease. HISTORY OF PRESENT ILLNESS: This is a 54-year-old man with coronary artery disease status post CABG, chronic systolic heart failure, history of CVA with residual left hemiparesis and mild aphasia, diabetes mellitus and hypertension, who presents with gangrenous changes of the right foot. The patient reports his toes began turning black last week. He was apparently sent to [place] for further management, but was inadvertently sent back to his [facility] facility, he is therefore admitted to [facility] for amputation. During admission, he had arterial Doppler performed suggesting infrapopliteal peripheral arterial disease on the right. Cardiology is therefore consulted for further management. The patient denies any cardiac complaints. Denies chest pain, shortness of breath, palpitations, orthopnea, or PND. REVIEW OF SYSTEMS: Negative except as per HPI. PAST MEDICAL HISTORY: 1. Coronary artery disease status post CABG. 2. Chronic systolic heart failure. 3. History of CVA with residual left-sided hemiparesis and mild aphasia. 4. Diabetes mellitus. 5. Hypertension. PAST SURGICAL HISTORY: CABG seven years ago at the [place]. ALLERGIES: PLEASE SEE EMR. MEDICATIONS: Please see medication list. SOCIAL HISTORY: No tobacco, alcohol, or illicit drugs. He lives at [facility]. FAMILY HISTORY: Denies family history of cardiac disease. PHYSICAL EXAMINATION: VITAL SIGNS: Temperature 98.6 degrees, pulse 73, respiratory rate 19, blood pressure 146/62, oxygen saturation 100% on room air. GENERAL: Well-developed, well-nourished man, obese, no acute distress. HEENT: Normocephalic, atraumatic. Pupils equal. No scleral icterus. NECK: Supple. No thyroid or cervical lymphadenopathy. No carotid bruits. LUNGS: Clear to auscultation bilaterally. No wheezes or crackles. CARDIAC: Normal rate, regular rhythm. No murmur. Normal S1 and S2. ABDOMEN: Soft and nontender. EXTREMITIES: No edema. Dressing present on the right foot. LABORATORY DATA: WBC 10.58, hemoglobin 11.1, hematocrit 36.1, platelets 456. Sodium 140, potassium 3.8, chloride 103, CO2 29, BUN 10, and creatinine 0.67. Telemetry was personally reviewed and interpreted revealing normal sinus rhythm. IMPRESSION: 1. Cellulitis and gangrene of the right 5th toe. 2. Peripheral arterial disease. 3. Coronary disease status post CABG. 4. Chronic systolic heart failure. 5. Hypertension. 6. Diabetes mellitus. 7. History of cerebrovascular accident with residual left-sided weakness and mild aphagia. RECOMMENDATIONS: The patient has been made n.p.o. Plan to proceed with peripheral angiogram this afternoon for further evaluation. Continue Plavix. Continue current cardiac medications. He would benefit from addition of MELISSA inhibitor given his systolic heart failure. Add aspirin after peripheral angiogram is done. Antibiotics per primary service. Continue supportive care. Wound care per Podiatry. Thank you for this consult. We will continue to follow. Kim Sales MD ABS/MODL /[id number]
--- NOTE | 2020-03-19 14:02 | Progress Note ---
DATE: 03/19/2020 SUBJECTIVE: The patient at bedside, doing okay. Denies any history of fever, chills, nausea, or vomiting. OBJECTIVE: VITAL SIGNS: Afebrile, pulse rate 68, respirations 16, blood pressure 143/77, and O2 saturation 97%. EXTREMITIES: Has gangrenous changes with cellulitis of lateral aspect 5th metatarsophalangeal joint with pedal pulses greatly diminished to both the DP and PT bilaterally. LABORATORY DATA: Labs show white blood cell count of 10.5, hemoglobin 11.1, hematocrit 36.1 with a platelet count of 356. Blood glucose of 159. ASSESSMENT: Peripheral arterial disease, gangrene, abscess, osteomyelitis with capsulitis around the 5th metatarsophalangeal joint. PLAN: We will continue to treat conservatively with diluted wet-to-dry Betadine. Continue IV antibiotics such as vancomycin. The patient will be undergoing an angiogram, possible angioplasty today per . We will await before any definitive procedure is done. The patient aware of amputation, level to be determined following angioplasty and demarcation of foot. TIKI Allison/CARMEN /[id number]
[2020-03-19] MEDS ORDERED: HEPARIN SOD/SOD CHLORIDE 2,000 ML ONE (14:28)
[2020-03-19] MEDS ORDERED: LIDOCAINE HCL 2% LOCAL 20 ML VIAL ONE (14:28)
[2020-03-19] MEDS ORDERED: FENTANYL CITRATE/PF 100MCG/2 ML INJ ONE (14:28)
[2020-03-19] MEDS ORDERED: MIDAZOLAM HCL 2 MG/2 ML VIAL ONE (14:28)
[2020-03-19] MEDS ORDERED: SODIUM CHLORIDE 0.9% 1000ML 1,000 ML ONE (14:29)
[2020-03-19] MEDS ORDERED: IOPAMIDOL 300MG/ML 100 ML INFUS..BTL IV ONE (14:29)
[2020-03-19] MEDS ORDERED: CLOPIDOGREL BISULFATE 75 MG TAB ONE (16:24)
[2020-03-19] MEDS ORDERED: ASPIRIN 325 MG TAB ONE (16:24)
--- NOTE | 2020-03-19 17:22 | NUR ---
Patient arrived back to the floor from cath lab technologist. He is awake alert and oriented x3. Dressing to the left groin is intact, it is a little bloody but cath lab technologist nurse is at the bedside and said it is OK. Site is otherwise soft and no other bleeding. Will continue to monitor site. Pulses are doppler and have been marked per cath lab technologist nurse.
--- NOTE | 2020-03-19 17:55 | NUR ---
Dressing is saturated with blood and oozing around the site to left groin. Notified Dr. Song, orders to continue to hold pressure and continue with bed rest.
[2020-03-19] MEDS: FAMOTIDINE 20 MG TAB PO SCH (17:56)
[2020-03-19] MEDS: MULTIVITAMINS/MINERALS TAB PO SCH (17:56)
[2020-03-19] MEDS: BACLOFEN 10 MG TAB PO SCH (17:56)
--- NOTE | 2020-03-19 18:15 | NUR ---
Continues pressure held for 15 minutes, original dressing came off due to complete saturation. New dressing applied and addition pressure was held. Bleeding has slowed down, its still slowy oozing, will continue to monitor.
--- NOTE | 2020-03-19 19:20 | NUR ---
Patient received lying in bed. AAO x 3. Patient had no complaints of pain. Respirations even and non-labored. Dressing to right groin saturated with blood but no drainage outside the dressing. Will continue to apply pressure and monitor for active bleeding. Safety measures implemented. Patient instructed to call for assistance when needed. Call light within reach.
--- NOTE | 2020-03-19 19:53 | Operative Report ---
DATE OF PROCEDURE: 03/18/2020 SURGEON: Kilo Altman MD INDICATION OF PROCEDURE: Critical limb ischemia. PREPROCEDURE ASSESSMENT: The risks, benefits and the alternatives to the treatment were explained to the patient prior to the procedure. The patient was deemed to be an appropriate candidate for moderate sedation. Please see chart for informed consent which was obtained and documented prior to the procedure. MEDICATIONS: Please see nursing notes for medications administered throughout the procedure. PROCEDURES PERFORMED: 1. Abdominal aortography. 2. Bilateral lower extremity angiography. 3. Catheter placement third-order. 4. SUBSEA ENGINEER of the right anterior tibial artery ASSOCIATE PROFESSOR OF ART. 5. Ultrasound guided vascular access. 6. Femoral angiography and vascular closure device. 7. Moderate sedation time approximately 90 minutes. PROCEDURE DETAILS: The patient brought to the cardiac catheterization laboratory in a fasting state. Left groin was prepped and draped in a sterile fashion. A 5-Paraguayan sheath was inserted in the left common femoral artery using modified Seldinger technique under ultrasound guidance. Omni Flush catheter was inserted in the abdominal aorta. Abdominal aortography was performed. [place] Advantage wire was used to cross into the contralateral iliac. Omni Flush was advanced over the [place] Advantage wire into the right common femoral artery. Multiple angiographic images of the right lower extremity were taken. This demonstrated severe three vessel runoff disease [id number]. We decided to proceed with peripheral intervention to the right anterior tibial artery. The 5-Paraguayan sheath was exchanged over a [place]uma Advantage wire for a 65 cm 6-Paraguayan destination sheath. 5000 units of heparin were given to achieve therapeutic ACT. Runthrough wire was used to enter the right anterior tibial artery with the support of a Trailblazer microcatheter. Runthrough was advanced to the middle of the right anterior tibial ASSOCIATE PROFESSOR OF ART at which point it was exchanged for a Fielder XT wire, which was slowly advanced through the right anterior tibial ASSOCIATE PROFESSOR OF ART into the right dorsalis pedis artery. Teleport catheter was used to exchange the Fielder XT for a runthrough wire. Balloon angioplasty was performed initially with a 2.0 x 20 mm coronary balloon followed by 2.0 x 20 mm peripheral balloon followed by Montero 2.5/3.0 x 210 mm peripheral balloon, all at nominal pressure at 3 minute inflation. This resulted in excellent angiographic result without any residual dissection, thrombus, or spasm with straight line runoff to all the toes and the right dorsalis pedis artery. All wires and catheters are removed and sheath was pulled back into the left iliac artery and a runoff angiogram of the left lower extremity was performed. Access site was deemed to be appropriate for closure device, and ProGlide vascular closure device was deployed without difficulty. This resulted in excellent hemostasis. Aspirin and Plavix were loaded at the end of the case. The patient tolerated the procedure well. There were no immediate complications. SIGNIFICANT FINDINGS: Bilateral iliac arteries demonstrated no significant peripheral arterial disease. Abdominal aorta is without aneurysmal dilation or significant PAD. Bilateral renal arteries are widely patent. Right lower extremity DAMASCENER, SFA and deep femoral arteries demonstrated no significant obstructive CAD, mild plaquing and calcification only with luminal irregularities. Right popliteal artery shows mild plaquing without obstructed PAD. Right anterior tibial artery is a large artery proximally ASSOCIATE PROFESSOR OF ART in the midportion all the way to the dorsalis pedis artery. Peroneal artery appears to have short segment ASSOCIATE PROFESSOR OF ART in the proximal portion, has collaterals from the right anterior tibial artery that fills the mid and distal peroneal artery. Posterior tibial artery has LYN-[address] to the heel. There are two focal 70% stenoses of the right posterior tibial artery. Left lower extremity DAMASCENER, SFA and deep femoral artery demonstrate mild plaquing only with moderate calcification without significant obstructive PAD. Left SFA has mild diffuse plaquing and calcification without any obstructive PAD. There appears to be at least a two vessel runoff [id number]. Distal tibial arteries and their branches were not visualized properly due to contrast washout. GRAFTS AND IMPLANTS: ProGlide x1. SPECIMEN REMOVED: None. ESTIMATED BLOOD LOSS: 50 mL. COMPLICATIONS: None. FINAL RECOMMENDATIONS: 1. Continue aspirin 81 mg daily for life. 2. Continue Plavix 75 mg for three months. 3. Staged intervention to the right peroneal and posterior tibial arteries. 4. Follow up in the office in 2 weeks post discharge. MD AVINASH Vivas/MODL /[id number]
--- NOTE | 2020-03-19 21:00 | NUR ---
Dressing to right groin saturated with blood. Old dressing removed. Wound pressure dressing applied. Pressure held for 15 minutes. Will continue to monitor patient.
[2020-03-19] MEDS: ATORVASTATIN 20 MG TAB PO SCH (21:21)
[2020-03-19] MEDS: TAMSULOSIN HCL 0.4 MG CAP PO SCH (21:21)
[2020-03-20] VITALS (8 sets, daily range): BP systolic 113–151; BP diastolic 60–84
--- NOTE | 2020-03-20 01:00 | NUR ---
Dressing to patient's right groin actively bleeding despite holding pressure to site for [address] Song notified. stated to continue to hold pressure. Will continue to monitor.
--- NOTE | 2020-03-20 02:50 | Progress Note ---
DATE: CONSULTING PHYSICIANS: 1. Dr. Cuate Sotelo with Urology. 2. Dr. Fritz Moser with Podiatry. 3. Dr. Garfield Song with Cardiology. SUBJECTIVE: The patient has no new complaints. He still has difficulty voiding and blackened right toe. PHYSICAL EXAMINATION: VITAL SIGNS: Temperature 98.6, pulse 73, blood pressure 146/62, respirations 19, oxygen saturation 100%. GENERAL: Supine, in no distress. LUNGS: Clear to auscultation. Respiratory pattern even and unlabored. No supplemental oxygen. HEENT: EOMI. NECK: Supple. CARDIOVASCULAR: Regular rate and rhythm without murmur. Right upper extremity midline. ABDOMEN: Bowel sounds positive. Soft, obese, nontender. EXTREMITIES: No pitting edema. No clubbing, cyanosis, or signs of DVT. Scattered scabs noted on bilateral lower extremities and dry skin in both arms and legs. Right 5th toe is necrotic appearing. NEUROLOGIC: GCS 15. Oriented x4. Gross motor movement of the left upper extremity, but no fine motor movement. LABORATORY DATA: WBCs 10.58, hemoglobin 11.1, hematocrit 36.1, and platelets 456. Sodium 140, potassium 3.8, chloride 103, CO2 of 29, BUN 10, creatinine 0.67, estimated GFR greater than 60, glucose 145, calcium 8.4, chemistry is from 03/18. Fingerstick blood glucose levels today 132, 159, 139, and 179. Vancomycin trough level today 9.2. IMAGING/OTHER: Final echocardiogram report dated 03/17, shows mild concentric left ventricular hypertrophy. Overall, left ventricular systolic function moderately impaired with an ejection fraction between 35% and 40%. The diastolic filling pattern indicates impaired relaxation. ASSESSMENT AND PLAN: 1. Dry gangrene to the right 5th toe with abscess, osteomyelitis with capsulitis around the 5th metatarsophalangeal joint. Podiatry following. The patient will likely require an amputation. Continue IV antibiotic vancomycin. Vancomycin trough level within normal limits. Continue to monitor with every third dose. WBCs 10.5 (9.39). Continue wound healing medications. 2. Peripheral arterial disease with critical limb ischemia, now status post percutaneous transluminal angioplasty of the right anterior tibial artery. Cardiology following, appreciate recommendations. Continue Plavix for 3 months. Continue aspirin. Staged intervention to right peroneal and posterior tibial arteries. 3. New onset urinary retention. Urology to follow. Flomax from [facility] resumed. 4. Uncontrolled hypertension. Blood pressure 146/62 this morning showing improvement. Continue metoprolol tartrate p.r.n. and continue scheduled Coreg. Monitor BP. 5. Controlled type 2 diabetes mellitus. Hemoglobin A1c 6.4%. Continue low-dose regular insulin sliding scale. Monitor fingerstick blood glucose levels. 6. Chronic systolic and diastolic congestive heart failure with ejection fraction 35% to 40%. Echocardiogram shows impaired relaxation. Continue home dose of carvedilol. Cardiomegaly and pulmonary vascular congestion had been noted on chest x-ray. Monitor strict intake and output. Fluid restriction. 7. History of cerebrovascular accident with left hemiparesis and mild aphasia. PT eval and treat. Full weightbearing with a postoperative shoe. 8. Coronary artery disease with history of coronary artery bypass graft. Continue Plavix and aspirin. No complaints of chest pain. 9. Hyperlipidemia. Continue atorvastatin 80 mg daily per home dose. 10. Obstructive sleep apnea. No use of CPAP or BiPAP at home. 11. Ambulatory dysfunction. 12. Obesity with BMI 34.02. Dietary restrictions with 1800 calorie ADA diet. 13. Prophylaxis. Pepcid. Inpatient, billing code [id number], time spent greater than 35 minutes. Dictated by Wolf Nobles NP Wesley Subramanian MD HWP/MODL /[id number]
[2020-03-20 03:34] LABS: BASOPHILS # (AUTO) 0.1 (0.0-0.1); EOSINOPHILS # (AUTO) 0.2 (0.0-0.4); EOSINOPHILS % 2.1 % (0.0-6.0); HEMATOCRIT 30.5 % (38.2-49.6); HEMOGLOBIN 9.7 g/dL (14.0-18.0); LYMPHOCYTES # (AUTO) 2.8 (1.0-3.2); MEAN CORPUSCULAR HEMOGLOBIN 27.5 pg (28-32); MEAN CORPUSCULAR HGB CONC 31.8 g/dL (31-35); MEAN CORPUSCULAR VOLUME 86.4 fL (81-99); MONOCYTES # (AUTO) 0.7 (0.2-0.8); MONOCYTES % 7.1 % (4.4-11.3); NEUTROPHILS # (AUTO) 5.4 (2.1-6.9); NEUTROPHILS % 58.5 % (38.7-80.0); PLATELET COUNT 448 x10e3/uL (140-360); RED BLOOD COUNT 3.53 x10e6/uL (4.3-5.7); RED CELL DISTRIBUTION WIDTH 16.2 % (11.7-14.4)
--- NOTE | 2020-03-20 03:45 | NUR ---
0255 Noted bleeding from cath site on left groin. 0310 Pressure held for 15 minutes and bleeding continues. Continue to hold pressure. 0325 Pressure held for 30 minutes, no bleeding noted at this time. Pressure dressing applied and 5lb wt applied to site. Patient alert, v/s 144/84, 72, 20 RR, 100% RA, temp 97.6. Will continue to monitor closely. Nurse notified.
[2020-03-20 03:50] LABS: ALANINE AMINOTRANSFERASE 7 IU/L (0-55); ALBUMIN 2.1 g/dL (3.5-5.0); ALBUMIN/GLOBULIN RATIO 0.4 (0.8-2.0); ALKALINE PHOSPHATASE 64 IU/L (40-150); ANION GAP 7.7 mmol/L (8-16); BLOOD UREA NITROGEN 10 mg/dL (7-26); BUN/CREATININE RATIO 13 (6-25); CALCIUM 8.3 mg/dL (8.4-10.2); CARBON DIOXIDE 32 mmol/L (22-29); CHLORIDE 103 mmol/L (98-107); EST GLOMERULAR FILTRATION RATE > 60 ML/MIN (60-); GLUCOSE 166 mg/dL (74-118); POTASSIUM 3.7 mmol/L (3.5-5.1); SODIUM 139 mmol/L (136-145)
--- NOTE | 2020-03-20 03:57 | NUR ---
Wound dressing to right foot performed per MD's orders. Patient tolerated well.
--- NOTE | 2020-03-20 05:03 | NUR ---
Patient complained of not being able to void despite feeling the urge to void. A bladder scan was done recording [address] Jo Sotelo paged. awaiting call back.
[2020-03-20] MEDS: VANCOMYCIN 750MG/NS 150ML IVPB 150 ML IV SCH ×2 (05:51→18:00)
--- NOTE | 2020-03-20 06:07 | NUR ---
Dr. Sotelo called back. stated to watch patient urinate on his own. Will continue to monitor patient.
--- NOTE | 2020-03-20 06:09 | NUR ---
Patient voided 320 cc. Patient's right groin inspected. No bleeding noted. Will continue to monitor patient.
--- NOTE | 2020-03-20 07:00 | NUR ---
Patient resting comfortably. Walking rounds done. Shift report given to oncoming nurse regarding patient's status.
[2020-03-20] MEDS: INSULIN REGULAR, HUMAN 100 UNIT/1 ML 3ML VIAL SQ SCH ×5 (08:00→21:00)
--- NOTE | 2020-03-20 08:56 | Progress Note ---
DATE: 03/20/2020 SUBJECTIVE: The patient is at bedside, doing better. Denies any history of fever, chills, nausea, or vomiting. Decreased discomfort to the right lower extremity. OBJECTIVE: VITAL SIGNS: Afebrile. Pulse rate 71, respirations 19, blood pressure 150/60, O2 saturation 100%. EXTREMITIES: The patient is status post OPTICAL ADVISOR of the anterior tibial artery of the right lower extremity better. Skin temperature is warm to the touch, has gangrenous changes with foul smell noted to the 5th digit right foot with erythema proximal to the metatarsophalangeal joint. Has pain along the 5th metatarsophalangeal joint. LABORATORY DATA: Labs show white blood cell count of 9.15, hemoglobin 9.7 with a platelet count of 448. Blood glucose of 192. ASSESSMENT: Peripheral arterial disease, gangrene, abscess, cellulitis. PLAN: We will continue let the foot demarcate. Continue IV antibiotics. Continue diluted wet-to-dry Betadine. The patient will be scheduled for surgical intervention on Thursday. Definitive procedure will be decided on depending on complete foot demarcation. We will continue vancomycin. Continue local wound care. Continue offloading. We will continue to follow. TIKI Allison/CARMEN /[id number]
[2020-03-20] MEDS: MINERAL OIL/PETROLAT/GLYCERI 8OZ LOTN TOP SCH ×2 (09:00→17:00)
[2020-03-20] MEDS: DOCUSATE SODIUM 100 MG CAP PO SCH ×2 (09:00→17:00)
[2020-03-20] MEDS: CLOPIDOGREL BISULFATE 75 MG TAB PO SCH (09:09)
[2020-03-20] MEDS: CARVEDILOL 12.5 MG TAB PO SCH (09:09)
[2020-03-20] MEDS: DULOXETINE HCL 30 MG DELAYED RELEASE PO SCH (09:09)
[2020-03-20] MEDS: SERTRALINE HCL 50 MG TAB PO SCH (09:09)
[2020-03-20] MEDS: AMIODARONE HCL 200 MG TAB PO SCH (09:09)
[2020-03-20] MEDS: FAMOTIDINE 20 MG TAB PO SCH (09:09)
[2020-03-20] MEDS: BACLOFEN 10 MG TAB PO SCH (09:09)
[2020-03-20] MEDS: LISINOPRIL 2.5 MG TAB PO SCH (09:09)
[2020-03-20] MEDS: MAGNESIUM OXIDE 400 MG TAB PO SCH ×2 (09:09→17:00)
[2020-03-20] MEDS: MULTIVITAMINS/MINERALS TAB PO SCH (09:09)
[2020-03-20] MEDS: ZINC SULFATE 220 MG CAP PO SCH ×2 (09:09→17:00)
[2020-03-20] MEDS: OYST-CAL-D 500MG TABLET PO SCH ×2 (09:09→17:00)
[2020-03-20] MEDS: ASCORBIC ACID 500 MG TAB PO SCH ×2 (09:09→17:00)
--- NOTE | 2020-03-20 10:00 | NUR ---
Dressing to right foot completed
--- NOTE | 2020-03-20 13:23 | Progress Note ---
DATE: 03/20/2020 Cardiology Progress note SUBJECTIVE: The patient denies chest pain or shortness of breath. He had peripheral angiogram performed yesterday which revealed STEEL POURER of the right anterior tibial artery as well as right peroneal artery. There was focal 70% stenosis in the right posterior tibial artery. The patient had peripheral angioplasty performed of the right anterior tibial artery with successful intervention. He will need staged intervention of the right peroneal and posterior tibial arteries. PHYSICAL EXAMINATION: VITAL SIGNS: Temperature 97.8 degrees, pulse 79, respiratory rate 16, blood pressure 146/84, and oxygen saturation 100% on room air. GENERAL: Awake, alert, in no acute distress. LUNGS: Clear to auscultation bilaterally. No wheezes or crackles. CARDIOVASCULAR: Normal rate. Regular rhythm. No murmur. Normal S1, S2. ABDOMEN: Soft, nontender. EXTREMITIES: No edema. Dressing present on the right foot. CARDIAC MEDICATIONS: Lisinopril 2.5 mg p.o. daily, Plavix 75 mg p.o. daily, carvedilol 12.5 mg p.o. daily, amiodarone 200 mg p.o. daily, and atorvastatin 80 mg p.o. at bedtime. LABORATORY DATA: WBC 9.15, hemoglobin 9.7, hematocrit 30.5, and platelets 448. Sodium 139, potassium 3.7, chloride 103, CO2 of 32, BUN 10, and creatinine 0.8. TELEMETRY: Telemetry was personally reviewed and interpreted revealing normal sinus rhythm. IMPRESSION: 1. Cellulitis and gangrene of the right 5th toe. 2. Peripheral arterial disease. 3. Coronary artery disease, status post CABG. 4. Chronic systolic heart failure. 5. Hypertension. 6. Diabetes mellitus. 7. History of cerebrovascular accident with residual left-sided weakness and mild dysphagia. RECOMMENDATIONS: The patient has had peripheral angioplasty performed of the right anterior tibial artery. He will need staged intervention of his peroneal and posterior tibial arteries. However, he can proceed with surgical intervention as decided by Podiatry. Continue aspirin and Plavix. Continue optimal heart failure therapy. Antibiotics per primary service. Wound care per Podiatry. Thank you for this consult. We will continue to follow. Kim Sales MD ABS/MODL /[id number]
--- NOTE | 2020-03-20 19:22 | NUR ---
Patient received sitting up in bed. AAO x 4. Denies pain /discomfort at this time. Fall interventions implemented. Call light within reach.
[2020-03-20] MEDS: ATORVASTATIN 20 MG TAB PO SCH (20:24)
[2020-03-20] MEDS: TAMSULOSIN HCL 0.4 MG CAP PO SCH (20:24)
[2020-03-21] VITALS (8 sets, daily range): BP systolic 130–147; BP diastolic 66–76
--- NOTE | 2020-03-21 00:15 | NUR ---
Report given to Latosha COLEMAN) for continuity of care.
--- NOTE | 2020-03-21 00:30 | NUR ---
Resumed care of patient. Patient resting quietly in bed, respirations even and unlabored on room air, no s/s of distress. All safety measures in place.
--- NOTE | 2020-03-21 04:53 | NUR ---
Dressing to groin CDI, no s/s of bleeding at this time.
[2020-03-21 04:58] LABS: BASOPHILS # (AUTO) 0.1 (0.0-0.1); BASOPHILS % 1.1 % (0.0-1.0); EOSINOPHILS # (AUTO) 0.3 (0.0-0.4); EOSINOPHILS % 2.9 % (0.0-6.0); HEMATOCRIT 29.2 % (38.2-49.6); HEMOGLOBIN 9.2 g/dL (14.0-18.0); LYMPHOCYTES # (AUTO) 3.1 (1.0-3.2); LYMPHOCYTES % 34.8 % (18.0-39.1); MEAN CORPUSCULAR HEMOGLOBIN 27.6 pg (28-32); MEAN CORPUSCULAR HGB CONC 31.5 g/dL (31-35); MEAN CORPUSCULAR VOLUME 87.7 fL (81-99); MONOCYTES # (AUTO) 0.7 (0.2-0.8); MONOCYTES % 7.8 % (4.4-11.3); NEUTROPHILS # (AUTO) 4.7 (2.1-6.9); NEUTROPHILS % 53.2 % (38.7-80.0); PLATELET COUNT 416 x10e3/uL (140-360); RED BLOOD COUNT 3.33 x10e6/uL (4.3-5.7); RED CELL DISTRIBUTION WIDTH 16.2 % (11.7-14.4)
[2020-03-21 05:18] LABS: ANION GAP 8.6 mmol/L (8-16); BLOOD UREA NITROGEN 11 mg/dL (7-26); BUN/CREATININE RATIO 15 (6-25); CALCIUM 8.3 mg/dL (8.4-10.2); CARBON DIOXIDE 32 mmol/L (22-29); CHLORIDE 105 mmol/L (98-107); CREATININE, SERUM 0.71 mg/dL (0.72-1.25); EST GLOMERULAR FILTRATION RATE > 60 ML/MIN (60-); GLUCOSE 144 mg/dL (74-118); POTASSIUM 3.6 mmol/L (3.5-5.1); SODIUM 142 mmol/L (136-145)
[2020-03-21] MEDS: VANCOMYCIN 750MG/NS 150ML IVPB 150 ML IV SCH ×2 (05:50→17:00)
--- NOTE | 2020-03-21 07:00 | NUR ---
BEDSIDE SHIFT REPORT RECEIVED FROM THE TAPER AND FLOATER RN. EDUCATED PT ABOUT FALL PRECAUTIONS. PT VERBALIZED UNDERSTANDING. CALL LIGHT WITH IN EASY REACH. INSTRUCTED PT TO USE CALL LIGHT FOR ALL THE NEEDS. BED IS LOW AND LOCKED. SIDE RAILS X2. BED ALARM IS ON. ALL SAFETY MEASURES IN PLACE. PT DENIES NEEDS AT THIS TIME.
[2020-03-21] MEDS: INSULIN REGULAR, HUMAN 100 UNIT/1 ML 3ML VIAL SQ SCH ×4 (08:30→21:00)
[2020-03-21] MEDS: DOCUSATE SODIUM 100 MG CAP PO SCH ×2 (09:00→16:36)
[2020-03-21] MEDS: AMIODARONE HCL 200 MG TAB PO SCH (10:01)
[2020-03-21] MEDS: CARVEDILOL 12.5 MG TAB PO SCH (10:02)
[2020-03-21] MEDS: DULOXETINE HCL 30 MG DELAYED RELEASE PO SCH (10:03)
[2020-03-21] MEDS: MAGNESIUM OXIDE 400 MG TAB PO SCH ×2 (10:03→16:18)
[2020-03-21] MEDS: BACLOFEN 10 MG TAB PO SCH (10:03)
[2020-03-21] MEDS: FAMOTIDINE 20 MG TAB PO SCH (10:04)
[2020-03-21] MEDS: ASCORBIC ACID 500 MG TAB PO SCH ×2 (10:04→16:18)
[2020-03-21] MEDS: LISINOPRIL 2.5 MG TAB PO SCH (10:04)
[2020-03-21] MEDS: CLOPIDOGREL BISULFATE 75 MG TAB PO SCH (10:04)
[2020-03-21] MEDS: OYST-CAL-D 500MG TABLET PO SCH ×2 (10:04→16:18)
[2020-03-21] MEDS: MULTIVITAMINS/MINERALS TAB PO SCH (10:04)
[2020-03-21] MEDS: MINERAL OIL/PETROLAT/GLYCERI 8OZ LOTN TOP SCH ×2 (10:05→16:02)
[2020-03-21] MEDS: ZINC SULFATE 220 MG CAP PO SCH ×2 (10:05→16:19)
[2020-03-21] MEDS: SERTRALINE HCL 50 MG TAB PO SCH (10:05)
--- NOTE | 2020-03-21 10:07 | Progress Note ---
DATE: 03/21/2020 SUBJECTIVE: The patient at bedside, sleeping, no distress. OBJECTIVE: VITAL SIGNS: Afebrile, pulse rate 70, respirations 18, blood pressure 137/76, O2 saturation 100%. LABORATORY DATA: Noted. White blood cell count dropping to 8.87. Hemoglobin 9.2, platelet count 416 with a blood glucose of 130. Decreased cellulitis noted to the dorsal aspect right foot. Gangrenous changes overlying the 5th toe and cellulitis. Foul smell present. Cellulitis seems to be resolving to the mid foot aspect of the right lower extremity. Skin temperature warm to touch. Pedal pulses greatly diminished. ASSESSMENT: Peripheral arterial disease, gangrene, cellulitis, abscess with capsulitis on the 5th metatarsophalangeal joint. PLAN: We will continue IV antibiotics. The patient will be scheduled for surgical intervention on Thursday morning. Continue local wound care. Continue offloading. We will continue to follow. TIKI Allison/CARMEN /[id number]
[2020-03-21] MEDS: MORPHINE SULFATE 2 MG/ML SYR 1ML IV PRN (15:50)
--- NOTE | 2020-03-21 18:10 | Progress Note ---
DATE: 03/21/2020 Cardiology Progress Note SUBJECTIVE: The patient denies chest pain or shortness of breath. OBJECTIVE: VITAL SIGNS: Temperature 98.1 degrees, pulse 92, respiratory rate 18, blood pressure 133/66, and oxygen saturation 100% on room air. GENERAL: Awake, alert, in no acute distress. LUNGS: Clear to auscultation bilaterally. No wheezes or crackles. CARDIOVASCULAR: Normal rate. Regular rhythm. No murmur. Normal S1 and S2. ABDOMEN: Soft and nontender. EXTREMITIES: No edema. Dressing present on the right foot. CARDIAC MEDICATIONS: Lisinopril 2.5 mg p.o. daily, Plavix 75 mg p.o. daily, carvedilol 12.5 mg p.o. daily, amiodarone 200 mg p.o. daily, atorvastatin 80 mg p.o. at bedtime, and clopidogrel 75 mg p.o. daily. Telemetry was personally reviewed and interpreted, revealing normal sinus rhythm. IMPRESSION: 1. Cellulitis and gangrene of the right 5th toe. 2. Peripheral arterial disease, status post angioplasty of the right anterior tibial artery. 3. Coronary artery disease, status post bypass. 4. Chronic systolic heart failure. 5. Hypertension. 6. Diabetes mellitus. 7. History of cerebrovascular accident with residual left-sided weakness and mild dysphasia. RECOMMENDATIONS: The patient has had revascularization of his right anterior tibial artery. He will need staged intervention of his peroneal and posterior tibial arteries. However, he can proceed with surgical intervention as decided by Podiatry. Continue aspirin and Plavix. Continue optimal heart failure therapy. His blood pressure is well controlled. Monitor volume status closely. Antibiotics per primary service. Wound care per Podiatry. Thank you for this consult. We will continue to follow. Kim Sales MD ABS/MODL /[id number]
--- NOTE | 2020-03-21 19:12 | NUR ---
BEDSIDE SHIFT REPORT GIVEN TO THE VALVE MECHANIC RN. PT DENIED FURTHER NEEDS.
[2020-03-21] MEDS: TAMSULOSIN HCL 0.4 MG CAP PO SCH (20:44)
[2020-03-21] MEDS: TEMAZEPAM 15 MG CAP PO PRN (20:45)
[2020-03-21] MEDS: ATORVASTATIN 20 MG TAB PO SCH (20:45)
--- NOTE | 2020-03-21 21:02 | NUR ---
PT RESTING COMFORTABLY IN BED NO SIGNS OF DISTRESS NO COMPLAINTS AT THIS TIME
[2020-03-22] VITALS (8 sets, daily range): BP systolic 105–146; BP diastolic 60–78
[2020-03-22 05:07] LABS: BASOPHILS # (AUTO) 0.1 (0.0-0.1); BASOPHILS % 1.2 % (0.0-1.0); EOSINOPHILS # (AUTO) 0.3 (0.0-0.4); EOSINOPHILS % 3.3 % (0.0-6.0); HEMATOCRIT 30.5 % (38.2-49.6); HEMOGLOBIN 9.6 g/dL (14.0-18.0); LYMPHOCYTES # (AUTO) 3.7 (1.0-3.2); LYMPHOCYTES % 36.5 % (18.0-39.1); MEAN CORPUSCULAR HEMOGLOBIN 27.7 pg (28-32); MEAN CORPUSCULAR HGB CONC 31.5 g/dL (31-35); MEAN CORPUSCULAR VOLUME 87.9 fL (81-99); MONOCYTES # (AUTO) 0.8 (0.2-0.8); MONOCYTES % 8.4 % (4.4-11.3); NEUTROPHILS % 50.2 % (38.7-80.0); PLATELET COUNT 443 x10e3/uL (140-360); RED BLOOD COUNT 3.47 x10e6/uL (4.3-5.7); RED CELL DISTRIBUTION WIDTH 16.4 % (11.7-14.4)
[2020-03-22] MEDS: VANCOMYCIN 750MG/NS 150ML IVPB 150 ML IV SCH ×2 (05:24→18:10)
[2020-03-22 05:35] LABS: ANION GAP 9.8 mmol/L (8-16); BLOOD UREA NITROGEN 11 mg/dL (7-26); BUN/CREATININE RATIO 16 (6-25); CALCIUM 8.3 mg/dL (8.4-10.2); CARBON DIOXIDE 30 mmol/L (22-29); CHLORIDE 103 mmol/L (98-107); CREATININE, SERUM 0.68 mg/dL (0.72-1.25); EST GLOMERULAR FILTRATION RATE > 60 ML/MIN (60-); GLUCOSE 135 mg/dL (74-118); POTASSIUM 3.8 mmol/L (3.5-5.1); SODIUM 139 mmol/L (136-145)
--- NOTE | 2020-03-22 07:00 | NUR ---
BEDSIDE SHIFT REPORT RECEIVED FROM THE WEB APPLICATIONS PROGRAMMER RN. EDUCATED PT ABOUT FALL PRECAUTIONS. PT VERBALIZED UNDERSTANDING. CALL LIGHT WITH IN EASY REACH. INSTRUCTED PT TO USE CALL LIGHT FOR ALL THE NEEDS. BED IS LOW AND LOCKED. SIDE RAILS X2. BED ALARM IS ON. ALL SAFETY MEASURES IN PLACE. PT DENIES NEEDS AT THIS TIME.
[2020-03-22] MEDS: INSULIN REGULAR, HUMAN 100 UNIT/1 ML 3ML VIAL SQ SCH ×4 (08:30→21:00)
--- NOTE | 2020-03-22 08:30 | NUR ---
DR. NAIR AT BEDSIDE. OKAY TO GIVE BLOOD THINNERS PER DR. NAIR.
[2020-03-22] MEDS: ASCORBIC ACID 500 MG TAB PO SCH ×2 (08:47→17:07)
[2020-03-22] MEDS: CLOPIDOGREL BISULFATE 75 MG TAB PO SCH (08:47)
[2020-03-22] MEDS: OYST-CAL-D 500MG TABLET PO SCH ×2 (08:47→17:06)
[2020-03-22] MEDS: ZINC SULFATE 220 MG CAP PO SCH ×2 (08:48→17:07)
[2020-03-22] MEDS: MULTIVITAMINS/MINERALS TAB PO SCH (08:48)
[2020-03-22] MEDS: DULOXETINE HCL 30 MG DELAYED RELEASE PO SCH (08:48)
[2020-03-22] MEDS: MAGNESIUM OXIDE 400 MG TAB PO SCH ×2 (08:49→17:06)
[2020-03-22] MEDS: AMIODARONE HCL 200 MG TAB PO SCH (08:49)
[2020-03-22] MEDS: CARVEDILOL 12.5 MG TAB PO SCH (08:49)
[2020-03-22] MEDS: FAMOTIDINE 20 MG TAB PO SCH (08:50)
[2020-03-22] MEDS: LISINOPRIL 2.5 MG TAB PO SCH (08:50)
[2020-03-22] MEDS: ASPIRIN 81 MG ENTERIC COATED PO SCH (08:50)
[2020-03-22] MEDS: SERTRALINE HCL 50 MG TAB PO SCH (08:51)
[2020-03-22] MEDS: BACLOFEN 10 MG TAB PO SCH (08:51)
[2020-03-22] MEDS: DOCUSATE SODIUM 100 MG CAP PO SCH ×2 (08:52→17:00)
[2020-03-22] MEDS: MINERAL OIL/PETROLAT/GLYCERI 8OZ LOTN TOP SCH ×2 (09:00→17:07)
[2020-03-22 09:34] LABS: INR 1.06; PROTHROMBIN TIME 14.3 seconds (11.9-14.5)
--- NOTE | 2020-03-22 10:07 | Progress Note ---
DATE: 03/22/2020 SUBJECTIVE: The patient is seen at bedside, accompanied by a nurse, ready for surgical intervention. Denies any history of fever, chills, nausea, vomiting, or chest pain or shortness of breath. PHYSICAL EXAMINATION: VITAL SIGNS: Afebrile, pulse rate 76, respirations 20, blood pressure 130/60, O2 saturation 100%. LABORATORY DATA: Noted. Hemoglobin 9.6, hematocrit 30.5 with a platelet count of 443. Has a blood glucose of 142. Gangrenous changes with abscess noted to the lateral aspect of 5th metatarsophalangeal joint with erythema surrounding the 1st metatarsal head with gangrene of 5th toe right foot and foul smell. Pedal pulses diminished. ASSESSMENT: Peripheral arterial disease, osteomyelitis, gangrene with cellulitis. PLAN: The patient will be taken for surgical intervention tomorrow. N.p.o. after midnight. The proposed surgery plus risks and complications reviewed in great detail. The patient is aware if not responsive, may need a more proximal amputation, which may include a [id number] if not responsive down the road. No guarantees can be given. Surgery to be performed as I and D of right foot, amputation of 5th toe, partial resection of 5th metatarsal with rotational flap closure. CBC with diff I mean INR and PTT were ordered. Continue local wound care until tomorrow. Continue IV antibiotics. TIKI Allison/CARMEN /[id number]
[2020-03-22] MEDS: MORPHINE SULFATE 2 MG/ML SYR 1ML IV PRN ×2 (10:23→15:58)
--- NOTE | 2020-03-22 10:45 | NUR ---
TELEPHONE CONSENT RECEIVED FROM THE PT DAUGHTER YAMILET GRUBBS FOR THE PROCEDURE TOMORROW 03/22/2020. CONSENT PLACED IN THE CHART. 2 RN'S VERIFIED THE TELEPHONE CONSENT. PT IS ALSO OKAY TO DO THE PROCEDURE. PT AND DAUGHTER YAMILET GRUBBS VERBALIZED UNDERSTANDING AND DENIED FURTHER NEEDS.
--- NOTE | 2020-03-22 15:16 | NUR ---
Nutrition Screen Note RD Recommendation for Physician: -Continue current diet as ordered Plan of Care: RD following, monitoring for tolerance and adequacy Nutrition reason for involvement: length of stay Primary Diagnose(s): dry gangrene PMH: Hypertension, diabetes mellitus, left hemiparesis as well as mild aphasia, UTIs, chronic kidney disease, Depression, BPH, E. coli sepsis, insomnia, obstructive sleep apnea PTSD, CHF, obesity Ht: 71 in Wt:244 lb BMI: 34.0 kg/m2 IBW:[address] Assessment: (03/22/20) Chart reviewed. Labs and meds reviewed. Pt is a 54 year old male admitted with dry gangrene and is planned for surgical intervention tomorrow. Pt reports eating most of his meals. No weight loss reported and pt mentioned he weighs 244 lbs. No N/V/D/C or chewing/swallowing issues. Pt declined the need for diet education. Will continue to monitor. Current Diet: 1800 ADA Malnutrition Evaluation (03/22/20) The patient does not meet criteria for a specified degree of malnutrition at this time. Will re-evaluate at follow-up as appropriate. Diet Education Needs Assessment: Pt declined the need for diet education Nutrition Care Level: low Signed: Marifer Leyva, RD, LD
--- NOTE | 2020-03-22 15:44 | Progress Note ---
DATE: 03/22/2020 Cardiology Progress Note SUBJECTIVE: The patient denies chest pain or shortness of breath. He reports his exercise tolerance is limited secondary to his prior stroke. OBJECTIVE: VITAL SIGNS: Temperature 97.5 degrees, pulse 76, respiratory rate 20, blood pressure 130/60, and oxygen saturation 100% on room air. GENERAL: Awake, alert, in no acute distress. LUNGS: Clear to auscultation bilaterally. No wheezes or crackles. CARDIOVASCULAR: Normal rate. Regular rhythm. No murmur. Normal S1 and S2. ABDOMEN: Soft and nontender. EXTREMITIES: No edema. Dressing is present on the right foot. CARDIAC MEDICATIONS: Aspirin 81 mg p.o. daily, lisinopril 2.5 mg p.o. daily, carvedilol 12.5 mg p.o. daily, amiodarone 200 mg p.o. daily, Plavix 75 mg p.o. daily, and atorvastatin 80 mg p.o. at bedtime. LABORATORY DATA: WBC 9.99, hemoglobin 9.6, hematocrit 30.5, and platelets 443. Sodium 139, potassium 3.8, chloride 103, CO2 30, BUN 11, and creatinine 0.68. Telemetry was personally reviewed and interpreted, revealing normal sinus rhythm. IMPRESSION: 1. Cellulitis and gangrene of the right 5th toe. 2. Peripheral arterial disease, status post angioplasty of the right anterior tibial artery. 3. Coronary artery disease, status post bypass. 4. Chronic systolic heart failure. 5. Hypertension. 6. Diabetes mellitus. 7. History of cerebrovascular accident with residual left-sided weakness and mild dysphasia. RECOMMENDATIONS: The patient has had revascularization of his right anterior tibial artery. He will need staged intervention of his frontal and posterior tibial arteries. However, he can proceed with surgical intervention as decided by Podiatry. Continue aspirin and Plavix. Continue optimal heart failure therapy. Blood pressure is well controlled. Monitor volume status closely. Avoid volume overload during surgery. Antibiotics per primary service. Wound care per Podiatry. Thank you for this consult. We will continue to follow. Kim Sales MD ABS/MODL /[id number]
--- NOTE | 2020-03-22 18:59 | NUR ---
BEDSIDE SHIFT REPORT GIVEN TO THE PROPERTY CLAIMS ADJUSTER RN. PT DENIED FURTHER NEEDS.
[2020-03-22] MEDS: ATORVASTATIN 20 MG TAB PO SCH (21:00)
[2020-03-22] MEDS: TAMSULOSIN HCL 0.4 MG CAP PO SCH (21:00)
[2020-03-22] MEDS: TEMAZEPAM 15 MG CAP PO PRN (21:41)
--- NOTE | 2020-03-22 21:53 | NUR ---
PT RESTING COMFORTABLY IN BED NO SIGNS OF DISTRESS NO COMPLAINTS AT THIS TIME
[2020-03-23] VITALS (7 sets, daily range): BP systolic 109–156; BP diastolic 45–75
--- NOTE | 2020-03-23 01:28 | NUR ---
PT RESTING COMFORTABLY IN BED NO SIGNS OF DISTRESS NO COMPLAINTS AT THIS TIME
[2020-03-23 05:06] LABS: BASOPHILS # (AUTO) 0.1 (0.0-0.1); BASOPHILS % 1.2 % (0.0-1.0); EOSINOPHILS # (AUTO) 0.3 (0.0-0.4); EOSINOPHILS % 3.2 % (0.0-6.0); HEMATOCRIT 30.5 % (38.2-49.6); HEMOGLOBIN 9.9 g/dL (14.0-18.0); LYMPHOCYTES # (AUTO) 3.2 (1.0-3.2); LYMPHOCYTES % 38.7 % (18.0-39.1); MEAN CORPUSCULAR HGB CONC 32.5 g/dL (31-35); MEAN CORPUSCULAR VOLUME 86.4 fL (81-99); MONOCYTES # (AUTO) 0.6 (0.2-0.8); MONOCYTES % 7.5 % (4.4-11.3); NEUTROPHILS # (AUTO) 4.1 (2.1-6.9); NEUTROPHILS % 49.2 % (38.7-80.0); PLATELET COUNT 420 x10e3/uL (140-360); RED BLOOD COUNT 3.53 x10e6/uL (4.3-5.7); RED CELL DISTRIBUTION WIDTH 16.3 % (11.7-14.4)
[2020-03-23 05:24] LABS: ALANINE AMINOTRANSFERASE 7 IU/L (0-55); ALBUMIN 2.2 g/dL (3.5-5.0); ALBUMIN/GLOBULIN RATIO 0.4 (0.8-2.0); ALKALINE PHOSPHATASE 65 IU/L (40-150); ANION GAP 10.9 mmol/L (8-16); BLOOD UREA NITROGEN 12 mg/dL (7-26); BUN/CREATININE RATIO 17 (6-25); CALCIUM 8.2 mg/dL (8.4-10.2); CARBON DIOXIDE 32 mmol/L (22-29); CHLORIDE 99 mmol/L (98-107); CREATININE, SERUM 0.69 mg/dL (0.72-1.25); EST GLOMERULAR FILTRATION RATE > 60 ML/MIN (60-); GLUCOSE 134 mg/dL (74-118); POTASSIUM 3.9 mmol/L (3.5-5.1); SODIUM 138 mmol/L (136-145)
[2020-03-23] MEDS: VANCOMYCIN 750MG/NS 150ML IVPB 150 ML IV SCH ×2 (05:41→17:30)
[2020-03-23] MEDS ORDERED: BETAMETHASONE DISODIUM PHOS 6 MG/ML VIAL ONE (07:12)
[2020-03-23] MEDS ORDERED: BUPIVACAINE HCL 0.5% 10ML MPF VIAL INJ ONE (07:12)
[2020-03-23] MEDS ORDERED: LIDOCAINE HCL 1% LOCAL INJ 20 ML VIAL ONE (07:12)
[2020-03-23] MEDS ORDERED: NEOSTIGMINE 1 MG/ML 10ML VIAL ONE (07:13)
[2020-03-23] MEDS: INSULIN REGULAR, HUMAN 100 UNIT/1 ML 3ML VIAL SQ SCH ×4 (07:30→21:00)
[2020-03-23] MEDS ORDERED: VANCOMYCIN HCL 1 GM VIAL ONE (08:01)
--- NOTE | 2020-03-23 08:45 | NUR ---
Patient back from procedure. Dressing to right foot clean, dry, and intact.
[2020-03-23] MEDS: DOCUSATE SODIUM 100 MG CAP PO SCH ×2 (09:00→17:00)
--- NOTE | 2020-03-23 09:17 | Consultation ---
DATE OF CONSULTATION: 03/23/2020 PREOPERATIVE DIAGNOSES: 1. Abscess, right foot. 2. Osteomyelitis, right foot. 3. Grade 3/4 ulceration, right foot. 4. Gangrene, right foot. 5. Tailor's bunion, right foot. POSTOPERATIVE DIAGNOSES: Confirmed. OPERATIVE PROCEDURE: 1. Deep I and D down to bone, right foot. 2. Amputation, 5th toe, right foot. 3. Partial resection, 5th metatarsal, right foot. 4. Rotational flap closure, right foot. 5. Application of posterior splint, right foot. ANESTHESIA: General. HEMOSTASIS: None. PROCEDURE IN DETAIL: The patient was taken into the operating room, placed on the operating table in a supine position. Following induction of general anesthesia by the anesthesiologist, the right lower extremity was then prepped and draped in the usual aseptic manner following procedures then performed. 1. Deep I and D right foot. Attention was directed overlying the 5th metatarsophalangeal joint where a curvilinear incision was performed down to bone. Deep abscess was encountered and cultured for aerobic and anaerobic growth. 2. Amputation 5th toe right foot. Attention was then redirected back to the 5th MPJ where a racquet-shaped incision was performed surrounding the 5th toe. The 5th toe was then disarticulated at the metatarsophalangeal joint and sent for pathological analysis. Further necrosis was noted. Further I and D had to be done and remodeling of skin until good viable bleeding tissue was achieved via the use of sharp dissection. 3. Partial resection 5th metatarsal right foot, attention was directed back to the dorsal aspect of the 5th metatarsophalangeal joint where the incision was made overlying the 5th metatarsal midshaft area, carried down to bone and utilizing oscillating saw, the head of the 5th metatarsal was then resected from the operation site in toto. Further debridement had to be performed from necrotic tissue until good viable bleeding tissue achieved. 4. Rotational flap closure, the incision was then deepened plantar laterally and dorsal medially to allow for a plantar flap to allow for skin closure with minimal skin tension. All areas were then copiously flushed with sterile antibiotic solution and suction. The flap was then dorsally displaced and utilizing 2-0 Vicryl and 3-0 nylon, the flap was reapproximated with as minimal skin tension as possible. Approximately 10 mL of 0.5% plain Marcaine plus 10 mL of xylocaine plain were then used to achieve local anesthesia of above-mentioned surgical area. Sterile dressing was applied. 5. Application of posterior splint. A properly placed posterior splint was then applied keeping the foot at 90 degrees with respect to the leg to try for any type of postop complications. The patient was then transferred from the OR to recovery room with vital signs stable and neurovascular status intact. Blood loss from the surgery was less than 20 mL. No intraoperative complications were encountered. The patient will remain in the hospital for IV antibiotics for a couple of days. No guarantees or warranties can be given. If the patient does not respond, more proximal amputation may need to be done. The patient aware possible loss of limb if not responsive due to his poor circulation. TIKI Allison/CARMEN /[id number]
--- NOTE | 2020-03-23 09:25 | Diagnostic Imaging Report ---
X-ray right foot History: Postop Comparison: None Findings: The visualized right lower extremity is in a fiberglass cast that obscures the details. The patient is status post amputation of the right fifth digit beyond the mid metatarsal shaft level. Postoperative soft tissue changes are seen. Incidental findings: Vascular calcification. Surgical austyn in the distal calf possibly from venous harvest. Impression: Postop right foot as described above. Signed by: Bolivar Orourke MD on 03/23/2020 9:22 AM
[2020-03-23] MEDS: CARVEDILOL 12.5 MG TAB PO SCH (10:00)
[2020-03-23] MEDS: FAMOTIDINE 20 MG TAB PO SCH (10:00)
[2020-03-23] MEDS: MAGNESIUM OXIDE 400 MG TAB PO SCH ×2 (10:00→17:31)
[2020-03-23] MEDS: OYST-CAL-D 500MG TABLET PO SCH ×2 (10:00→17:30)
[2020-03-23] MEDS: LISINOPRIL 2.5 MG TAB PO SCH (10:00)
[2020-03-23] MEDS: MULTIVITAMINS/MINERALS TAB PO SCH (10:00)
[2020-03-23] MEDS: MINERAL OIL/PETROLAT/GLYCERI 8OZ LOTN TOP SCH ×2 (10:00→17:30)
[2020-03-23] MEDS: ZINC SULFATE 220 MG CAP PO SCH ×2 (10:00→17:30)
[2020-03-23] MEDS: SERTRALINE HCL 50 MG TAB PO SCH (10:00)
[2020-03-23] MEDS: AMIODARONE HCL 200 MG TAB PO SCH (10:00)
[2020-03-23] MEDS: BACLOFEN 10 MG TAB PO SCH (10:00)
[2020-03-23] MEDS: ASCORBIC ACID 500 MG TAB PO SCH ×2 (10:00→17:30)
[2020-03-23] MEDS: ASPIRIN 81 MG ENTERIC COATED PO SCH (10:00)
[2020-03-23] MEDS: DULOXETINE HCL 30 MG DELAYED RELEASE PO SCH (10:00)
[2020-03-23] MEDS: CLOPIDOGREL BISULFATE 75 MG TAB PO SCH (10:00)
[2020-03-23] MEDS: MORPHINE SULFATE 2 MG/ML SYR 1ML IV PRN ×3 (10:05→21:40)
--- NOTE | 2020-03-23 11:02 | NUR ---
SPOKE WITH PT AND DAUGHTER VIA PHONE IN ROOM. AGREED TO [facility], FILED CHOICE IN CHART, EDUCATED ABOUT IMM FILED IN CHART. FAXED CLINICALS TO REP TO START PROCESS FOR DISCHARGE TOMORROW.
--- NOTE | 2020-03-23 12:33 | Progress Note ---
DATE: 03/23/2020 Cardiology Progress Note SUBJECTIVE: The patient denies chest pain or shortness of breath. The patient is status post I and D as well as amputation and part of the right 5th toe and partial resection of the 5th metatarsal. OBJECTIVE: VITAL SIGNS: Temperature 97.6 degrees, pulse 80, respiratory rate 16, blood pressure 113/65, and oxygen saturation 99% on room air. GENERAL: Awake, alert, in no acute distress. LUNGS: Clear to auscultation bilaterally. No wheezes or crackles. CARDIOVASCULAR: Normal rate. Regular rhythm. No murmur. Normal S1 and S2. ABDOMEN: Soft and nontender. EXTREMITIES: No edema. Dressing is present on the right foot. CARDIAC MEDICATIONS: Aspirin 81 mg p.o. daily, lisinopril 2.5 mg p.o. daily, Plavix 75 mg p.o. daily, carvedilol 12.5 mg p.o. daily, amiodarone 200 mg p.o. daily, and atorvastatin 80 mg p.o. at bedtime. LABORATORY DATA: WBC 8.3, hemoglobin 9.9, hematocrit 30.5, and platelets 420. Sodium 138, potassium 3.9, chloride 99, CO2 32, BUN 12, and creatinine 0.69. Telemetry was personally reviewed and interpreted, revealing normal sinus rhythm. IMPRESSION: 1. Cellulitis and gangrene of the right 5th toe. 2. Peripheral arterial disease, status post angioplasty of the right anterior tibial artery. 3. Coronary artery disease, status post bypass. 4. Chronic systolic heart failure. 5. Hypertension. 6. Diabetes mellitus. 7. History of cerebrovascular accident with residual left-sided weakness and mild dysphasia. RECOMMENDATIONS: The patient has had revascularization of his right anterior tibial artery. He will need staged intervention of his peroneal and posterior tibial arteries as an outpatient. Continue aspirin and Plavix. Continue optimal heart failure therapy. Carvedilol will be adjusted as it should be dosed b.i.d. Blood pressure is otherwise adequately controlled. Monitor volume status closely. Antibiotics per primary service. Wound care per Podiatry. Thank you for this consult. We will continue to follow. Kim Sales MD ABS/MODL /[id number]
[2020-03-23] MEDS ORDERED: DEXAMETHASONE SOD PHOS INJ 4 MG/ML VIAL ONE (14:07)
[2020-03-23] MEDS ORDERED: ONDANSETRON HCL INJ 2MG/ML 2ML 2 MG/ML VIAL ONE (14:07)
[2020-03-23] MEDS ORDERED: PROPOFOL IV EMULSION 10 MG/ML 20 ML VIAL ONE (14:07)
[2020-03-23] MEDS ORDERED: EPHEDRINE SULFATE INJ 50 MG/ML VIAL ONE (14:07)
[2020-03-23] MEDS ORDERED: LIDOCAINE HCL 2% LOCAL INJ 5 ML SDV VIAL INJ ONE (14:07)
[2020-03-23] MEDS ORDERED: SEVOFLURANE INHAL SOLN 250 ML PEN BTL ONE (14:07)
[2020-03-23] MEDS ORDERED: MIDAZOLAM HCL 2 MG/2 ML VIAL ONE (14:33)
[2020-03-23] MEDS ORDERED: FENTANYL CITRATE/PF 100MCG/2 ML INJ ONE (14:33)
--- NOTE | 2020-03-23 15:44 | NUR ---
PT ACCEPTED TO [facility] BED 505 CALL REPORT TO [phone] DR MONCADA ADMIN IS OCHOA SPENCER
--- NOTE | 2020-03-23 19:20 | NUR ---
Patient received sitting up in bed. AAO x 3. Denies pain at this time. Dressing to right foot with with moderate bleeding. Will continue to monitor. Saty measures in place. Call light within reach. Addendum: 03/24/20 at 0406 by Sarah Moe RN Safety measures in place.
[2020-03-23] MEDS: ATORVASTATIN 20 MG TAB PO SCH (21:19)
[2020-03-23] MEDS: TAMSULOSIN HCL 0.4 MG CAP PO SCH (21:19)
[2020-03-24] VITALS: BP 109/57
[2020-03-24 04:00] VITALS: BP 127/71
[2020-03-24] MEDS: MORPHINE SULFATE 2 MG/ML SYR 1ML IV PRN ×2 (07:00→10:11)
--- NOTE | 2020-03-24 07:00 | NUR ---
Walking rounds done. Shift report given to oncoming nurse.
--- NOTE | 2020-03-24 07:20 | NUR ---
received pt from previous shift, pt resting in bed, right foot drsg intact
[2020-03-24] MEDS: INSULIN REGULAR, HUMAN 100 UNIT/1 ML 3ML VIAL SQ SCH (07:30)
[2020-03-24 08:00] VITALS: BP 126/64
[2020-03-24 08:05] VITALS: BP 128/64
[2020-03-24 08:11] LABS: BASOPHILS # (AUTO) 0.1 (0.0-0.1); BASOPHILS % 0.9 % (0.0-1.0); EOSINOPHILS # (AUTO) 0.1 (0.0-0.4); EOSINOPHILS % 0.4 % (0.0-6.0); HEMOGLOBIN 9.7 g/dL (14.0-18.0); LYMPHOCYTES # (AUTO) 3.1 (1.0-3.2); LYMPHOCYTES % 26.5 % (18.0-39.1); MEAN CORPUSCULAR HEMOGLOBIN 27.8 pg (28-32); MEAN CORPUSCULAR HGB CONC 31.3 g/dL (31-35); MEAN CORPUSCULAR VOLUME 88.8 fL (81-99); MONOCYTES # (AUTO) 0.8 (0.2-0.8); MONOCYTES % 6.6 % (4.4-11.3); NEUTROPHILS # (AUTO) 7.6 (2.1-6.9); NEUTROPHILS % 65.3 % (38.7-80.0); PLATELET COUNT 448 x10e3/uL (140-360); RED BLOOD COUNT 3.49 x10e6/uL (4.3-5.7); RED CELL DISTRIBUTION WIDTH 16.5 % (11.7-14.4)
[2020-03-24 08:26] LABS: ANION GAP 13.2 mmol/L (8-16); BLOOD UREA NITROGEN 15 mg/dL (7-26); BUN/CREATININE RATIO 21 (6-25); CALCIUM 8.3 mg/dL (8.4-10.2); CARBON DIOXIDE 28 mmol/L (22-29); CHLORIDE 100 mmol/L (98-107); CREATININE, SERUM 0.72 mg/dL (0.72-1.25); EST GLOMERULAR FILTRATION RATE > 60 ML/MIN (60-); GLUCOSE 163 mg/dL (74-118); POTASSIUM 4.2 mmol/L (3.5-5.1); SODIUM 137 mmol/L (136-145)
[2020-03-24] MEDS ORDERED: CARVEDILOL 12.5 MG TAB PO SCH (09:00)
[2020-03-24] MEDS: ASPIRIN 81 MG ENTERIC COATED PO SCH (09:06)
[2020-03-24] MEDS: DOCUSATE SODIUM 100 MG CAP PO SCH (09:06)
--- NOTE | 2020-03-24 09:06 | NUR ---
radha garcia to see pt
[2020-03-24] MEDS: CLOPIDOGREL BISULFATE 75 MG TAB PO SCH (09:07)
[2020-03-24] MEDS: MULTIVITAMINS/MINERALS TAB PO SCH (09:07)
[2020-03-24] MEDS: OYST-CAL-D 500MG TABLET PO SCH (09:07)
[2020-03-24] MEDS: DULOXETINE HCL 30 MG DELAYED RELEASE PO SCH (09:07)
[2020-03-24] MEDS: FAMOTIDINE 20 MG TAB PO SCH (09:07)
[2020-03-24] MEDS: BACLOFEN 10 MG TAB PO SCH (09:07)
[2020-03-24] MEDS: AMIODARONE HCL 200 MG TAB PO SCH (09:07)
[2020-03-24] MEDS: MAGNESIUM OXIDE 400 MG TAB PO SCH (09:07)
[2020-03-24] MEDS: SERTRALINE HCL 50 MG TAB PO SCH (09:08)
[2020-03-24] MEDS: ASCORBIC ACID 500 MG TAB PO SCH (09:08)
[2020-03-24] MEDS: ZINC SULFATE 220 MG CAP PO SCH (09:08)
[2020-03-24] MEDS: MINERAL OIL/PETROLAT/GLYCERI 8OZ LOTN TOP SCH (09:08)
[2020-03-24] MEDS: LISINOPRIL 2.5 MG TAB PO SCH (09:08)
--- NOTE | 2020-03-24 09:35 | NUR ---
report given to dina christian at [facility]
--- NOTE | 2020-03-24 09:55 | NUR ---
pt told he is being d to [facility]. pt verbalized understanding and said he will call his daughter
[2020-03-24] MEDS: VANCOMYCIN 750MG/NS 150ML IVPB 150 ML IV SCH (10:12)
--- NOTE | 2020-03-24 12:05 | NUR ---
pt dc to [facility] by em[facility].
--- NOTE | 2020-03-24 12:31 | Progress Note ---
DATE: Cardiology Progress Note Dictated by SUBJECTIVE: The patient is without any new complaints this morning. He states that he slept well, feels well, denies any chest pain, short shortness of breath, or palpitations. OBJECTIVE: VITAL SIGNS: Temperature 98.3, pulse 75, respiratory rate 18, blood pressure 124/65, oxygen saturation 100% on room air. GENERAL: Alert and oriented x3, resting comfortably in bed, in no acute distress. NECK: Supple. No JVD noted. CARDIOVASCULAR: Normal rate and rhythm. S1, S2 and also S4 auscultated. No murmurs, no gallops. LUNGS: Diminished breath sounds, anterior lower lobes otherwise clear to auscultation. No wheezing. No rhonchi or crackles. ABDOMEN: Rounded, soft and nontender. EXTREMITIES: Lower extremities, absent pedal pulses bilaterally. Right lower extremity with wound covered with dressing and reported 4/5 digits present. NEUROLOGIC: Alert and oriented with normal affect. Left-sided weakness secondary to a stroke reported. CARDIOVASCULAR MEDICATIONS: Lisinopril 2.5 mg p.o. daily, Coreg 6.25 mg p.o. daily, Plavix 75 p.o. daily, amiodarone 200 mg p.o. daily, aspirin 81 p.o. daily, atorvastatin 80 mg p.o. h.s., and hydralazine 10 mg q.4 hours p.r.n. for hypertension. LABORATORY DATA: WBC 11.65, hemoglobin 9.7, hematocrit 31.8, platelets 444,000. Sodium 137, potassium 4.2, BUN 15, creatinine 0.72, glucose 163, calcium 8.3. Foot x-ray from yesterday with vascular calcification noted. TELEMETRY: I have personally reviewed telemetry and it reflects normal sinus rhythm. IMPRESSION: 1. Cellulitis and gangrene of the right 5th toe. 2. Peripheral arterial disease, status post angioplasty of the right anterior tibial artery. 3. Coronary artery disease, status post bypass. 4. Chronic systolic heart failure. 5. Hypertension. 6. Diabetes mellitus. 7. History of CVA with left-sided weakness and mild dysphagia. RECOMMENDATIONS: This patient recently had revascularization to his right anterior tibial artery. He still needs staged intervention to his peroneal and also posterior tibial arteries. This can be done as outpatient. At this time continue dual anti-platelet therapy, continue optimal medical therapy for heart failure. We will continue to monitor blood pressure closely. Blood pressure appears to be well controlled. Continue antimicrobial therapy per primary team and also Infectious Disease expertise. Wound care per Podiatry. We will monitor volume status closely. MD LEYLA Morrow/CARMEN /[id number]
[2020-03-25] MEDS ORDERED: FUROSEMIDE 20 MG TAB PO SCH (09:00)
--- NOTE | 2020-03-26 22:37 | Discharge Summary ---
ADMISSION DIAGNOSES: Dry gangrene of the right 5th toe, present on admission; hypertension; type 2 diabetes with chronic systolic and diastolic congestive heart failure; coronary artery disease with history of bypass; obstructive sleep apnea; obesity with a BMI of 34; ambulatory dysfunction; chronic diastolic and systolic congestive heart failure, peripheral arterial disease. HISTORY: Hypertension, type 2 diabetes, CVA with left hemiparesis as well as mild aphasia, frequent UTIs, depression, BPH, insomnia, obstructive sleep apnea without the use of BiPAP at home, PTSD, chronic systolic and diastolic CHF. SURGICAL HISTORY: CABG. FAMILY HISTORY: The patient's mother and father had diabetes and cancer. SOCIAL HISTORY: Noncontributory. HOSPITAL COURSE: A 54-year-old male from [facility], admits with a black toe on his right foot. On admission, chest x-ray showed mild cardiomegaly and pulmonary vascular congestion. Right foot x-ray showed minimal soft tissue over the 5th toe consistent with reported history of dry gangrene. No evidence of osteomyelitis. Bilateral lower extremity arterial Doppler showed significant stenosis on the left lower extremity and arterial disease without significant stenosis on the right lower extremity. Echo showed an EF of 35% to 40% with impaired diastolic filling. On 03/18, the patient was taken to the manager cath lab for an angio. He had intervention to the right peroneal and posterior tibial artery. He was started on aspirin and Plavix. He was advised to take the Plavix for 3 months and aspirin for life. Then, he was taken later to the OR with Podiatry for amputation of the right 5th toe with rotational flap closure. The patient was started on antibiotics during hospitalization and per Podiatry, the patient can discharge back to the assisted facility. He was advised to not touch the right foot dressing for a week and then after that back to do a Betadine wet-to-dry every 3 days. He was advised to follow up with primary care in 1 to 2 weeks and Podiatry in 2 weeks. The patient understands instructions and agrees to plan. Dictated by Aracely Wheeler NP MD [email or web address] Haskins/CARMEN /[id number]
== END 2020-03-24 12:03 | disposition home or self-care (01) | DRG 240 ==
LOC: ER 16:49 → ERHOLD 16:56 → MED/SURG2 19:25
PROVIDERS: ADMIT Internal Medicine; ATTEND Internal Medicine
PROC: 047P3Z1 Dilation of Right Anterior Tibial Artery using Drug-Coated Balloon, Percutaneous Approach (ICD-10-PCS; 2020-03-18)
PROC: 0Y6M0ZF Detachment at Right Foot, Partial 5th Ray, Open Approach (ICD-10-PCS; principal; 2020-03-23 07:30)
DX: E11.52 Type 2 diabetes mellitus with diabetic peripheral angiopathy with gangrene (principal); I50.22 Chronic systolic (congestive) heart failure; I69.354 Hemiplegia and hemiparesis following cerebral infarction affecting left non-dominant side; L03.115 Cellulitis of right lower limb; M86.8X7 Other osteomyelitis, ankle and foot; I11.0 Hypertensive heart disease with heart failure; I69.320 Aphasia following cerebral infarction; I25.10 Atherosclerotic heart disease of native coronary artery without angina pectoris; Z95.1 Presence of aortocoronary bypass graft; G47.33 Obstructive sleep apnea (adult) (pediatric); E66.9 Obesity, unspecified; Z68.34 Body mass index [BMI] 34.0-34.9, adult; R33.9 Retention of urine, unspecified; E78.5 Hyperlipidemia, unspecified; Z88.0 Allergy status to penicillin; Z83.3 Family history of diabetes mellitus; E11.69 Type 2 diabetes mellitus with other specified complication; M77.8 Other enthesopathies, not elsewhere classified; I70.221 Atherosclerosis of native arteries of extremities with rest pain, right leg
CPT/HCPCS: 36415; 37228; 71045; 75630; 76937; 80048; 80053; 80061; 80202; 81001; 82550; 82553; 82948; 83036; 83605; 83735; 83880; 84100; 84443; 84484; 85025; 85610; 85730; 87071; 87075; 87186; 87205; 88304; 88305; 88311; 93005; 93306; 93925; 97139; 99152; 99153; 99251; 99284; C1725; C1760; C1769; C1887; J0720; J1100; J1817; J2001; J2250; J2270; J2405; J2543; J2710; J3010; J3370; J7030; J7050; Q0162; Q9967; U0002